=== PATIENT | female | born 1945 | race Caucasian/White ===

== ENCOUNTER 2023-03-01 13:17 | Outpatient (REF) | payer BC, SELFPAY ==
--- NOTE | ~2023-03-01 | XR_ITS ---
EXAMINATION: XR KNEE, RIGHT CLINICAL INFORMATION: Status post right total knee arthroplasty. COMPARISON: None available. TECHNIQUE: AP and lateral views of the right knee. FINDINGS: Patient status post right knee arthroplasty with femoral and tibial components in position and no evidence of acute fracture or dislocation. No loosening identified. No joint effusion is seen. XR/XR knee RT 2V IMPRESSION: No significant bony abnormality of the right knee identified.
== END 2023-03-01 13:18 | disposition home or self-care (01) ==
LOC: HO.HOSX 13:17
PROVIDERS: Visit Provider Orthopaedic Surgery
DX: Z96.651 Presence of right artificial knee joint (principal)
CPT/HCPCS: 73560

== ENCOUNTER 2023-03-14 13:52 | Outpatient (AMB) | payer BC, SELFPAY ==
--- NOTE | 2023-03-14 13:52 | MHC.OFFVIS ---
Intake Vital Signs 03/14/23 14:03 Height 4 ft 10 in Weight 209 lb 8 oz BMI 43.8 BP 144/66 H Blood Pressure Location Lt brachial Position Sitting Pulse 82 Pulse Source Pulse Oximeter Pulse Oximetry (%) 93 Oxygen Delivery Method Room Air Intake Visit Reasons: Knee pain Intake Note: S/P bilat TKR's, L more painful than R Allergies hydromorphone [From Dilaudid] Allergy (Verified 03/14/23 14:05) asthma levofloxacin [From Levaquin] Allergy (Verified 03/14/23 14:05) restless legs moxifloxacin [From Avelox] Allergy (Verified 03/14/23 14:05) Hives Penicillins Allergy (Verified 03/14/23 14:05) Rash Medication List - Last Reconciled 03/14/23 by Margot Villasenor RN alprazolam 1 mg PO DAILY amlodipine 10 mg PO DAILY budesonide 0.25 mg inhalation BID bupropion HCl 300 mg PO QAM dupilumab (Dupixent) 300 mg subcut Q2W famotidine 20 mg PO BEDTIME tdpbaldjwho-peykhsqbc-lgnymqjt 100-62.5-25 mcg (Trelegy Ellipta) 1 inh inhalation DAILY immun glob G(IgG)-pro-IgA 0-50 10 gram/50 mL (20 %) (Hizentra) 5,000 mg subcut QWEEK lansoprazole 30 mg PO DAILY linaclotide (Linzess) 72 mcg PO DAILY losartan 100 mg PO DAILY montelukast 10 mg PO DAILY omalizumab (Xolair) 300 mg subcut Q4W omalizumab (Xolair) 150 mg subcut Q4W ondansetron 4 mg PO Q8H paroxetine HCl 30 mg PO DAILY pravastatin 10 mg PO DAILY HPI HPI Comments History of Present Illness Details Patient is a pleasant 78 years old female with prior history of left ankle fracture with hardware intact since 1993, bilateral total knee replacements (left knee 2016, right knee 09/2022) and back surgery (2020 Dr. Dacosta), presents today with ongoing global anterior knee pain. She was seen by Orthopedic providers regularly. She is currently active with physical therapy, and has been active with home PT transitioned to outpatient PT since November. Reports she has not gained significant pain relief but some improvement in her functioning with PT. She also has lower back pain which is not bothering her as much. Bilateral knee pain is constant with severe pain up to 8-10/10 and describes it as aching, tiring, exhausting, squeezing, and heavy. She ambulates with slow antalgic gait with slight limping. Uses walker with ambulation. Oxycodone, lidocaine patches, diclofenac gel, ice/heat therapy has been only partially effective for her pain control. Pain affects her daily activities, functioning, mood, sleep, social interactions and quality of life. She is intersted to undergo bilateral genicular nerve blocks for potential genicular RFA procedure. Patient is not interested in peripheral nerve stimulation with Sprint trial. [facility] Surgical History (Updated 03/14/23 @ 14:24 by RIKA Kerns) History of total left knee replacement History of total right knee replacement Review of Systems Const All systems reviewed & are unremarkable except as noted in HPI and below Reports as per HPI, Denies body aches, Denies chills, Reports fatigue, Denies fever(s), Denies frequent falls, Denies night sweats, Denies weakness and Denies weight loss Card Denies chest pain, Denies pedal edema and Denies dyspnea Resp Denies dyspnea Musc Reports back pain, Denies myalgias, Reports arthralgias, Denies numbness, Denies radiating pain into limb, Reports stiffness and Denies tingling Neuro Denies frequent falls, Denies numbness, Denies tingling and Denies weakness Endo Reports fatigue Physical Exam Vital Signs: Last Vital Signs Pulse 82 03/14/23 14:03 BP 144/66 H 03/14/23 14:03 Pulse Ox 93 03/14/23 14:03 Oxygen Delivery Method Room Air 03/14/23 14:03 BMI result Body Mass Index 43.8 General: Appears afebrile. Alert and oriented. Mood and affect appropriate. Follows and participates in conversation appropriately. Respiratory effort is unlabored. No cough. Able to transition from sit to stand unassisted. Uses walker with assistance. Ambulates with bilaterally normal heel strike and toe off. Back/Spine/Pelvis Cervical Spine: cervical ROM normal and No Cervical spine tenderness Thoracic/Lumbar Spine: thoracic and lumbar spine normal to inspection, Thoracic/lumbar spine scar(s), pain with thoraco-lumbar ROM, thoraco-lumbar ROM limited, No thoracic spinal tenderness and No lumbar spinal tenderness Extrem General: Yes capillary refill normal, Yes no clubbing, cyanosis or edema and Yes no calf tenderness Right lower extremity: knee (Limited ROM, well healed scars. ) Details: normal to inspection and tenderness (global anterior knee pain); no swelling, no ecchymosis, no crepitus and no unusual warmth Left lower extremity: knee (Limited ROM, well healed scars. ) Details: normal to inspection and tenderness (Anterior aspect, global knee pain); no swelling, no ecchymosis, no crepitus and no unusual warmth Assessment & Plan Assessment & Plan (1) Bilateral knee pain: Code(s): M25.561 - Pain in right knee; M25.562 - Pain in left knee (2) History of total left knee replacement: Code(s): Z96.652 - Presence of left artificial knee joint (3) History of total right knee replacement: Comment: Dr. Sawyer Code(s): Z96.651 - Presence of right artificial knee joint (4) Lumbar post-laminectomy syndrome: Code(s): M96.1 - Postlaminectomy syndrome, not elsewhere classified (5) Chronic low back pain: Code(s): M54.50 - Low back pain, unspecified; G89.29 - Other chronic pain Plan Schedule Bilateral Diagnostic Genicular Nerve Blocks with local and fluoroscopy for potential genicular RFA procedure. We will start with left knee per patient's request. She is not interested in Sprint PNS trial given complexity of her medical issues, appointments and idea of peripheral lead placement with weekly dressing changes is not fitting into her current lifestyle. Informational pamphlets were provided. All questions and concerns have been answered and patient agreed with the plan. Follow up after injections and sooner if needed. Justification for interventional therapy: ? Patient with average pain > 6/10 ? Patient has exhausted conservative therapy . Patient is currently active with physical therapy The risks, consequences, alternatives, and benefits of various treatment options were discussed with the patient in great detail, including conservative management, injections and procedures. Coding Level of Care Code New Pt Level 4 (01033) Diagnoses Bilateral knee pain M25.561; M25.562 History of total left knee replacement Z96.652 History of total right knee replacement Z96.651 Lumbar post-laminectomy syndrome M96.1 Chronic low back pain M54.50; G89.29
[2023-03-14 14:03] VITALS: BP 144/66; PULSE 82; O2SAT 93; BMI 43.8
== END 2023-03-14 14:32 | disposition home or self-care (01) ==
PROVIDERS: PCP Internal Medicine; Visit Provider Nurse Practitioner Family
DX: M25.561 Pain in right knee (principal); M25.562 Pain in left knee; Z96.652 Presence of left artificial knee joint; Z96.651 Presence of right artificial knee joint; M96.1 Postlaminectomy syndrome, not elsewhere classified; M54.50 Low back pain, unspecified; G89.29 Other chronic pain
CPT/HCPCS: 99204

== ENCOUNTER → 2023-03-14 13:52 | Outpatient (BNVA) | payer BC, SELFPAY | PROVIDERS: PCP Internal Medicine; Visit Provider Nurse Practitioner Family ==

== ENCOUNTER 2023-04-20 06:01 | Outpatient (REF) | payer BC, SELFPAY ==
--- NOTE | ~2023-04-20 | FL_ITS ---
EXAMINATION: XR FLUOROSCOPY WITH IMAGES CLINICAL INFORMATION: Left knee pain COMPARISON: No comparison imaging exams of left knee TECHNIQUE: Fluoroscopy Supervised By: Dr. Llanos. Fluoroscopy Time: 0.2 minutes. Cumulative Dose: 2.17 mGy. DAP: 0.45 Gycm2. 3 fluoroscopy images of the knee are saved. The images are not labeled with regards to laterality. FL/FL guidance in treatment room FINDINGS AND IMPRESSION: The examined knee has intact-appearing arthroplasty components in normal alignment. Lagrange from an injection procedure are seen. The needle tips are projecting medial and lateral to the distal femoral metaphysis and overlying region of medial tibial metaphysis. Please refer to the procedure report.
== END 2023-04-20 06:02 | disposition home or self-care (01) ==
LOC: CF 06:01
PROVIDERS: Visit Provider Internal Medicine
DX: M25.561 Pain in right knee (principal); M25.562 Pain in left knee
CPT/HCPCS: 64454

== ENCOUNTER 2023-04-20 08:39 | Outpatient (AMB) | payer BC, MEDICAID, SELFPAY ==
[2023-04-20 08:47] VITALS: BP 120/62; PULSE 86; RESP 14; O2SAT 96
--- NOTE | 2023-04-20 08:47 | A.OFFVIS_ITS ---
Intake Vital Signs 04/20/23 08:47 BP 120/62 Blood Pressure Location Lt radial Position Sitting Respiration 14 Pulse 86 Pulse Source Pulse Oximeter Pulse Oximetry (%) 96 Oxygen Delivery Method Room Air Intake Visit Reasons: Left Dx GNB Allergies hydromorphone [From Dilaudid] Allergy (Verified 04/20/23 08:48) asthma levofloxacin [From Levaquin] Allergy (Verified 04/20/23 08:48) restless legs moxifloxacin [From Avelox] Allergy (Verified 04/20/23 08:48) Hives Penicillins Allergy (Verified 04/20/23 08:48) Rash HPI Left Dx GNB HPI Details Patient presents for scheduled procedure. Denies any recent cough, cold, infection, fever or other significant changes in medical history since last office visit. [facility] Surgical History (Updated 03/14/23 @ 14:24 by RIKA Kerns) History of total left knee replacement History of total right knee replacement Physical Exam Vital Signs: Last Vital Signs Pulse 86 04/20/23 08:47 Resp 14 04/20/23 08:47 BP 120/62 04/20/23 08:47 Pulse Ox 96 04/20/23 08:47 Oxygen Delivery Method Room Air 04/20/23 08:47 Office Procedures Nerve Block Details: Left Genicular Nerves, fluoroscopic guided - Superior medial, superior lateral, and inferior medial genicular nerve block After obtaining written consent, pre-procedure blood pressure and heart rate were stable and recorded in the nursing record. The patient was placed supine on the fluoroscopy table. The area overlying the peripheral nerves was widely prepped with chloraprep, allowed to dry and sterilely draped. Using fluoroscopy, the appropriate landmarks were identified. The skin overlying the target was anesthetized with 0.5% lidocaine. A 25 gauge 1.5 inch hypodermic needle was advanced under fluoroscopic guidance to the appropriate landmark of each peripheral nerve, except the superomedial nerve where a 3.5 inch spinal needle was used. Verification using lateral and AP views. Aspiration was negative for heme and synovial fluid. 1 cc of ropivacaine 0.5% was injected around each targeted nerve. The needles were removed, skin cleansed and a sterile bandage was applied. The patient tolerated the procedure well and no complications were encountered. Following the procedure the patient's vital signs were stable. The patient was discharged home in good condition with post- procedural instructions. Time Out: Immediately prior to the procedure, the following was verbally confirmed that there is a signed consent form and that the correct patient, planned procedure, site and side are consistent with documentation and that necessary equipment and/or blood products are available prior to the start of the case. Complications: none EBL: <5 cc 42683 - Geniculate (knee) Procedure code (CPT) selection complete Assessment & Plan Assessment & Plan (1) Bilateral knee pain: Code(s): M25.561 - Pain in right knee; M25.562 - Pain in left knee Plan Patient is status post left fluoro guided GNBs. Patient tolerated procedure well and was discharged home in stable condition with discharge instructions. All questions were answered. We will follow-up via telephone or in clinic to assess response to therapy. A follow-up appointment was made during today's visit. Orders: Orders 2 FL guidance in treatment room Today M25.561 - Pain in right knee, M25.562 - Pain in left knee Coding Level of Care Code Procedure Only Diagnoses Bilateral knee pain M25.561; M25.562 CPT Codes Nerve Block - Nerve Block 8: 26732 - Geniculate (knee) ([id number])
== END 2023-04-20 09:53 | disposition home or self-care (01) ==
PROVIDERS: PCP Internal Medicine; Visit Provider Internal Medicine
DX: M25.562 Pain in left knee (principal); M25.561 Pain in right knee
CPT/HCPCS: 64454

== ENCOUNTER 2023-04-27 06:00 | Outpatient (REF) | payer BC, SELFPAY ==
--- NOTE | ~2023-04-27 | FL_ITS ---
EXAMINATION: XR FLUOROSCOPY WITH IMAGES CLINICAL INFORMATION: Presence of left artificial knee joint. COMPARISON: None available. TECHNIQUE: Fluoroscopy Supervised By: Dr. Jose Llanos. Fluoroscopy Time: 0.1 minutes. Cumulative Dose: 1.29 mGy. DAP: 0.232 Gycm2. Images: 2. FINDINGS: Images demonstrate needle placement for geniculate nerve injection. There is a 3 component right knee replacement. FL/FL guidance in treatment room IMPRESSION: Fluoroscopy guidance for pain management procedure
== END 2023-04-27 06:01 | disposition home or self-care (01) ==
LOC: CF 06:00
PROVIDERS: Visit Provider Internal Medicine
DX: M25.561 Pain in right knee (principal); M25.562 Pain in left knee; Z96.652 Presence of left artificial knee joint
CPT/HCPCS: 64454

== ENCOUNTER 2023-04-27 09:32 | Outpatient (AMB) | payer BC, SELFPAY ==
[2023-04-27 09:43] VITALS: BP 106/62; PULSE 88; RESP 14; O2SAT 95
--- NOTE | 2023-04-27 09:43 | MHC.OFFVIS ---
Intake Vital Signs 04/27/23 09:43 BP 106/62 Blood Pressure Location Lt radial Position Sitting Respiration 14 Pulse 88 Pulse Source Pulse Oximeter Pulse Oximetry (%) 95 Oxygen Delivery Method Room Air Intake Visit Reasons: right Dx GNB Allergies hydromorphone [From Dilaudid] Allergy (Verified 04/27/23 09:44) asthma levofloxacin [From Levaquin] Allergy (Verified 04/27/23 09:44) restless legs moxifloxacin [From Avelox] Allergy (Verified 04/27/23 09:44) Hives Penicillins Allergy (Verified 04/27/23 09:44) Rash HPI right Dx GNB HPI Details Patient presents for scheduled procedure. Denies any recent cough, cold, infection, fever or other significant changes in medical history since last office visit. [facility] Surgical History (Updated 03/14/23 @ 14:24 by RIKA Kerns) History of total left knee replacement History of total right knee replacement Physical Exam Vital Signs: Last Vital Signs Pulse 88 04/27/23 09:43 Resp 14 04/27/23 09:43 BP 106/62 04/27/23 09:43 Pulse Ox 95 04/27/23 09:43 Oxygen Delivery Method Room Air 04/27/23 09:43 Office Procedures Nerve Block Details: Right Genicular Nerves, fluoroscopic guided - Superior medial, superior lateral, and inferior medial genicular nerve block After obtaining written consent, pre-procedure blood pressure and heart rate were stable and recorded in the nursing record. The patient was placed supine on the fluoroscopy table. The area overlying the peripheral nerves was widely prepped with chloraprep, allowed to dry and sterilely draped. Using fluoroscopy, the appropriate landmarks were identified. The skin overlying the target was anesthetized with 0.5% lidocaine. A 25 gauge 1.5 inch spinal needle was advanced under fluoroscopic guidance to the appropriate landmark of each peripheral nerve. Verification using lateral and AP views. Aspiration was negative for heme and synovial fluid. 1 cc of ropivacaine 0.5% was injected around each targeted nerve. The needles were removed, skin cleansed and a sterile bandage was applied. The patient tolerated the procedure well and no complications were encountered. Following the procedure the patient's vital signs were stable. The patient was discharged home in good condition with post-procedural instructions. Time Out: Immediately prior to the procedure, the following was verbally confirmed that there is a signed consent form and that the correct patient, planned procedure, site and side are consistent with documentation and that necessary equipment and/or blood products are available prior to the start of the case. Complications: none EBL: <5 cc 94553 - Geniculate (knee) Procedure code (CPT) selection complete Assessment & Plan Assessment & Plan (1) Bilateral knee pain: Code(s): M25.561 - Pain in right knee; M25.562 - Pain in left knee Plan Patient is status post right GNBs. Patient tolerated procedure well and was discharged home in stable condition with discharge instructions. All questions were answered. We will follow-up via telephone or in clinic to assess response to therapy. A follow-up appointment was made during today's visit. Orders: Orders FL guidance in treatment room Today M25.561 - Pain in right knee, M25.562 - Pain in left knee, Z96.652 - Presence of left artificial knee joint Coding Level of Care Code Procedure Only Diagnoses Bilateral knee pain M25.561; M25.562 CPT Codes Nerve Block - Nerve Block 8: 63506 - Geniculate (knee) ([id number])
== END 2023-04-27 10:24 | disposition home or self-care (01) ==
LOC: HO.PMCPRC 09:32
PROVIDERS: PCP Internal Medicine; Visit Provider Internal Medicine
DX: M25.561 Pain in right knee (principal)
CPT/HCPCS: 64454

== ENCOUNTER 2023-04-29 10:55 | Outpatient (AMB) | payer BC, SELFPAY ==
[2023-04-29 11:01] VITALS: BP 172/71; PULSE 97; O2SAT 98; BMI 41.8
--- NOTE | 2023-04-29 11:01 | A.OFFVIS_ITS ---
Intake Vital Signs 04/29/23 11:01 Height 4 ft 10 in Weight 200 lb BMI 41.8 BP 172/71 H Blood Pressure Location Lt brachial Position Sitting Pulse 97 Pulse Source Pulse Oximeter Pulse Oximetry (%) 98 Oxygen Delivery Method Room Air Intake Visit Reasons: s/p Perez Dx GNB Intake Note: Pain today 10/15 [employer] Project [employer] Required: No Accompanied by: Self / Same As Patient Allergies hydromorphone [From Dilaudid] Allergy (Verified 04/29/23 10:55) asthma levofloxacin [From Levaquin] Allergy (Verified 04/29/23 10:55) restless legs moxifloxacin [From Avelox] Allergy (Verified 04/29/23 10:55) Hives Penicillins Allergy (Verified 04/29/23 10:55) Rash HPI HPI Comments History of Present Illness Details Patient presents today for follow up to assess response for Left Diagnostic GNB on 04/20/23 and Right Diagnostic GNB on 04/27/[address] Llanos. Patient reports 90% pain relief for left knee for first 48 hours and ongoing 80% pain relief and 80% ongoing pain relief for right knee since procedure. Patient reports significant improvement in her mobility, functioning, sleep and tolerance with stair walking. She also reports left foot pain with h/o left ankle fracture with hardware and plans to follow up with Orthopedics. Patient is interested to proceed with bilateral genicular RFA procedure for a longer term pain relief for her chronic knee pain. Denies any recent cough, cold, infection, fever or other significant changes in medical history since last office visit. Past Procedures: 04/20/23: Diagnostic Left GNB-90% pain relief for >48% 04/27/23: Diagnostic Right GNB-80% pain relief for >48 hours PRIOR: Patient is a pleasant 78 years old female with prior history of left ankle fracture with hardware intact since 1993, bilateral total knee replacements (left knee 2016, right knee 09/2022) and back surgery (2020 Dr. Dacosta), presents today with ongoing global anterior knee pain. She was seen by Orthopedic providers regularly. She is currently active with physical therapy, and has been active with home PT transitioned to outpatient PT since November. Reports she has not gained significant pain relief but some improvement in her functioning with PT. She also has lower back pain which is not bothering her as much. Bilateral knee pain is constant with severe pain up to 8-10/10 and describes it as aching, tiring, exhausting, squeezing, and heavy. She ambulates with slow antalgic gait with slight limping. Uses walker with ambulation. Oxycodone, lidocaine patches, diclofenac gel, ice/heat therapy has been only partially effective for her pain control. Pain affects her daily activities, functioning, mood, sleep, social interactions and quality of life. She is interested to undergo bilateral genicular nerve blocks for potential genicular RFA procedure. Patient is not interested in peripheral nerve stimulation with Sprint trial. [facility] Surgical History History of total left knee replacement History of total right knee replacement Review of Systems Const All systems reviewed & are unremarkable except as noted in HPI and below Physical Exam Vital Signs: Last Vital Signs Pulse 97 04/29/23 11:01 BP 172/71 H 04/29/23 11:01 Pulse Ox 98 04/29/23 11:01 Oxygen Delivery Method Room Air 04/29/23 11:01 BMI result Body Mass Index 41.8 General: Appears afebrile. Alert and oriented. Mood and affect appropriate. Follows and participates in conversation appropriately. Respiratory effort is unlabored. No cough. Able to transition from sit to stand unassisted. Uses walker with assistance. Ambulates with bilaterally normal heel strike and toe off. Extrem General: Yes capillary refill normal, Yes no clubbing, cyanosis or edema and Yes no calf tenderness Right lower extremity: knee (Limited ROM, well healed scars. ) Details: normal to inspection and tenderness (global anterior knee pain); no swelling, no ecchymosis, no crepitus and no unusual warmth Left lower extremity: knee (Limited ROM, well healed scars. ) Details: normal to inspection and tenderness (Anterior aspect, global knee pain); no swelling, no ecchymosis, no crepitus and no unusual warmth and foot Details: normal to inspection, tenderness Location: of the lateral foot Location: in the mid- section, toes with normal ROM, no edema and vascular exam Details: dorsalis pedis pulse present, posterior tibial pulse present and normal capillary refill; no unusual warmth and no ecchymosis Results Reviewed Results Reviewed: XR KNEE, RIGHT 03/01/23 CLINICAL INFORMATION: Status post right total knee arthroplasty. FINDINGS: Patient status post right knee arthroplasty with femoral and tibial components in position and no evidence of acute fracture or dislocation. No loosening identified. No joint effusion is seen. IMPRESSION: No significant bony abnormality of the right knee identified. Assessment & Plan Assessment & Plan (1) Bilateral knee pain: Code(s): M25.561 - Pain in right knee; M25.562 - Pain in left knee (2) Left foot pain: Code(s): M79.672 - Pain in left foot (3) History of total right knee replacement: Comment: Dr. Sawyer Code(s): Z96.651 - Presence of right artificial knee joint (4) History of total left knee replacement: Code(s): Z96.652 - Presence of left artificial knee joint Plan Schedule Bilateral Genicular Nerve Cooled RFA with sedation and fluoroscopy for chronic knee pain. Patient is not interested in Sprint PNS trial given complexity of her medical issues, appointments and idea of peripheral lead placement with weekly dressing changes is not fitting into her current lifestyle. Limitations of repeated RFA were reviewed with patient. All questions and concerns have been answered and patient agreed with the plan. Patient will follow up with Orthopedics re: left foot pain with prior history of ankle surger y. Follow up after genicular RFA and sooner if needed. Justification for interventional therapy: ? Patient with average pain > 6/10 ? Patient has exhausted conservative therapy, physical therapy, NSAIDs, oxycodone ? Dianostic bilateral GNB provided 80-90% pain relief >48 hours The risks, consequences, alternatives, and benefits of various treatment options were discussed with the patient in great detail, including conservative management, injections and procedures. Medications: New diclofenac sodium 1% (Arthritis Pain (diclofenac)) apply to single knee, ankle, foot; for foot includes sole/toes/top of foot 4 grams topical QID 100 grams 1RF pain M25.561 - Pain in right knee, M25.562 - Pain in left knee, M79.672 - Pain in left foot Coding Level of Care Code Est Pt Level 4 (78709) Diagnoses Bilateral knee pain M25.561; M25.562 Left foot pain M79.672 History of total right knee replacement Z96.651 History of total left knee replacement Z96.652
== END 2023-04-29 11:14 | disposition home or self-care (01) ==
PROVIDERS: PCP Internal Medicine; Visit Provider Nurse Practitioner Family
DX: M25.561 Pain in right knee (principal); M25.562 Pain in left knee; M79.672 Pain in left foot; Z96.651 Presence of right artificial knee joint; Z96.652 Presence of left artificial knee joint
CPT/HCPCS: 99214

== ENCOUNTER → 2023-04-29 10:55 | Outpatient (BNVA) | payer BC, SELFPAY | PROVIDERS: PCP Internal Medicine; Visit Provider Nurse Practitioner Family ==

== ENCOUNTER 2023-05-31 13:33 | Outpatient (AMB) | payer BC, SELFPAY ==
--- NOTE | 2023-05-31 13:40 | MHC.OFFVIS ---
Intake Intake Visit Reasons: ov-RT TKA follow up Intake Note: Cristina is a 78 year old female who presents today for a follow up appointment of her right knee s/p Right TKA 09/10/2022 as well as left total knee replacement surgery performed approximately 6 years ago. Patient states that she has taken oxycodone for chronic pain for quite a while. She has been seen by pain management here at [facility]. She is due to undergo ?pain blocks? on both of her knees next month. She denies any fevers or chills. Allergies hydromorphone [From Dilaudid] Allergy (Verified 05/31/23 13:46) asthma levofloxacin [From Levaquin] Allergy (Verified 05/31/23 13:46) restless legs moxifloxacin [From Avelox] Allergy (Verified 05/31/23 13:46) Hives Penicillins Allergy (Verified 05/31/23 13:46) Rash Medication List - Last Reviewed 05/31/23 by Peyton Ennis, [facility] alprazolam 1 mg PO DAILY amlodipine 10 mg PO DAILY budesonide 0.25 mg inhalation BID bupropion HCl 300 mg PO QAM diclofenac sodium 1% (Arthritis Pain (diclofenac)) 4 grams topical QID dupilumab (Dupixent) 300 mg subcut Q2W famotidine 20 mg PO BEDTIME agpxtouvqup-uwxlzrmow-rlsnzecb 100-62.5-25 mcg (Trelegy Ellipta) 1 inh inhalation DAILY yatwdjxrcfk-gpzqrcdyd-rnfmgazw 200-62.5-25 mcg (Trelegy Ellipta) 1 ea inhalation DAILY hydroxyzine HCl 25 mg PO QID immun glob G(IgG)-pro-IgA 0-50 10 gram/50 mL (20 %) (Hizentra) 5,000 mg subcut QWEEK lansoprazole 30 mg PO DAILY linaclotide (Linzess) 145 mcg PO DAILY linaclotide (Linzess) 72 mcg PO DAILY losartan 100 mg PO DAILY montelukast 10 mg PO DAILY omalizumab (Xolair) 300 mg subcut Q4W omalizumab (Xolair) 150 mg subcut Q4W ondansetron 4 mg PO Q8H oxycodone 5 mg PO TID paroxetine HCl 30 mg PO DAILY pravastatin 10 mg PO DAILY [facility] Surgical History History of total left knee replacement History of total right knee replacement Physical Exam Const Other: Well-nourished well-developed very friendly female awake alert and oriented x3 in no acute distress Extrem Other: Bilateral lower extremity examination shows good capillary refill, no skin lesions noted, normal sensation light touch Right knee examination shows that the surgical incision is well healed, no erythema, full active extension and flexion to 125 degrees, her patella tracks well Left knee examination shows that the surgical incision is well healed, no erythema, range of motion from -3 degrees to 120 degrees, her patella tracks well Assessment & Plan Assessment & Plan (1) Right knee pain: Code(s): M25.561 - Pain in right knee Plan Ms. Lorenz continues to have chronic pain issues after undergoing bilateral total knee replacement surgeries. At this point she does not appear to have anything mechanically wrong with her knee replacements. She will follow up with pain management for her ?pain blocks? next month as scheduled. She will continue taking oxycodone as needed. She will contact me prior to her annual follow-up appointment should any questions or concerns arise. Feel free to call me at any time should questions regarding her orthopedic management arise. I spent 22 minutes in reviewing the patient's records and imaging studies, seeing the patient and documenting in the medical record. Coding Level of Care Code Est Pt Level 2 (78671) Diagnoses Right knee pain M25.561
== END 2023-05-31 14:00 | disposition home or self-care (01) ==
PROVIDERS: PCP Internal Medicine; Visit Provider Orthopaedic Surgery
DX: M25.561 Pain in right knee (principal)
CPT/HCPCS: 99212

== ENCOUNTER → 2023-05-31 13:33 | Outpatient (BNVA) | payer BC, SELFPAY | PROVIDERS: PCP Internal Medicine; Visit Provider Orthopaedic Surgery ==

== ENCOUNTER 2023-06-15 11:11 | Day surgery (SDC) | payer MEDICARE, SELFPAY ==
[2023-06-09 14:12] VITALS: BMI 41.8
--- NOTE | 2023-06-14 09:11 | HO.ANESPROP2 ---
Documented by User: Radha Shi NP 06/14/23 09:12 HPI - Anesthesia Eval Consult details Narrative: 78yo F for Bilateral Genicular Nerve Cool RFA PMFSH Active Problems Active Problems: All Active Problems (Updated 06/09/23 @ 13:56 by Yasmeen Valencia RN) Left foot pain (Acute) Chronic low back pain (Acute) Lumbar post-laminectomy syndrome (Acute) Bilateral knee pain (Acute) Right knee pain (Acute) History of total right knee replacement (Acute) History of total left knee replacement (Acute) Past Medical History Medical History Osteoporosis Arthritis Asthma GERD (gastroesophageal reflux disease) Elevated cholesterol HTN (hypertension) Chronic low back pain Surgical History Surgical History Hx of mastectomy Hx of hysterectomy History of total left knee replacement History of total right knee replacement Social History Patient Tobacco Use Status: Former Tobacco user Quit Date: 40 years Meds Allergies Allergy/AdvReac Type Severity Reaction Status Date / Time hydromorphone [From Dilaudid] Allergy Intermediate asthma Verified 07/18/23 13:05 exacerbation moxifloxacin [From Avelox] Allergy Intermediate Hives Verified 07/18/23 13:05 Penicillins Allergy Intermediate Rash Verified 07/18/23 13:05 levofloxacin [From Levaquin] AdvReac Intermediate restless Verified 07/18/23 13:05 legs Home Medications Medication Instructions Recorded Confirmed Last Taken Type alprazolam 1 mg tablet 1 mg PO DAILY 03/01/23 06/09/23 Unknown History amlodipine 10 mg tablet 10 mg PO DAILY 03/01/23 06/15/23 06/15/23 History budesonide 0.5 mg/2 mL suspension 0.25 mg inhalation BID 03/01/23 06/09/23 Unknown History for nebulization bupropion HCl 300 mg 24 hr tablet, 300 mg PO QAM 03/01/23 06/09/23 06/15/23 History extended release dupilumab 300 mg/2 mL subcutaneous 300 mg subcut Q2W 03/01/23 06/09/23 Unknown History pen injector (Dupixent) famotidine 20 mg tablet 20 mg PO BEDTIME 03/01/23 06/09/23 Unknown History fluticasone fur. 100 mcg-umeclid 1 inh inhalation DAILY 03/01/23 06/09/23 Unknown History 62.5 mcg-vilant 25 mcg inhalat.powder (Trelegy Ellipta) immun glob G 10 gram/50 mL(20 5,000 mg subcut QWEEK 03/01/23 06/09/23 Unknown History %)-pro-IgA 0-50 mcg/mL subcutaneous soln (Hizentra) lansoprazole 30 mg capsule,delayed 30 mg PO DAILY 03/01/23 06/15/23 06/15/23 History release linaclotide 72 mcg capsule 72 mcg PO DAILY 03/01/23 06/09/23 Unknown History (Linzess) losartan 100 mg tablet 100 mg PO DAILY 03/01/23 06/09/23 Unknown History montelukast 10 mg tablet 10 mg PO DAILY 03/01/23 06/09/23 Unknown History omalizumab 150 mg/mL subcutaneous 150 mg subcut Q4W 03/01/23 06/09/23 Unknown History syringe (Xolair) omalizumab 150 mg/mL subcutaneous 300 mg subcut 03/01/23 05/31/23 Unknown History syringe (Xolair) ondansetron 4 mg disintegrating 4 mg PO Q8H 03/01/23 06/09/23 Unknown History tablet paroxetine HCl 30 mg tablet 30 mg PO DAILY 03/01/23 06/15/23 06/15/23 History pravastatin 10 mg tablet 10 mg PO DAILY 03/01/23 06/09/23 Unknown History fluticasone fur. 200 mcg-umeclid 1 ea inhalation DAILY 04/29/23 06/15/23 Unknown History 62.5 mcg-vilant 25 mcg inhalat.powder (Trelegy Ellipta) hydroxyzine HCl 25 mg tablet 25 mg PO QID 04/29/23 06/09/23 Unknown History linaclotide 145 mcg capsule 145 mcg PO DAILY 04/29/23 06/15/23 Unknown History (Linzess) oxycodone 5 mg tablet 5 mg PO TID 04/29/23 06/15/23 06/15/23 History famotidine 40 mg tablet 40 mg PO BID 06/15/23 06/15/23 Unknown History Exam Exam Date and Time: June 14, 2023 0911 Height,Weight and Vital Signs: Height 4 ft 10 in Weight 90.718 kg Assessment and Plan Assessment Anesthesia Assessment: Chart Reviewed Documented by User: Scar Rico MD 07/28/23 18:51 HPI - Anesthesia Eval Consult details Narrative: 78yo F for Bilateral Genicular Nerve Cool RFA no chest pain or SOB Asthma PMFSH Past Medical History Medical History Osteoporosis Arthritis Asthma GERD (gastroesophageal reflux disease) Elevated cholesterol HTN (hypertension) Chronic low back pain Functional capacity: uses cane/walker Family History Family history of problems with anesthesia: No Surgical History Surgical History Hx of mastectomy Hx of hysterectomy History of total left knee replacement History of total right knee replacement History of Problems with Anesthesia: No Social History Patient Tobacco Use Status: Former Tobacco user Quit Date: 40 years Meds Allergies Allergy/AdvReac Type Severity Reaction Status Date / Time hydromorphone [From Dilaudid] Allergy Intermediate asthma Verified 07/18/23 13:05 exacerbation moxifloxacin [From Avelox] Allergy Intermediate Hives Verified 07/18/23 13:05 Penicillins Allergy Intermediate Rash Verified 07/18/23 13:05 levofloxacin [From Levaquin] AdvReac Intermediate restless Verified 07/18/23 13:05 legs Home Medications Medication Instructions Recorded Confirmed Last Taken Type alprazolam 1 mg tablet 1 mg PO DAILY 03/01/23 06/09/23 Unknown History amlodipine 10 mg tablet 10 mg PO DAILY 03/01/23 06/15/23 06/15/23 History budesonide 0.5 mg/2 mL suspension 0.25 mg inhalation BID 03/01/23 06/09/23 Unknown History for nebulization bupropion HCl 300 mg 24 hr tablet, 300 mg PO QAM 03/01/23 06/09/23 06/15/23 History extended release dupilumab 300 mg/2 mL subcutaneous 300 mg subcut Q2W 03/01/23 06/09/23 Unknown History pen injector (Dupixent) famotidine 20 mg tablet 20 mg PO BEDTIME 03/01/23 06/09/23 Unknown History fluticasone fur. 100 mcg-umeclid 1 inh inhalation DAILY 03/01/23 06/09/23 Unknown History 62.5 mcg-vilant 25 mcg inhalat.powder (Trelegy Ellipta) immun glob G 10 gram/50 mL(20 5,000 mg subcut QWEEK 03/01/23 06/09/23 Unknown History %)-pro-IgA 0-50 mcg/mL subcutaneous soln (Hizentra) lansoprazole 30 mg capsule,delayed 30 mg PO DAILY 03/01/23 06/15/23 06/15/23 History release linaclotide 72 mcg capsule 72 mcg PO DAILY 03/01/23 06/09/23 Unknown History (Linzess) losartan 100 mg tablet 100 mg PO DAILY 03/01/23 06/09/23 Unknown History montelukast 10 mg tablet 10 mg PO DAILY 03/01/23 06/09/23 Unknown History omalizumab 150 mg/mL subcutaneous 150 mg subcut Q4W 03/01/23 06/09/23 Unknown History syringe (Xolair) omalizumab 150 mg/mL subcutaneous 300 mg subcut 03/01/23 05/31/23 Unknown History syringe (Xolair) ondansetron 4 mg disintegrating 4 mg PO Q8H 03/01/23 06/09/23 Unknown History tablet paroxetine HCl 30 mg tablet 30 mg PO DAILY 03/01/23 06/15/23 06/15/23 History pravastatin 10 mg tablet 10 mg PO DAILY 03/01/23 06/09/23 Unknown History fluticasone fur. 200 mcg-umeclid 1 ea inhalation DAILY 04/29/23 06/15/23 Unknown History 62.5 mcg-vilant 25 mcg inhalat.powder (Trelegy Ellipta) hydroxyzine HCl 25 mg tablet 25 mg PO QID 04/29/23 06/09/23 Unknown History linaclotide 145 mcg capsule 145 mcg PO DAILY 04/29/23 06/15/23 Unknown History (Linzess) oxycodone 5 mg tablet 5 mg PO TID 04/29/23 06/15/23 06/15/23 History famotidine 40 mg tablet 40 mg PO BID 06/15/23 06/15/23 Unknown History Exam Airway Mallampati Class: III Loose/Missing/Broken Teeth: Yes Assessment and Plan Assessment Anesthesia Assessment: Anesthesia Plan Discussed Final Anesthetic Review Family History of Problems with Anesthesia: No History of Problems with Anesthesia: No NPO: Yes ASA Class: III Final Preanesthetic Review: Meds/Allgs Chart Reviewed, Consent Obtained/Reviewed and Anes Risks/Benef Reviewed Patient Risk: Intermediate Procedure Risk: Intermediate Anesthetic Plan Anesthetic Plan: MAC: and Agree w/ Assess. and Plan Disposition: Standard PACU
--- NOTE | ~2023-06-15 | FL_ITS ---
EXAMINATION: XR FLUOROSCOPY WITH IMAGES CLINICAL INFORMATION: Bilateral genicular nerve RFA. COMPARISON: Prior examinations, most recently 04/27/2023. TECHNIQUE: Fluoroscopy Supervised By: Dr. Jose Llanos. Fluoroscopy Time: 0.9 minutes. Cumulative Dose: 15.4 mGy. DAP: 2.90 Gycm2. Images: 4. FINDINGS: The submitted intraoperative images show bilateral needle placements nerve ablations. There are intact bilateral knee total arthroplasties. FL/FL guidance in OR IMPRESSION: Intraoperative fluoroscopic guidance is provided for bilateral genicular nerve RFA treatments. Please see the patient's Operative Report for full procedural details.
[2023-06-15 11:45] VITALS: BMI 44.4; BMI 46.0
[2023-06-15 11:47] VITALS: BP 137/62; PULSE 78; RESP 18; TEMP 36.2; O2SAT 96
[2023-06-15 13:52] VITALS: BP 116/93; PULSE 76; RESP 14; TEMP 36.6; O2SAT 96
--- NOTE | 2023-06-15 13:57 | MHC.SHP ---
Pre-Procedural Eval Section A Date of Service: 06/15/23 The patient is an INPATIENT: No Changes since office visit: Yes Patient answered all questions The History & Physical has been completed within 30 days and I have reviewed it.: No Section B Chief Complaint: Right and Left Knee pain,R and L artificial joint Relevant Family History (Specify if Yes): No Relevant Social History: None Present Medications: see Short Stay Collaborative assessment Medical History: No relevant PMH History of Previous Operations: Relevant previous surgery/procedure and date(s) ( bilateral TKA) Allergies: Allergies Allergy/AdvReac Type Severity Reaction Status Date / Time hydromorphone [From Dilaudid] Allergy Intermediate asthma Verified 06/09/23 13:57 exacerbation moxifloxacin [From Avelox] Allergy Intermediate Hives Verified 06/09/23 13:57 Penicillins Allergy Intermediate Rash Verified 06/09/23 13:57 levofloxacin [From Levaquin] AdvReac Intermediate restless Verified 06/09/23 13:57 legs Review of Systems Sugical H&P ROS: Negative: Constitution, Cardiovascular and Respiratory Exam Surgical H&P Exam: Normal: HEENT, Normal: Heart and Normal: Lungs Plan Diagnosis/Plan: Unchanged I have reviewed the history and physical and performed a pertinent physical examination on my patient. No changes have occurred unless specified. Time Spent With Patient Time: Total time managing care of this patient today ____ minutes.
--- NOTE | 2023-06-15 13:58 | PM.OP ---
Brief Operative Note Date of Service: 06/15/23 Pre-op diagnosis: Chronic knee pain after total knee arthroplasty of both knees Post-op diagnosis: same Procedure: Superior medial, superior lateral, and inferior medial genicular nerve radiofrequency lesioning Implants: None Surgeon: Jose Llanos MD Anesthesia: MAC and local Was an Human Service Specialist used for this Procedure?: No Estimated blood loss (mL): 4 Pathology: none sent Condition: stable Disposition: PACU
--- NOTE | 2023-06-15 13:59 | W.PM.OPN ---
Operative Note Operative Note Date of Service: 06/15/23 Narrative: Genicular Nerve RFL - fluoroscopic guided - Superior medial, superior lateral, and inferior medial genicular nerve radiofrequency lesioning, bilateral After obtaining written consent, pre-procedure blood pressure and heart rate were stable and recorded in the nursing record. Standard monitors were applied. The patient was placed supine on the fluoroscopy table and sedated by the room server. The area overlying the peripheral nerves was widely prepped with chloraprep, allowed to dry and sterilely draped. Using fluoroscopy, the appropriate landmarks were identified. The skin overlying the target was anesthetized with 0.5% lidocaine. A 18 gauge 50 mm needle was advanced under fluoroscopic guidance to the appropriate landmark of each peripheral nerve and verified using lateral and AP views. Aspiration was negative for heme and synovial fluid. Impedences were verified under 600 ohms. Each site was injected with 0.5 ml 2% preservative-free lidocaine. Radiofrequency lesioning was performed for 165 seconds at 80 deg Celcius tissue temperature. Each site was then injected with 1 ml 0.5% preservative-free bupivacaine. The needles were removed, skin cleansed and a sterile bandage was applied. The patient tolerated the procedure well and no complications were encountered. Following the procedure the patient's vital signs were stable. The patient was discharged home in good condition with post-procedural instructions. Time Out: Immediately prior to the procedure, the following was verbally confirmed that there is a signed consent form and that the correct patient, planned procedure, site and side are consistent with documentation and that necessary equipment and/or blood products are available prior to the start of the case. Complications: none EBL: <5 cc
[2023-06-15 14:06] VITALS: BP 121/61; PULSE 71; RESP 14; O2SAT 96
[2023-06-15 14:21] VITALS: BP 107/59; PULSE 71; RESP 14; O2SAT 93
[2023-06-15 14:36] VITALS: BP 127/75; PULSE 75; RESP 14; TEMP 36.4; O2SAT 94
== END 2023-06-15 15:34 | disposition home or self-care (01) ==
PROVIDERS: PCP Internal Medicine; Visit Provider Internal Medicine
PROC: (CPT 64624; principal; 2023-06-15 12:40)
DX: T84.84XA Pain due to internal orthopedic prosthetic devices, implants and grafts, initial encounter (principal); G89.28 Other chronic postprocedural pain; M25.561 Pain in right knee; M25.562 Pain in left knee; M79.672 Pain in left foot; Z96.653 Presence of artificial knee joint, bilateral; Y83.8 Other surgical procedures as the cause of abnormal reaction of the patient, or of later complication, without mention of misadventure at the time of the procedure; Y79.2 Prosthetic and other implants, materials and accessory orthopedic devices associated with adverse incidents; Y92.9 Unspecified place or not applicable; R26.89 Other abnormalities of gait and mobility; Z79.899 Other long term (current) drug therapy; Z99.89 Dependence on other enabling machines and devices; Z88.1 Allergy status to other antibiotic agents; Z88.0 Allergy status to penicillin; Z88.5 Allergy status to narcotic agent; Z98.890 Other specified postprocedural states
CPT/HCPCS: 64624; J0131; J0690; J2250

== ENCOUNTER → 2023-06-15 11:11 | Outpatient (BNV) | payer MEDICARE, SELFPAY | PROVIDERS: PCP Internal Medicine; Visit Provider Internal Medicine | DX: M47.812 Spondylosis without myelopathy or radiculopathy, cervical region (principal) | CPT/HCPCS: 64633; 64634 ==

== ENCOUNTER 2023-07-18 13:00 | Outpatient (AMB) | payer BC, SELFPAY ==
--- NOTE | 2023-07-18 13:03 | A.OFFVIS_ITS ---
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: No Accompanied by: Self / Same As Patient Allergies hydromorphone [From Dilaudid] Allergy (Intermediate, Verified 07/18/23 13:05) asthma exacerbation moxifloxacin [From Avelox] Allergy (Intermediate, Verified 07/18/23 13:05) Hives Penicillins Allergy (Intermediate, Verified 07/18/23 13:05) Rash levofloxacin [From Levaquin] Adverse Reaction (Intermediate, Verified 07/18/23 13:05) restless legs HPI HPI Comments History of Present Illness Details Patient presents today for follow up to assess response for Bilateral superior medial, superior lateral, and inferior medial genicular nerve radiofrequency lesioning on 06/15/[address] Llanos. Patient reports ongoing 80% pain relief for in both knees since procedure. She reports anterior knee residual numbness since genicular RFA. Patient reports significant improvement in her mobility, functioning, sleep and tolerance with stair walking. She continues to report left foot pain with h/o left ankle fracture with hardware and plans to follow up with Orthopedics or Harness Installer. Patient also states she recently joined gym for balance and gait strengthening and considers to join aqua therapy as well. Denies any recent cough, cold, infection, fever or other significant changes in medical history since last office visit. Past Procedures: 06/15/23: Bilateral genicular nerve cool ed RFA-80% pain relief, ongoing 04/20/23: Diagnostic Left GNB-90% pain r elief for >48% 04/27/23: Diagnostic Right GNB-80% pain relief for >48 hours PRIOR: Patient is a pleasant 78 years old female with prior history of left ankle fracture with hardware intact since 1993, bilateral total knee replacements (left knee 2016, right knee 09/2022) and back surgery (2020 Dr. Dacosta), presents today with ongoing global anterior knee pain. She was seen by Orthopedic providers regularly. She is currently active with physical therapy, and has been active with home PT transitioned to outpatient PT since November. Reports she has not gained significant pain relief but some improvement in her functioning with PT. She also has lower back pain which is not bothering her as much. Bilateral knee pain is constant with severe pain up to 8-10/10 and describes it as aching, tiring, exhausting, squeezing, and heavy. She ambulates with slow antalgic gait with slight limping. Uses walker with ambulation. Oxycodone, lidocaine patches, diclofenac gel, ice/heat therapy has been only partially effective for her pain control. Pain affects her daily activities, functioning, mood, sleep, social interactions and quality of life. She is interested to undergo bilateral genicular nerve blocks for potential genicular RFA procedure. Patient is not interested in peripheral nerve stimulation with Sprint trial. FOR[facility]LY [facility], [facility] Medical History Osteoporosis Arthritis Asthma GERD (gastroesophageal reflux disease) Elevated cholesterol HTN (hypertension) Chronic low back pain Surgical History Hx of mastectomy Hx of hysterectomy History of total left knee replacement History of total right knee replacement Social History Patient Tobacco Use Status: Former Tobacco user Quit Date: 40 years Review of Systems Const All systems reviewed & are unremarkable except as noted in HPI and below Physical Exam Vital Signs: BMI result Body Mass Index 41.8 General: Appears afebrile. Alert and oriented. Mood and affect appropriate. Follows and participates in conversation appropriately. Respiratory effort is unlabored. No cough. Able to transition from sit to stand unassisted. Uses cane with ambulation. Ambulates with bilaterally normal heel strike and toe off. Extrem General: Yes capillary refill normal, Yes no clubbing, cyanosis or edema and Yes no calf tenderness Assessment & Plan Assessment & Plan (1) Bilateral knee pain: Code(s): M25.561 - Pain in right knee; M25.562 - Pain in left knee (2) History of total left knee replacement: Code(s): Z96.652 - Presence of left artificial knee joint (3) History of total right knee replacement: Comment: Dr. Sawyer Code(s): Z96.651 - Presence of right artificial knee joint (4) Left foot pain: Code(s): M79.672 - Pain in left foot Plan Patient is status post B/L Genicular Nerve Cooled RFA 06/15/23 with ongoing 80% pain relief in both knees, right better than left. She is content with bilateral knee pain relief and will monitor for longevity of RFA and notify our office when her symptoms return. Reviewed effects and longevity of repeated RFA treatments. She continues to report left foot pain with h/o left ankle fracture with hardware and plans to follow up with Orthopedics or Harness Installer. All questions and concerns have been answered and patient agreed with the plan. Follow up as needed. Coding Level of Care Code Est Pt Level 3 (71143) Diagnoses Bilateral knee pain M25.561; M25.562 History of total left knee replacement Z96.652 History of total right knee replacement Z96.651 Left foot pain M79.672
[2023-07-18 13:06] VITALS: BMI 41.8
== END 2023-07-18 13:12 | disposition home or self-care (01) ==
PROVIDERS: PCP Internal Medicine; Visit Provider Nurse Practitioner Family
DX: M25.561 Pain in right knee (principal); M25.562 Pain in left knee; Z96.652 Presence of left artificial knee joint; Z96.651 Presence of right artificial knee joint; M79.672 Pain in left foot
CPT/HCPCS: 99213

== ENCOUNTER → 2023-07-18 13:00 | Outpatient (BNVA) | payer BC, SELFPAY | PROVIDERS: PCP Internal Medicine; Visit Provider Nurse Practitioner Family ==

== ENCOUNTER 2023-09-15 11:21 | Outpatient (REF) | payer MEDICARE, SELFPAY ==
--- NOTE | ~2023-09-15 | XR_ITS ---
EXAMINATION: XR KNEE, RIGHT CLINICAL INFORMATION: Presence of right artificial knee joint COMPARISON: Right knee 03/01/2023 TECHNIQUE: 3 views of the right knee. FINDINGS: The patient is status post right knee arthroplasty with patellar button with femoral and tibial components in position and no evidence of acute fracture or dislocation. No loosening identified. No joint effusion is seen. XR/XR knee RT 3V IMPRESSION: No significant abnormality of the right knee identified.
--- NOTE | ~2023-09-15 | XR_ITS ---
EXAMINATION: XR KNEE, LEFT CLINICAL INFORMATION: Presence of left artificial knee COMPARISON: None available. TECHNIQUE: 3 views of the left knee. FINDINGS: The patient is status post left knee arthroplasty with patellar button with femoral and tibial components in position and no evidence of acute fracture or dislocation. No loosening identified. Small joint effusion is seen. There is mild calcification of the distal quadriceps tendon. XR/XR knee LT 3V IMPRESSION: No significant abnormality of the left knee.
== END 2023-09-15 11:22 | disposition home or self-care (01) ==
LOC: HO.HOSX 11:21
PROVIDERS: Visit Provider Orthopaedic Surgery
DX: Z96.651 Presence of right artificial knee joint (principal); M25.562 Pain in left knee; Z96.652 Presence of left artificial knee joint
CPT/HCPCS: 73562

== ENCOUNTER 2023-09-15 13:33 | Outpatient (AMB) | payer BC, SELFPAY ==
[2023-09-15 13:37] VITALS: BMI 41.8
--- NOTE | 2023-09-15 13:37 | MHC.OFFVIS ---
Intake Vital Signs 09/15/23 13:37 Height 4 ft 10 in Weight 200 lb BMI 41.8 Intake Visit Reasons: ov-RT TKA follow up Intake Note: Cristina is a 78 female who presents with complaints of mild intermittent discomfort in both of her knees after undergoing bilateral total knee replacement surgeries. She denies any fevers or chills. She continues to take oxycodone for chronic low back pain. She recently joined [email or web address] and has been attending exercise classes 2 times per week. Allergies hydromorphone [From Dilaudid] Allergy (Intermediate, Verified 09/15/23 13:39) asthma exacerbation moxifloxacin [From Avelox] Allergy (Intermediate, Verified 09/15/23 13:39) Hives Penicillins Allergy (Intermediate, Verified 09/15/23 13:39) Rash levofloxacin [From Levaquin] Adverse Reaction (Intermediate, Verified 09/15/23 13:39) restless legs Medication List - Last Reconciled 09/16/23 by Liban Sawyer MD alprazolam 1 mg PO DAILY amlodipine 10 mg PO DAILY budesonide 0.25 mg inhalation BID bupropion HCl 300 mg PO QAM diclofenac sodium 1% (Arthritis Pain (diclofenac)) 4 grams topical QID dupilumab (Dupixent) 300 mg subcut Q2W famotidine 40 mg PO BID famotidine 20 mg PO BEDTIME aklcifygvth-auiviwfbw-agfsukgx 100-62.5-25 mcg (Trelegy Ellipta) 1 inh inhalation DAILY oiljdkwgsfh-tlxwlnysm-sfoxmaop 200-62.5-25 mcg (Trelegy Ellipta) 1 ea inhalation DAILY hydroxyzine HCl 25 mg PO QID immun glob G(IgG)-pro-IgA 0-50 10 gram/50 mL (20 %) (Hizentra) 5,000 mg subcut QWEEK lansoprazole 30 mg PO DAILY linaclotide (Linzess) 145 mcg PO DAILY linaclotide (Linzess) 72 mcg PO DAILY losartan 100 mg PO DAILY montelukast 10 mg PO DAILY omalizumab (Xolair) 300 mg subcut omalizumab (Xolair) 150 mg subcut Q4W ondansetron 4 mg PO Q8H oxycodone 5 mg PO TID paroxetine HCl 30 mg PO DAILY pravastatin 10 mg PO DAILY [facility] Medical History Osteoporosis Arthritis Asthma GERD (gastroesophageal reflux disease) Elevated cholesterol HTN (hypertension) Chronic low back pain Surgical History Hx of mastectomy Hx of hysterectomy History of total left knee replacement History of total right knee replacement Social History Patient Tobacco Use Status: Former Tobacco user Quit Date: 40 years Physical Exam Vital Signs: BMI result Body Mass Index 41.8 Const Other: Well-nourished well-developed very friendly female awake alert and oriented x3 in no acute distress Extrem Other: Bilateral lower extremity examination shows good capillary refill, no skin lesions noted, normal sensation light touch Bilateral knee examination shows that the surgical incisions are well healed, no erythema, full active extension and flexion to 120 degrees, her patellae track well Results Reviewed Results Reviewed: X-rays of the patient's bilateral knee show total knee arthroplasties in good position with no signs of loosening, no acute bony abnormalities Assessment & Plan Assessment & Plan (1) Bilateral knee pain: Code(s): M25.561 - Pain in right knee; M25.562 - Pain in left knee Plan Ms. Lorenz continues to do well after undergoing bilateral total knee replacement surgeries. She will continue with her exercise program. She does know to take antibiotics before any dental work. She will contact me prior to her annual follow-up appointment should any questions or concerns arise. Feel free to call me at any time should questions regarding her orthopedic management arise. I spent 22 minutes in reviewing the patient's records and imaging studies, seeing the patient and documenting in the medical record. Orders: Orders XR knee RT 3V 09/15/23 Z96.651 - Presence of right artificial knee joint XR knee LT 3V 09/15/23 Z96.652 - Presence of left artificial knee joint Coding Level of Care Code Est Pt Level 2 (70207) Diagnoses Bilateral knee pain M25.561; M25.562
== END 2023-09-15 14:15 | disposition home or self-care (01) ==
PROVIDERS: PCP Internal Medicine; Visit Provider Orthopaedic Surgery
DX: M25.561 Pain in right knee (principal); M25.562 Pain in left knee; Z96.653 Presence of artificial knee joint, bilateral
CPT/HCPCS: 99213

== ENCOUNTER 2024-03-15 13:03 | Outpatient (AMB) | payer BC, SELFPAY ==
--- NOTE | 2024-03-15 13:07 | MHC.OFFVIS ---
Intake Visit Reasons: ov-RT TKA follow up Intake Note: Cristina is a 79 year old female who presents with complaints of mild intermittent discomfort in both of her knees after undergoing bilateral total knee replacement surgeries. She continues to go to the gym to exercise 2-3 times per week. She denies any locking or giving way. Allergies hydromorphone [From Dilaudid] Allergy (Intermediate, Verified 03/15/24 13:08) asthma exacerbation moxifloxacin [From Avelox] Allergy (Intermediate, Verified 03/15/24 13:08) Hives Penicillins Allergy (Intermediate, Verified 03/15/24 13:08) Rash levofloxacin [From Levaquin] Adverse Reaction (Intermediate, Verified 03/15/24 13:08) restless legs Medication List - Last Reconciled 03/15/24 by Liban Sawyer MD alprazolam 1 mg PO DAILY amlodipine 10 mg PO DAILY budesonide 0.25 mg inhalation BID bupropion HCl XL 300 mg PO QAM diclofenac sodium 1% (Arthritis Pain (diclofenac)) 4 grams topical QID dupilumab (Dupixent) 300 mg subcut Q2W famotidine 40 mg PO BID famotidine 20 mg PO BEDTIME kerjcsxbyfa-znzwwqych-xnodxmed 100-62.5-25 mcg (Trelegy Ellipta) 1 inh inhalation DAILY zmkaphzibnu-bpfuaazpm-ukddcaxo 200-62.5-25 mcg (Trelegy Ellipta) 1 ea inhalation DAILY hydroxyzine HCl 25 mg PO QID immun glob G(IgG)-pro-IgA 0-50 10 gram/50 mL (20 %) (Hizentra) 5,000 mg subcut QWEEK lansoprazole 30 mg PO DAILY linaclotide (Linzess) 145 mcg PO DAILY linaclotide (Linzess) 72 mcg PO DAILY losartan 100 mg PO DAILY montelukast 10 mg PO DAILY omalizumab (Xolair) 300 mg subcut omalizumab (Xolair) 150 mg subcut Q4W ondansetron 4 mg PO Q8H oxycodone 5 mg PO TID paroxetine HCl 30 mg PO DAILY pravastatin 10 mg PO DAILY [facility] Medical History Osteoporosis Arthritis Asthma GERD (gastroesophageal reflux disease) Elevated cholesterol HTN (hypertension) Chronic low back pain Surgical History Hx of mastectomy Hx of hysterectomy History of total left knee replacement History of total right knee replacement Social History Patient Tobacco Use Status: Former Tobacco user Physical Exam Const Other: Well-nourished well-developed very friendly female awake alert and oriented x3 in no acute distress Extrem Other: Bilateral lower extremity examination shows good capillary refill, no skin lesions noted, normal sensation light touch Bilateral knee examination shows that the surgical incisions are well healed, no erythema, full active extension and flexion to 120 degrees, her patellae track well Assessment & Plan Assessment & Plan (1) Bilateral knee pain: Code(s): M25.561 - Pain in right knee; M25.562 - Pain in left knee Category: Medical Plan Ms. Lorenz continues to do fairly well after undergoing bilateral total knee replacement surgeries. She will continue going to the gym for exercise. She does know to take antibiotics before any dental work. She will contact me prior to her annual follow-up appointment should any questions or concerns arise. Feel free to call me at any time should questions regarding her orthopedic management arise. I spent 22 minutes in reviewing the patient's records and imaging studies, seeing the patient and documenting in the medical record. Coding Level of Care Code Est Pt Level 3 (37375) Diagnoses Bilateral knee pain M25.561; M25.562
== END 2024-03-15 13:30 | disposition home or self-care (01) ==
PROVIDERS: PCP Internal Medicine; Visit Provider Orthopaedic Surgery
DX: M25.561 Pain in right knee (principal); M25.562 Pain in left knee; Z96.653 Presence of artificial knee joint, bilateral
CPT/HCPCS: 99213

== ENCOUNTER → 2024-03-15 13:03 | Outpatient (BNVA) | payer BC, SELFPAY | PROVIDERS: PCP Internal Medicine; Visit Provider Orthopaedic Surgery ==

== ENCOUNTER 2024-05-31 15:13 | Outpatient (AMB) | payer BC, SELFPAY ==
--- NOTE | 2024-05-31 15:16 | MHC.OFFVIS ---
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 Denies any recent injury, falls, or trauma. Reports constant, moderate pain, severe at times pain in both of her knees after undergoing bilateral total knee replacement surgeries in the past. She reports therapeutic effects of genicular RFA since June 2023 have been wearing off since last month. She continues to stay active and goes to the gym to exercise 3-4 times per week at [employer]. Patient uses heating pad and diclofenac gel with minimal pain relief. She is also takes oxycodone for chronic pain related to arthritis and chronic back pain. Patient requests to repeat bilateral genicular RFA with sedation. Reports occasional grinding, more on the right side, when first getting up in the morning. Denies any fever, chills, dizziness, shortness of breaths, weakness, instability, locking or giving way, bladder or bowel dysfunction or saddle anesthesia. Past Procedures: 06/15/23: Bilateral genicular nerve cooled RFA-80% pain relief, fading effects since April 2024 04/20/23: Diagnostic Left GNB-90% pain relief for >48% 04/27/23: Diagnostic Right GNB-80% pain relief for >48 hours PRIOR: Patient is a pleasant 78 years old female with prior history of left ankle fracture with hardware intact since 1993, bilateral total knee replacements (left knee 2016, right knee 09/2022) and back surgery (2020 Dr. Dacosta), presents today with ongoing global anterior knee pain. She was seen by Orthopedic providers regularly. She is currently active with physical therapy, and has been active with home PT transitioned to outpatient PT since November. Reports she has not gained significant pain relief but some improvement in her functioning with PT. She also has lower back pain which is not bothering her as much. Bilateral knee pain is constant with severe pain up to 8-10/10 and describes it as aching, tiring, exhausting, squeezing, and heavy. She ambulates with slow antalgic gait with slight limping. Uses walker with ambulation. Oxycodone, lidocaine patches, diclofenac gel, ice/heat therapy has been only partially effective for her pain control. Pain affects her daily activities, functioning, mood, sleep, social interactions and quality of life. She is interested to undergo bilateral genicular nerve blocks for potential genicular RFA procedure. Patient is not interested in peripheral nerve stimulation with Sprint trial. [facility] Medical History Osteoporosis Arthritis Asthma GERD (gastroesophageal reflux disease) Elevated cholesterol HTN (hypertension) Chronic low back pain Surgical History Hx of mastectomy Hx of hysterectomy History of total left knee replacement History of total right knee replacement Social History Patient Tobacco Use Status: Former Tobacco user Review of Systems Const All systems reviewed & are unremarkable except as noted in HPI and below Physical Exam Vital Signs: Last Vital Signs Pulse 83 05/31/24 15:21 BP 150/67 H 05/31/24 15:21 Pulse Ox 98 05/31/24 15:21 Oxygen Delivery Method Room Air 05/31/24 15:21 General: Appears afebrile. Alert and oriented. Mood and affect appropriate. Follows and participates in conversation appropriately. Respiratory effort is unlabored. No cough. Able to transition from sit to stand unassisted. Uses cane with ambulation. Extrem General: Yes capillary refill normal, Yes no clubbing, cyanosis or edema and Yes no calf tenderness Right lower extremity: knee (Limited ROM, well healed scars. ) Details: normal to inspection, tenderness (global anterior knee pain) Location: of the medial joint line and of the lateral joint line and crepitus; no swelling, no ecchymosis and no unusual warmth Left lower extremity: knee (Limited ROM, well healed scars. ) Details: normal to inspection, tenderness (Anterior aspect, global knee pain) Location: of the medial joint line and of the lateral joint line and crepitus; no swelling, no ecchymosis and no unusual warmth Results Reviewed Results Reviewed: XR KNEE, LEFT 09/15/23 CLINICAL INFORMATION: Presence of left artificial knee FINDINGS: The patient is status post left knee arthroplasty with patellar button with femoral and tibial components in position and no evidence of acute fracture or dislocation. No loosening identified. Small joint effusion is seen. There is mild calcification of the distal quadriceps tendon. IMPRESSION: No significant abnormality of the left knee. XR KNEE, RIGHT 09/15/23 CLINICAL INFORMATION: Presence of right artificial knee joint COMPARISON: Right knee 03/01/2023 FINDINGS: The patient is status post right knee arthroplasty with patellar button with femoral and tibial components in position and no evidence of acute fracture or dislocation. No loosening identified. No joint effusion is seen. IMPRESSION: No significant abnormality of the right knee identified. Assessment & Plan Assessment & Plan (1) Bilateral knee pain: Code(s): M25.561 - Pain in right knee; M25.562 - Pain in left knee Category: Medical (2) History of total right knee replacement: Comment: Dr. Sawyer Code(s): Z96.651 - Presence of right artificial knee joint Category: Surgical (3) History of total left knee replacement: Code(s): Z96.652 - Presence of left artificial knee joint Category: Surgical Plan Schedule repeat Bilateral Genicular Nerve Cooled RFA with sedation and fluoroscopy for bilateral chronic knee pain with prior history of bilateral TKA. Patient is not interested in Sprint PNS trial given complexity of her medical issues and peripheral lead placement with weekly dressing changes is not fitting into her current lifestyle. All questions and concerns have been answered and patient agreed with the plan. Follow up after genicular RFA and sooner if needed. Justification for interventional therapy: ? Patient with average pain > 6/10 ? Patient has exhausted conservative therapy, physical therapy, NSAIDs, oxycodone ? Diagnostic bilateral GNB provided 80-90% pain relief >48 hours ? Bilateral genicular RFA 06/15/23 provided 80% pain relief till April 2024 The risks, consequences, alternatives, and benefits of various treatment options were discussed with the patient in great detail, including conservative management, injections and procedures. Coding Level of Care Code Est Pt Level 4 (95010) Complex EM visit Add On G2211 Diagnoses Bilateral knee pain M25.561; M25.562 History of total right knee replacement Z96.651 History of total left knee replacement Z96.652
[2024-05-31 15:21] VITALS: BP 150/67; PULSE 83; O2SAT 98
== END 2024-05-31 15:33 | disposition home or self-care (01) ==
PROVIDERS: PCP Internal Medicine; Visit Provider Nurse Practitioner Family
DX: M25.561 Pain in right knee (principal); M25.562 Pain in left knee; Z96.651 Presence of right artificial knee joint; Z96.652 Presence of left artificial knee joint
CPT/HCPCS: 99214

== ENCOUNTER → 2024-05-31 15:13 | Outpatient (BNVA) | payer BC, SELFPAY | PROVIDERS: PCP Internal Medicine; Visit Provider Nurse Practitioner Family ==

== ENCOUNTER → 2024-08-01 13:00 | Outpatient (BNV) | payer MEDICARE, SELFPAY | PROVIDERS: PCP Internal Medicine; Visit Provider Internal Medicine | DX: M25.561 Pain in right knee (principal); M25.562 Pain in left knee | CPT/HCPCS: 64454 ==

== ENCOUNTER → 2024-08-01 13:00 | Day surgery (SDC) | payer MEDICARE, SELFPAY ==
--- NOTE | 2024-07-31 09:24 | HO.ANESPROP2 ---
Documented by User: Radha Shi NP 07/31/24 09:27 HPI - Anesthesia Eval Consult details Narrative: 79yo F for Bilateral Genicular Nerve Cool RFA PMFSH Active Problems Active Problems: All Active Problems Left foot pain (Acute) Chronic low back pain (Acute) Lumbar post-laminectomy syndrome (Acute) Bilateral knee pain (Acute) Right knee pain (Acute) History of total right knee replacement (Acute) History of total left knee replacement (Acute) Past Medical History Medical History Osteoporosis Arthritis Asthma GERD (gastroesophageal reflux disease) Elevated cholesterol HTN (hypertension) Chronic low back pain Family History Family history of problems with anesthesia: No Surgical History Surgical History History of back surgery History of open reduction and internal fixation (ORIF) procedure History of radiofrequency ablation (RFA) of genicular nerve Hx of mastectomy Hx of hysterectomy History of total left knee replacement History of total right knee replacement History of Problems with Anesthesia: No Social History Social History Patient Tobacco Use Status: Former Tobacco user Have you been hit, kicked, punched, or otherwise hurt by someone within the past year? If so, by whom?: No Are you DNR?: No Advance Directives: No Advance Directives Information Provided: Yes Meds Allergies Allergy/AdvReac Type Severity Reaction Status Date / Time hydromorphone [From Dilaudid] Allergy Intermediate asthma Verified 05/31/24 15:22 exacerbation moxifloxacin [From Avelox] Allergy Intermediate Hives Verified 05/31/24 15:22 Penicillins Allergy Intermediate Rash Verified 05/31/24 15:22 levofloxacin [From Levaquin] AdvReac Intermediate restless Verified 05/31/24 15:22 legs Home Medications ?Medication ?Instructions ?Recorded ?Confirmed ?Last Taken ?Type alprazolam 1 mg tablet 1 mg PO DAILY 03/01/23 07/30/24 Unknown History amlodipine 10 mg tablet 10 mg PO DAILY 03/01/23 07/30/24 08/01/24 History budesonide 0.5 mg/2 mL suspension 0.25 mg inhalation BID 03/01/23 07/30/24 Unknown History for nebulization bupropion HCl 300 mg 24 hr tablet, 300 mg PO QAM 03/01/23 07/30/24 06/15/23 History extended release dupilumab 300 mg/2 mL subcutaneous 300 mg subcut Q2W 03/01/23 03/15/24 Unknown History pen injector (Dupixent) famotidine 20 mg tablet 20 mg PO BEDTIME 03/01/23 07/30/24 Unknown History immun glob G 10 gram/50 mL(20 5,000 mg subcut QWEEK 03/01/23 03/15/24 Unknown History %)-pro-IgA 0-50 mcg/mL subcutaneous soln (Hizentra) lansoprazole 30 mg capsule,delayed 30 mg PO DAILY 03/01/23 07/30/24 08/01/24 History release losartan 100 mg tablet 100 mg PO DAILY 03/01/23 07/30/24 Unknown History montelukast 10 mg tablet 10 mg PO DAILY 03/01/23 07/30/24 Unknown History omalizumab 150 mg/mL subcutaneous 150 mg subcut Q4W 03/01/23 07/30/24 Unknown History syringe (Xolair) ondansetron 4 mg disintegrating 4 mg PO Q8H 03/01/23 07/30/24 Unknown History tablet paroxetine HCl 30 mg tablet 30 mg PO DAILY 03/01/23 07/30/24 06/15/23 History pravastatin 10 mg tablet 10 mg PO DAILY 03/01/23 07/30/24 Unknown History fluticasone fur. 200 mcg-umeclid 1 ea inhalation DAILY 04/29/23 07/30/24 Unknown History 62.5 mcg-vilant 25 mcg inhalat.powder (Trelegy Ellipta) hydroxyzine HCl 25 mg tablet 25 mg PO QID 04/29/23 07/30/24 Unknown History linaclotide 145 mcg capsule 145 mcg PO DAILY 04/29/23 07/30/24 Unknown History (Linzess) oxycodone 5 mg tablet 5 mg PO TID 04/29/23 07/30/24 06/15/23 History famotidine 40 mg tablet 40 mg PO BID 06/15/23 07/30/24 Unknown History Exam Height,Weight and Vital Signs: Height 4 ft 10 in Assessment and Plan Assessment Anesthesia Assessment: Chart Reviewed Final Anesthetic Review Family History of Problems with Anesthesia: No History of Problems with Anesthesia: No Documented by User: Gricelda St MD 08/01/24 14:01 PENDING SALE TO [facility] Past Medical History Medical History Osteoporosis Arthritis Asthma GERD (gastroesophageal reflux disease) Elevated cholesterol HTN (hypertension) Chronic low back pain Surgical History Surgical History History of back surgery History of open reduction and internal fixation (ORIF) procedure History of radiofrequency ablation (RFA) of genicular nerve Hx of mastectomy Hx of hysterectomy History of total left knee replacement History of total right knee replacement Social History Social History Patient Tobacco Use Status: Former Tobacco user Have you been hit, kicked, punched, or otherwise hurt by someone within the past year? If so, by whom?: No Are you DNR?: No Advance Directives: No Advance Directives Information Provided: Yes Meds Allergies Allergy/AdvReac Type Severity Reaction Status Date / Time hydromorphone [From Dilaudid] Allergy Intermediate asthma Verified 05/31/24 15:22 exacerbation moxifloxacin [From Avelox] Allergy Intermediate Hives Verified 05/31/24 15:22 Penicillins Allergy Intermediate Rash Verified 05/31/24 15:22 levofloxacin [From Levaquin] AdvReac Intermediate restless Verified 05/31/24 15:22 legs Home Medications ?Medication ?Instructions ?Recorded ?Confirmed ?Last Taken ?Type alprazolam 1 mg tablet 1 mg PO DAILY 03/01/23 07/30/24 Unknown History amlodipine 10 mg tablet 10 mg PO DAILY 03/01/23 07/30/24 08/01/24 History budesonide 0.5 mg/2 mL suspension 0.25 mg inhalation BID 03/01/23 07/30/24 Unknown History for nebulization bupropion HCl 300 mg 24 hr tablet, 300 mg PO QAM 03/01/23 07/30/24 06/15/23 History extended release dupilumab 300 mg/2 mL subcutaneous 300 mg subcut Q2W 03/01/23 03/15/24 Unknown History pen injector (Dupixent) famotidine 20 mg tablet 20 mg PO BEDTIME 03/01/23 07/30/24 Unknown History immun glob G 10 gram/50 mL(20 5,000 mg subcut QWEEK 03/01/23 03/15/24 Unknown History %)-pro-IgA 0-50 mcg/mL subcutaneous soln (Hizentra) lansoprazole 30 mg capsule,delayed 30 mg PO DAILY 03/01/23 07/30/24 08/01/24 History release losartan 100 mg tablet 100 mg PO DAILY 03/01/23 07/30/24 Unknown History montelukast 10 mg tablet 10 mg PO DAILY 03/01/23 07/30/24 Unknown History omalizumab 150 mg/mL subcutaneous 150 mg subcut Q4W 03/01/23 07/30/24 Unknown History syringe (Xolair) ondansetron 4 mg disintegrating 4 mg PO Q8H 03/01/23 07/30/24 Unknown History tablet paroxetine HCl 30 mg tablet 30 mg PO DAILY 03/01/23 07/30/24 06/15/23 History pravastatin 10 mg tablet 10 mg PO DAILY 03/01/23 07/30/24 Unknown History fluticasone fur. 200 mcg-umeclid 1 ea inhalation DAILY 04/29/23 07/30/24 Unknown History 62.5 mcg-vilant 25 mcg inhalat.powder (Trelegy Ellipta) hydroxyzine HCl 25 mg tablet 25 mg PO QID 04/29/23 07/30/24 Unknown History linaclotide 145 mcg capsule 145 mcg PO DAILY 04/29/23 07/30/24 Unknown History (Linzess) oxycodone 5 mg tablet 5 mg PO TID 04/29/23 07/30/24 06/15/23 History famotidine 40 mg tablet 40 mg PO BID 06/15/23 07/30/24 Unknown History Exam Airway Mallampati Class: II TM Dist: >3cm Neck ROM: Full Heart: rrr Lungs: cta Assessment and Plan Assessment Anesthesia Assessment: Anesthesia Plan Discussed Final Anesthetic Review NPO: Yes ASA Class: III Final Preanesthetic Review: No Changes in Pt Med Stat, Meds/Allgs Chart Reviewed, Consent Obtained/Reviewed and Anes Risks/Benef Reviewed Patient Risk: Intermediate Procedure Risk: Low Anesthetic Plan Anesthetic Plan: MAC: Disposition: Standard PACU
[2024-07-31 14:40] VITALS: BMI 42.8
[2024-08-01 13:02] VITALS: BP 121/80; PULSE 78; RESP 18; TEMP 36.4; O2SAT 96; BMI 44.4
[2024-08-01] MEDS: Lactated Ringers 1,000 ML 100 ML IVCONT (13:33)
--- NOTE | 2024-08-01 14:05 | MHC.SHP ---
Pre-Procedural Eval Section A - 24 Hr Update-Section A only Date of Service: 08/01/24 The patient is an INPATIENT: No Changes since office visit: Yes Patient answered all questions The patient has been examined within 24 hours of the surgical procedure. The History & Physical has been completed within 30 days and I have reviewed it.: No Section B - Complete if H&P > 30 days Chief Complaint: Chronic knee pain after TKR Relevant Family History (Specify if Yes): No Relevant Social History: None Present Medications: see Short Stay Collaborative assessment Medical History: No relevant PMH History of Previous Operations: Relevant previous surgery/procedure and date(s) (TKR) Allergies: Allergies Allergy/AdvReac Type Severity Reaction Status Date / Time hydromorphone [From Dilaudid] Allergy Intermediate asthma Verified 05/31/24 15:22 exacerbation moxifloxacin [From Avelox] Allergy Intermediate Hives Verified 05/31/24 15:22 Penicillins Allergy Intermediate Rash Verified 05/31/24 15:22 levofloxacin [From Levaquin] AdvReac Intermediate restless Verified 05/31/24 15:22 legs Review of Systems Sugical H&P ROS: Negative: Constitution, Cardiovascular and Respiratory Exam Surgical H&P Exam: Normal: HEENT, Normal: Heart and Normal: Lungs Plan Diagnosis/Plan: Unchanged I have reviewed the history and physical and performed a pertinent physical examination on my patient. No changes have occurred unless specified. Time Spent With Patient Time: Total time managing care of this patient today ____ minutes.
[2024-08-01 15:40] VITALS: BP 124/40; PULSE 73; RESP 18; TEMP 36.2; O2SAT 95
[2024-08-01] MEDS: oxyCODONE HCl Immed Release 5 MG TABLET PO (15:51)
[2024-08-01 15:55] VITALS: BP 138/68; PULSE 73; RESP 18; TEMP 36.1; O2SAT 97
--- NOTE | 2024-08-01 15:59 | PM.OP ---
Brief Operative Note Date of Service: 08/01/24 Pre-op diagnosis: Chronic knee pain, bilateral, status post total knee replacement Procedure: Genicular Nerve cooled RFL - fluoroscopic guided - Superior medial, superior lateral, and inferior medial genicular nerve cooled radiofrequency lesioning Implants: None Surgeon: Jose Llanos MD Anesthesia: MAC Was an Local Company Flatbed Truck Driver used for this Procedure?: No Estimated blood loss (mL): 1 Pathology: none sent Condition: stable Disposition: PACU
--- NOTE | 2024-08-01 16:01 | W.PM.OPN ---
Operative Note Operative Note Date of Service: 08/01/24 Narrative: Genicular Nerve RFL - fluoroscopic guided - Superior medial, superior lateral, and inferior medial genicular nerve radiofrequency lesioning, bilateral After obtaining written consent, pre-procedure blood pressure and heart rate were stable and recorded in the nursing record. Standard monitors were applied. The patient was placed supine on the fluoroscopy table and sedated by the maintenance data analyst. The area overlying the peripheral nerves was widely prepped with chloraprep, allowed to dry and sterilely draped. Using fluoroscopy, the appropriate landmarks were identified. The skin overlying the target was anesthetized with 0.5% lidocaine. A 18 gauge 50 mm needle was advanced under fluoroscopic guidance to the appropriate landmark of each peripheral nerve and verified using lateral and AP views. Aspiration was negative for heme and synovial fluid. Impedences were verified under 600 ohms and motor testing was used to confirm adequate needle placement. Each site was injected with 1 ml 2% preservative-free lidocaine. Radiofrequency lesioning was performed for 165 seconds at 80 deg Celcius tissue temperature. The needles were removed, skin cleansed and a sterile bandage was applied. The patient tolerated the procedure well and no complications were encountered. Following the procedure the patient's vital signs were stable. The patient was discharged home in good condition with post-procedural instructions. Time Out: Immediately prior to the procedure, the following was verbally confirmed that there is a signed consent form and that the correct patient, planned procedure, site and side are consistent with documentation and that necessary equipment and/or blood products are available prior to the start of the case. Complications: none EBL: <5 cc
== END | disposition home or self-care (01) ==
PROVIDERS: PCP Internal Medicine; Visit Provider Internal Medicine
PROC: (CPT 64624; principal; 2024-08-01 14:30)
DX: M25.561 Pain in right knee (principal); M25.562 Pain in left knee; G89.29 Other chronic pain; Z96.653 Presence of artificial knee joint, bilateral; M54.50 Low back pain, unspecified; M81.0 Age-related osteoporosis without current pathological fracture; I10 Essential (primary) hypertension; E78.00 Pure hypercholesterolemia, unspecified; J45.909 Unspecified asthma, uncomplicated; Z88.0 Allergy status to penicillin; Z88.1 Allergy status to other antibiotic agents; Z88.8 Allergy status to other drugs, medicaments and biological substances; Z98.890 Other specified postprocedural states; Z87.891 Personal history of nicotine dependence
CPT/HCPCS: 64624; J0690; J2003; J2405; J2704; J3010

== ENCOUNTER 2024-09-07 10:56 | Outpatient (AMB) | payer MEDICARE, SELFPAY ==
--- NOTE | 2024-09-07 11:03 | A.OFFVIS_ITS ---
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 Llanos. Patient reports ongoing 50% pain relief since procedure with partial improvement with daily functioning, sleep, and mobility. She continues to participate in gym at least 3 times per week. She reports increased swelling in her feet and lower extremities which has been causing pressure like pain in both knees, left worse than right. Patient reports taking furosemide for swelling episodes. She also applies heat and diclofenac topical gel with minimal relief. She requests lidocaine patches script. Reports occasional grinding, more on the right side, when first getting up in the morning. Denies any fever, chills, dizziness, shortness of breaths, weakness, instability, locking or giving way, bladder or bowel dysfunction or saddle anesthesia. Past Procedures: 06/15/23: Bilateral genicular nerve cooled RFA-80% pain relief, fading effects since April 2024 04/20/23: Diagnostic Left GNB-90% pain relief for >48% 04/27/23: Diagnostic Right GNB-80% pain relief for >48 hours PRIOR: Patient is a pleasant 78 years old female with prior history of left ankle fracture with hardware intact since 1993, bilateral total knee replacements (l eft knee 2016, right knee 09/2022) and back surgery (2020 Dr. Dacosta), presents today with ongoing global anterior knee pain. She was seen by Orthopedic providers regularly. She is currently active with physical therapy, and has been active with home PT transitioned to outpatient PT since November. Reports she has not gained significant pain relief but some improvement in her functioning with PT. She also has lower back pain which is not bothering her as much. Bilateral knee pain is constant with severe pain up to 8-10/10 and describes it as aching, tiring, exhausting, squeezing, and heavy. She ambulates with slow antalgic gait with slight limping. Uses walker with ambulation. Oxycodone, lidocaine patches, diclofenac gel, ice/heat therapy has been only partially effective for her pain control. Pain affects her daily activities, functioning, mood, sleep, social interactions and quality of life. She is interested to undergo bilateral genicular nerve blocks for potential genicular RFA procedure. Patient is not interested in peripheral nerve stimulation with Sprint trial. [facility] Medical History Osteoporosis Arthritis Asthma GERD (gastroesophageal reflux disease) Elevated cholesterol HTN (hypertension) Chronic low back pain Surgical History History of back surgery History of open reduction and internal fixation (ORIF) procedure History of radiofrequency ablation (RFA) of genicular nerve Hx of mastectomy Hx of hysterectomy History of total left knee replacement History of total right knee replacement Social History Patient Tobacco Use Status: Former Tobacco user Review of Systems Const All systems reviewed & are unremarkable except as noted in HPI and below Physical Exam Vital Signs: Last Vital Signs Pulse 91 09/07/24 11:06 BP 138/63 09/07/24 11:06 Pulse Ox 97 09/07/24 11:06 Oxygen Delivery Method Room Air 09/07/24 11:06 BMI result Body Mass Index 42.8 General: Appears afebrile. Alert and oriented. Mood and affect appropriate. Follows and participates in conversation appropriately. Respiratory effort is unlabored. No cough. Able to transition from sit to stand unassisted. Uses cane with ambulation. Extrem General: Yes capillary refill normal, Yes no calf tenderness, No cyanosis and Yes edema (BLE non-pitting) Right lower extremity: knee (Limited ROM, well healed scars. ) Details: normal to inspection, tenderness (global anterior knee pain) Location: of the medial joint line and of the lateral joint line and crepitus; no swelling, no ecchymosis and no unusual warmth Left lower extremity: knee (Limited ROM, well healed scars. ) Details: normal to inspection, tenderness (Anterior aspect, global knee pain) Location: of the medial joint line and of the lateral joint line and crepitus; no swelling, no ecchymosis and no unusual warmth Results Reviewed Results Reviewed: XR KNEE, LEFT 09/15/23 CLINICAL INFORMATION: Presence of left artificial knee FINDINGS: The patient is status post left knee arthroplasty with patellar button with femoral and tibial components in position and no evidence of acute fracture or dislocation. No loosening identified. Small joint effusion is seen. There is mild calcification of the distal quadriceps tendon. IMPRESSION: No significant abnormality of the left knee. XR KNEE, RIGHT 09/15/23 CLINICAL INFORMATION: Presence of right artificial knee joint COMPARISON: Right knee 03/01/2023 FINDINGS: The patient is status post right knee arthroplasty with patellar button with femoral and tibial components in position and no evidence of acute fracture or dislocation. No loosening identified. No joint effusion is seen. IMPRESSION: No significant abnormality of the right knee identified. Assessment & Plan Assessment & Plan (1) Bilateral knee pain: Code(s): M25.561 - Pain in right knee; M25.562 - Pain in left knee Category: Medical (2) History of total right knee replacement: Comment: Dr. Sawyer Code(s): Z96.651 - Presence of right artificial knee joint Category: Surgical (3) History of total left knee replacement: Code(s): Z96.652 - Presence of left artificial knee joint Category: Surgical Plan Patient is status post repeat bilateral genicular RFA with 50% pain relief which patient reports it allows her to be more functional and less symptomatic. She is interested to undergo bilateral knee Synvisc One injections with local and fluoroscopy for continued knee pain. She attends gym 3x/week and is trying to loose weight. Expectations, risks and benefits were reviewed. Patient is aware she will be contacted to schedule this procedure. All questions were answered and the patient is in agreement of plan. Follow-up after injections and sooner as needed. Justification for interventional therapy: ? Patient with average pain > 6/10 ? Patient has exhausted conservative therapy, physical therapy, NSAIDs, oxycodone, topicals, heat/ice therapy ? Diagnostic bilateral GNB provided 80-90% pain relief >48 hours ? Bilateral genicular RFA 06/15/23 provided 80% relief for 10 months, 08/01/24- 50% ongoing pain relief The risks, consequences, alternatives, and benefits of various treatment options were discussed with the patient in great detail, including conservative management, injections and procedures. Medications: New lidocaine 5% 2 patches topical DAILY 30 days 30 ea 0RF pain M25.561 - Pain in right knee, M25.562 - Pain in left knee Coding Level of Care Code Est Pt Level 4 (09873) Complex EM visit Add On G2211 Diagnoses Bilateral knee pain M25.561; M25.562 History of total right knee replacement Z96.651 History of total left knee replacement Z96.652
[2024-09-07 11:06] VITALS: BP 138/63; PULSE 91; O2SAT 97; BMI 42.8
== END 2024-09-07 11:17 | disposition home or self-care (01) ==
PROVIDERS: PCP Internal Medicine; Visit Provider Nurse Practitioner Family
DX: M25.561 Pain in right knee (principal); M25.562 Pain in left knee; Z96.651 Presence of right artificial knee joint; Z96.652 Presence of left artificial knee joint
CPT/HCPCS: 99214; G2211

== ENCOUNTER → 2024-09-07 10:56 | Outpatient (BNVA) | payer MEDICARE, SELFPAY | PROVIDERS: PCP Internal Medicine; Visit Provider Nurse Practitioner Family | DX: M25.561 Pain in right knee (principal); M25.562 Pain in left knee; Z96.651 Presence of right artificial knee joint; Z96.652 Presence of left artificial knee joint | CPT/HCPCS: 99212 ==

== ENCOUNTER 2024-10-04 06:35 | Outpatient (REF) | payer MEDICARE, SELFPAY ==
--- OUTSIDE RECORDS SUMMARY | 2024-10-04 10:21 | XMS_ITS | Clinical Summary ---
Author Organization [facility] Address [address] [place] [address] Care Team Providers Care Engineer Byproduct Name Role Phone Mannie Khan MD Primary Care Provider [phone] Surgical History Surgery Date Site/Laterality Comments MASTECTOMY 2002 PROCEDURE: HISTORICAL MASTECTOMY; COMMENT: right breast with subsequent reconstruction TONSILLECTOMY PROCEDURE: HISTORICAL TONSILLECTOMY OTHER SURGICAL HISTORY 1977 PROCEDURE: OR TOTAL ABDOMINAL HYSTERECT W/WO RMVL TUBE OVARY; COMMENT: TAHBSO for endometriosis, took ERT for 2 years only after surgery BREAST REDUCTION 2002 PROCEDURE: OR BREAST REDUCTION; COMMENT: left breast Medical History Medical History Date Comments Endometriosis of uterus DX:Endom etriosis of uterus Heartburn DX:Heartburn Unspecified asthma(493.90) DX:Un specified asthma(493.90) Anxiety state, unspecified DX:An xiety state, unspecified Carcinoma in situ of breast 2002 DX:C arcinoma in situ of breast; COMMENT: right breast DCIS Essential hypertension, benign D X:Essential hypertension, benign Family History Medical History Relation Name Comments Breast cancer Aunt 1 Paternal Heart attack Father Heart failure Mother Other: Ovarian CA Other 1 Maternal N iece Relation Name Status Comments Aunt 1 Aunt 2 Father Mother Other 1 Other 2 Social History Tobacco Use Types Packs/Day Years Used Date Smoking Tobacco: Former Smokeless Tobacco: Never Alcohol Use Standard Drinks/Week Comments Yes 0 (1 standard drink = 0.6 oz pur e alcohol) Sex and Gender Information Value Date Recorded Sex Assigned at Not on file Gender Identity Not on file Sexual Orientation Not on file Obstetrics History Last Filed Vital Signs Vital Sign Reading Time Taken Comments Blood Pressure - - Pulse - - Temperature - - Respiratory Rate - - Oxygen Saturation - - Inhaled Oxygen Concentration - - Weight 86.2 kg (190 lb) 08/17/2022 2:53 PM EST Height 147.3 cm (4' 10 ) 08/17/2022 2:53 PM EST Body Mass Index 39.71 08/17/2022 2:53 PM EST Plan of Treatment Health Maintenance Due Date Last Done Comments Pneumococcal Vaccine: 65+ Ye ars (1 of 2 - PCV) 1951 DTaP,Tdap,and Td Vaccines (1 - Tdap) 02/02/1964 Zoster Vaccines (1 of 2) 1995 RSV Immunization Patients 60 + Years Old (1 - 1-dose 75+ series) 02/02/2020 Colorectal Cancer Screening: Stool Based Tests (FOBT/FIT) 08/15/2022 Depression Screening 08/15/2022 Falls Risk Assessment 08/15/2022 Hepatitis C Screening 08/15/2022 Social Influencers of Health Screening 08/15/2022 COVID-19 Vaccine (2023-2 5 season) 2024 Influenza Vaccine (#1) 2024 Osteoporosis Screening (Bone Density Screening) 05/12/2031 05/12/2021 HIB Vaccines Aged Out No longer eligi ble based on patient's age to complete this topic HPV Vaccines Aged Out No longer eligi ble based on patient's age to complete this topic Hepatitis A Vaccines Aged Out No long er eligible based on patient's age to complete this topic Hepatitis B Vaccines Aged Out No long er eligible based on patient's age to complete this topic IPV Vaccines Aged Out No longer eligi ble based on patient's age to complete this topic MMR Vaccines Aged Out No longer eligi ble based on patient's age to complete this topic Meningococcal ACWY Vaccine Aged Out N o longer eligible based on patient's age to complete this topic RSV Immunization Patients Un rosalind 20 months Aged Out No longer eligible b ased on patient's age to complete this topic Varicella Vaccines Aged Out No longer eligible based on patient's age to complete this topic Procedures Procedure Name Priority Date/Time Associated Diagnosis Comments [facility] DEXA AXIAL SKELETON Routine 05/12/2021 4:45 PM EDT Other specified disorders of bone density and structure, multiple sites from Last 3 Months or Most Recently Relevant to Health Maintenance Results * [facility] DEXA AXIAL SKELETON (05/12/2021 4:45 PM EDT) Anatomical Region Laterality Modality Mammography 05/12/2021 1:59 PM EDT Narrative 05/12/2021 4:45 PM EDT [facility] Diagnostic Imaging Department [address] [place] [id number] Patient: ??CRISTINA LEIJA ?/Age/Sex: 1945 Unit#: ??[id number] ? Location/Status: ??SPDIMAM/REG CLI ? Mnemonic/Ordering Site: ??MAMDEXAAX/SPMAM Ordering Physician: ??BILLY LOTT MD, PHD [facility] Dexa Axial Skeleton - 05/12/211421 HISTORY: ??The patient is a 76-year-old postmenopausal female with clinical concern for metabolic bone disease. FINDINGS: ??Dual energy x-ray absorptiometry of the lumbar spine and femurs is performed. The mean bone mineral density at L1-L4 (Excluding L3) is 1.2-3 gm/cm2. This yields a T-score of 0.4 and a Z-score of 1.3 which is diagnostic of normal bone mineral density. The mean bone mineral density of the femurs bilaterally is 0.713 gm/cm2. ??This yields a T-score of -2.3 and a Z-score of -1.0 which is diagnostic of osteopenia. IMPRESSION: 1. Osteopenia. 2. FRAX analysis yields a 10-year probability of major osteoporotic fracture of 29% and a 10-year probability of hip fracture of 8.7%. Code 87758 Dictating Physician: ??GONSALO JOHNSON MD Electronically Signed by: ??GONSALO JOHNSON MD Dic Date/Time: ??05/12/211641 Sign date/Time: ??05/12/21 164 Procedure Note Dali Johnson MD - 09/01/2022 [facility] Diagnostic Imaging Department [address] [place] [address] Patient: CRISTINA LEIJA Suzanne /Age/Sex: 1945 76 - F Unit#: [id number] Location/Status: [facility] Mnemonic[facility]ing [facility] Ordering Physician: BILLY LOTT MD, PHD [facility] Dexa Axial Skeleton - 05/12/212 HISTORY: The patient is a 76-year-old postmenopausal female withclinical concern for metabolic bone disease. FINDINGS: Dual energy x-ray absorptiometry of the lumbar spine and femursis performed. The mean bone mineral density at L1-L4 (Excluding L3) is1.2-3 gm/cm2. This yields a T-score of 0.4 and a Z-score of 1.3 which isdiagnostic of normal bone mineral density. The mean bone mineral density of the femurs bilaterally is 0.713 gm/cm2.This yields a T-score of -2.3 and a Z-score of -1.0 which is diagnostic of osteopenia. IMPRESSION: 1. Osteopenia. 2. FRAX analysis yields a 10-year probability of major osteoporoticfracture of 29% and a 10-year probability of hip fracture of 8.7%. Code 60498 Dictating Physician: GONSALO JOHNSON MD Electronically Signed by: GONSALO JOHNSON MD Dic Date/Time: 05/12/21 164 Sign date/Time: 05/12/21 164 Billy Lott MD IMG BI PROCEDURES from Last 3 Months or Most Recently Relevant to Health Maintenance Care Teams Engineer Byproduct Relationship Specialty Start Date End Date Mannie Khan MD [address] [place] [address] [address] [place], [place] PCP - General Internal Medicine 08/18/21
--- OUTSIDE RECORDS SUMMARY | 2024-10-04 10:21 | XMS_ITS | Data Portability ---
Author Organization [place] - [facility],, LIZETH HERMAN MD Address [address] [address] Care Team Providers Care Level Vial Grinder Name Role Phone GURVINDER BOLANOS Primary Care Provider Assessment No assessment recorded. Plan of Treatment Reminders Order Date Submit Date Provider Last Modified By Organization Details Last Modified Time Details Appointments None recorded. Lab pap, LB, vaginal 2019 020 [email or web address] [facility], Cytopathology Service, [address] [place] [address], [address], 0 07:40:41 pap test, thinprep, cervical 2020 021 [email or web address] [facility], Cytopathology Service, [address] [place] [address], [address], 1 07:20:46 fecal occult blood, stool 2020 021 [email or web address] 1 In-Office Order, Internal Use Only DO Not Attach Compendium DO Not Attach Compendium, Do Not Delete/merge, [id number] 1 14:03:16 pap test, thinprep, cervical 2021 022 [email or web address] [facility], Cytopathology Service, [address] [place] [address], [address], 2 07:38:27 pap test, thinprep, cervical 2022 023 [email or web address] [facility], [facility] [place], [address], 3 07:27:16 cytology report, thin prep, smear or scraping, cervical or vaginal 2024 025 [place] [facility], [address], [place], [address], 5 18:16:26 Referral None recorded. Procedures None recorded. Surgeries None recorded. Imaging MAMMO, screening , digital, bilateral 2019 020 [facility] ([facility]), [address], [place], [address], 0 16:31:27 bone density [address]), [address], [place], [address], 1 07:23:18 MAMMO, screening , digital, bilateral 2020 021 [facility]), [address], [place], [address], 3 07:38:19 MAMMO, screening , digital, bilateral - patient aware needs to go 2021 022 [facility]), [address], [place], [address], 2 15:31:33 bone density 2021 022 [facility]), [address], [place], [address], 4 07:36:31 MAMMO, screening , digital, bilateral - Breast Aspiratio n and/or Biopsy if needed 2022 023 [facility] ([facility]), [address], [place], [address], 3 17:41:43 bone density 2022 023 manolo [facility] ([facility]), [address] [facility], [place], [address], 4 07:27:36 MAMMO, screening , digital, bilateral - Breast Aspiratio n and/or Biopsy if needed 2024 025 [facility], [address], [address], [place], [address], 5 15:53:04 bone density 2024 025 [facility] Orders, [address], [address], [place], [address], 5 15:53:04 Medication Orders None recorded. Patient TargetsNo targets recorded. Patient Instructions Encounter Date Encounter Id Patient Instructions Last Modified By Organization Details Last Modified Time 04/14/2020 [id number] She is here for annual exam, is doing well. ___ Note from 2019: She is here for annual exam, is doing well but still using a cane due to her knee replacement. She has a past history of right breast cancer, and also of FRANCISCO II. Her sister had an MD and her brother in law had 2 strokes in the past year, so she is doing most of the running with her. Her partner Rik is her health care proxy. She appears to be doing well. She is still usign a cane, The knee operation was botched, it's not getting any better. She is going to go to [place] to have it redone once covid is resolved., She is advised to get 1500 mg of calcium daily into her diet and supplements combined. We discussed the benefits of adequate vitamin D supplementation to at least 400 units daily, daily aerobic exercise of 30 minutes, and stress reduction. Monthly self breast exam was taught, and stressed, and is advised to call if she discovers any new mass in the breast. Seat belt use for herself and passengers advised. The significant health benefits of becoming and remainig fit, with an optimal BMI, were also discussed. We discussed the potential reduction in chronic discomfort, the diminished risks of hypertension, diabetes, and heart disease with the proper weight management, and improved mobility as she ages. Strategies to reach and maintain her target weight wer discussed in detail, all questions answered. Not available 04/14/2020 13:35:48 04/21/2021 [id number] learning about healthy weight Not available 04/21/2021 14:03:16 Stress Incontinence: Care Instructions Not available 04/21/2021 14:05:39 She is here for annual exam, is doing well. Both of her knees are bothering her, she is in work up for this and for her back pain, recently got an injection into my back that helped a bit. 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 She is BRCA negative. She has noted worsening urinary stress incontinence in the past year or so. She has past histroy of FRANCISCO II. s/p TAHBSO age 30 for endometriosis. We discussed that we could try E2 cream for her urinary incontinence but with her history of breast cancer she just needs to know that giving estrogen could possible activate resting metastatic cells from prior breast cancer. The risk is very low as her nodes were negative, but it is a theoretical concern. She does not want to do this. She is encouraged to see a urologist for testing to see if oral medication might help, she will do this. Not available 04/21/2021 14:05:17 04/26/2022 [id number] advance benefici elijah notice information Not available 04/26/2022 14:19:34 advance care planning for heart failure: care instructions Not available 04/26/2022 14:19:34 Stress Incontinence: Care Instructions Not available 04/26/2022 14:20:51 atrophic vaginit is: care instructions Not available 04/26/2022 14:19:34 learning about healthy weight Not available 04/26/2022 14:19:34 She is here for annual exam, is doing well. Walking wiht walker, neds knee surgery, It's bone on bone. Past history of FRANCISCO II, no vulvar pruritus noted. She is seeing urologist for incontinence issues. ___ note from 2020: She is here for annual exam, is doing well. Both of her knees are bothering her, she is in work up for this and for her back pain, recently got an injection into my back that helped a bit. 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 She is BRCA negative. She has noted worsening urinary stress incontinence in the past year or so. She has past histroy of FRANCISCO II. s/p TAHBSO age 30 for endometriosis. ___ On exam: skin around introitus and around rectum has chronic wetness issues, bilaterally equal. She is advised ot use Desitin on the skin after her bath or shower every day until skin is healed, it has the appearance of diaper rash in a baby. She appears to be doing well. She is advised to get 1500 mg of calcium daily into her diet and supplements combined. There is a health benefit with adequate vitamin D supplementation to at least 400 units daily, daily aerobic exercise of 30 minutes, and stress reduction. Monthly self breast exam was taught, and stressed, and is advised to call if she discovers any new mass in the breast. Not available 04/26/2022 14:20:32 06/28/2023 [id number] advance benefici elijah notice information Not available 06/28/2023 14:57:25 advance care planning for heart failure: care instructions Not available 06/28/2023 14:57:25 atrophic vaginit is: care instructions Not available 06/28/2023 14:57:25 learning about healthy weight Not available 06/28/2023 14:57:25 She is here for annual, doing well, has a past history of FRANCISCO II. 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 She is BRCA negative. Note from 2021: She is here for annual exam, is doing well. Walking wiht walker, neds knee surgery, It's bone on bone. Past history of FRANCISCO II, no vulvar pruritus noted. She is seeing urologist for incontinence issues. The chronic vulvar wetness issue is much improved, the skin appears healthy,. she has been using a topical cream, it is a good result. She is seeing Dr. Pate for her overactive bladder. She appears to be doing well. Monthly self breast exam was taught, and stressed, and is advised to call if she discovers any new mass in the breast. Not available 06/28/2023 14:57:22 09/17/2024 [id number] advance benefici elijah notice information Not available 09/17/2024 14:41:28 advance care planning for heart failure: care instructions Not available 09/17/2024 14:41:28 atrophic vaginit is: care instructions Not available 09/17/2024 14:41:28 learning about healthy weight Not available 09/17/2024 14:41:28 She is here for annual, doing well, has a past history of FRANCISCO II. She had DCIS in 2002 and had mastectomy with reconstruction and also has had left breast reduction. She is BRCA negative. She appears to be doing well. Monthly self breast exam was taught, and stressed, and is advised to call if she discovers any new mass in the breast. Not available 09/17/2024 14:41:38 Reason for Referral None Reported. Results Created Date Observation Date Name Description Value Unit Range Abnormal Flag Note LastModifiedBy Organization Detail LastModifiedTime 04/21/20 21 04/21/2021 fecal occul t blood , stool Occult Blood negati ve Not Available In-Office Order Internal Use Only DO Not Attach Compendium DO Not Attach Compendium, Do Not Delete/merge, [id number] 04/21/2021 13:17:31 04/14/20 20 04/14/2020 pap, LB, vagin al [id number] ThinP rep Pap, Image d: NEGAT MALENA FOR SQUAM OUS INTRA EPITH ELIAL LESIO N AND MALIG NATASHA . Catalino Silva a , [place]( CP) (Case elect maria teresa fay caitlyn d 04 16 2020) ADEQU ACY: Satis facto ry Endoc ervic al/tr ansfo rmati on zone compo nent absen t. SOURC E: ThinP rep Pap HPV IF ASCUS , Vagin al, Image d [facility]: HPV If Diagn osis of ASCUS . LPS 9 neg, z12.4 , z91.8 9 Not Available [facility], Cytopathology Service [address] [place], [address], 04/16/2020 12:20:49 04/21/20 21 04/21/2021 PAP1C ASE [id number] ThinP rep Pap, Image d: NEGAT MALENA FOR SQUAM OUS INTRA EPITH ELIAL LESIO N AND MALIG NATASHA . Atrop hy. Catalino Silva a , CT( CP) (Case elect maria teresa fay caitlyn d 04 24 2021) ADEQU ACY: Satis facto ry . SOURC E: ThinP rep Pap HPV IF Ascus : Refle x 16 and 18, Cervi louis, Image d [facility] N: HPV If Diagn osis of ASCUS . lps neg, Z12.4 Not Available [facility], Cytopathology Service [address] [place], [address], 04/24/2021 12:11:30 04/26/20 22 04/26/2022 PAP1C ASE [id number] ThinP rep Pap, Image d: NEGAT MALENA FOR SQUAM OUS INTRA EPITH ELIAL LESIO N AND MALIG NATASHA . Atrop hy. Mikel shukla , CT( CP) (Case elect maria teresa fay caitlyn d 04 28 2022) ADEQU ACY: Satis facto ry . SOURC E: ThinP rep Pap HPV IF Ascus : Refle x 16 and 18, Cervi louis, Image d [facility]: HPV If Diagn osis of ASCUS . Menop ause, lps neg, [Z01. 419] Not Available [facility], Cytopathology Service [address] [facility], [place], [address], 04/28/2022 16:06:04 06/28/20 23 06/28/2023 [facility] CYTOL OGY results Magalis sidhu Name: BERNARD RAMOS nt : 1944 (Age: 78) Lab Acces fabiola #: [id number] Colle ction Date: 06/28 Acces fabiola Date: 06/28 Sign Out Date: 07/04 Tissu e Sourc e: 1: THINP REP CATERING ASSOCIATE PAP TEST, VAGIN AL: Final Diagn osis: NEGAT MALENA FOR INTRA EPITH ELIAL LESIO N OR MALIG NATASHA . Funga l organ isms morph ologi chapincito consi stent with Tamara da spp. Satis facto ry for evalu ation . [facility]ini [facility] Histo ry: Date of Last Menst rual Perio d: not avail able Menst rual Histo ry: Post- menop ausal Contr acept malena Histo ry: not avail able Ancil haleigh Testi ng: HPV (ASCU S) Case image d by the ThinP rep Imagi ng Syste m with david brewer rescr chan g or gurmeet w. Perfo rmed at [facility] ate Refer ence Labor atory depar tment of Cytol ogy, [address] [place] Clini [facility] Histo ry (othe r): Z91.8 9, routi ne scree n, Medic are scree aamir pap smear -high risk, LPS neg Phone #: [phone], On-Ca ll Patho logis t: [id number] Not Available [facility] [address], [place], [address], 07/04/2023 13:49:42 09/17/19 25 09/19/2024 IGP, RFX APTIM A HPV ASCU diagnosis: Commen t NEGAT MALENA FOR INTRA EPITH ELIAL LESIO N OR MALIG NATASHA . Not Available [facility] ([facility]) [address] [place], [address], 09/19/2024 18:16:26 09/17/19 25 09/19/2024 IGP, RFX APTIM A HPV ASCU specimen adequacy: Abril galvan Satis facto ry for evalu ation . Not Available [facility] ([facility]) [address] [place], [address], 09/19/2024 18:16:26 09/17/19 25 09/19/2024 IGP, RFX APTIM A HPV ASCU clinician provided ICD10: Abril galvan Z91.8 9 Not Available [facility] ([facility]) [address] [place], [address], 09/19/2024 18:16:26 09/17/19 25 09/19/2024 IGP, RFX APTIM A HPV ASCU performed by: Marty Escobar (ASCP ) Not Available [facility] ([facility]) [address] [place], [address], 09/19/2024 18:16:26 09/17/19 25 09/19/2024 IGP, RFX APTIM A HPV ASCU . . Not Available [facility] ([facility]) [address] [place], [address], 09/19/2024 18:16:26 09/17/19 25 09/19/2024 IGP, RFX APTIM A HPV ASCU note: Abril galvan The Pap smear is a scree aamir test desig mart to aid in the detec tion of tony ligna nt and malig nant condi tions of the uteri ne cervi x. It is not a diagn ostic proce dure and shoul d not be used as the sole means of detec ting cervi louis cance r. Both false -posi tive and false -nega tive repor ts do occur . Not Available [facility] ([facility]) [address], [place], [address], 09/19/2024 18:16:26 09/17/19 25 09/19/2024 IGP, RFX APTIM A HPV ASCU test methodology: Commen t This liqui d based ThinP rep(R ) pap test was tasneem cevallos with the use of an image guide karlene morris. Not Available [facility] ([facility]) [address], [place], [address], 09/19/2024 18:16:26 09/17/19 25 09/19/2024 IGP, RFX APTIM A HPV ASCU . Commen t The HPV DNA refle x crite kimberly were not met with this speci men resul t there fore, no HPV testi ng was perfo rmed. Not Available [facility] ([facility]) [address], [place], [address], 09/19/2024 18:16:26 06/26/20 20 06/26/2020 MAMMO tasneem, digit al, bilat eral No observ ation record ed. [facility] [address] [place], [address], 06/27/2020 08:43:42 05/27/20 22 05/27/2022 MAMMtasneem Leroy, digit al, bilat eral No observ [place], [address], 05/27/2022 15:32:50 07/26/20 23 07/26/2023 MAMMO tasneem digit al, bilat eral No observ ation record ed. Not Available 07/07 07:52:48 Result Notes None recorded. 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 Lizeth Herman MD [address], [place], [address], [place] [facility], 6 10:54:46 Gastroduo denitis 091640345 Active Lizeth Herman MD [address], [place], [address], [place] [facility], 6 10:54:46 Atypical squamous cells of undetermi mart significa nce on cervical Papanicol aou smear 202970556 Active Lizeth Herman MD [address], [place], [address], [place] [facility], 6 10:54:46 Gastritis 2616338 Active Lizeth Herman MD [address], [place], [address], [place] [facility], 6 10:54:46 Family history of malignant neoplasm of ovary [id number] Mark Herman MD [address], [place], [address], [place] [facility], 6 10:54:46 Primary malignant neoplasm of female breast 22086327 Active Lizeth Herman MD [address], [place], [address], [place] [facility], 6 10:54:46 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, 6 10:54:46 Mammograp hy abnormal 905167979 Active Lizeth Herman MD [address], [place], [address], [place] [facility], 6 10:54:46 Personal history of primary malignant neoplasm of breast 616406474 Active 2016 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 Lizeth Herman MD [address], [place], [address], [place] [facility], 1 14:00:48 Osteoporo sis 16391546 Active 2016 Lizeth Herman MD [address], [place], [address], [place] [facility], 7 15:00:50 Asthma 222429296 Active 2016 Lizeth Herman MD [address], [place], [address], [place] [facility], 7 15:02:03 History of dysplasia of vulva 163983721404 105 Active 2018 Lizeth Herman MD [address], [place], [address], [place] [facility], 9 15:18:36 Urinary incontine nce 928278084 Active 2020 Lizeth Herman MD [address], [place], [address], [place] [facility], 14:03:30 Problem Notes None recorded. Procedures Surgical History Date Name Laterality Status Provider Name and Address Organization Details Recorded Time 07/06/20 23 Most Recent Mammogram completed Irma Reyes [place] - [facility], 09/17/2024 14:33:36 07/22/20 21 procedure on back completed Irma Mecbrittneyor [place] - [facility], 04/26/2022 13:18:20 12/03/19 17 Most Recent Bone Density completed Irma Mecbrittneyor [place] [facility], 12/14/2016 14:45:19 09/05/19 14 Other completed Irma Mecbebetoywor [place] - [facility], 12/10/2015 10:18:06 12/13/19 13 Colposcopy completed Lizeth Herman MD [address], [place], [address], [place] [facility], 12/12/2012 13:07:56 09/05/19 12 Other completed Irma Mecgreerwor [place] [facility], 08/08/2012 13:59:44 09/05/19 09 Other completed Irma Mecbrittneyor [place] [facility], 12/14/2016 14:44:01 09/05/19 03 Breast Biopsy completed Lizeth Herman MD [address], [place], [address], [place] [facility], 04/21/2021 14:00:34 09/05/18 94 Other completed Irma Mecgreerwor [place] [facility], 08/08/2012 13:59:44 09/05/18 77 Appendectomy completed Irma Reyes [place] - [facility], 08/08/2012 13:59:44 09/05/18 77 Total Abdominal Hysterectomy completed Lizeth Herman MD [address], [place], [address], [place] [facility], 08/08/2012 14:09:00 Imaging Results Imaging Date Name Status LastModified by Organiz ation Details LastModified Time 06/26/2020 MAMMO, screening, digital, bilateral completed [facility] [address] [place], [address], 06/27/2020 08:43:42 05/27/2022 MAMMO, screening, digital, [place], [address], 05/27/2022 15:32:50 07/26/2023 MAMMO, screening, digital, bilateral completed Information not available 07/27/2023 07:52:48 Procedure Notes None recorded. Medical Equipment None Reported. Allergies Allergen ID Allergen Name Allergen Category Reaction Reaction Severity Criticality Documentation Date Start Date Code Code System Note Provider Name and Address Organization Details Recorded Time 97125 egg extract food,medi cation rash Not available Not available 09/11/2013 51438 15 RxNorm [place] Berg in [facility], 4 13:40:00 5521 Avelox medicatio n other mild Not available 08/08/2012 14448 6 RxNorm welts JO[place]PHINE Berg in [facility], 2 13:59:45 5522 Product containin g penicilli n and antibioti c (product) medicatio n rash Not available Not available 08/08/2012 17219 05 SNOMED [place] Berg in [facility], 2 13:59:45 5523 Levaquin medicatio n other mild Not available 08/08/2012 10836 2 RxNorm [place] Berg in [facility], 2 13:59:45 Medications Name Sig Start Date Stop Date Status Note LastModified by Organization Details LastModified Time losartan 50 mg tablet TAKE ONE TABLET BY MOUTH EVERY DAY active Not Available Not Available No t Available quetiapine 25 mg tablet TAKE ONE TABLET BY MOUTH DAILY AT BEDTIME NEEDED 09/17 completed Not Available Not Available Not Available celecoxib 200 mg capsule 04/14 completed Not Available Not Available Not Available fluconazole 100 mg tablet TAKE ONE AND ONE-HALF TABLETS BY MOUTH EVERY DAY 04/21 completed Not Available Not Available Not Available clotrimazol e 10 mg netta DISSOLVE ONE NETTA IN MOUTH FIVE TIMES A DAY FOR 14 DAYS 09/17 completed Not Available Not Available Not Available buspirone 5 mg tablet TAKE ONE TABLET BY MOUTH TWICE A DAY NEEDED FOR ANXIETY 04/14 completed Not Available Not Available Not Available nystatin 100,000 unit/mL oral suspension TAKE 5 ML BY MOUTH BEFORE MEALS AND AT BEDTIME 06/28 completed Not Available Not Available Not Available clonidine HCl 0.1 mg tablet 04/12 completed Not Available Not Available Not Available prednisone 10 mg tablet TAKE 4 TABLETS BY MOUTH DAILY FOR 3 DAYS, THEN TAKE 3 TABLETS DAILY FOR 2 DAYS, THEN TAKE 2 TABLETS DAILY FOR 2 DAYS, THEN TAKE 1 TABLET HENRY 09/17 completed Not Available Not Available Not Available doxycycline hyclate 100 mg capsule TAKE ONE CAPSULE BY MOUTH TWICE A DAY FOR 14 DAYS 09/17 completed Not Available Not Available Not Available Evista 60 mg tablet active Not Available Not Available No t Available nabumetone 750 mg tablet active Not Available Not Available Not Available clindamycin HCl 300 mg capsule TAKE TWO TABLETS ONE HOUR BEFORE DENTAL VISIT 09/17 completed Not Available Not Available Not Available albuterol sulfate 2.5 mg/3 mL (0.083 %) solution for nebulizatio n INHALE THE CONTENTS OF 1 VIAL VIA NEBULIZER EVERY 2-4 HOURS NEEDED active Not Available Not Available No t Available citalopram 40 mg tablet Take 1 tablet every day by oral route. active Not Available Not Available No t Available azithromyci n 250 mg tablet TAKE ONE TABLET BY MOUTH EVERY DAY 09/17 completed Not Available Not Available Not Available alprazolam 1 mg tablet TAKE ONE-HALF TO ONE TABLET BY MOUTH DAILY active Not Available Not Available No t Available ofloxacin 0.3 % eye drops 04/12 completed Not Available Not Available Not Available tizanidine 4 mg tablet TAKE ONE TABLET BY MOUTH EVERY 8 HOURS NEEDED FOR SPASM 04/26 completed Not Available Not Available Not Available fluconazole 150 mg tablet TAKE ONE TABLET BY MOUTH EVERY DAY FOR ONE DAY 09/17 completed Not Available Not Available Not Available sulfamethox azole 400 mg-trimetho prim 80 mg tablet 04/12 completed Not Available Not Available Not Available clarithromy sven 500 mg tablet TAKE ONE TABLET BY MOUTH TWICE A DAY 03/16 completed Not Available Not Available Not Available hydrocodone 5 mg-acetamin ophen 325 mg tablet active Not Available Not Available No t Available meloxicam 15 mg tablet 04/12 completed Not Available Not Available Not Available ondansetron HCl 4 mg tablet TAKE ONE TABLET BY MOUTH EVERY 8 HOURS NEEDED FOR NAUSEA 09/17 completed Not Available Not Available Not Available famotidine 40 mg tablet TAKE ONE TABLET BY MOUTH TWICE A DAY active Not Available Not Available No t Available prednisone 20 mg tablet TAKE ONE TABLET BY MOUTH TWICE A DAY FOR 5 DAYS 04/21 completed Not Available Not Available Not Available alendronate 70 mg tablet active Not Available Not Available Not Available prednisone 5 mg tablet TAKE 4TABS TWICE A DAY FOR 2 DAYS, 3TABS TWICE A DAY FOR 2 DAYS, 2TABS TWICE A DAY FOR 2 DAYS, THEN 4TABS BETWEEN 4-5PM FOR 2 DAYS, 3TABS BE 06/28 completed Not Available Not Available Not Available pimecrolimu s 1 % topical cream APPLY TO ECZEMA TWO TIMES A DAY NEEDED active Not Available Not Available No t Available clindamycin HCl 150 mg capsule 03/16 completed Not Available Not Available Not Available meclizine 12.5 mg tablet TAKE ONE TO TWO TABLETS BY MOUTH EVERY 8 HOURS NEEDED FOR DIZZINESS /VERTIGO active Not Available Not Available No t Available amlodipine 5 mg tablet TAKE ONE TABLET BY MOUTH DAILY active Not Available Not Available No t Available sulfamethox azole 800 mg-trimetho prim 160 mg tablet TAKE ONE TABLET BY MOUTH TWICE A DAY 09/17 completed Not Available Not Available Not Available hydrocodone 10 mg-acetamin ophen 325 mg tablet 12/14 completed Not Available Not Available Not Available doxycycline monohydrate 100 mg tablet 12/14 completed Not Available Not Available Not Available tramadol 50 mg tablet TAKE ONE TABLET BY MOUTH EVERY 6 HOURS NEEDED FOR PAIN 09/17 completed Not Available Not Available Not Available acetaminoph en 500 mg tablet TAKE 2 TABLETS BY MOUTH EVERY 8 HOURS NEEDED DONT TAKE WITH OTHER MEDS THAT CONTAIN ACETAMINO PHEN active Not Available Not Available No t Available triamcinolo ne acetonide 0.1 % topical cream APPLY TOPICALLY TWO TIMES A DAY NEEDED active Not Available Not Available No t Available ketorolac 0.5 % eye drops 04/12 completed Not Available Not Available Not Available cyproheptad ine 4 mg tablet active Not Available Not Available Not Available meloxicam 7.5 mg tablet TAKE ONE TABLET BY MOUTH EVERY DAY NEEDED 09/17 completed Not Available Not Available Not Available oxycodone-a cetaminophe n 5 mg-325 mg tablet 03/16 completed Not Available Not Available Not Available alprazolam 0.5 mg tablet active Not Available Not Available Not Available hydromorpho ne 2 mg tablet TAKE ONE TO TWO TABLETS BY MOUTH EVERY 8 TO 12 HOURS NEEDED FOR PAIN 04/26 completed Not Available Not Available Not Available alprazolam 0.25 mg tablet active Not Available Not Available Not Available famotidine 20 mg tablet TAKE ONE TABLET BY MOUTH TWICE A DAY active Not Available Not Available No t Available prednisolon e acetate 1 % eye drops,suspe nsion 03/16 completed Not Available Not Available Not Available pravastatin 10 mg tablet TAKE ONE TABLET BY MOUTH DAILY AT BEDTIME active Not Available Not Available No t Available oxycodone-a cetaminophe n 10 mg-325 mg tablet TAKE ONE TABLET BY MOUTH EVERY 4 HOURS NEEDED FOR PAIN 06/28 completed Not Available Not Available Not Available amlodipine 5 mg-benazepr il 10 mg capsule active Not Available Not Available Not Available meclizine 25 mg tablet TAKE ONE TABLET BY MOUTH EVERY 6 HOURS NEEDED 04/14 completed Not Available Not Available Not Available amlodipine 5 mg-benazepr il 20 mg capsule TAKE ONE CAPSULE BY MOUTH ONCE A DAY 04/14 completed Not Available Not Available Not Available amlodipine 10 mg tablet TAKE ONE TABLET BY MOUTH EVERY DAY active Not Available Not Available No t Available benzonatate 100 mg capsule TAKE 1 TO 2 CAPSULES THREE TIMES A DAY NEEDED FOR COUGH 09/17 completed Not Available Not Available Not Available hyoscyamine 0.125 mg disintegrat ing tablet active Not Available Not Available N ot Available flunisolide 25 mcg (0.025 %) nasal spray active Not Available Not Available Not Available hydrocodone 7.5 mg-acetamin ophen 325 mg tablet 03/16 completed Not Available Not Available Not Available paroxetine 30 mg tablet TAKE ONE TABLET BY MOUTH EVERY DAY active Not Available Not Available No t Available paroxetine 20 mg tablet TAKE ONE TABLET BY MOUTH EVERY DAY 09/17 completed Not Available Not Available Not Available erythromyci n 5 mg/gram (0.5 %) eye ointment 04/12 completed Not Available Not Available Not Available hyoscyamine sulfate 0.125 mg tablet TAKE ONE TABLET BY MOUTH EVERY 4 HOURS NEEDED 04/12 completed Not Available Not Available Not Available tacrolimus 0.1 % topical ointment 04/12 completed Not Available Not Available Not Available nystatin 100,000 unit/gram topical cream APPLY TO AFFECTED AREA S) TOPICALLY TWO TIMES A DAY active Not Available Not Available No t Available buspirone 10 mg tablet TAKE ONE TABLET BY MOUTH TWICE A DAY NEEDED FOR ANXIETY active Not Available Not Available No t Available lansoprazol e 30 mg capsule,del ayed release TAKE ONE CAPSULE BY MOUTH TWICE A DAY 1 HOUR PRIOR TO BREAKFAST AND DINNER active Not Available Not Available No t Available lidocaine 5 % topical patch APPLY UP TO 3 PATCHES TO AFFECTED AREA DAILY FOR 12 HOURS ON, 12 HOURS OFF 09/17 completed Not Available Not Available Not Available Advair Diskus 250 mcg-50 mcg/dose powder for inhalation active Not Available Not Available N ot Available Combivent 18 mcg-103 mcg/actuati on aerosol inhaler active Not Available Not Available Not Available Advair Diskus 500 mcg-50 mcg/dose powder for inhalation active Not Available Not Available N ot Available hydrocodone -homatropin e 5 mg-1.5 mg/5 mL oral syrup active Not Available Not Available N ot Available oxybutynin chloride ER 5 mg tablet,exte nded release 24 hr START AT ONE TABLET BY MOUTH EVERY OTHER DAY INSTRUCTE D THEN TAKE ONE TABLET BY MOUTH EVERY DAY 04/26 completed Not Available Not Available Not Available gabapentin 300 mg capsule TAKE ONE CAPSULE BY MOUTH THREE TIMES A DAY 04/26 completed Not Available Not Available Not Available budesonide 0.5 mg/2 mL suspension for nebulizatio n INHALE THE CONTENTS OF 1 AMPULE VIA NEBULIZER TWO TIMES A DAY active Not Available Not Available No t Available montelukast 10 mg tablet TAKE ONE TABLET BY MOUTH DAILY AT BEDTIME active Not Available Not Available No t Available hydroxyzine HCl 25 mg tablet TAKE ONE TO TWO TABLETS BY MOUTH AT BEDTIME active Not Available Not Available No t Available morphine ER 15 mg tablet,exte nded release active Not Available Not Available Not Available hydrocodone 5 mg-acetamin ophen 500 mg tablet active Not Available Not Available No t Available codeine 10 mg-guaifene sin 100 mg/5 mL oral liquid 04/12 completed Not Available Not Available Not Available hydrochloro thiazide 25 mg tablet TAKE ONE TABLET BY MOUTH EVERY DAY 04/14 completed Not Available Not Available Not Available mometasone 0.1 % topical ointment APPLY TO AFFECTED AREA(S) TWO TIMES A DAY FOR 30 DAYS 04/12 completed Not Available Not Available Not Available triamterene 75 mg-hydrochl orothiazide 50 mg tablet active Not Available Not Available Not Available lorazepam 1 mg tablet 04/14 completed Not Available Not Available Not Available azelastine 137 mcg (0.1 %) nasal spray SPRAY TWO PUFFS IN EACH NOSTRIL TWICE A DAY active Not Available Not Available No t Available epinephrine 0.3 mg/0.3 mL injection, auto-inject or USE DIRECTED FOR ANAPHYLAX IS. THEN CALL 911 active Not Available Not Available No t Available polyethylen e glycol 3350 17 gram/dose oral powder TAKE ONE CAPFUL BY MOUTH DISSOLVED IN 4 TO 8 OZ OF LIQUID AND DRINK EVERY DAY NEEDED active Not Available Not Available No t Available levofloxaci n 500 mg tablet active Not Available Not Available Not Available oxycodone-a cetaminophe n 7.5 mg-325 mg tablet TAKE ONE TABLET BY MOUTH FOUR TIMES A DAY NEEDED 06/28 completed Not Available Not Available Not Available estradiol 0.01% (0.1 mg/gram) vaginal cream APPLY A HALF GRAM VAGINALLY ONCE A DAY 04/26 completed Not Available Not Available Not Available methylpredn isolone 4 mg tablets in a dose pack TAKE SIX TABLETS FOR 1 DAY, THEN FIVE TABLETS FOR 1 DAY, THEN FOUR TABLETS FOR 1 DAY,THEN THREE TABLETS FOR 1 DAY, THEN TWO TABLETS FOR 1 DA 09/17 completed Not Available Not Available Not Available hydrocodone 10 mg-chlorphe niramine 8 mg/5 mL oral susp extend.rel 12hr TAKE 5ML AT BEDTIME NEEDED FOR COUGH 06/28 completed Not Available Not Available Not Available albuterol sulfate HFA 90 mcg/actuati on aerosol inhaler INAHLE 2 PUFFS BY MOUTH EVERY 4-6 HOURS active Not Available Not Available No t Available ipratropium bromide 42 mcg (0.06 %) nasal spray active Not Available Not Available Not Available celecoxib 100 mg capsule TAKE ONE CAPSULE BY MOUTH EVERY DAY 09/17 completed Not Available Not Available Not Available oxybutynin chloride 5 mg tablet TAKE ONE TABLET BY MOUTH EVERY DAY 04/26 completed Not Available Not Available Not Available indomethaci n ER 75 mg capsule,ext ended release active Not Available Not Available Not Available cefdinir 300 mg capsule TAKE ONE CAPSULE BY MOUTH TWICE A DAY FOR 14 DAYS 06/28 completed Not Available Not Available Not Available losartan 100 mg tablet Take by oral route for 90 days. active Not Available Not Available No t Available fluticasone propionate 50 mcg/actuati on nasal spray,suspe nsion active Not Available Not Available Not Available doxycycline hyclate 100 mg tablet TAKE ONE TABLET BY MOUTH TWICE A DAY FOR 14 DAYS 04/26 completed Not Available Not Available Not Available ipratropium bromide 21 mcg (0.03 %) nasal spray active Not Available Not Available Not Available mometasone 0.1 % topical cream APPLY TOPICALLY TO AFFECTED AREA S) TWO TIMES A DAY NEEDED active Not Available Not Available No t Available oxycodone 5 mg tablet TAKE 1 TO 2 TABLETS BY MOUTH EVERY 6 HOURS active Not Available Not Available No t Available enoxaparin 30 mg/0.3 mL subcutaneou s syringe INJECT 30MG 1 SYRINGEFU L) SUBCUTANE OUSLY DAILY 09/17 completed Not Available Not Available Not Available azithromyci n 500 mg tablet 09/17 completed Not Available Not Available Not Available Xolair 150 mg subcutaneou s solution active Not Available Not Available N ot Available bupropion HCl XL 300 mg 24 hr tablet, extended release TAKE ONE TABLET BY MOUTH EVERY DAY active Not Available Not Available No t Available bupropion HCl XL 150 mg 24 hr tablet, extended release TAKE ONE TABLET BY MOUTH EVERY MORNING 04/14 completed Not Available Not Available Not Available Jantoven 1 mg tablet TAKE 6 TABLETS BY MOUTH DAILY OR INSTRUCTE D BY PROVIDER 06/28 completed Not Available Not Available Not Available Jantoven 5 mg tablet TAKE ONE TABLET BY MOUTH EVERY DAY 06/28 completed Not Available Not Available Not Available levalbutero l HFA 45 mcg/actuati on aerosol inhaler INHALE 2 PUFFS EVERY 2-4 HOURS NEEDED active Not Available Not Available No t Available Nyamyc 100,000 unit/gram topical powder APPLY ON THE SKIN THREE TIMES A DAY 04/21 completed Not Available Not Available Not Available pregabalin 25 mg capsule TAKE ONE CAPSULE BY MOUTH TWICE A DAY 09/17 completed Not Available Not Available Not Available calcium 09/17 completed Not Available Not Available Not Available Fish Oil active Not Available Not Avai lable Not Available Vitamin D3 active Not Available Not Av ailable Not Available Prevacid active Not Available Not Avai lable Not Available Daily Multi-Vitam in active Not Available Not Available Not Available amlodipine 5 mg-benazepr il 40 mg capsule TAKE ONE CAPSULE BY MOUTH EVERY DAY active Not Available Not Available No t Available MoviPrep 100 gram-7.5 gram-2.691 gram oral powder packet 04/14 completed Not Available Not Available Not Available hydrochloro thiazide 12.5 mg tablet TAKE ONE TABLET BY MOUTH EVERY DAY active Not Available Not Available No t Available Fish Oil 1,000 mg capsule active Not Available Not Available Not Available oxycodone 10 mg tablet TAKE ONE TO TWO TABLETS BY MOUTH EVERY 4 HOURS NEEDED FOR MODERATE PAIN SCALE 4-6 09/17 completed Not Available Not Available Not Available Prevnar 13 (PF) 0.5 mL intramuscul ar syringe VACCINATI ON ADMINISTE RED BY PHARMACIS T active Not Available Not Available No t Available Hizentra 03/16 completed Not Available Not Available Not Available QNASL 80 mcg/actuati on nasal aerosol spray INHALE 2 SRAYS IN EACH NOSTRIL ONCE A DAY 03/16 completed Not Available Not Available Not Available Myrbetriq 25 mg tablet,exte nded release TAKE ONE TABLET BY MOUTH AT BEDTIME 04/26 completed Not Available Not Available Not Available Tudorza Pressair 400 mcg/actuati on breath activated 03/16 completed Not Available Not Available Not Available Linzess 145 mcg capsule TAKE ONE CAPSULE BY MOUTH EVERY DAY active Not Available Not Available No t Available Linzess 290 mcg capsule TAKE ONE CAPSULE BY MOUTH ONCE DAILY active Not Available Not Available No t Available Hizentra 10 gram/50 mL (20 %) subcutaneou s solution Inject by subcutane ous route. active Not Available Not Available No t Available Incruse Ellipta 62.5 mcg/actuati on powder for inhalation INHALE ONE PUFF BY MOUTH EVERY DAY active Not Available Not Available No t Available OxyContin 15 mg tablet,neomi h resistant,e xtended release 04/12 completed Not Available Not Available Not Available OxyContin 20 mg tablet,noemi h resistant,e xtended release TAKE ONE TABLET BY MOUTH EVERY 12 HOURS 04/12 completed Not Available Not Available Not Available OxyContin 10 mg tablet,noemi h resistant,e xtended release TAKE ONE TABLET BY MOUTH EVERY DAY 04/26 completed Not Available Not Available Not Available Movantik 25 mg tablet TAKE ONE TABLET BY MOUTH EVERY DAY NEEDED FOR CONSTIPAT ION 04/14 completed Not Available Not Available Not Available Breo Ellipta 200 mcg-25 mcg/dose powder for inhalation INHALE ONE PUFF BY MOUTH AT BEDTIME 04/12 completed Not Available Not Available Not Available naloxone 4 mg/actuatio n nasal spray SPRAY 4MG INSIDE NOSTRIL FOR ONE DOSE- MAY REPEAT DOSE EVERY 2-3 MINUTES IN ALTERNATI NG NOSTRILS UNTIL PATIENT RESPONDS OR HELP ARRIVES active Not Available Not Available No t Available Eucrisa 2 % topical ointment APPLY ONE APPLICATI ON TOPICALLY TO AFFECTED AREA(S) TWO TIMES A DAY active Not Available Not Available No t Available Linzess 72 mcg capsule TAKE ONE CAPSULE BY MOUTH EVERY DAY 09/17 completed Not Available Not Available Not Available Dupixent 300 mg/2 mL subcutaneou s syringe active Not Available Not Available No t Available Trelegy Ellipta 100 mcg-62.5 mcg-25 mcg powder for inhalation INHALE ONE PUFF BY MOUTH ONCE A DAY active Not Available Not Available No t Available Xolair 150 mg/mL subcutaneou s syringe active Not Available Not Available No t Available Nucala 100 mg/mL subcutaneou s syringe active Not Available Not Available No t Available Dayvigo 5 mg tablet TAKE ONE TABLET BY MOUTH DAILY AT BEDTIME 09/17 completed Not Available Not Available Not Available Dupixent 300 mg/2 mL subcutaneou s pen injector active Not Available Not Available Not Available Adan Ellipta 200 mcg-62.5 mcg-25 mcg powder for inhalation INHALE ONE PUFF BY MOUTH DAILY active Not Available Not Available No t Available Arthritis Pain (diclofenac ) 1 % topical gel APPLY 4 GRAMS TOPICALLY TO SINGLE KNEE, ANKLE, FOOT SOLE/TOES /TOP OF FOOT) FOUR TIMES A DAY FOR PAIN active Not Available Not Available No t Available Vitals Date Recorded Body height Body mass index (BMI) Body weight Body temperature Heart rate Systolic blood pressure Diastolic blood pressure Provider Name and Address Organization Details Last Updated DateTime 0 147.32 cm 40.1 kg/m2 37867.0 2 g 97.4 [degF] 88 /min 133 mm[Hg] 49 mm[Hg] Gena Potter in [facility], 0 13:08:32 Date Recorded Body weight Body mass index (BMI) Body height Body temperature Heart rate Systolic blood pressure Diastolic blood pressure Provider Name and Address Organization Details Last Updated DateTime 1 99922.7 5 g 43.1 kg/m2 147.32 cm 97.4 [degF] 81 /min 148 mm[Hg] 60 mm[Hg] Irma Potter in [facility], 1 13:26:01 Date Recorded Body height Body mass index (BMI) Body weight Heart rate Body temperature Systolic blood pressure Diastolic blood pressure Provider Name and Address Organization Details Last Updated DateTime 2 146.05 cm 46.4 kg/m2 73522.8 6 g 81 /min 97.5 [degF] 124 mm[Hg] 57 mm[Hg] Irma Potter in [facility], 2 13:11:32 Date Recorded Body temperature Body weight Body mass index (BMI) Body height Heart rate Systolic blood pressure Diastolic blood pressure Provider Name and Address Organization Details Last Updated DateTime 3 97.9 [degF] 29602.1 2 g 43.9 kg/m2 147.32 cm 83 /min 152 mm[Hg] 57 mm[Hg] Irma Potter in [facility], 3 13:33:28 Date Recorded Body weight Body mass index (BMI) Body height Body temperature Heart rate Systolic blood pressure Diastolic blood pressure Provider Name and Address Organization Details Last Updated DateTime 5 91917.5 2 g 30.9 kg/m2 175.26 cm 97.4 [degF] 84 /min 146 mm[Hg] 75 mm[Hg] Irma [facility] in [facility], 5 14:27:15 Social History Question Answer Notes LastModified by Organizat ion Details LastModified Time Tobacco Smoking Status Former Smoker quit 40 yrs ago Not Available [employer] 07/08/2020 03:19:37 What Is Your Level Of Alcohol Consumption? Occasional [id number] Information not available 07/08/2020 How Many Years Have You Consumed Alcohol? 50 Information not available 04/21/2021 What Is Your Level Of Caffeine Consumption? Occasional [id number] Information not available 07/08/2020 In The 14 Days Before Symptom Onset, Have You Had Close Contact With A Laboratory-confir med COVID-19 While That Case Was Ill? No Information not available 04/21/2021 In The 14 Days Before Symptom Onset, Have You Had Close Contact With A Person Who Is Under Investigation For COVID-19 While That Person Was Ill? No Information not available 04/21/2021 Have You Been To An Area Known To Be High Risk For COVID-19? No Information not available 04/21/2021 Are You Currently Employed? No Information not available 04/21/2021 What Type Of Diet Are You Following? REGULAR [id number] Information not available 07/08/2020 Which Illicit Or Recreational Drugs Have You Used? No [id number] Information not available 07/08/2020 Do You Reside In Or Have You Traveled To An Area Where Ebola Virus Transmission Is Active? No [id number] Information not available 07/08/2020 Do You Or Have You Ever Used E-cigarettes Or Vape? Never Used Electronic Cigarettes [id number] Information not available 07/08/2020 Education 2 Year College Informatio n not available 08/08/2012 What Is The Highest Grade Or Level Of School You Have Completed Or The Highest Degree You Have Received? [id number] Information not available 04/21/2021 What Is Your Occupation? Retired [id number] Information not available 07/08/2020 How Many Days In The Past Year Have You Had A Heavy Drinking Consumption (4+ Female, 5+ Male)? 0 Information no t available 12/14/2016 Are There Any Guns Present In Your Home? No Information not available 04/21/2021 High Number Of Sexual Partners No Information not available 12/14/2016 To Which Gender Do You Self-identify? Female Information not available 12/14/2016 Marital Status Informatio n not available 08/08/2012 What Was The Date Of Your Most Recent Tobacco Screening? 06/28/2023 Information not available 06/28/2023 What Is Your Relationship Status? Information not available 04/21/2021 Are You Sexually Active? Yes [id number] Information not available 07/08/2020 At What Age Did You Start Smoking Tobacco? 16 Information not available 04/21/2021 Do You Or Have You Ever Used Smokeless Tobacco? Never Used Smokeless Tobacco [id number] Information not available 07/08/2020 How Much Tobacco Do You Smoke? No [id number] Information not available 07/08/2020 General Stress Level Medium Information not available 09/17/2024 Do You Feel Stressed (tense, Restless, Nervous, Or Anxious, Or Unable To Sleep At Night)? [id number] Information not available 09/17/2024 Do You Use Any Illicit Or Recreational Drugs? No Information not available 04/21/2021 How Many Years Have You Smoked Tobacco? 10 [id number] Information not available 07/08/2020 Have You Recently (within The Last 12 Weeks, Or During A Current ) Traveled To Or Lived In A Zika-affected Area? No Information not available 12/14/2016 Do You Or Have You Ever Used Any Other Forms Of Tobacco Or Nicotine? No Information not available 04/21/2021 How Many Days In The Past Year Have You Consumed 4 Or More Drinks? 0 Information no t available 04/21/2021 Sex: Female Functional Status Question Answer Note LastModified by Organization D etails LastModified Time What is your exercise level? None Information not available 04/21/2021 Mental Status None recorded. Family History Relationship Description Onset Age of this Age Resolved Age Notes LastModified by Organization Details LastModified Time Mother Asthma Not availabl e 12/10/2015 10:28:04 Mother Heart disease previo usly record ed as Heart Proble m Not available 12/10/2015 10:28:04 Paternal Aunt Malignant tumor of breast 30 60 bilate ral (previ ously record ed as Breast Cancer ) Not available 11/14/2014 13:28:39 Unspecified Relation Malignant tumor of ovary 35 35 matern al niece (previ ously record ed as Ovaria n Cancer ) Not available 11/14/2014 13:28:39 Sister Diabetes mellitus previo usly record ed as Diabet es Not available 12/10/2015 10:28:04 Sister Heart disease [email or web address] Not available 2018 14:49:37 Sister Chronic kidney disease stage 4 [email or web address] Not available 2019 13:19:28 Father Heart disease previo usly record ed as Heart Proble m Not available 12/10/2015 10:28:04 Medical History Condition Response Anesthesia complications N High Blood Pressure Y Candidate for MyRisk panel Y Autoimmune Condition Y Lung Disease Y Depression Y Defects or Inherited Disease N History of Ovarian Cancer N BRCA testing in past Y Anxiety Disorder Y Arthritis Y Infertility N History of Cancer N Endometriosis Y Thyroid Problems N Kidney or Bladder Problems N GI Problems Y Anemia N History of Breast Cancer Y OLLIE exposure N Osteopenia Y Psychiatric Illness N Diabetes N Headaches or Migraines Y Asthma Y Hepatitis N Heart Disease N Hypertension Y Osteoporosis Y Gynecological History Statement/Question Response If Post Menopausal, Age at Menopause 30 Age at Menarche 12 Most Recent Mammogram 07/06/2023 Most Recent Bone Density 12/02/2016 Hormone Replacement Therapy N Obstetrics History GPAL:G 0 P 0 0 0 0 Type Value Living 0 Total 0 Immunizations Vaccine Type Date Status Note Provider Nam e and Address Organization Details Recorded Time Influenza, split virus, quadrivalent, preservative 1 completed Irma Meczywor null, [place] [facility], 06/28/2023 13:24:44 Influenza, adjuvanted, quadrivalent, PF 0 completed Irma Meczywor null, [place] - [facility], 06/28/2023 13:24:44 COVID-19, mRNA, LNP-S, PF, 100 mcg/0.5mL dose or 50 mcg/0.25mL dose 1 completed Irma Meczywor null, [place] - [facility], 06/28/2023 13:24:44 COVID-19, mRNA, LNP-S, PF, 100 mcg/0.5mL dose or 50 mcg/0.25mL dose 1 completed Irma Meczywor null, [place] - [facility], 06/28/2023 13:24:44 COVID-19, mRNA, LNP-S, PF, 30 mcg/0.3 mL dose 2 completed Irma Meczywor null, [place] - [facility], 06/28/2023 13:24:44 COVID-19, mRNA, LNP-S, PF, 30 mcg/0.3 mL dose, fabricio-sucrose 2 completed Irma Meczywor null, [place] - [facility], 06/28/2023 13:24:44 Pneumococcal conjugate PCV 13 6 completed Irma Meczywor null, [place] - [facility], 06/28/2023 13:24:44 zoster recombinant 3 completed Irma Meczywor null, [place] - [facility], 09/17/2024 14:25:43 Influenza, adjuvanted, quadrivalent, PF 2 completed Irma Meczywor null, [place] - [facility], 09/17/2024 14:25:43 COVID-19, mRNA, LNP-S, PF, 100 mcg/0.5mL dose or 50 mcg/0.25mL dose 1 completed JOSEPHINE Berg in [facility], 09/17/2024 14:25:43 COVID-19, mRNA, LNP-S, bivalent, PF, 30 mcg/0.3 mL dose 2 completed JOSEPHINE Berg in [facility], 09/17/2024 14:25:43 Past Encounters Encounter ID Performer Location Encounter Start Date Encounter Closed Date Diagnosis/Indication Diagnosis SNOMED-CT Code Diagnosis ICD10 Code Diagnosis Note [id number] MD LIZETH Covington MD [address] [facility] [address] 08/08/2012 13:22:43 08/10/2012 09:52:22 [id number] Irma HERMAN MD [address] [facility] [address] 09/11/2013 13:26:47 09/12/2013 08:53:20 Screening for malignant neoplasm of cervix 712331584 Screening mammography [id number] Irma HERMAN MD [address] [facility] [address] 11/16/2012 14:26:27 11/16/2012 16:27:58 [id number] MD LIZETH Covington MD [address] [facility] [place] [address] 12/12/2012 08:04:19 12/13/2012 12:10:32 [id number] Irma HERMAN MD [address] [facility] [place] [address] 03/13/2013 13:21:29 03/15/2013 08:40:53 [id number] Irma HERMAN MD [address] [facility] [place] [address] 03/26/2013 13:16:42 03/26/2013 16:27:27 [id number] LIZETH HERMAN MD [address] [facility] [address] 11/14/2014 13:00:38 11/14/2014 14:31:18 Specialized medical examination [id number] Screening for malignant neoplasm of rectum 239952887 Screening mammography [id number] MD LIZETH Covington MD [address] [place] [address],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 [place] [address] 03/16/2018 13:02:34 03/16/2018 14:59:41 Specialized medical examination 12356709 Z01.419 Screening for malignant neoplasm of rectum 904770112 Z12.12 Screening mammography 24 951251 Z12.31 [id number] MD LIZETH Covington MD [address] [place] [address] [place] [address] 04/12/2019 14:34:34 04/12/2019 15:48:24 Screening for malignant neoplasm of cervix 255401414 Z12.4 Screening mammography 24 200914 Z12.31 Screening for osteoporosis 540855302 Z13.820 Personal h istory of primary malignant neoplasm of breast 401729405 Z85.3 History of gynecological disorder 794910068 Z87.412 [id number] MD LIZETH Covington MD [address] [place] [address] 04/14/2020 13:06:18 04/14/2020 14:32:12 Sampling of vagina for Papanicolaou smear 057399037 Z91.89 Screening mammography 24 087773 Z12.31 Screening for osteoporosis 435077269 Z13.820 [id number] MD LIZETH Covington MD [address] [place] [address] 04/21/2021 13:15:34 04/21/2021 14:24:06 Specialized medical examination 99320959 Z01.419 Screening for malignant neoplasm of rectum 807778737 Z12.12 Screening mammography 24 120859 Z12.31 Urinary incontinence 165 769987 R32 [id number] MD LIZETH Covington MD [address] [place] [address] 04/26/2022 13:03:14 04/26/2022 14:49:27 History of clinical finding in subject 687129589 Z91.89 Screening mammography 24 301271 Z12.31 Advance care planning 71 2145498 Z71.89 Screening for osteoporosis 374112118 N95.8 History of dysplasia of vulva 0889212583 21321 Z87.412 Personal h istory of primary malignant neoplasm of breast 397863685 Z85.3 Urinary incontinence 165 340932 R32 [id number] MD LIZETH Covington MD [address] [place] [address] 06/28/2023 13:18:49 06/29/2023 08:06:11 History of clinical finding in subject 709251026 Z91.89 Screening mammography 24 836949 Z12.31 Advance care planning 71 3991777 Z71.89 Screening for osteoporosis 435062847 N95.8 [id number] MD LIZETH Covington MD [address] [facility] [address] [place] [address] 09/17/2024 14:21:13 09/17/2024 15:53:03 History of clinical finding in subject 875231458 Z91.89 Screening mammography 24 663958 Z12.31 Advance care planning 71 7368342 Z71.89 Screening for osteoporosis 075257986 N95.8 Health Concerns Section Related Observation LastModified by Organization Detai ls LastModified Time None Recorded Concern Status LastModified by Organization Details LastModified Time None Recorded Advance Directives Directive None Recorded Payers Encounter Date Sequence Insurance Name Policy Number Policy Kelly Covered Member ID Kelly Member ID Guarantor Name 04/14/2020 1 [facility] PREFERR[place] - DEDUCTIBLE (PPO) [id number] Neo Liptak [id number] Bernard Liptak 04/21/2021 1 [facility]REF[place] - DEDUCTIBLE (PPO) [id number] Neo Liptak [id number] Bernard Liptak 04/26/2022 1 [facility] (MEDICARE REPLACEMENT PPO) [id number] Bernard Liptak [id number] Bernard Liptak 06/28/2023 1 [facility] (MEDICARE REPLACEMENT PPO) [id number] Bernard Liptak [id number] Bernard Liptak 09/17/2024 1 [facility] (MEDICARE REPLACEMENT PPO) [id number] Bernard Liptak [id number] Bernard Liptak Notes Date Note Type Note Provider Name and Address Organization Details Recorded Time 04/14/2020 text/html She is here for annual exam, is doing well. Note from 2019: She is here for annual exam, is doing well but still using a cane due to her knee replacement. She has a past history of right breast cancer, and also of FRANCISCO II. Her sister had an MD and her brother in law had 2 strokes in the past year, so she is doing most of the running with her. Her partner Rik is her health care proxy. Lizeth Herman MD [address] [facility], [place], [address], [employer] [facility], 04/14/2020 13:36:19 04/21/2021 text/html She is here for annual exam, is doing well. Both of her knees are bothering her, she is in work up for this and for her back pain, recently got an injection into my back that helped a bit. 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 She is BRCA negative. She has noted worsening urinary stress incontinence in the past year or so. She has past histroy of FRANCISCO II. s/p TAHBSO age 30 for endometriosis. Lizeth Herman MD [address], [place], [address], [place] - [facility], 04/21/2021 14:05:44 04/26/2022 text/html She is here for annual exam, is doing well. Walking wiht matthew wallace knee surgery, It's bone on bone. Past history of FRANCISCO II, no vulvar pruritus noted. She is seeing urologist for incontinence issues. __ note from 2020: She is here for annual exam, is doing well. Both of her knees are bothering her, she is in work up for this and for her back pain, recently got an injection into my back that helped a bit. 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 She is BRCA negative.She has noted worsening urinary stress incontinence in the past year or so.She has past histroy of FRANCISCO II.s/p TAHBSO age 30 for endometriosis. 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 She is BRCA negative. Note from 2021: She is here for annual exam, is doing well. Walking wiht walker, neds knee surgery, It's bone on bone. Past history of FRANCISCO II, no vulvar pruritus noted.She is seeing urologist for incontinence issues. Lizeth Herman MD [address], [place], [address], [place] - [facility], 06/28/2023 14:57:44 09/17/2024 text/html She is here for annual, doing well, has a past history of FRANCISCO II.She had DCIS in 2002 and had mastectomy with reconstruction and also has had left breast reduction. She is BRCA negative. Lizeth Herman MD [address], [place], [address], [place] - [facility], 09/17/2024 14:49:47 OBGyn Episode No OBEpisode recorded.
--- OUTSIDE RECORDS SUMMARY | 2024-10-04 10:21 | XMS_ITS | Clinical Summary ---
Author Organization [facility] Address [address] [place] [address] Care Team Providers Care Heater Operator Helper Name Role Phone Mannie Khan MD Primary Care Provider + [phone] Allergies Active Allergy Reactions Criticality Noted Date Comments Egg Rash Low 12/01/2021 Levofloxacin Other (See Comments) 09/18/2018 Leg sweling Moxifloxacin Hives 09/18/2018 Penicillins Rash Low 09/18/2018 Medications Medication Sig Dispensed Refills Start Date End Date Status ALPRAZolam (XANAX) 1 MG tablet Take 1 mg by mouth. 0 Active amLODIPine-benazepri l (LOTREL) 5-40 MG per capsule Take 1 capsule by mouth daily. 0 12/23/2020 Active budesonide (PULMICORT) 0.5 MG/2ML nebulizer solution USE ONE AMPULE VIA NEBULIZER TWO TIMES A DAY 0 10/29/2020 Active buPROPion (WELLBUTRIN XL) 300 MG 24 hr tablet TAKE ONE TABLET BY MOUTH EVERY DAY 0 12/23/2020 Active busPIRone (BUSPAR) 10 MG tablet TAKE ONE TABLET BY MOUTH TWICE A DAY NEEDED FOR ANXIETY 0 12/09/2020 Active Dupixent 300 MG/2ML SOPN 0 11/25/2020 Active famotidine (PEPCID) 20 MG tablet Take 20 mg by mouth 2 (two) times a day. 0 12/09/2020 Active Trelegy Ellipta 100-62.5-25 MCG/INH AEPB INHALE ONE PUFF BY MOUTH ONCE A DAY 0 09/23/2020 Active hydrOXYzine (ATARAX) 25 MG tablet TAKE ONE TABLET BY MOUTH UP TO FOUR TIMES A DAY NEEDED 0 12/09/2020 Active lansoprazole (PREVACID) 30 MG capsule Take 30 mg by mouth 2 (two) times a day. 0 12/23/2020 Active lansoprazole (PREVACID SOLUTAHB) 30 MG TBDD disintegrating tablet Take 30 mg by mouth. 0 Active lidocaine (LIDODERM) 5 % APPLY UP TO 3 PATCHES TO AFFECTED AREA DAILY FOR 12 HOURS ON, 12 HOURS OFF 0 11/12/2020 Active meloxicam (MOBIC) 15 MG tablet Take 15 mg by mouth. 0 Active montelukast (SINGULAIR) 10 MG tablet Take 10 mg by mouth every night at bedtime. 0 12/23/2020 Active pravastatin (PRAVACHOL) tablet 10 mg Take 10 mg by mouth every night at bedtime. 0 10/28/2020 Active albuterol (PROVENTIL) (2.5 MG/3ML) 0.083% nebulizer solution albuterol sulfate 2.5 mg/3 mL (0.083 %) solution for nebulization INHALE ONE VIAL VIA NEBULIZER EVERY 2-4 HOURS NEEDED 0 02/20/2019 Active citalopram (CeleXA) 40 MG tablet citalopram 40 mg tablet 0 Active fluticasone-salmeter ol (Advair Diskus) 250-50 MCG/DOSE DISKUS Advair Diskus 250 mcg-50 mcg/dose powder for inhalation 0 Active Xolair 150 MG/ML SOSY injection 0 11/16/2021 Active PARoxetine (PAXIL) 20 MG tablet TAKE ONE TABLET BY MOUTH EVERY DAY 0 11/18/2021 Active Myrbetriq 25 MG TB24 24 hr tablet Take 25 mg by mouth every night at bedtime. 0 12/09/2021 Active losartan (COZAAR) tablet 50 mg TAKE ONE TABLET BY MOUTH EVERY DAY 0 08/05/2022 Active clindamycin (CLEOCIN) 300 MG capsule Take 2 capsules 1 hour prior to dental appointment 10 capsule 1 09/24/2022 Active sulfamethoxazole-tri methoprim (Bactrim DS) 800-160 MG per tablet Take 1 tablet (160 mg of trimethoprim total) by mouth 2 (two) times a day. 20 tablet 0 09/24/2022 Active acetaminophen (TYLENOL) 500 MG tablet Take 2 tabs every 8 hours as needed for pain. Do not take any other medications that contain acetaminophen (Tylenol) 60 tablet 1 09/24/2022 Active oxyCODONE (ROXICODONE) 5 MG immediate release tablet Take 1-2 tabs every 6-8 hours as needed for pain. May fill for lesser quantity. 30 tablet 0 10/26/2022 Active traMADol (ULTRAM) 50 MG tablet Take 1 tab every 6 hours as needed for pain 90 tablet 0 10/29/2022 Active celecoxib (CeleBREX) 100 MG capsule Take 1 capsule (100 mg total) by mouth daily. 30 capsule 1 11/05/2022 Active oxyCODONE (ROXICODONE) 5 MG immediate release tablet Take 1-2 tabs every 8 hours as needed for pain 40 tablet 0 11/09/2022 Active Active Problems Problem Noted Date Diagnosed Date Postoperative cellulitis of surgical wound 09/24 Family History Medical History Relation Name Comments Diabetes Mother Diabetes Sister Relation Name Status Comments Mother Sister Social History Tobacco Use Types Packs/Day Years Used Date Smoking Tobacco: Former Smokeless Tobacco: Never Alcohol Use Standard Drinks/Week Comments Yes 0 (1 standard drink = 0.6 oz pur e alcohol) social Sex and Gender Information Value Date Recorded Sex Assigned at Not on file Gender Identity Not on file Sexual Orientation Not on file Job Start Date Occupation Industry Not on file Not on file Not on file Last Filed Vital Signs Vital Sign Reading Time Taken Comments Blood Pressure 138/72 03/27/2021 8:23 AM EDT Pulse 72 03/27/2021 8:23 AM EDT Temperature 36.3 ??C (97.4 ??F) 03/27/2021 8:23 AM ED T Respiratory Rate 16 03/27/2021 8:23 AM EDT Oxygen Saturation 94% 03/27/2021 8:23 AM EDT Inhaled Oxygen Concentration - - Weight 86.2 kg (190 lb) 08/17/2022 2:53 PM EST Height 147.3 cm (4' 10 ) 08/17/2022 2:53 PM EST Body Mass Index 39.71 08/17/2022 2:53 PM EST Plan of Treatment Health Maintenance Due Date Last Done Comments Hepatitis C Screening 1945 Depression Screening 1957 BMI Counseling 1963 Preventative Health Evaluation 1963 DTap / Tdap / Td (1 - Tdap) 02/02/1964 Shingrix-Zoster Vaccine (1 of 2) 1995 Fall Risk Assessment 2010 Osteoporosis Screening (DEXA Scan) 2010 Pneumococcal Vaccine (2 of 2 - PPSV23 or PCV20) 06/30/2017 06/30/2016 RSV Adult > 60+ Yrs or Pregn ant (1 - 1-dose 75+ series) 02/02/2020 COVID-19 Vaccine (2 - 2023-2 5 season) 2024 11/11/2020 Influenza Vaccine (#1) 2024 06/09/2021 Hepatitis B Vaccines Aged Out No long er eligible based on patient's age to complete this topic RSV Ped < 20 months Aged Out No longe r eligible based on patient's age to complete this topic Care Teams Heater Operator Helper Relationship Specialty Start Date End Date Mannie Khan MD [address] [facility] [address] [place] [address] PCP - General Geriatric Medicine 11/26/20
--- OUTSIDE RECORDS SUMMARY | 2024-10-04 10:21 | XMS_ITS ---
Patient TargetsNo targets recorded. Patient Instructions Encounter Date Encounter Id Patient Instructions Last Modified By Organization Details Last Modified Time 09/17/2024 [id number] advance beneficiary notice information Not available 09/17/2024 14:41:28 advance care planning for heart failure: care instructions Not available 09/17/2024 14:41:28 atrophic vaginitis: care instructions Not available 09/17/2024 14:41:28 learning [...] 09/17/2024 14:41:38 Reason for Referral None Reported. 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 Lizeth Herman MD [address], [place], [place], [place] - [facility], 6 10:54:46 Gastroduo denitis 179343797 Active Lizeth Herman MD [address], [place], [place], [place] - [facility] in [facility], 6 10:54:46 Atypical squamous cells of undetermi mart significa nce on cervical Papanicol aou smear 651524486 Active Lizeth Herman MD [address], [place], [place], [place] - [facility], 6 10:54:46 Gastritis 2128539 Active Lizeth Herman MD [address], [place], [address], [place] - [facility] in [facility], 6 10:54:46 Family history of malignant neoplasm of ovary 520890095 Active Lizeth Herman MD [address], [place], [address], [place] - [facility] in [facility], 6 10:54:46 Primary malignant neoplasm of female breast 33813543 Active Lizeth Herman MD [address], [place], [address], [place] - [facility] in [facility], 6 10:54:46 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 Lizeth Herman MD [address], [place], [address], [place] - [facility] in [facility], 6 10:54:46 Vulval intraepit helial neoplasia grade 1 935332745 Active Lizeth Herman MD [address], [place], [address], [place] [facility], 6 10:54:46 Vitamin D deficienc y 16644342 Active Lizeth Herman MD [address], [place], [address], [place] [facility] in [facility], 6 10:54:46 Mammograp hy abnormal 179568205 Active Lizeth Herman MD [address], [place], [address], [place] [facility], 6 10:54:46 Personal history of primary malignant neoplasm of breast 439395163 Active 2016 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 Lizeth Herman MD [address], [place], [address], [place] - [facility] in [facility], 1 14:00:48 Osteoporo sis 40646113 Active 2016 Lizeth Herman MD [address], [place], [address], [place] - [facility], 7 15:00:50 Asthma 114625792 Active 2016 Lizeth Herman MD [address], [place], [address], [place] [facility], 7 15:02:03 History of dysplasia of vulva 407903360064 105 Active 2018 Lizeth Herman MD [address], [place], [address], [place] - [facility] in [facility], 9 15:18:36 Urinary incontine nce 962986664 Active 2020 Lizeth Herman MD [address], [place], [address], [place] - [facility], 1 14:03:30 Problem Notes None recorded. Procedures Surgical History Date Name Laterality Status Provider Name and Address Organization Details Recorded Time 07/06/20 23 Most Recent Mammogram completed Irma Reyes [place] - [facility], 09/17/2024 14:33:36 07/22/20 21 procedure on back completed Irma Acostawpallavi [place] - [facility], 04/26/2022 13:18:20 12/03/19 17 Most Recent Bone Density completed Irma Mecsharath [place] - [facility], 12/14/2016 14:45:19 09/05/19 14 Other completed Irma Mecgreerwor [place] - [facility], 12/10/2015 10:18:06 12/13/19 13 Colposcopy completed Lizeth Herman MD [address], [place], [address], [place] - [facility], 12/12/2012 13:07:56 09/05/19 12 Other completed Irma Meczywor [place] - [facility], 08/08/2012 13:59:44 09/05/19 09 Other completed Irma Meczywor [place] - [facility], 12/14/2016 14:44:01 09/05/19 03 Breast Biopsy completed Lizeth Herman MD [address], [place], [address], [place] - [facility], 04/21/2021 14:00:34 09/05/18 94 Other completed Irma Meczywor [place] - [facility], 08/08/2012 13:59:44 09/05/18 77 Appendectomy completed Irma Mecbebetoywor [place] - [facility], 08/08/2012 13:59:44 09/05/18 77 Total Abdominal Hysterectomy completed Lizeth Herman MD [address], [place], [address], [place] [facility], 08/08/2012 14:09:00 Imaging Results None recorded. Procedure Notes None recorded. Medical Equipment None Reported. Allergies Allergen ID Allergen Name Allergen Category Reaction Reaction Severity Criticality Documentation Date Start Date Code Code System Note Provider Name and Address Organization Details Recorded Time 60562 egg extract food,medi cation rash Not available Not available 09/11/2013 81335 15 RxNorm Irma Meczywor null, [place] - [facility], 4 13:40:00 5521 Avelox medicatio n other mild Not available 08/08/2012 67719 6 RxNorm welts Irma Meczywor null, [place] - [facility], 2 13:59:45 5522 Product containin g penicilli n and antibioti c (product) medicatio n rash Not available Not available 08/08/2012 26101 05 SNOMED Irma Meczywor null, [place] - [facility], 2 13:59:45 5523 Levaquin medicatio n other mild Not available 08/08/2012 62735 2 RxNorm Irma Eric piña [place] - [facility], 2 13:59:45 Medications Name Sig Start Date [...] Available No t Available OxyContin 15 mg tablet,noemi h resistant,e xtended release 04/12 completed Not [...] active Not Available Not Available Not Available Trelegy Ellipta 200 mcg-62.5 mcg-25 mcg powder for inhalation INHALE ONE PUFF BY MOUTH DAILY active Not Available Not Available No t Available Arthritis Pain (diclofenac ) 1 % topical gel APPLY 4 GRAMS TOPICALLY TO SINGLE KNEE, ANKLE, FOOT SOLE/TOES /TOP OF FOOT) FOUR TIMES A DAY FOR PAIN active Not Available Not Available No t Available Vitals Date Recorded Body weight Body mass index (BMI) Body height Body temperature Heart rate Systolic blood pressure Diastolic blood pressure Provider Name and Address Organization Details Last Updated DateTime 5 18764.5 2 g 30.9 kg/m2 175.26 cm 97.4 [degF] 84 /min 146 mm[Hg] 75 mm[Hg] Irma Reyes [place] - [facility], 5 14:27:15 Social History Question Answer Notes LastModified by Organizat ion Details LastModified Time Tobacco Smoking Status Former Smoker quit 40 yrs ago Not Available [facility] 07/08/2020 03:19:37 What Is Your Level Of Alcohol Consumption? Occasional [id number] Information not available 07/08/2020 How Many Years Have You Consumed Alcohol? 50 Information not available 04/21/2021 What Is Your Level Of Caffeine Consumption? Occasional [id number] Information not available 07/08/2020 In The 14 [...] Type Of Diet Are You Following? REGULAR [id number] Information not available 07/08/2020 Which Illicit Or Recreational Drugs Have You Used? No [id number] Information not available 07/08/2020 Do You Reside In Or Have You Traveled To An Area Where Ebola Virus Transmission Is Active? No [id number] Information not available 07/08/2020 Do You Or Have You Ever Used E-cigarettes Or Vape? Never Used Electronic Cigarettes [id number] Information not available 07/08/2020 Education 2 Year College Informatio n not available 08/08/2012 What Is The Highest Grade Or Level Of School You Have Completed Or The Highest Degree You Have Received? [id number] Information not available 04/21/2021 What Is Your Occupation? Retired [id number] Information not available 07/08/2020 How Many Days [...] available 04/21/2021 Are You Sexually Active? Yes [id number] Information not available 07/08/2020 At What Age Did You Start Smoking Tobacco? 16 Information not available 04/21/2021 Do You Or Have You Ever Used Smokeless Tobacco? Never Used Smokeless Tobacco [id number] Information not available 07/08/2020 How Much Tobacco Do You Smoke? No [id number] Information not available 07/08/2020 General Stress Level Medium Information not available 09/17/2024 Do You Feel Stressed (tense, Restless, Nervous, Or Anxious, Or Unable To Sleep At Night)? [id number] Information not available 09/17/2024 Do You Use Any Illicit Or Recreational Drugs? No Information not available 04/21/2021 How Many Years Have You Smoked Tobacco? 10 [id number] Information not available 07/08/2020 Have You Recently [...] for MyRisk panel Y Autoimmune Condition Y Thyroid Problems N Kidney or Bladder Problems N GI Problems Y Lung Disease Y Depression Y Defects or Inherited Disease N History of Ovarian Cancer N Anemia N History of Breast Cancer Y OLLIE exposure N BRCA testing in past Y Osteopenia Y Psychiatric Illness N Anxiety Disorder Y Diabetes N Arthritis Y Headaches or Migraines Y Infertility N Asthma Y History of Cancer N Endometriosis Y Hepatitis N Heart Disease N Hypertension [...] Irma Meczywor null, [place] - [facility], 06/28/2023 13:24:44 Influenza, adjuvanted, quadrivalent, PF 0 completed Irma Meczywor null, [place] - [facility], 06/28/2023 13:24:44 COVID-19, mRNA, LNP-S, PF, 100 mcg/0.5mL dose or 50 mcg/0.25mL dose 1 completed Irma Meczywor null, [place] - [facility], 06/28/2023 13:24:44 COVID-19, mRNA, LNP-S, PF, 100 mcg/0.5mL dose or 50 mcg/0.25mL dose 1 completed Irma Meczywor null, [place] - [facility], 06/28/2023 13:24:44 COVID-19, mRNA, LNP-S, PF, 30 mcg/0.3 mL dose 2 completed Irma Meczywor null, [place] - [facility], 06/28/2023 13:24:44 COVID-19, mRNA, LNP-S, PF, 30 mcg/0.3 mL dose, fabricio-sucrose 2 completed Irma Meczywor null, [place] - [facility], 06/28/2023 13:24:44 Pneumococcal conjugate PCV 13 6 completed Irma Meczywor null, [place] - [facility], 06/28/2023 13:24:44 zoster recombinant 3 completed Irma Meczywor [place] [facility], 09/17/2024 14:25:43 Influenza, adjuvanted, quadrivalent, PF 2 completed Irma Meczywor [place] [facility], 09/17/2024 14:25:43 COVID-19, mRNA, LNP-S, PF, 100 mcg/0.5mL dose or 50 mcg/0.25mL dose 1 completed Irma Meczywor null[place] - [facility], 09/17/2024 14:25:43 COVID-19, mRNA, LNP-S, bivalent, PF, 30 mcg/0.3 mL dose 2 completed Irma Meczywor null, [place] - [facility], 09/17/2024 14:25:43 Past Encounters Encounter ID Performer Location Encounter Start Date Encounter Closed Date Diagnosis/Indication Diagnosis SNOMED-CT Code Diagnosis ICD10 Code Diagnosis Note [id number] MD LIZETH Covington MD [address] [facility] [place] [address] 09/17/2024 14:21:13 09/17/2024 15:53:03 History of clinical finding in subject 689755345 Z91.89 Screening mammography 24 326029 Z12.31 Advance care planning 71 8691581 Z71.89 Screening for osteoporosis 760659251 N95.8 Health Concerns Section Related Observation LastModified by Organization Detai ls LastModified Time None Recorded Concern Status LastModified by Organization Details LastModified Time None Recorded Payers Encounter Date Sequence Insurance Name Policy Number Policy Kelly Covered Member ID Kelly Member ID Guarantor Name 09/17/2024 1 [place] (MEDICARE REPLACEMENT PPO) [id number] Cristina Lorenz [id number] Cristina Lorenz Notes Date Note Type Note Provider Name and Address Organization Details Recorded Time 09/17/2024 text/html She is here for annual, doing well, has a past history of FRANCISCO II.She had DCIS in 2002 and had mastectomy with reconstruction and also has had left breast reduction. She is BRCA negative. Lizeth Herman MD [address] [facility],[address], [place], [address], [place] [facility], 09/17/2024 14:49:47 OBGyn Episode No OBEpisode recorded.
== END 2024-10-04 06:36 | disposition home or self-care (01) ==
LOC: CF 06:35
PROVIDERS: Visit Provider Internal Medicine
DX: M25.561 Pain in right knee (principal); M25.562 Pain in left knee
CPT/HCPCS: 99212; J2003; Q9967

== ENCOUNTER 2024-10-04 12:27 | Outpatient (AMB) | payer MEDICARE, SELFPAY ==
[2024-10-04 12:39] VITALS: BP 133/72; PULSE 89; O2SAT 99; BMI 42.8
--- NOTE | 2024-10-04 12:39 | MHC.OFFVIS ---
Vital Signs 10/04/24 12:39 Height 4 ft 10 in Weight 205 lb BMI 42.8 BP 133/72 Blood Pressure Location Lt brachial Position Sitting Pulse 89 Pulse Source Pulse Oximeter Pulse Oximetry (%) 99 Oxygen Delivery Method Room Air Intake Visit Reasons: Left knee Synvisc one w/ fluoro Marble Supervisor Required: No Allergies hydromorphone [From Dilaudid] Allergy (Intermediate, Verified 10/04/24 12:40) asthma exacerbation moxifloxacin [From Avelox] Allergy (Intermediate, Verified 10/04/24 12:40) Hives Penicillins Allergy (Intermediate, Verified 10/04/24 12:40) Rash levofloxacin [From Levaquin] Adverse Reaction (Intermediate, Verified 10/04/24 12:40) restless legs Medication List - Last Reconciled 10/04/24 by Tessa Robertson, INDUSTRIAL NURSE alprazolam 1 mg PO DAILY amlodipine 10 mg PO DAILY budesonide 0.25 mg inhalation BID bupropion HCl XL 300 mg PO QAM diclofenac sodium 1% (Arthritis Pain (diclofenac)) 4 grams topical QID dupilumab (Dupixent) 300 mg subcut Q2W famotidine 40 mg PO BID famotidine 20 mg PO BEDTIME uhynnkzuqvm-rzyguzdan-znvchaik 200-62.5-25 mcg (Trelegy Ellipta) 1 ea inhalation DAILY hydroxyzine HCl 25 mg PO QID immun glob G(IgG)-pro-IgA 0-50 10 gram/50 mL (20 %) (Hizentra) 5,000 mg subcut QWEEK lansoprazole 30 mg PO DAILY lidocaine 5% 2 patches topical DAILY 30 days linaclotide (Linzess) 145 mcg PO DAILY losartan 100 mg PO DAILY montelukast 10 mg PO DAILY omalizumab (Xolair) 150 mg subcut Q4W ondansetron 4 mg PO Q8H oxycodone 5 mg PO TID paroxetine HCl 30 mg PO DAILY pravastatin 10 mg PO DAILY HPI HPI Left knee Synvisc one w/ fluoro: Details: Patient had been erroneously scheduled for a Synvisc injection in setting of prior bilateral TKR. She is not a candidate for any joint injections. [facility] Medical History Osteoporosis Arthritis Asthma GERD (gastroesophageal reflux disease) Elevated cholesterol HTN (hypertension) Chronic low back pain Surgical History History of back surgery History of open reduction and internal fixation (ORIF) procedure History of radiofrequency ablation (RFA) of genicular nerve Hx of mastectomy Hx of hysterectomy History of total left knee replacement History of total right knee replacement Social History Patient Tobacco Use Status: Former Tobacco user Physical Exam Vital Signs: Last Vital Signs Pulse 89 10/04/24 12:39 BP 133/72 10/04/24 12:39 Pulse Ox 99 10/04/24 12:39 Oxygen Delivery Method Room Air 10/04/24 12:39 BMI result Body Mass Index 42.8 Assessment & Plan Assessment & Plan (1) Bilateral knee pain: Code(s): M25.561 - Pain in right knee; M25.562 - Pain in left knee Category: Medical Plan Injection was canceled. We will request prior authorization for left temporary saphenous nerve stimulator placement. She has previously exhausted conservative measures including oral medications, physical therapy, total knee replacement and topical analgesics. Continues to have significant pain more than 6/10 in intensity and would like to try neuromodulation options for chronic, intractable bilateral knee pain following bilateral knee arthroplasty. Orders: Orders [place] guidance in treatment room Today M25.561 - Pain in right knee, M25.562 - Pain in left knee Coding Level of Care Code Est Pt Level 2 (90079) Diagnoses Bilateral knee pain M25.561; M25.562
--- OUTSIDE RECORDS SUMMARY | 2024-10-04 16:13 | XMS_ITS | Clinical Summary ---
Author Organization [facility] Address [address] [place] [address] Care Team Providers Care Panman Name Role Phone Mannie Khan MD Primary Care Provider [phone] Allergies Active Allergy Reactions Criticality Noted Date [...] age to complete this topic Care Teams Panman Relationship Specialty Start Date End Date Mannie Khan MD [address] [facility] [address] [place] [address] PCP - General Geriatric Medicine 11/26/20
--- OUTSIDE RECORDS SUMMARY | 2024-10-04 16:13 | XMS_ITS ---
Author Organization [facility] Address Unknown Allergies, Adverse Reactions, Alerts Substance Reaction Status Noted Date Resolved Date Penicillins active 09/12/2022 Moxifloxacin active 09/12/2022 levoFLOXacin active 09/12/2022 Problems Problem Status Start Date End Date AFTERCARE FOLLOWING JOINT RE PLACEMENT SURGERY (Primary) (Z47.1 - ICD-10-CM) ACTIVE 09/12/2022 PRESENCE OF RIGHT ARTIFICIAL KNEE JOINT (Z96.651 - ICD-10-CM) ACTIVE 09/12/2022 UNILATERAL PRIMARY OSTEOARTH RITIS, RIGHT KNEE (M17.11 - ICD-10-CM) ACTIVE 09/12/2022 ESSENTIAL (PRIMARY) HYPERTENSION (I10 - ICD-10-CM) ACT MALENA 09/12/2022 HYPERLIPIDEMIA, UNSPECIFIED (E78.5 - ICD-10-CM) ACTIVE 09/12/2022 DEPRESSION, UNSPECIFIED (F32.A - ICD-10-CM) ACTIVE 09/12/2022 ANXIETY DISORDER, UNSPECIFIED (F41.9 - ICD-10-CM) ACTI VE 09/12/2022 OTHER ASTHMA (J45.998 - ICD-10-CM) ACTIVE 2022 GASTRO-ESOPHAGEAL REFLUX DIS EASE WITHOUT ESOPHAGITIS (K21.9 - ICD-10-CM) ACTIVE 09/12/2022 UNSPECIFIED ASTHMA, UNCOMPLICATED (J45.909 - ICD-10-CM ) ACTIVE 09/12/2022 PAIN IN RIGHT KNEE (M25.561 - ICD-10-CM) ACTIVE 09/12/2022 DIFFICULTY IN WALKING, NOT E LSEWHERE CLASSIFIED (R26.2 - ICD-10-CM) ACTIVE 09/12/2022 MUSCLE WEAKNESS (GENERALIZED) (M62.81 - ICD-10-CM) ACT MALENA 09/12/2022 UNSTEADINESS ON FEET (R26.81 - ICD-10-CM) ACTIVE 09/12/2022 Encounters Encounter Performer Performer Role Encounter Diagnoses Location Date Discharge - Discharged to home or self care - Home (Agency Unknown) - Private home/apt. with home health services [facility] 09/12/2022 06:28 pm EST - 09/13/2022 12:14 pm EST Social History
--- OUTSIDE RECORDS SUMMARY | 2024-10-04 16:13 | XMS_ITS | Clinical Summary ---
Author Organization [facility] Address [address] [place] [address] Care Team Providers Care Electric Motor Winder Name Role Phone Mannie Khan MD Primary Care Provider [phone] Surgical History Surgery Date Site/Laterality Comments MASTECTOMY 2002 PROCEDURE: HISTORICAL MASTECTOMY; COMMENT: right breast with subsequent reconstruction TONSILLECTOMY PROCEDURE: HISTORICAL TONSILLECTOMY OTHER SURGICAL HISTORY 1977 PROCEDURE: MO TOTAL ABDOMINAL HYSTERECT W/WO RMVL TUBE OVARY; COMMENT: TAHBSO for endometriosis, took ERT for 2 years only after surgery BREAST REDUCTION 2002 PROCEDURE: MO BREAST REDUCTION; COMMENT: left breast Medical History [...] Procedure Name Priority Date/Time Associated Diagnosis Comments [facility] DEXA AXIAL SKELETON Routine 05/12/2021 4:45 PM EDT Other specified disorders of bone density and structure, multiple sites from Last 3 Months or Most Recently Relevant to Health Maintenance Results * [facility] DEXA AXIAL SKELETON (05/12/2021 4:45 PM EDT) Anatomical Region Laterality Modality Mammography 05/12/2021 1:59 PM EDT Narrative 05/12/2021 4:45 PM EDT [facility] Diagnostic Imaging Department [address] [place] [address] Patient: ??CRISTINA LEIJA ?/Age/Sex: 1945 Unit#: ??[id number] ? Location/Status: ??SPDIMAM/REG CLI ? Mnemonic/Ordering Site: [...] probability of hip fracture of 8.7%. Code 83624 Dictating Physician: ??GONSALO JOHNSON MD Electronically Signed by: ??GONSALO JOHNSON MD Dic Date/Time: ??05/12/211641 Sign date/Time: ??05/12/21 164 Procedure Note Dali Johnson MD - 09/01/2022 [facility] Diagnostic Imaging Department [address] [place] [address] Patient: CRISTINA LEIJA Suzanne /Age/Sex: 1945 76 - F Unit#: [id number] Location/Status: [facility] Mnemonic[facility] Ordering Physician: BILLY LOTT MD, PHD [facility] Dexa Axial Skeleton - 05/12/212 HISTORY: The [...] probability of hip fracture of 8.7%. Code 30783 Dictating Physician: GONSALO JOHNSON MD Electronically Signed by: GONSALO JOHNSON MD Dic Date/Time: 05/12/21 164 Sign date/Time: 05/12/21 164 Billy Lott MD IMG BI PROCEDURES from Last 3 Months or Most Recently Relevant to Health Maintenance Care Teams Electric [employer] Winder Relationship Specialty Start Date End Date Mannie Khan MD [address] [place] [address] [address] [place], [place] PCP - General Internal Medicine 08/18/21
== END 2024-10-04 12:52 | disposition home or self-care (01) ==
LOC: HO.PMCPRC 12:27
PROVIDERS: PCP Internal Medicine; Visit Provider Internal Medicine
DX: M25.561 Pain in right knee (principal); M25.562 Pain in left knee
CPT/HCPCS: 99212

== ENCOUNTER 2024-10-09 11:29 | Emergency (ER) | payer MEDICARE, SELFPAY ==
--- NOTE | ~2024-10-09 | CT_ITS ---
EXAMINATION: CT LUMBAR SPINE WITHOUT CONTRAST CLINICAL INFORMATION: Low back pain, history of spinal surgery. COMPARISON: None available. TECHNIQUE: Spiral CT imaging of the lumbar spine was performed in axial plane without IV contrast. Sagittal, coronal, and thin section axial reformatted imaging was constructed from the axial data set. This CT examination was performed using dose optimization techniques as appropriate, variously including the following: *Automated exposure control *Adjustment of mA and/or kV according to patient size (this includes techniques or standardized protocols for targeted exams where dose is matched to indication/reason for exam; i.e. extremities or head) *Use of iterative reconstruction technique FINDINGS: Study is mildly limited by habitus and streak artifact from metallic hardware spanning L3-L5. There is normal lordosis. There is no significant scoliosis. There has been posterior instrumented fusion of L3-L5 with bilateral transpedicular screws, posterior connecting rods, and intervening disc cages. The hardware is intact, well seated, without evidence of loosening on CT. No acute fractures, compression deformities, or suspicious focal bony lesions are present. There is an old healed fracture of S3. The 4 mm anterolisthesis of L4 on L5. Sagittal alignment is otherwise anatomic. Severe disc degeneration noted at the nonoperative levels with disc vacuum phenomenon. Sclerotic type endplate changes present at T9-10, T10-T11, and L5-S1. Facets are normally aligned. There are mild to moderate hypertrophic degenerative facet changes most notable spanning L3-S1. There are dorsal disc osteophytic ridge complexes present at L1-2, and L5-S1, resulting in at mild central canal narrowing at L1-2, and moderate central canal stenosis at L5-S1. Moderate neural foraminal narrowing is present on the right at L2-3, and bilaterally at L5-S1. There are advanced degenerative changes of the SI joints, with periarticular sclerosis and possible erosions. Lung bases demonstrate no effusions. There are linear atelectatic changes. There is a moderate-sized type I hiatus hernia. The aorta is normal in contour and caliber with mild atheromatous calcification. Mild atrophy of the paraspinous musculature is present spanning L4 through the sacral region. There has been a hysterectomy. No adnexal masses or fluid collections. Imaged bowel structures appear normal. CT/CT lumbar spine wo IV con IMPRESSION: 1. No acute findings identified the lumbar spine. 2. Fusion of L3-L5 as discussed without evidence of hardware failure or loosening. 3. Advanced disc degeneration at the nonoperative levels. This is most significant at L5-S1 where there are sclerotic endplate changes present. 4. Mild to moderate facet degeneration spanning L3-S1. 5. Probable moderate central canal stenosis L5-S1 due to a dorsal disc osteophytic ridge complex. Mild central canal stenosis suspected at L1-2. 6. 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 7. See the body the report for additional ancillary findings. Electronically signed by: Khris Cohn MD 10/09/2024 03:49 PM EST
[2024-10-09 14:12] VITALS: BP 154/62; PULSE 74; RESP 16; TEMP 37; O2SAT 97; BMI 42.2
--- NOTE | 2024-10-09 14:15 | ED.BACK ---
HPI - Back Pain/Injury General Chief Complaint: Back Pain/Injury Stated Complaint: Back pain L side Time Seen by Provider: 10/09/24 20:14 Source: patient Mode of arrival: ambulatory Limitations: no limitations History of Present Illness ED Provider: HPI Narrative: Patient's history of chronic back pain been having increasing pain for last few weeks no recent fall patient does have bilateral bad knees left more than the right and since then been started in the knees lower back pain got worse no radiation of the pain to the lower extremities no bladder or bowel involvement patient has had a CT scan prior to my evaluation which showed chronic changes no acute findings patient does take oxycodone on daily basis and does follow with pain clinic Related Data Home Medications ?Medication ?Instructions ?Recorded ?Confirmed alprazolam 1 mg tablet 1 mg PO DAILY 03/01/23 10/04/24 amlodipine 10 mg tablet 10 mg PO DAILY 03/01/23 10/04/24 budesonide 0.5 mg/2 mL suspension 0.25 mg inhalation BID 03/01/23 10/04/24 for nebulization bupropion HCl 300 mg 24 hr tablet, 300 mg PO QAM 03/01/23 10/04/24 extended release dupilumab 300 mg/2 mL subcutaneous 300 mg subcut Q2W 03/01/23 10/04/24 pen injector (Dupixent) famotidine 20 mg tablet 20 mg PO BEDTIME 03/01/23 10/04/24 immun glob G 10 gram/50 mL(20 5,000 mg subcut QWEEK 03/01/23 10/04/24 %)-pro-IgA 0-50 mcg/mL subcutaneous soln (Hizentra) lansoprazole 30 mg capsule,delayed 30 mg PO DAILY 03/01/23 10/04/24 release losartan 100 mg tablet 100 mg PO DAILY 03/01/23 10/04/24 montelukast 10 mg tablet 10 mg PO DAILY 03/01/23 10/04/24 omalizumab 150 mg/mL subcutaneous 150 mg subcut Q4W 03/01/23 10/04/24 syringe (Xolair) ondansetron 4 mg disintegrating 4 mg PO Q8H 03/01/23 10/04/24 tablet paroxetine HCl 30 mg tablet 30 mg PO DAILY 03/01/23 10/04/24 pravastatin 10 mg tablet 10 mg PO DAILY 03/01/23 10/04/24 fluticasone fur. 200 mcg-umeclid 1 ea inhalation DAILY 04/29/23 10/04/24 62.5 mcg-vilant 25 mcg inhalat.powder (Trelegy Ellipta) hydroxyzine HCl 25 mg tablet 25 mg PO QID 04/29/23 10/04/24 linaclotide 145 mcg capsule 145 mcg PO DAILY 04/29/23 10/04/24 (Linzess) oxycodone 5 mg tablet 5 mg PO TID 04/29/23 10/04/24 famotidine 40 mg tablet 40 mg PO BID 06/15/23 10/04/24 Previous Rx's ?Medication ?Instructions ?Recorded diclofenac sodium 1 % topical gel 4 g topical QID pain #100 grams 06/08/23 (Arthritis Pain (diclofenac)) lidocaine 5 % topical patch 2 patch topical DAILY pain 30 days 09/07/24 #30 ea lidocaine 4 % topical patch 1 patch topical DAILY PRN pain #30 10/09/24 ea Allergies Allergy/AdvReac Type Severity Reaction Status Date / Time hydromorphone [From Dilaudid] Allergy Intermediate asthma Verified 10/09/24 14:16 exacerbation moxifloxacin [From Avelox] Allergy Intermediate Hives Verified 10/09/24 14:16 Penicillins Allergy Intermediate Rash Verified 10/09/24 14:16 levofloxacin [From Levaquin] AdvReac Intermediate restless Verified 10/09/24 14:16 legs Review of Systems Review of Systems: Yes all other systems are reviewed and are negative PMFSH Past Medical History Medical History Osteoporosis Arthritis Asthma GERD (gastroesophageal reflux disease) Elevated cholesterol HTN (hypertension) Chronic low back pain Surgical History History of back surgery History of open reduction and internal fixation (ORIF) procedure History of radiofrequency ablation (RFA) of genicular nerve Hx of mastectomy Hx of hysterectomy History of total left knee replacement History of total right knee replacement Social History Social History Patient Tobacco Use Status: Former Tobacco user Smoked in Last 30 Days: No Use of substances other than those prescribed or required for medical reasons: No Advance Directives: No Advance Directives Information Provided: No Physical Exam Vital Signs: Vital Signs: Last Vital Signs Temp 98.0 F 10/09/24 20:49 Pulse 78 10/09/24 20:49 Resp 16 10/09/24 20:49 BP 161/76 H 10/09/24 20:49 Pulse Ox 95 10/09/24 20:49 O2 Del Method Room Air 10/09/24 20:49 BMI result Body Mass Index 42.2 Appearance: Alert. Oriented X3. No acute distress. Eyes: PERRLA, No Nystagmus ENT: Pharynx normal. Oral Mucosa moist Neck: Normal inspection. Neck supple. CVS: Normal heart rate and rhythm. Pulses normal. Respiratory: No respiratory distress. Equal air entry bilateral, no wheezing/rales/rhonchi Abdomen: Soft and nontender. Bowel sounds are present, no mass palpable, no CVA tenderness Back: Diffuse tenderness lumbar spinal area no focal tenderness SLR negative bilateral Skin: Skin warm and dry. Normal skin color. Normal skin turgor. Extremities: No lower extremity edema. No calf tenderness Neuro: Oriented X 3. No motor deficit. No sensory deficit.No cerebellar signs , cranial nerves II-XII intact Course Course Course Narrative: This is a Rapid Medical Examination (RME) performed by Felix Broussard PA-C in triage. Full HPI, ROS, assessment and treatment plan per primary provider in the Main ED. 70 yo feamle hx of chronic LBP, 4 yrs s/p laminectomy w/ Dr. Dacosta here for eval of acute on chronic LBP. no injury/trauma/falls. states she may have strained it during her exercise class. Denies bowel or bladder incontinence or retention, saddle anesthesia. denies urinary sx. Endorses chronic tingling down both extremities s/p lumbar surgery and knee replacements. Plan: CT Medications Administered Discontinued Medications Generic Name Dose Route Start Last Admin Trade Name Freq PRN Reason Stop Dose Admin Lidocaine 1 patch 10/09/24 20:41 10/09/24 20:47 Lidocaine 4 % Patch Adh..Patch TRANSDERMA 10/09/24 20:42 1 patch ONCE ONE Administration Protocol Medical Decision Making Medical Decision Making MDM Narrative: Patient with chronic low back pain CT scan negative for acute already on pain management and follow with the pain clinic will prescribe Lidoderm patch advised to follow with pain clinic/PCP Differential Diagnosis Differential Diagnoses: The differential diagnosis associated with the presentation includes Compression fracture/chronic changes/spinal stenosis Independent Interpretation I performed an independent interpretation of an: CT Scan Interpretation: [address] [address] [address] Scan Report Signed Patient: Cristina Lorenz MR#: [id number] : 1945 Acct:[id number] Age/Sex: 79 / F ADM Date: 10/09/24 Loc: HO.ED Attending Dr: Ordering Physician: Jovita Broussard Date of Service: 10/09/24 Procedure(s): CT lumbar spine wo IV con Accession Number(s): [id number] cc: Physician,Unknown ; Jovita Broussard~ Report Number: [id number]: Total DLP = 915.00 mGy-cm EXAMINATION: CT LUMBAR SPINE WITHOUT CONTRAST CLINICAL INFORMATION: Low back pain, history of spinal surgery. COMPARISON: None available. TECHNIQUE: Spiral CT imaging of the lumbar spine was performed in axial plane without IV contrast. Sagittal, coronal, and thin section axial reformatted imaging was constructed from the axial data set. This CT examination was performed using dose optimization techniques as appropriate, variously including the following: *Automated exposure control *Adjustment of mA and/or kV according to patient size (this includes techniques or standardized protocols for targeted exams where dose is matched to indication/reason for exam; i.e. extremities or head) *Use of iterative reconstruction technique FINDINGS: Study is mildly limited by habitus and streak artifact from metallic hardware spanning L3-L5. There is normal lordosis. There is no significant scoliosis. There has been posterior instrumented fusion of L3-L5 with bilateral transpedicular screws, posterior connecting rods, and intervening disc cages. The hardware is intact, well seated, without evidence of loosening on CT. No acute fractures, compression deformities, or suspicious focal bony lesions are present. There is an old healed fracture of S3. The 4 mm anterolisthesis of L4 on L5. Sagittal alignment is otherwise anatomic. Severe disc degeneration noted at the nonoperative levels with disc vacuum phenomenon. Sclerotic type endplate changes present at T9-10, T10-T11, and L5-S1. Facets are normally aligned. There are mild to moderate hypertrophic degenerative facet changes most notable spanning L3-S1. There are dorsal disc osteophytic ridge complexes present at L1-2, and L5-S1, resulting in at mild central canal narrowing at L1-2, and moderate central canal stenosis at L5-S1. Moderate neural foraminal narrowing is present on the right at L2-3, and bilaterally at L5-S1. There are advanced degenerative changes of the SI joints, with periarticular sclerosis and possible erosions. Lung bases demonstrate no effusions. There are linear atelectatic changes. There is a moderate-sized type I hiatus hernia. The aorta is normal in contour and caliber with mild atheromatous calcification. Mild atrophy of the paraspinous musculature is present spanning L4 through the sacral region. There has been a hysterectomy. No adnexal masses or fluid collections. Imaged bowel structures appear normal. CT/CT lumbar spine wo IV con IMPRESSION: 1. No acute findings identified the lumbar spine. 2. Fusion of L3-L5 as discussed without evidence of hardware failure or loosening. 3. Advanced disc degeneration at the nonoperative levels. This is most significant at L5-S1 where there are sclerotic endplate changes present. 4. Mild to moderate facet degeneration spanning L3-S1. 5. Probable moderate central canal stenosis L5-S1 due to a dorsal disc osteophytic ridge complex. Mild central canal stenosis suspected at L1-2. 6. 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 7. See the body the report for additional ancillary findings. Electronically signed by: Khris Cohn MD 10/09/2024 03:49 PM [facility] Discharge Plan Discharge Clinical Impression: Chronic low back pain Patient Disposition: Home, Self-Care Instructions: Chronic Back Pain (DC) Additional Instructions: Continue pain medication Apply Lidoderm patch once a day Follow up with the pain clinic Your CT scan is negative for acute Prescriptions: New lidocaine 4 % adhesive patch,medicated 1 patch topical DAILY PRN (Reason: pain) Qty: 30 0RF No Action diclofenac sodium [Arthritis Pain (diclofenac)] 1 % gel 4 g topical QID Qty: 100 1RF Rx Instructions: apply to single knee, ankle, foot; for foot includes sole/toes/top of foot famotidine 40 mg tablet 40 mg PO BID Dupixent Pen 300 mg/2 mL pen injector 300 mg subcut Q2W Hizentra 10 gram/50 mL (20 %) solution 5,000 mg subcut QWEEK paroxetine HCl 30 mg tablet 30 mg PO DAILY alprazolam 1 mg tablet 1 mg PO DAILY pravastatin 10 mg tablet 10 mg PO DAILY bupropion HCl 300 mg tablet extended release 24 hr 300 mg PO QAM amlodipine 10 mg tablet 10 mg PO DAILY losartan 100 mg tablet 100 mg PO DAILY lansoprazole 30 mg capsule,delayed release(DR/EC) 30 mg PO DAILY ondansetron 4 mg tablet,disintegrating 4 mg PO Q8H famotidine 20 mg tablet 20 mg PO BEDTIME Xolair 150 mg/mL syringe 150 mg subcut Q4W montelukast 10 mg tablet 10 mg PO DAILY budesonide 0.5 mg/2 mL suspension for nebulization 0.25 mg inhalation BID Trelegy Ellipta 200-62.5-25 mcg blister with device 1 ea inhalation DAILY Linzess 145 mcg capsule 145 mcg PO DAILY oxycodone 5 mg tablet 5 mg PO TID hydroxyzine HCl 25 mg tablet 25 mg PO QID lidocaine 5 % adhesive patch,medicated 2 patch topical DAILY 30 Days Qty: 30 0RF Interventions: ED Discharge Assessment Last Done: 10/09/24 20:49 Discharge Date/Time: 10/09/24 20:50 Print Language: Czech
[2024-10-09 19:40] VITALS: BP 161/76; PULSE 78; RESP 16; O2SAT 95
--- OUTSIDE RECORDS SUMMARY | 2024-10-09 19:48 | XMS_ITS | Clinical Summary ---
Author Organization [facility] Address [address] [place] [address] Care Team Providers Care Volumetric Weigher Name Role Phone Mannie Khan MD Primary Care Provider [phone] Surgical History Surgery Date Site/Laterality Comments MASTECTOMY 2002 PROCEDURE: HISTORICAL MASTECTOMY; COMMENT: right breast with subsequent reconstruction TONSILLECTOMY PROCEDURE: HISTORICAL TONSILLECTOMY OTHER SURGICAL HISTORY 1977 PROCEDURE: [place] TOTAL ABDOMINAL HYSTERECT W/WO RMVL TUBE OVARY; COMMENT: TAHBSO for endometriosis, took ERT for 2 years only after surgery BREAST REDUCTION 2002 PROCEDURE: [place] BREAST REDUCTION; COMMENT: left breast Medical History [...] Procedure Name Priority Date/Time Associated Diagnosis Comments [facility] DEXA AXIAL SKELETON Routine 05/12/2021 4:45 PM EDT Other specified disorders of bone density and structure, multiple sites from Last 3 Months or Most Recently Relevant to Health Maintenance Results * [facility] DEXA AXIAL SKELETON (05/12/2021 4:45 PM EDT) Anatomical Region Laterality Modality Mammography 05/12/2021 1:59 PM EDT Narrative 05/12/2021 4:45 PM EDT [facility] Diagnostic Imaging Department [address] [place] [id number] Patient: ??CRISTINA LORENZ ?/Age/Sex: 1945 Unit#: ??[id number] ? Location/Status: ??SPDIMAM/REG CLI ? Mnemonic/Ordering Site: [...] probability of hip fracture of 8.7%. Code 89285 Dictating Physician: ??GONSALO JOHNSON MD Electronically Signed by: ??GONSALO JOHNSON MD Dic Date/Time: ??05/12/211641 Sign date/Time: ??05/12/21 164 Procedure Note Dali Johnson MD - 09/01/2022 [facility] Diagnostic Imaging Department [address] [place] [address] Patient: CRISTINA LORENZ Suzanne /Age/Sex: 1945 76 - F Unit#: [id number] Location/Status: [facility] Mnemonic[facility]ing [facility] Ordering Physician: BILLY LOTT MD, PHD [facility] Dexa Axial Skeleton - 05/12/212 HISTORY: [...] probability of hip fracture of 8.7%. Code 96916 Dictating Physician: GONSALO JOHNSON MD Electronically Signed by: GONSALO JOHNSON MD Dic Date/Time: 05/12/21 164 Sign date/Time: 05/12/21 164 Billy Lott MD IMG BI PROCEDURES from Last 3 Months or Most Recently Relevant to Health Maintenance Care Teams Volumetric Weigher Relationship Specialty Start Date End Date Mannie Khan MD [address] [place] [address] [address] [place], [place] PCP - General Internal Medicine 08/18/21
--- OUTSIDE RECORDS SUMMARY | 2024-10-09 19:49 | XMS_ITS | Continuity of Care Document ---
Author Organization [place] [facility],, LIZETH CANTRELL MD Address [address] [address] Care Team Providers Care Channel Cementer Name Role Phone GURVINDER BOLANOS Primary Care Provider Assessment No assessment recorded. Plan of Treatment Reminders Order Date Submit Date Provider Last Modified By Organization Details Last Modified Time Details Appointments None recorded. Lab cytology report, thin prep, smear or scraping, cervical or vaginal 2024 025 [facility], [address], [place], [address], 18:16:26 Referral None recorded. Procedures None recorded. Surgeries None recorded. Imaging MAMMO, screening, digital, bilateral - Breast Aspiration and/or Biopsy if needed 2024 025 [facility], [address], [address], [place], [address], 15:53:04 bone density 2024 025 [facility], [address], [address], [place], [address], 15:53:04 Medication Orders None recorded. Patient TargetsNo targets recorded. Patient Instructions Encounter Date Encounter Id Patient Instructions Last Modified By Organization Details Last Modified Time 09/17/2024 [id number] advance beneficiary notice information Not available 09/17/2024 [...] Organization Details Recorded Time Candidal vulvovagi nitis 50503447 Active Lizeth Cantrell MD [address], [place], [address], [place] 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, 6 10:54:46 Gastroduo denitis [id number] Mark Cantrell MD [address], [place], [address], [place] [facility], 6 10:54:46 Atypical squamous cells of undetermi mart significa nce on cervical Papanicol aou smear [id number] Mark Cantrell MD [address], [place], [address], [place] [facility], 6 10:54:46 Gastritis [id number] Mark Cantrell MD [address], [place], [address], [place] [facility], 6 10:54:46 Family history of malignant neoplasm of ovary [id number] Mark Cantrell MD [address], [place], [address], [place] [facility], 6 10:54:46 Primary malignant neoplasm of female breast 34891545 Active Lizeth Cantrell MD [address], [place], [address], [place] [facility], 6 10:54:46 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 Lizeth Cantrell MD [address], [place], [address], [place] [facility], 6 10:54:46 Vulval intraepit helial neoplasia grade 1 295536721 Active Lizeth Cantrell MD [address], [place], [address], [place] [facility], 6 10:54:46 Vitamin D deficienc y 37324287 Active Lizeth Cantrell MD [address], [place], [address], [place] [facility], 6 10:54:46 Mammograp hy abnormal 495266155 Active Lizeth Cantrell MD [address], [place], [address], [place] [facility], 6 10:54:46 Personal history of primary malignant neoplasm of breast 785269359 Active 2016 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 Lizeth Cantrell MD [address], [place], [address], [place] [facility], 1 14:00:48 Osteoporo sis 89451216 Active 2016 Lizeth Cantrell MD [address], [place], [address], [place] [facility], 7 15:00:50 Asthma 083003502 Active 2016 Lizeth Cantrell MD [address], [place], [address], [place] [facility], 7 15:02:03 History of dysplasia of vulva 125693568570 105 Active 2018 Lizeth Cantrell MD [address], [place], [address], [place] [facility], 9 15:18:36 Urinary incontine nce 097350581 Active 2020 Lizeth Cantrell MD [address], [place], [address], [place] [facility], 1 14:03:30 Problem Notes None recorded. Procedures Surgical History Date Name Laterality Status Provider Name and Address Organization Details Recorded Time 07/06/20 23 Most Recent Mammogram completed Irma Meczywor [place] - [facility], 09/17/2024 14:33:36 07/22/20 21 procedure on back completed Irma Meczywor [place] [facility], 04/26/2022 13:18:20 12/03/19 17 Most Recent Bone Density completed Irma Meczywor [place] - [facility], 12/14/2016 14:45:19 09/05/19 14 Other completed Irma Meczywor [place] [facility], 12/10/2015 10:18:06 12/13/19 13 Colposcopy completed Lizeth Cantrell MD [address], [place], [address], [place] - [facility], 12/12/2012 13:07:56 09/05/19 12 Other completed Irma Meczywor [place] [facility], 08/08/2012 13:59:44 09/05/19 09 Other completed Irma Meczywor [place] [facility], 12/14/2016 14:44:01 09/05/19 03 Breast Biopsy completed Lizeth Cantrell MD [address], [place], [address], [place] - [facility], 04/21/2021 14:00:34 09/05/18 94 Other completed Irma Acostawpallavi [place] - [facility], 08/08/2012 13:59:44 09/05/18 77 Appendectomy completed Irma Potter in [facility], 08/08/2012 13:59:44 09/05/18 77 Total Abdominal Hysterectomy completed Lizeth Cantrell MD [address], [place], [address], [place] - [facility], 08/08/2012 14:09:00 Imaging Results None recorded. Procedure Notes None recorded. Medical Equipment None Reported. Allergies Allergen ID Allergen Name Allergen Category Reaction Reaction Severity Criticality Documentation Date Start Date Code Code System Note Provider Name and Address Organization Details Recorded Time 01661 egg extract food,medi cation rash Not available Not available 09/11/2013 05573 15 RxNorm Irma Meczywor null [place] [facility], 4 13:40:00 5521 Avelox medicatio n other mild Not available 08/08/2012 30776 6 RxNorm welts Irma Meczywor ayana [place] - [facility], 2 13:59:45 5522 Product containin g penicilli n and antibioti c (product) medicatio n rash Not available Not available 08/08/2012 21779 05 SNOMED Irma Meczywor null, [place] - [facility], 2 13:59:45 5523 Levaquin medicatio n other mild Not available 08/08/2012 95218 2 RxNorm Irma Meczywor null, [place] - [facility], 2 13:59:45 Medications Name Sig Start Date [...] Address Organization Details Last Updated DateTime 5 37929.5 2 g 30.9 kg/m2 175.26 cm 97.4 [degF] 84 /min 146 mm[Hg] 75 mm[Hg] Irma Reyes [place] - [facility], 5 14:27:15 Social History Question Answer Notes LastModified by Organizat ion Details LastModified Time Tobacco Smoking Status Former Smoker quit 40 yrs ago Not Available [facility] 07/08/2020 03:19:37 What Is Your Level Of Alcohol Consumption? Occasional [id number] Information not available 07/08/2020 How Many Years Have You Consumed Alcohol? 50 Information not available 04/21/2021 What Is Your Level Of Caffeine Consumption? Occasional [id number] Information not available 07/08/2020 In The 14 [...] Type Of Diet Are You Following? REGULAR [id number] Information not available 07/08/2020 Which Illicit Or Recreational Drugs Have You Used? No [id number] Information not available 07/08/2020 Do You Reside In Or Have You Traveled To An Area Where Ebola Virus Transmission Is Active? No [id number] Information not available 07/08/2020 Do You Or Have You Ever Used E-cigarettes Or Vape? Never Used Electronic Cigarettes [id number] Information not available 07/08/2020 Education 2 Year College Informatio n not available 08/08/2012 What Is The Highest Grade Or Level Of School You Have Completed Or The Highest Degree You Have Received? [id number] Information not available 04/21/2021 What Is Your Occupation? Retired [id number] Information not available 07/08/2020 How Many Days [...] available 04/21/2021 Are You Sexually Active? Yes [id number] Information not available 07/08/2020 At What Age Did You Start Smoking Tobacco? 16 Information not available 04/21/2021 Do You Or Have You Ever Used Smokeless Tobacco? Never Used Smokeless Tobacco [id number] Information not available 07/08/2020 How Much Tobacco Do You Smoke? No [id number] Information not available 07/08/2020 General Stress Level Medium Information not available 09/17/2024 Do You Feel Stressed (tense, Restless, Nervous, Or Anxious, Or Unable To Sleep At Night)? [id number] Information not available 09/17/2024 Do You Use Any Illicit Or Recreational Drugs? No Information not available 04/21/2021 How Many Years Have You Smoked Tobacco? 10 [id number] Information not available 07/08/2020 Have You Recently [...] Irma Meczywor null, [place] [facility], 06/28/2023 13:24:44 Influenza, adjuvanted, quadrivalent, PF 0 completed Irma Meczywor null, [place] - [facility], 06/28/2023 13:24:44 COVID-19, mRNA, LNP-S, PF, 100 mcg/0.5mL dose or 50 mcg/0.25mL dose 1 completed Irma Meczywor null, [place] - [facility], 06/28/2023 13:24:44 COVID-19, mRNA, LNP-S, PF, 100 mcg/0.5mL dose or 50 mcg/0.25mL dose 1 completed Irma Meczywor null, [place] [facility], 06/28/2023 13:24:44 COVID-19, mRNA, LNP-S, PF, 30 mcg/0.3 mL dose 2 completed Irma Meczywor null, [place] - [facility], 06/28/2023 13:24:44 COVID-19, mRNA, LNP-S, PF, 30 mcg/0.3 mL dose, fabricio-sucrose 2 completed Irma Meczywor null, [place] [facility], 06/28/2023 13:24:44 Pneumococcal conjugate PCV 13 6 completed Irma Meczywor null, [place] [facility], 06/28/2023 13:24:44 zoster recombinant 3 completed Irma Meczywor [place] [facility], 09/17/2024 14:25:43 Influenza, adjuvanted, quadrivalent, PF 2 completed Irma Meczywor null[place] [facility], 09/17/2024 14:25:43 COVID-19, mRNA, LNP-S, PF, 100 mcg/0.5mL dose or 50 mcg/0.25mL dose 1 completed Irma Meczywor null[place] [facility], 09/17/2024 14:25:43 COVID-19, mRNA, LNP-S, bivalent, PF, 30 mcg/0.3 mL dose 2 completed Irma Meczywor null, [place] [facility], 09/17/2024 14:25:43 Past Encounters Encounter ID Performer Location Encounter Start Date Encounter Closed Date Diagnosis/Indication Diagnosis SNOMED-CT Code Diagnosis ICD10 Code Diagnosis Note [id number] MD LIZETH Covington MD [address] [facility] [place] [address] 09/17/2024 14:21:13 09/17/2024 15:53:03 History of clinical finding in subject 025686528 Z91.89 Screening mammography 24 865692 Z12.31 Advance care planning 71 2501717 Z71.89 Screening for osteoporosis 160869323 N95.8 Health Concerns Section Related Observation LastModified by Organization Detai ls LastModified Time None Recorded Concern Status LastModified by Organization Details LastModified Time None Recorded Payers Encounter Date Sequence Insurance Name Policy Number Policy Kelly Covered Member ID Kelly Member ID Guarantor Name 09/17/2024 1 [place] (MEDICARE REPLACEMENT PPO) [id number] Cristina Lorenz [id number] Cristina Lorenz Notes Date Note Type Note Provider Name and Address Organization Details Recorded Time 09/17/2024 text/html She is here for annual, doing well, has a past history of FRANCISCO II.She had DCIS in 2002 and had mastectomy with reconstruction and also has had left breast reduction. She is BRCA negative. Lizeth Cantrell MD [address] [facility],[address], [place], [address], [place] [facility], 09/17/2024 14:49:47 OBGyn Episode No OBEpisode recorded.
--- OUTSIDE RECORDS SUMMARY | 2024-10-09 19:49 | XMS_ITS | Data Portability ---
Author Organization [place] - [facility],, LIZETH HERMAN MD Address [address] [address] Care Team Providers Care Advertising Account Representative Name Role Phone GURVINDER BOLANOS Primary Care Provider Assessment No assessment recorded. Plan of Treatment Reminders Order Date Submit Date Provider Last Modified By Organization Details Last Modified Time Details Appointments None recorded. Lab pap, LB, vaginal 2019 020 [email or web address] [facility], Cytopathology Service, [address] [place] [address], [address], 0 07:40:41 pap test, thinprep, cervical 2020 021 [email or web address] [facility], Cytopathology Service, [address] [place] [address], [address], 1 07:20:46 fecal occult blood, stool 2020 021 [email or web address] 1 In-Office Order, Internal Use Only DO Not Attach Compendium DO Not Attach Compendium, Do Not Delete/merge, [id number] 1 14:03:16 pap test, thinprep, cervical 2021 022 [email or web address] [facility], Cytopathology Service, [address] [place] [address], [address], 2 07:38:27 pap test, thinprep, cervical 2022 023 [email or web address] [facility], [facility] [place], [address], 3 07:27:16 cytology report, thin prep, smear or scraping, cervical or vaginal 2024 025 WOLF [facility], [address], [place], [address], 5 18:16:26 Referral None recorded. Procedures None recorded. Surgeries None recorded. Imaging MAMMO, screening , digital, bilateral 2019 020 [facility] ([facility]), [address], [place], [address], 0 16:31:27 bone density [address]), [address], [place], [address], 1 07:23:18 MAMMO, screening , digital, bilateral 2020 021 [facility]), [address], [place], [address], 3 07:38:19 MAMMO, screening , digital, bilateral - patient aware needs to go 2021 022 [facility]), [address], [place], [address], 2 15:31:33 bone density 2021 022 [facility]), [address], [place], [address], 4 07:36:31 MAMMO, screening , digital, bilateral - Breast Aspiratio n and/or Biopsy if needed 2022 023 [facility] ([facility]), [address], [place], [address], 3 17:41:43 bone density 2022 023 manolo [facility] ([facility]), [address] [facility], [place], [address], 4 07:27:36 MAMMO, screening , digital, bilateral - Breast Aspiratio n and/or Biopsy if needed 2024 025 [facility], [address], [address], [place], [address], 5 15:53:04 bone density 2024 025 [facility] Orders, [address], [address], [place], [address], 5 15:53:04 Medication Orders None recorded. Patient TargetsNo targets recorded. Patient Instructions Encounter Date Encounter Id Patient Instructions Last Modified By Organization Details Last Modified Time 04/14/2020 [id number] She is here for annual exam, is doing well. ___ Note from 2019: She is here for annual exam, is doing well but still using a cane due to her knee replacement. She has a past history of right breast cancer, and also of FRANCISCO II. Her sister had an [place] and her brother in law had 2 strokes in the past year, so she is doing most of the running with her. Her partner Rik is her health care proxy. She appears to be doing well. She is still usign a cane, The knee operation was botched, it's not getting any better. She is going to go to [facility] to have it redone once covid is [...] questions answered. Not available 04/14/2020 13:35:48 04/21/2021 [id number] learning about healthy weight Not available 04/21/2021 [...] do this. Not available 04/21/2021 14:05:17 04/26/2022 [id number] advance benefici elijah notice information Not available [...] the breast. Not available 04/26/2022 14:20:32 06/28/2023 [id number] advance benefici elijah notice information Not available [...] the breast. Not available 06/28/2023 14:57:22 09/17/2024 [id number] advance benefici elijah notice information Not available [...] DO Not Attach Compendium, Do Not Delete/merge, [id number] 04/21/2021 13:17:31 04/14/20 20 04/14/2020 pap, LB, vagin al [id number] ThinP rep Pap, Image d: NEGAT MALENA [...] neg, z12.4 , z91.8 9 Not Available [facility], Cytopathology Service [address] [place], [address], 04/16/2020 12:20:49 04/21/20 21 04/21/2021 PAP1C ASE [id number] ThinP rep Pap, Image d: NEGAT MALENA [...] ASCUS . lps neg, Z12.4 Not Available [facility], Cytopathology Service [address] [place], [address], 04/24/2021 12:11:30 04/26/20 22 04/26/2022 PAP1C ASE [id number] ThinP rep Pap, Image d: NEGAT MALENA [...] ause, lps neg, [Z01. 419] Not Available [facility], Cytopathology Service [address] [facility], [place], [address], 04/28/2022 16:06:04 06/28/20 23 06/28/2023 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 Perfo rmed at [facility] ate Refer ence Labor atory depar tment of Cytol ogy, [address] [place] [facility]ini [facility] Histo ry (othe r): Z91.8 9, routi ne scree n, Medic are scree aamir pap smear -high risk, LPS neg Phone #: [phone], On-Ca ll Patho logis t: [id number] Not Available [facility] [address], [place], [address], 07/04/2023 13:49:42 09/17/19 25 09/19/2024 IGP, RFX APTIM A HPV ASCU diagnosis: Commen t NEGAT MALENA FOR INTRA EPITH ELIAL LESIO N OR MALIG NATASHA . Not Available [facility] ([facility]) [address] [place], [address], 09/19/2024 18:16:26 09/17/19 25 09/19/2024 IGP, RFX APTIM A HPV ASCU specimen adequacy: Abril galvan Satis facto ry for evalu ation . Not Available [facility] ([facility]) [address] [place], [address], 09/19/2024 18:16:26 09/17/19 25 09/19/2024 IGP, RFX APTIM A HPV ASCU clinician provided ICD10: Abril galvan Z91.8 9 Not Available [facility] ([facility]) [address] [place], [address], 09/19/2024 18:16:26 09/17/19 25 09/19/2024 IGP, RFX APTIM A HPV ASCU performed by: Marty Escobar (ASCP ) Not Available [facility] ([facility]) [address] [place], [address], 09/19/2024 18:16:26 09/17/19 25 09/19/2024 IGP, RFX APTIM A HPV ASCU . . Not Available [facility] ([facility]) [address] [place], [address], 09/19/2024 18:16:26 09/17/19 25 09/19/2024 IGP, RFX [...] . Not Available [facility] ([facility]) [address] [facility], [place], [address], 09/19/2024 18:16:26 09/17/19 25 09/19/2024 IGP, RFX APTIM A HPV ASCU test methodology: Commen t This liqui d based ThinP rep(R ) pap test was tasneem cevallos with the use of an image guide karlene morris. Not Available [facility] ([facility]) [address] [facility], [place], [address], 09/19/2024 18:16:26 09/17/19 25 09/19/2024 IGP, RFX APTIM A HPV ASCU . Commen t The HPV DNA refle x crite kimberly were not met with this speci men resul t there fore, no HPV testi ng was perfo rmed. Not Available [facility] ([facility]) [address] [facility], [place], [address], 09/19/2024 18:16:26 06/26/20 20 06/26/2020 MAMMO tasneem, digit al, bilat eral No observ ation record ed. [facility] [address] [place], [address], 06/27/2020 08:43:42 05/27/20 22 05/27/2022 MAMMtasneem Leroy, digit al, bilat eral No observ [place], [address], 05/27/2022 15:32:50 07/26/20 23 07/26/2023 MAMMO tasneem digit al, bilat eral No observ ation record ed. Not Available 07/07 07:52:48 Result Notes None recorded. 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 Lizeth Herman MD [address], [place], [address], [place] [facility], 6 10:54:46 Gastroduo denitis 580404693 Active Lizeth Herman MD [address], [place], [address], [place] [facility], 6 10:54:46 Atypical squamous cells of undetermi mart significa nce on cervical Papanicol aou smear 089713504 Active Lizeth Herman MD [address], [place], [address], [place] [facility], 6 10:54:46 Gastritis 3204957 Active Lizeth Herman MD [address], [place], [address], [place] [facility], 6 10:54:46 Family history of malignant neoplasm of ovary 879252025 Mark Herman MD [address], [place], [address], [place] [facility], 6 10:54:46 Primary malignant neoplasm of female breast 06433817 Active Lizeth Herman MD [address], [place], [address], [place] [facility], 6 10:54:46 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 Mark Herman MD [address], [place], [address], [place] [facility], 6 10:54:46 Vulval intraepit helial neoplasia grade 1 695519962 Active Lizeth Herman MD [address], [place], [address], [place] [facility], 6 10:54:46 Vitamin D deficienc y 74772456 Active Lizeth Herman MD [address], [place], [address], [place] [facility], 6 10:54:46 Mammograp hy abnormal 598191916 Active Lizeth Herman MD [address], [place], [address], [place] [facility], 6 10:54:46 Personal history of primary malignant neoplasm of breast 299923963 Active 2016 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 Lizeth Herman MD [address], [place], [address], [place] [facility], 1 14:00:48 Osteoporo sis 05412205 Active 2016 Lizeth Herman MD [address], [place], [address], [place] [facility], 7 15:00:50 Asthma 476970214 Active 2016 Lizeth Herman MD [address], [place], [address], [place] [facility], 7 15:02:03 History of dysplasia of vulva 512124636819 105 Active 2018 Lizeth Herman MD [address], [place], [address], [place] [facility], 9 15:18:36 Urinary incontine nce 537670559 Active 2020 Lizeth Herman MD [address], [place], [address], [place] [facility], 14:03:30 Problem Notes None recorded. Procedures Surgical History Date Name Laterality Status Provider Name and Address Organization Details Recorded Time 07/06/20 23 Most Recent Mammogram completed Irma Reyes [place] - [facility], 09/17/2024 14:33:36 07/22/20 21 procedure on back completed Irma Mecbrittneyor [place] - [facility], 04/26/2022 13:18:20 12/03/19 17 Most Recent Bone Density completed Imra Mecbrittneyor [place] - [facility], 12/14/2016 14:45:19 09/05/19 14 Other completed Irma Mecbebetoywor [place] - [facility], 12/10/2015 10:18:06 12/13/19 13 Colposcopy completed Lizeth Herman MD [address], [place], [address], [place] [facility], 12/12/2012 13:07:56 09/05/19 12 Other completed Irma Mecgreerwor [place] - [facility], 08/08/2012 13:59:44 09/05/19 09 Other completed Irma Mecbrittneyor [place] [facility], 12/14/2016 14:44:01 09/05/19 03 Breast Biopsy completed Lizeth Herman MD [address], [place], [address], [place] [facility], 04/21/2021 14:00:34 09/05/18 94 Other completed Irma Mecgreerwor [place] [facility], 08/08/2012 13:59:44 09/05/18 77 Appendectomy completed Irma Reyes [place] - [facility], 08/08/2012 13:59:44 09/05/18 77 Total Abdominal Hysterectomy completed Lizeht Herman MD [address], [place], [address], [place] - [facility], 08/08/2012 14:09:00 Imaging Results Imaging Date Name Status LastModified by Organiz ation Details LastModified Time 06/26/2020 MAMMO, screening, digital, bilateral completed [facility] [address] [place], [address], 06/27/2020 08:43:42 05/27/2022 MAMMO, screening, digital, [place], [address], 05/27/2022 15:32:50 07/26/2023 MAMMO, screening, digital, bilateral completed Information not available 07/27/2023 07:52:48 Procedure Notes None recorded. Medical Equipment None Reported. Allergies Allergen ID Allergen Name Allergen Category Reaction Reaction Severity Criticality Documentation Date Start Date Code Code System Note Provider Name and Address Organization Details Recorded Time 58399 egg extract food,medi cation rash Not available Not available 09/11/2013 09568 15 RxNorm JOSEPHINE Berg in [facility], 4 13:40:00 5521 Avelox medicatio n other mild Not available 08/08/2012 49247 6 RxNorm welts JOSEPHINE Berg in [facility], 2 13:59:45 5522 Product containin g penicilli n and antibioti c (product) medicatio n rash Not available Not available 08/08/2012 22707 05 SNOMED JOSEPHINE Berg in [facility], 2 13:59:45 5523 Levaquin medicatio n other mild Not available 08/08/2012 27717 2 RxNorm [place]PH[place] Berg in [facility], 2 13:59:45 Medications Name Sig Start Date [...] Updated DateTime 0 147.32 cm 40.1 kg/m2 37466.0 2 g 97.4 [degF] 88 /min 133 mm[Hg] 49 mm[Hg] Gena Potter in [facility], 0 13:08:32 Date Recorded Body weight Body mass index (BMI) Body height Body temperature Heart rate Systolic blood pressure Diastolic blood pressure Provider Name and Address Organization Details Last Updated DateTime 1 08812.7 5 g 43.1 kg/m2 147.32 cm 97.4 [degF] 81 /min 148 mm[Hg] 60 mm[Hg] Irma Potter in [facility], 1 13:26:01 Date Recorded Body height Body mass index (BMI) Body weight Heart rate Body temperature Systolic blood pressure Diastolic blood pressure Provider Name and Address Organization Details Last Updated DateTime 2 146.05 cm 46.4 kg/m2 17969.8 6 g 81 /min 97.5 [degF] 124 mm[Hg] 57 mm[Hg] Irma Potter in [facility], 2 13:11:32 Date Recorded Body temperature Body weight Body mass index (BMI) Body height Heart rate Systolic blood pressure Diastolic blood pressure Provider Name and Address Organization Details Last Updated DateTime 3 97.9 [degF] 03881.1 2 g 43.9 kg/m2 147.32 cm 83 /min 152 mm[Hg] 57 mm[Hg] Irma Potter in [facility], 3 13:33:28 Date Recorded Body weight Body mass index (BMI) Body height Body temperature Heart rate Systolic blood pressure Diastolic blood pressure Provider Name and Address Organization Details Last Updated DateTime 5 41843.5 2 g 30.9 kg/m2 175.26 cm 97.4 [degF] 84 /min 146 mm[Hg] 75 mm[Hg] Irma Eric [facility] - [facility], 5 14:27:15 Social History Question Answer Notes LastModified by Organizat ion Details LastModified Time Tobacco Smoking Status Former Smoker quit 40 yrs ago Not Available [employer] 07/08/2020 03:19:37 What Is Your Level Of Alcohol Consumption? Occasional [id number] Information not available 07/08/2020 How Many Years Have You Consumed Alcohol? 50 Information not available 04/21/2021 What Is Your Level Of Caffeine Consumption? Occasional [id number] Information not available 07/08/2020 In The 14 [...] Type Of Diet Are You Following? REGULAR [id number] Information not available 07/08/2020 Which Illicit Or Recreational Drugs Have You Used? No [id number] Information not available 07/08/2020 Do You Reside In Or Have You Traveled To An Area Where Ebola Virus Transmission Is Active? No [id number] Information not available 07/08/2020 Do You Or Have You Ever Used E-cigarettes Or Vape? Never Used Electronic Cigarettes [id number] Information not available 07/08/2020 Education 2 Year College Informatio n not available 08/08/2012 What Is The Highest Grade Or Level Of School You Have Completed Or The Highest Degree You Have Received? [id number] Information not available 04/21/2021 What Is Your Occupation? Retired [id number] Information not available 07/08/2020 How Many Days [...] available 04/21/2021 Are You Sexually Active? Yes [id number] Information not available 07/08/2020 At What Age Did You Start Smoking Tobacco? 16 Information not available 04/21/2021 Do You Or Have You Ever Used Smokeless Tobacco? Never Used Smokeless Tobacco [id number] Information not available 07/08/2020 How Much Tobacco Do You Smoke? No [id number] Information not available 07/08/2020 General Stress Level Medium Information not available 09/17/2024 Do You Feel Stressed (tense, Restless, Nervous, Or Anxious, Or Unable To Sleep At Night)? [id number] Information not available 09/17/2024 Do You Use Any Illicit Or Recreational Drugs? No Information not available 04/21/2021 How Many Years Have You Smoked Tobacco? 10 [id number] Information not available 07/08/2020 Have You Recently [...] available 12/10/2015 10:28:04 Medical History Condition Response High Blood Pressure Y Autoimmune Condition Y Depression Y History of Ovarian Cancer N Anxiety Disorder Y Arthritis Y Infertility N Kidney or Bladder Problems N Osteopenia Y Asthma Y Hepatitis N Anesthesia complications N Candidate for MyRisk panel Y Lung Disease Y Defects or Inherited Disease N BRCA testing in past Y History of Cancer N Endometriosis Y Thyroid Problems N GI Problems Y Anemia N History of Breast Cancer Y OLLIE exposure N Psychiatric Illness N Diabetes N Headaches or Migraines Y Heart Disease N Hypertension Y Osteoporosis Y [...] mcg/0.25mL dose 1 completed [place] Berg in [facility], 09/17/2024 14:25:43 COVID-19, mRNA, LNP-S, bivalent, PF, 30 mcg/0.3 mL dose 2 completed [place] Berg in [facility], 09/17/2024 14:25:43 Past Encounters Encounter ID Performer Location Encounter Start Date Encounter Closed Date Diagnosis/Indication Diagnosis SNOMED-CT Code Diagnosis ICD10 Code Diagnosis Note [id number] MD LIZETH Covington MD [address] [facility] [address] 08/08/2012 13:22:43 08/10/2012 09:52:22 [id number] Irma HERMAN MD [address] [facility] [address] 09/11/2013 13:26:47 09/12/2013 08:53:20 Screening for malignant neoplasm of cervix 429035447 Screening mammography 45026594 [id number] Irma HERMAN MD [address] [facility] [address] 11/16/2012 14:26:27 11/16/2012 16:27:58 [id number] MD LIZETH Covington MD [address] [facility] [place] [address] 12/12/2012 08:04:19 12/13/2012 12:10:32 [id number] Irma HERMAN MD [address] [facility] [place] [address] 03/13/2013 13:21:29 03/15/2013 08:40:53 [id number] Irma HERMAN MD [address] [facility] [place] [address] 03/26/2013 13:16:42 03/26/2013 16:27:27 [id number] LIZETH HERMAN MD [address] [facility] [address] 11/14/2014 13:00:38 11/14/2014 14:31:18 Specialized medical examination 87061969 Screening for malignant neoplasm of rectum 296718496 Screening mammography 82596813 [id number] MD LIZETH Covington MD [address] [place] [address],[facility] [place] [address] 12/10/2015 10:02:13 12/10/2015 11:53:16 Sampling of vagina for Papanicolaou smear 774113932 Z91.89 Screening mammography 24 524675 Z12.31 Mammography abnormal 168 414877 R92.8 [id number] MD LIZETH Covington MD [address] [place] [address],[facility] [place] [address] 12/14/2016 14:30:00 12/14/2016 16:07:42 Specialized medical examination 62071346 Z01.419 Screening for malignant neoplasm of rectum 511245126 Z12.12 Screening mammography 24 071980 Z12.31 Personal h istory of primary malignant neoplasm of breast 534223069 Z85.3 Osteoporosis 70129608 M8 1.0 Asthma 093915415 J45.90 9 Cares for self 141761523 Z76.89 [id number] MD LIZETH Covington MD [address] [place] [address],[facility] [place] [address] 12/28/2016 13:00:53 12/28/2016 15:20:31 Breast lump 36691154 N63 Personal h istory of primary malignant neoplasm of breast 284440740 Z85.3 [id number] MD LIZETH Covington MD [address] [place] [address],[facility] [place] [address] 03/16/2018 13:02:34 03/16/2018 14:59:41 Specialized medical examination 36900458 Z01.419 Screening for malignant neoplasm of rectum 116432174 Z12.12 Screening mammography 24 139285 Z12.31 [id number] MD LIZETH Covington MD [address] [place] [address] [place] [address] 04/12/2019 14:34:34 04/12/2019 15:48:24 Screening for malignant neoplasm of cervix 943105989 Z12.4 Screening mammography 24 504795 Z12.31 Screening for osteoporosis 745422112 Z13.820 Personal h istory of primary malignant neoplasm of breast 544595614 Z85.3 History of gynecological disorder 116803835 Z87.412 [id number] MD LIZETH Covington MD [address] [place] [address] 04/14/2020 13:06:18 04/14/2020 14:32:12 Sampling of vagina for Papanicolaou smear 872630206 Z91.89 Screening mammography 24 823348 Z12.31 Screening for osteoporosis 909151511 Z13.820 [id number] MD LIZETH Covington MD [address] [place] [address] 04/21/2021 13:15:34 04/21/2021 14:24:06 Specialized medical examination 17012898 Z01.419 Screening for malignant neoplasm of rectum 713506378 Z12.12 Screening mammography 24 367639 Z12.31 Urinary incontinence 165 039964 R32 [id number] MD LIZETH Covington MD [address] [place] [address] 04/26/2022 13:03:14 04/26/2022 14:49:27 History of clinical finding in subject 183083832 Z91.89 Screening mammography 24 236588 Z12.31 Advance care planning 71 9070230 Z71.89 Screening for osteoporosis 048975176 N95.8 History of dysplasia of vulva 8084182971 66371 Z87.412 Personal h istory of primary malignant neoplasm of breast 377440708 Z85.3 Urinary incontinence 165 689923 R32 [id number] MD LIZETH Covington MD [address] [place] [address] 06/28/2023 13:18:49 06/29/2023 08:06:11 History of clinical finding in subject 117213105 Z91.89 Screening mammography 24 294097 Z12.31 Advance care planning 71 6404908 Z71.89 Screening for osteoporosis 216999666 N95.8 [id number] MD LIZETH Covington MD [address] [facility] [address] [place] [address] 09/17/2024 14:21:13 09/17/2024 15:53:03 History of clinical finding in subject 762800712 Z91.89 Screening mammography 24 582353 Z12.31 Advance care planning 71 5087225 Z71.89 Screening for osteoporosis 016387979 N95.8 Health Concerns Section Related Observation LastModified by Organization Detai ls LastModified Time None Recorded Concern Status LastModified by Organization Details LastModified Time None Recorded Advance Directives Directive None Recorded Payers Encounter Date Sequence Insurance Name Policy Number Policy Kelly Covered Member ID Kelly Member ID Guarantor Name 04/14/2020 1 [facility] PREFERRED [place]UE - DEDUCTIBLE (PPO) [id number] Neo Liptak [id number] Bernard Liptak 04/21/2021 1 [place] [facility] P[facility]ERRED BLUE - DEDUCTIBLE (PPO) [id number] Neo Liptak [id number] Bernard Liptak 04/26/2022 1 [facility]: MEDICARE PPO BLUE (MEDICARE REPLACEMENT PPO) [id number] Bernard Liptak [id number] Bernard Liptak 06/28/2023 1 [facility]: [facility]IC[facility] PPO BLUE (MEDICARE REPLACEMENT PPO) [id number] Bernard Liptak [id number] 87 Bernard Liptak 09/17/2024 1 [facility]: [facility]IC[facility] PPO BLUE (MEDICARE REPLACEMENT PPO) [id number] Bernard Liptak [id number] Bernard Liptak Notes Date Note Type [...] of FRANCISCO II. Her sister had an [place] and her brother in law had 2 strokes in the past year, so she is doing most of the running with her. Her partner Rik is her health care proxy. Lizeth Herman MD [address], [place], [id number], [place] [facility], 04/14/2020 13:36:19 04/21/2021 text/html She is here [...] 30 for endometriosis. Lizeth Herman MD [address], [place], [phone], [place] [facility], 04/21/2021 14:05:44 04/26/2022 text/html She is here [...] MD [address], [place], [id number], [place] [facility], 04/26/2022 14:21:13 06/28/2023 text/html She is here [...] for incontinence issues. Lizeth Herman MD [address], [place], [address], [place] [facility], 06/28/2023 14:57:44 09/17/2024 text/html She is here for annual, doing well, has a past history of FRANCISCO II.She had DCIS in 2002 and had mastectomy with reconstruction and also has had left breast reduction. She is BRCA negative. Lizeth Herman MD [address], [place], [address], [place] [facility], 09/17/2024 14:49:47 OBGyn Episode No OBEpisode recorded.
[2024-10-09] MEDS: Lidocaine 4 % Patch ADH..PATCH 1 PATCH TRANSDERMA (20:47)
[2024-10-09 20:49] VITALS: BP 161/76; PULSE 78; RESP 16; TEMP 36.7; O2SAT 95
== END 2024-10-09 20:50 | disposition home or self-care (01) ==
PROVIDERS: Emergency Provider Internal Medicine
DX: M54.50 Low back pain, unspecified (principal); Z79.899 Other long term (current) drug therapy; Z87.891 Personal history of nicotine dependence
CPT/HCPCS: 72131; 99284

== ENCOUNTER → 2024-10-09 14:15 | Outpatient (BNV) | payer MEDICARE, SELFPAY | PROVIDERS: Visit Provider Radiology Diagnostic Radiology | DX: M51.86 Other intervertebral disc disorders, lumbar region (principal); Z98.1 Arthrodesis status | CPT/HCPCS: 72131 ==

== ENCOUNTER 2024-10-11 06:50 | Outpatient (REF) | payer MEDICARE, SELFPAY ==
--- OUTSIDE RECORDS SUMMARY | 2024-10-11 06:52 | XMS_ITS | Data Portability ---
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 Plan of Treatment Reminders Order Date Submit Date Provider Last Modified By Organization Details Last Modified Time Details Appointments None recorded. Lab pap, LB, vaginal 2019 020 [email or web address] [facility], Cytopathology Service, [address] [place] [address], [address], 0 07:40:41 pap test, thinprep, cervical 2020 021 [email or web address] [facility], Cytopathology Service, [address] [place] [address], [address], 1 07:20:46 fecal occult blood, stool 2020 021 [email or web address] 1 In-Office Order, Internal Use Only DO Not Attach Compendium DO Not Attach Compendium, Do Not Delete/merge, [id number] 1 14:03:16 pap test, thinprep, cervical 2021 022 [email or web address] [facility], Cytopathology Service, [address] [place] [address], [address], 2 07:38:27 pap test, thinprep, cervical 2022 023 [email or web address] [facility], [facility] [place], [address], 3 07:27:16 cytology report, thin prep, smear or scraping, cervical or vaginal 2024 025 [place] [facility], [address], [place], [address], 5 18:16:26 Referral None recorded. Procedures None recorded. Surgeries None recorded. Imaging MAMMO, screening , digital, bilateral 2019 020 [facility] ([facility]), [address], [place], [address], 0 16:31:27 bone density [address]), [address], [place], [address], 1 07:23:18 MAMMO, screening , digital, bilateral 2020 021 [facility]), [address], [place], [address], 3 07:38:19 MAMMO, screening , digital, bilateral - patient aware needs to go 2021 022 [facility]), [address], [place], [address], 2 15:31:33 bone density 2021 022 [facility]), [address], [place], [address], 4 07:36:31 MAMMO, screening , digital, bilateral - Breast Aspiratio n and/or Biopsy if needed 2022 023 [facility] ([facility]), [address], [place], [address], 3 17:41:43 bone density 2022 023 manolo [facility] ([facility]), [address] [facility], [place], [address], 4 07:27:36 MAMMO, screening , digital, bilateral - Breast Aspiratio n and/or Biopsy if needed 2024 025 [facility], [address], [address], [place], [address], 5 15:53:04 bone density 2024 025 [facility] Orders, [address], [address], [place], [address], 5 15:53:04 Medication Orders None recorded. Patient TargetsNo targets recorded. Patient Instructions Encounter Date Encounter Id Patient Instructions Last Modified By Organization Details Last Modified Time 04/14/2020 [id number] She is here for annual exam, is doing well. ___ Note from 2019: She is here for annual exam, is doing well but still using a cane due to her knee replacement. She has a past history of right breast cancer, and also of FRANCISCO II. Her sister had an CA and her brother in law had 2 strokes in the past year, so she is doing most of the running with her. Her partner Rik is her health care proxy. She appears to be doing well. She is still usign a cane, The knee operation was botched, it's not getting any better. She is going to go to [place] to have it redone once covid is [...] questions answered. Not available 04/14/2020 13:35:48 04/21/2021 [id number] learning about healthy weight Not available 04/21/2021 [...] do this. Not available 04/21/2021 14:05:17 04/26/2022 [id number] advance benefici elijah notice information Not available [...] It's bone on bone. Past history of FARNCISCO II, no vulvar pruritus noted. She is [...] the breast. Not available 04/26/2022 14:20:32 06/28/2023 [id number] advance benefici elijah notice information Not available [...] the breast. Not available 06/28/2023 14:57:22 09/17/2024 [id number] advance benefici elijah notice information Not available [...] DO Not Attach Compendium, Do Not Delete/merge, [id number] 04/21/2021 13:17:31 04/14/20 20 04/14/2020 pap, LB, vagin al [email or web address] ThinP rep Pap, Image d: NEGAT MALENA [...] neg, z12.4 , z91.8 9 Not Available [facility], Cytopathology Service [address] [place], [address], 04/16/2020 12:20:49 04/21/20 21 04/21/2021 PAP1C ASE [email or web address] ThinP rep Pap, Image d: NEGAT MALENA [...] ASCUS . lps neg, Z12.4 Not Available [facility], Cytopathology Service [address] [place], [address], 04/24/2021 12:11:30 04/26/20 22 04/26/2022 PAP1C ASE [email or web address] ThinP rep Pap, Image d: NEGAT MALENA [...] ause, lps neg, [Z01. 419] Not Available [facility], Cytopathology Service [address] [facility], [place], [address], 04/28/2022 16:06:04 06/28/20 23 06/28/2023 [facility] CYTOL OGY results Magalis sidhu Name: BERNARD RAMOS nt : 1944 (Age: 78) Lab Acces fabiola #: [id number] Colle ction Date: 06/28 Acces fabiola Date: 06/28 Sign Out Date: 07/04 Tissu e Sourc e: 1: THINP REP NEEDLEMAKER PAP TEST, VAGIN AL: Final Diagn osis: [...] g or gurmeet w. Perfo rmed at [facility] ate Refer ence Labor atory [facility]par tment of Cytol ogy, [address] [place] Clini louis Histo ry (othe r): Z91.8 9, routi ne scree n, Medic are scree aamir pap smear -high risk, LPS neg Phone #: [phone], On-Ca ll Patho logis t: [id number] Not Available [facility] [address], [place], [address], 07/04/2023 13:49:42 09/17/19 25 09/19/2024 IGP, RFX APTIM A HPV ASCU diagnosis: Commen t NEGAT MALENA FOR INTRA EPITH ELIAL LESIO N OR MALIG NATASHA . Not Available [facility] ([facility]) [address] [place], [address], 09/19/2024 18:16:26 09/17/19 25 09/19/2024 IGP, RFX APTIM A HPV ASCU specimen adequacy: Abril galvan Satis facto ry for evalu ation . Not Available [facility] ([facility]) [address] [place], [address], 09/19/2024 18:16:26 09/17/19 25 09/19/2024 IGP, RFX APTIM A HPV ASCU clinician provided ICD10: Abril galvan Z91.8 9 Not Available [facility] ([facility]) [address] [place], [address], 09/19/2024 18:16:26 09/17/19 25 09/19/2024 IGP, RFX APTIM A HPV ASCU performed by: Marty Escobar (ASCP ) Not Available [facility] ([facility]) [address] [place], [address], 09/19/2024 18:16:26 09/17/19 25 09/19/2024 IGP, RFX APTIM A HPV ASCU . . Not Available [facility] ([facility]) [address] [place], [address], 09/19/2024 18:16:26 09/17/19 25 09/19/2024 IGP, RFX [...] ts do occur . Not Available [facility] ([facility]) [address] [facility], [place], [address], 09/19/2024 18:16:26 09/17/19 25 09/19/2024 IGP, RFX APTIM A HPV ASCU test methodology: Commen t This liqui d based ThinP rep(R ) pap test was tasneem cevallos with the use of an image guide karlene morris. Not Available [facility] ([facility]) [address] [facility], [place], [address], 09/19/2024 18:16:26 09/17/19 25 09/19/2024 IGP, RFX APTIM A HPV ASCU . Commen t The HPV DNA refle x crite kimberly were not met with this speci men resul t there fore, no HPV testi ng was perfo rmed. Not Available [facility] ([facility]) [address] [facility], [place], [address], 09/19/2024 18:16:26 06/26/20 20 06/26/2020 MAMMO tasneem, digit al, bilat eral No observ ation record ed. [facility] [address] [place], [address], 06/27/2020 08:43:42 05/27/20 22 05/27/2022 MAMMtasneem Leroy, digit al, bilat eral [place], [address], 05/27/2022 15:32:50 07/26/20 23 07/26/2023 MAMMO tasneem digit al, bilat eral No observ ation record ed. Not Available 07/07 07:52:48 Result Notes None recorded. 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 Lizeth Herman MD [address], [place], [address], [place] [facility], 6 10:54:46 Gastroduo denitis 834646190 Active Lizeth Herman MD [address], [place], [address], [place] [facility], 6 10:54:46 Atypical squamous cells of undetermi mart significa nce on cervical Papanicol aou smear 085258672 Active Lizeth Herman MD [address], [place], [address], [place] [facility], 6 10:54:46 Gastritis 6241262 Active Lizeth Herman MD [address], [place], [address], [place] [facility], 6 10:54:46 Family history of malignant neoplasm of ovary 995520459 Mark Herman MD [address], [place], [address], [place] [facility], 6 10:54:46 Primary malignant neoplasm of female breast 48298565 Active Lizeth Herman MD [address], [place], [address], [place] [facility], 6 10:54:46 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 Mark Herman MD [address], [place], [address], [place] [facility], 6 10:54:46 Vulval intraepit helial neoplasia grade 1 410465904 Active Lizeth Herman MD [address], [place], [address], [place] [facility], 6 10:54:46 Vitamin D deficienc y 94633650 Active Lizeth Herman MD [address], [place], [address], [place] [facility], 6 10:54:46 Mammograp hy abnormal 686152174 Active Lizeth Herman MD [address], [place], [address], [place] [facility], 6 10:54:46 Personal history of primary malignant neoplasm of breast 036211444 Active 2016 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 Lizeth Herman MD [address], [place], [address], [place] [facility], 1 14:00:48 Osteoporo sis 89293696 Active 2016 Lizeth Herman MD [address], [place], [address], [place] [facility], 7 15:00:50 Asthma 021590383 Active 2016 Lizeth Herman MD [address], [place], [address], [place] [facility], 7 15:02:03 History of dysplasia of vulva 878795132318 105 Active 2018 Lizeth Herman MD [address], [place], [address], [place] [facility], 9 15:18:36 Urinary incontine nce 734178026 Active 2020 Lizeth Herman MD [address], [place], [address], [place] [facility], 14:03:30 Problem Notes None recorded. Procedures Surgical History Date Name Laterality Status Provider Name and Address Organization Details Recorded Time 07/06/20 23 Most Recent Mammogram completed Irma Reyes [place] - [facility], 09/17/2024 14:33:36 07/22/20 21 procedure on back completed Irma Mecbrittneyor [place] - [facility], 04/26/2022 13:18:20 12/03/19 17 Most Recent Bone Density completed Irma Mecbrittneyor [place] - [facility], 12/14/2016 14:45:19 09/05/19 14 Other completed Irma Mecbebetoywor [place] - [facility], 12/10/2015 10:18:06 12/13/19 13 Colposcopy completed Lizeth Herman MD [address] [employer],[address], [place], [address], [place] [facility], 12/12/2012 13:07:56 09/05/19 12 Other completed Irma Mecgreerwor [place] - [facility], 08/08/2012 13:59:44 09/05/19 09 Other completed Irma Mecbrittneyor [place] [facility], 12/14/2016 14:44:01 09/05/19 03 Breast Biopsy completed Lizeth Herman MD [address] [employer],[address], [place], [address], [place] [facility], 04/21/2021 14:00:34 09/05/18 94 Other completed Irma Mecgreerwor [place] - [facility], 08/08/2012 13:59:44 09/05/18 77 Appendectomy completed Irma Reyes [place] - [facility], 08/08/2012 13:59:44 09/05/18 77 Total Abdominal Hysterectomy completed Lizeth Herman MD [address] [employer],[address], [place], [address], [place] [facility], 08/08/2012 14:09:00 Imaging Results Imaging Date Name Status LastModified by Organiz ation Details LastModified Time 06/26/2020 MAMMO, screening, digital, bilateral completed [facility] [address] [place], [address], 06/27/2020 08:43:42 05/27/2022 MAMMO, screening, digital, [place], [address], 05/27/2022 15:32:50 07/26/2023 MAMMO, screening, digital, bilateral completed Information not available 07/27/2023 07:52:48 Procedure Notes None recorded. Medical Equipment None Reported. Allergies Allergen ID Allergen Name Allergen Category Reaction Reaction Severity Criticality Documentation Date Start Date Code Code System Note Provider Name and Address Organization Details Recorded Time 97168 egg extract food,medi cation rash Not available Not available 09/11/2013 71519 15 RxNorm JOSEPHINE Berg in [facility], 4 13:40:00 5521 Avelox medicatio n other mild Not available 08/08/2012 38444 6 RxNorm welts JOSEPHINE Berg in [facility], 2 13:59:45 5522 Product containin g penicilli n and antibioti c (product) medicatio n rash Not available Not available 08/08/2012 58707 05 SNOMED JOSEPHINE Berg in [facility], 2 13:59:45 5523 Levaquin medicatio n other mild Not available 08/08/2012 04836 2 RxNorm JOSEPHINE Berg in [facility], 2 13:59:45 Medications Name Sig Start [...] Updated DateTime 0 147.32 cm 40.1 kg/m2 99232.0 2 g 97.4 [degF] 88 /min 133 mm[Hg] 49 mm[Hg] Gena Potter in [facility], 0 13:08:32 Date Recorded Body weight Body mass index (BMI) Body height Body temperature Heart rate Systolic blood pressure Diastolic blood pressure Provider Name and Address Organization Details Last Updated DateTime 1 80971.7 5 g 43.1 kg/m2 147.32 cm 97.4 [degF] 81 /min 148 mm[Hg] 60 mm[Hg] Irma Potter in [facility], 1 13:26:01 Date Recorded Body height Body mass index (BMI) Body weight Heart rate Body temperature Systolic blood pressure Diastolic blood pressure Provider Name and Address Organization Details Last Updated DateTime 2 146.05 cm 46.4 kg/m2 01866.8 6 g 81 /min 97.5 [degF] 124 mm[Hg] 57 mm[Hg] Irma Potter in [facility], 2 13:11:32 Date Recorded Body temperature Body weight Body mass index (BMI) Body height Heart rate Systolic blood pressure Diastolic blood pressure Provider Name and Address Organization Details Last Updated DateTime 3 97.9 [degF] 36515.1 2 g 43.9 kg/m2 147.32 cm 83 /min 152 mm[Hg] 57 mm[Hg] Irma Potter in [facility], 3 13:33:28 Date Recorded Body weight Body mass index (BMI) Body height Body temperature Heart rate Systolic blood pressure Diastolic blood pressure Provider Name and Address Organization Details Last Updated DateTime 5 32016.5 2 g 30.9 kg/m2 175.26 cm 97.4 [degF] 84 /min 146 mm[Hg] 75 mm[Hg] Irma Eric BUR[facility] - [facility], 5 14:27:15 Social History Question Answer Notes LastModified by Organizat ion Details LastModified Time Tobacco Smoking Status Former Smoker quit 40 yrs ago Not Available [employer] 07/08/2020 03:19:37 What Is Your Level Of Alcohol Consumption? Occasional [id number] Information not available 07/08/2020 How Many Years Have You Consumed Alcohol? 50 Information not available 04/21/2021 What Is Your Level Of Caffeine Consumption? Occasional [id number] Information not available 07/08/2020 In The 14 [...] Type Of Diet Are You Following? REGULAR [id number] Information not available 07/08/2020 Which Illicit Or Recreational Drugs Have You Used? No [id number] Information not available 07/08/2020 Do You Reside In Or Have You Traveled To An Area Where Ebola Virus Transmission Is Active? No [id number] Information not available 07/08/2020 Do You Or Have You Ever Used E-cigarettes Or Vape? Never Used Electronic Cigarettes [id number] Information not available 07/08/2020 Education 2 Year College Informatio n not available 08/08/2012 What Is The Highest Grade Or Level Of School You Have Completed Or The Highest Degree You Have Received? [id number] Information not available 04/21/2021 What Is Your Occupation? Retired [id number] Information not available 07/08/2020 How Many Days [...] available 04/21/2021 Are You Sexually Active? Yes [id number] Information not available 07/08/2020 At What Age Did You Start Smoking Tobacco? 16 Information not available 04/21/2021 Do You Or Have You Ever Used Smokeless Tobacco? Never Used Smokeless Tobacco [id number] Information not available 07/08/2020 How Much Tobacco Do You Smoke? No [id number] Information not available 07/08/2020 General Stress Level Medium Information not available 09/17/2024 Do You Feel Stressed (tense, Restless, Nervous, Or Anxious, Or Unable To Sleep At Night)? [id number] Information not available 09/17/2024 Do You Use Any Illicit Or Recreational Drugs? No Information not available 04/21/2021 How Many Years Have You Smoked Tobacco? 10 [id number] Information not available 07/08/2020 Have You Recently [...] dose 1 completed JOSEPHINE Berg in [facility], 09/17/2024 14:25:43 COVID-19, mRNA, LNP-S, bivalent, PF, 30 mcg/0.3 mL dose 2 completed [place]PH[place] Berg in [facility], 09/17/2024 14:25:43 Past Encounters Encounter ID Performer Location Encounter Start Date Encounter Closed Date Diagnosis/Indication Diagnosis SNOMED-CT Code Diagnosis ICD10 Code Diagnosis Note [id number] MD LIZETH Covington MD [address] [facility],[place] [address] 08/08/2012 13:22:43 08/10/2012 09:52:22 [id number] Irma HERMAN MD [address] [facility] [address] 09/11/2013 13:26:47 09/12/2013 08:53:20 Screening for malignant neoplasm of cervix 055930306 Screening mammography 54844917 [id number] Irma HERMAN MD [address] [facility] [address] 11/16/2012 14:26:27 11/16/2012 16:27:58 [id number] MD LIZETH Covington MD [address] [facility] [place] [address] 12/12/2012 08:04:19 12/13/2012 12:10:32 [id number] Irma HERMAN MD [address] [facility] [place] [address] 03/13/2013 13:21:29 03/15/2013 08:40:53 [id number] Irma HERMAN MD [address] [facility] [place] [address] 03/26/2013 13:16:42 03/26/2013 16:27:27 [id number] LIZETH HERMAN MD [address] [facility] [address] 11/14/2014 13:00:38 11/14/2014 14:31:18 Specialized medical examination 60775585 Screening for malignant neoplasm of rectum 799744162 Screening mammography [id number] MD LIZETH Covington MD [address] [place] [address],[facility] [place] [id number] 12/10/2015 10:02:13 12/10/2015 11:53:16 Sampling of vagina for Papanicolaou smear 227816083 Z91.89 Screening mammography 24 923462 Z12.31 Mammography abnormal 168 317214 R92.8 [id number] MD LIZETH Covington MD [address] [place] [address],[facility] [place] [id number] 12/14/2016 14:30:00 12/14/2016 16:07:42 Specialized medical examination 58876061 Z01.419 Screening for malignant neoplasm of rectum 695336705 Z12.12 Screening mammography 24 322781 Z12.31 Personal h istory of primary malignant neoplasm of breast 881293421 Z85.3 Osteoporosis 97857272 M8 1.0 Asthma 570888783 J45.90 9 Cares for self 957258460 Z76.89 [id number] MD LIZETH Covington MD [address] [place] [address],[facility] [place] [facility] [id number] 12/28/2016 13:00:53 12/28/2016 15:20:31 Breast lump 94811398 N63 Personal h istory of primary malignant neoplasm of breast 081289145 Z85.3 [id number] MD LIZETH Covington MD [address] [place] [address],[facility] [place] [id number] 03/16/2018 13:02:34 03/16/2018 14:59:41 Specialized medical examination 02863583 Z01.419 Screening for malignant neoplasm of rectum 801475771 Z12.12 Screening mammography 24 614364 Z12.31 [id number] MD LIZETH Covington MD [address] [place] [address] [place] [facility] [address] 04/12/2019 14:34:34 04/12/2019 15:48:24 Screening for malignant neoplasm of cervix 517486729 Z12.4 Screening mammography 24 155061 Z12.31 Screening for osteoporosis 760833419 Z13.820 Personal h istory of primary malignant neoplasm of breast 971053586 Z85.3 History of gynecological disorder 283516356 Z87.412 [id number] MD LIZETH Covington MD [address] [place] [id number] 04/14/2020 13:06:18 04/14/2020 14:32:12 Sampling of vagina for Papanicolaou smear 081161731 Z91.89 Screening mammography 24 127415 Z12.31 Screening for osteoporosis 836263756 Z13.820 [id number] MD LIZETH Covington MD [address] [place] [id number] 04/21/2021 13:15:34 04/21/2021 14:24:06 Specialized medical examination 97340378 Z01.419 Screening for malignant neoplasm of rectum 666953751 Z12.12 Screening mammography 24 068963 Z12.31 Urinary incontinence 165 438356 R32 [id number] MD LIZETH Covington MD [address] [place] [id number] 04/26/2022 13:03:14 04/26/2022 14:49:27 History of clinical finding in subject 716531723 Z91.89 Screening mammography 24 375839 Z12.31 Advance care planning 71 7760765 Z71.89 Screening for osteoporosis 170870339 N95.8 History of dysplasia of vulva 0396735798 47136 Z87.412 Personal h istory of primary malignant neoplasm of breast 416950780 Z85.3 Urinary incontinence 165 130143 R32 [id number] MD LIZETH Covington MD [address] [place] [id number] 06/28/2023 13:18:49 06/29/2023 08:06:11 History of clinical finding in subject 163289790 Z91.89 Screening mammography 24 151289 Z12.31 Advance care planning 71 9396244 Z71.89 Screening for osteoporosis 991750892 N95.8 [id number] MD LIZETH Covington MD [address] [facility] [address] [place] [address] 09/17/2024 14:21:13 09/17/2024 15:53:03 History of clinical finding in subject 851312379 Z91.89 Screening mammography 24 947957 Z12.31 Advance care planning 71 8674322 Z71.89 Screening for osteoporosis 948793087 N95.8 Health Concerns Section Related Observation LastModified by Organization Detai ls LastModified Time None Recorded Concern Status LastModified by Organization Details LastModified Time None Recorded Advance Directives Directive None Recorded Payers Encounter Date Sequence Insurance Name Policy Number Policy Kelly Covered Member ID Kelly Member ID Guarantor Name 04/14/2020 1 [facility]REF[place] - [place]EDUCTIBLE (PPO) [id number] Neo Liptak [id number] Bernard Liptak 04/21/2021 1 [facility] - [place]EDUCTIBLE (PPO) [id number] Neo Liptak [id number] Bernard Liptak 04/26/2022 1 [facility] (MEDICARE REPLACEMENT PPO) [id number] Bernard Liptak [id number] Bernard Liptak 06/28/2023 1 [facility] (MEDICARE REPLACEMENT PPO) [id number] Bernard Liptak [id number] Bernard Liptak 09/17/2024 1 [facility] [facility]IC[place] P[place] BLUE (MEDICARE REPLACEMENT PPO) [id number] Bernard Liptak [id number] 87 Bernard Liptak Notes Date Note Type [...] of FRANCISCO II. Her sister had an CA and her brother in law had 2 strokes in the past year, so she is doing most of the running with her. Her partner Rik is her health care proxy. Lizeth Herman MD [address] [facility],[address], [place], [address], [place] [facility], 04/14/2020 13:36:19 04/21/2021 text/html She is [...] 30 for endometriosis. Lizeth Herman MD [address], [place], [address], [place] - [facility], 04/21/2021 14:05:44 04/26/2022 text/html She is [...] MD [address], [place], [address], [place] [facility], 04/26/2022 14:21:13 06/28/2023 text/html She is [...] for incontinence issues. Lizeth Herman MD [address], [place], [address], [place] - [facility], 06/28/2023 14:57:44 09/17/2024 text/html She is here for annual, doing well, has a past history of FRANCISCO II.She had DCIS in 2002 and had mastectomy with reconstruction and also has had left breast reduction. She is BRCA negative. Lizeth Herman MD [address], [place], [address], [place] [facility], 09/17/2024 14:49:47 OBGyn Episode No OBEpisode recorded.
--- OUTSIDE RECORDS SUMMARY | 2024-10-11 06:52 | XMS_ITS | Continuity of Care Document ---
Author Organization [place] - [facility],, LIZETH CANTRELL MD Address [address] [address] Care Team Providers Care Microsoft Exchange Administrator Name Role Phone GURVINDER BOLANOS Primary Care Provider Assessment No assessment recorded. Plan of Treatment Reminders Order Date Submit Date Provider Last Modified By Organization Details Last Modified Time Details Appointments None recorded. Lab cytology report, thin prep, smear or scraping, cervical or vaginal 2024 025 [place] [facility], [address], [place], [address], 18:16:26 Referral None recorded. Procedures None recorded. Surgeries None recorded. Imaging MAMMO, screening, digital, bilateral - Breast Aspiration and/or Biopsy if needed 2024 025 [facility], [address], [address], [place], [address], 15:53:04 bone density 2024 025 [facility], [address], [address], [place], [address], 15:53:04 Medication Orders None recorded. Patient TargetsNo targets recorded. 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 Mark Cantrell MD [address], [place], [address], [place] [facility], 6 10:54:46 Gastroduo denitis [id number] Mark Cantrell MD [address], [place], [address], [place] - [facility], 6 10:54:46 Atypical squamous cells of undetermi mart significa nce on cervical Papanicol aou smear [id number] Mark Cantrell MD [address], [place], [address], [place] [facility], 6 10:54:46 Gastritis [id number] Mark Cantrell MD [address], [place], [address], [place] - [facility] in [facility], 6 10:54:46 Family history of malignant neoplasm of ovary [id number] Mark Cantrell MD [address], [place], [address], [place] - [facility], 6 10:54:46 Primary malignant neoplasm of female breast 33900587 Active Lizeth Cantrell MD [address], [place], [address], [place] - [facility] in [facility], 6 10:54:46 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 Lizeth Cantrell MD [address], [place], [address], [place] [facility], 6 10:54:46 Vulval intraepit helial neoplasia grade 1 810228609 Active Lizeth Cantrell MD [address], [place], [address], [place] [facility], 6 10:54:46 Vitamin D deficienc y 18361228 Active Lizeth Cantrell MD [address], [place], [address], [place] [facility], 6 10:54:46 Mammograp hy abnormal 934006274 Active Lizeth Cantrell MD [address], [place], [address], [place] [facility], 6 10:54:46 Personal history of primary malignant neoplasm of breast 739820358 Active 2016 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 Lizeth Cantrell MD [address], [place], [address], [place] [facility], 1 14:00:48 Osteoporo sis 10759710 Active 2016 Lizeth Cantrell MD [address], [place], [address], [place] [facility], 7 15:00:50 Asthma 926728082 Active 2016 Lizeth Cantrell MD [address], [place], [address], [place] [facility], 7 15:02:03 History of dysplasia of vulva 962067159632 105 Active 2018 Lizeth Cantrell MD [address], [place], [address], [place] [facility], 9 15:18:36 Urinary incontine nce 613293103 Active 2020 Lizeth Cantrell MD [address], [place], [address], [place] [facility], 1 14:03:30 Problem Notes None recorded. Procedures Surgical History Date Name Laterality Status Provider Name and Address Organization Details Recorded Time 07/06/20 23 Most Recent Mammogram completed Irma Meczywor [place] - [facility], 09/17/2024 14:33:36 07/22/20 21 procedure on back completed Irma Meczywor [place] - [facility], 04/26/2022 13:18:20 12/03/19 17 Most Recent Bone Density completed Irma Meczywor [place] - [facility], 12/14/2016 14:45:19 09/05/19 14 Other completed Irma Meczywor [place] - [facility], 12/10/2015 10:18:06 12/13/19 13 Colposcopy completed Lizeth Cantrell MD [address], [place], [address], [place] [facility], 12/12/2012 13:07:56 09/05/19 12 Other completed Irma Meczywor [place] - [facility], 08/08/2012 13:59:44 09/05/19 09 Other completed Irma Meczywor [place] - [facility], 12/14/2016 14:44:01 09/05/19 03 Breast Biopsy completed Lizeth Cantrell MD [address], [place], [address], [place] - [facility] in [facility], 04/21/2021 14:00:34 09/05/18 94 Other completed Irma Acostawpallavi [place] - [facility] in [facility], 08/08/2012 13:59:44 09/05/18 77 Appendectomy completed Irma Potter in [facility], 08/08/2012 13:59:44 09/05/18 77 Total Abdominal Hysterectomy completed Lizeth Cantrell MD [address], [place], [address], [place] - [facility], 08/08/2012 14:09:00 Imaging Results None recorded. Procedure Notes None recorded. Medical Equipment None Reported. Allergies Allergen ID Allergen Name Allergen Category Reaction Reaction Severity Criticality Documentation Date Start Date Code Code System Note Provider Name and Address Organization Details Recorded Time 01678 egg extract food,medi cation rash Not available Not available 09/11/2013 59949 15 RxNorm Irma Meczywor null [place] [facility], 4 13:40:00 5521 Avelox medicatio n other mild Not available 08/08/2012 55768 6 RxNorm welts Irma Meczywor ayana [place] - [facility], 2 13:59:45 5522 Product containin g penicilli n and antibioti c (product) medicatio n rash Not available Not available 08/08/2012 63539 05 SNOMED Irma Meczywor null, [place] - [facility], 2 13:59:45 5523 Levaquin medicatio n other mild Not available 08/08/2012 47014 2 RxNorm Irma Meczywor null, [place] - [facility], 2 13:59:45 [...] Address Organization Details Last Updated DateTime 5 49303.5 2 g 30.9 kg/m2 175.26 cm 97.4 [degF] 84 /min 146 mm[Hg] 75 mm[Hg] Irma Reyes [place] - [facility], 5 14:27:15 Social History Question Answer Notes LastModified by Organizat ion Details LastModified Time Tobacco Smoking Status Former Smoker quit 40 yrs ago Not Available [employer] 07/08/2020 03:19:37 What Is Your Level Of Alcohol Consumption? Occasional [id number] Information not available 07/08/2020 How Many Years Have You Consumed Alcohol? 50 Information not available 04/21/2021 What Is Your Level Of Caffeine Consumption? Occasional [id number] Information not available 07/08/2020 In The 14 [...] Type Of Diet Are You Following? REGULAR [id number] Information not available 07/08/2020 Which Illicit Or Recreational Drugs Have You Used? No [id number] Information not available 07/08/2020 Do You Reside In Or Have You Traveled To An Area Where Ebola Virus Transmission Is Active? No [id number] Information not available 07/08/2020 Do You Or Have You Ever Used E-cigarettes Or Vape? Never Used Electronic Cigarettes [id number] Information not available 07/08/2020 Education 2 Year College Informatio n not available 08/08/2012 What Is The Highest Grade Or Level Of School You Have Completed Or The Highest Degree You Have Received? [id number] Information not available 04/21/2021 What Is Your Occupation? Retired [id number] Information not available 07/08/2020 How Many Days [...] available 04/21/2021 Are You Sexually Active? Yes [id number] Information not available 07/08/2020 At What Age Did You Start Smoking Tobacco? 16 Information not available 04/21/2021 Do You Or Have You Ever Used Smokeless Tobacco? Never Used Smokeless Tobacco [id number] Information not available 07/08/2020 How Much Tobacco Do You Smoke? No [id number] Information not available 07/08/2020 General Stress Level Medium Information not available 09/17/2024 Do You Feel Stressed (tense, Restless, Nervous, Or Anxious, Or Unable To Sleep At Night)? [id number] Information not available 09/17/2024 Do You Use Any Illicit Or Recreational Drugs? No Information not available 04/21/2021 How Many Years Have You Smoked Tobacco? 10 [id number] Information not available 07/08/2020 Have You Recently [...] Irma Meczywor null, [place] - [facility], 06/28/2023 13:24:44 Influenza, adjuvanted, quadrivalent, PF 0 completed Irma Meczywor null, [place] [facility], 06/28/2023 13:24:44 COVID-19, mRNA, LNP-S, PF, 100 mcg/0.5mL dose or 50 mcg/0.25mL dose 1 completed Irma Meczywor null, [place] [facility], 06/28/2023 13:24:44 COVID-19, mRNA, LNP-S, PF, 100 mcg/0.5mL dose or 50 mcg/0.25mL dose 1 completed Irma Meczywor null, [place] [facility], 06/28/2023 13:24:44 COVID-19, mRNA, LNP-S, PF, 30 mcg/0.3 mL dose 2 completed Irma Meczywor null, [place] [facility], 06/28/2023 13:24:44 COVID-19, mRNA, LNP-S, PF, 30 mcg/0.3 mL dose, fabricio-sucrose 2 completed Irma Meczywor null, [place] [facility], 06/28/2023 13:24:44 Pneumococcal conjugate PCV 13 6 completed Irma Meczywor null, [place] - [facility], 06/28/2023 13:24:44 zoster recombinant 3 completed Irma Meczywor null, [place] [facility], 09/17/2024 14:25:43 Influenza, adjuvanted, quadrivalent, PF 2 completed Irma Meczywor null, [place] [facility], 09/17/2024 14:25:43 COVID-19, mRNA, LNP-S, PF, 100 mcg/0.5mL dose or 50 mcg/0.25mL dose 1 completed Irma Meczywor null, [place] [facility], 09/17/2024 14:25:43 COVID-19, mRNA, LNP-S, bivalent, PF, 30 mcg/0.3 mL dose 2 completed Irma Meczywor null, [place] [facility], 09/17/2024 14:25:43 Past Encounters Encounter ID Performer Location Encounter Start Date Encounter Closed Date Diagnosis/Indication Diagnosis SNOMED-CT Code Diagnosis ICD10 Code Diagnosis Note [id number] MD LIZETH Covington MD [address] [facility] [place] [address] 09/17/2024 14:21:13 09/17/2024 15:53:03 History of clinical finding in subject 417092846 Z91.89 Screening mammography 24 219615 Z12.31 Advance care planning 71 3368394 Z71.89 Screening for osteoporosis 141337201 N95.8 Health Concerns Section Related Observation LastModified by Organization Detai ls LastModified Time None Recorded Concern Status LastModified by Organization Details LastModified Time None Recorded Payers Encounter Date Sequence Insurance Name Policy Number Policy Kelly Covered Member ID Kelly Member ID Guarantor Name 09/17/2024 1 [place] (MEDICARE REPLACEMENT PPO) [id number] Cristina Lorenz [id number] Cristina Lorenz Notes Date Note Type Note Provider Name and Address Organization Details Recorded Time 09/17/2024 text/html She is here for annual, doing well, has a past history of FRANCISCO II.She had DCIS in 2002 and had mastectomy with reconstruction and also has had left breast reduction. She is BRCA negative. Lizeth Cantrell MD [address] [facility],[address], [place], [address], [place] [facility], 09/17/2024 14:49:47 OBGyn Episode No OBEpisode recorded.
--- OUTSIDE RECORDS SUMMARY | 2024-10-11 06:52 | XMS_ITS | Clinical Summary ---
Author Organization [facility] Address [address] [place] [address] Care Team Providers Care Electrical Manager Name Role Phone Mannie Khan MD Primary Care Provider [phone] Allergies Active Allergy Reactions Criticality Noted Date [...] age to complete this topic Care Teams Electrical Manager Relationship Specialty Start Date End Date Mannie Khan MD [address] [facility] [address] [place] [address] PCP - General Geriatric Medicine 11/26/20
--- OUTSIDE RECORDS SUMMARY | 2024-10-11 06:52 | XMS_ITS | Clinical Summary ---
Author Organization [facility] Address [address] [place] [address] Care Team Providers Care Senior Technical Trainer Name Role Phone Mannie Khan MD Primary Care Provider [phone] Surgical History Surgery Date Site/Laterality Comments MASTECTOMY 2002 PROCEDURE: HISTORICAL MASTECTOMY; COMMENT: right breast with subsequent reconstruction TONSILLECTOMY PROCEDURE: HISTORICAL TONSILLECTOMY OTHER SURGICAL HISTORY 1977 PROCEDURE: [place] TOTAL ABDOMINAL HYSTERECT W/WO RMVL TUBE OVARY; COMMENT: TAHBSO for endometriosis, took ERT for 2 years only after surgery BREAST REDUCTION 2002 PROCEDURE: [place] BREAST REDUCTION; COMMENT: left breast Medical History [...] Procedure Name Priority Date/Time Associated Diagnosis Comments [facility] DEXA AXIAL SKELETON Routine 05/12/2021 4:45 PM EDT Other specified disorders of bone density and structure, multiple sites from Last 3 Months or Most Recently Relevant to Health Maintenance Results * [facility] DEXA AXIAL SKELETON (05/12/2021 4:45 PM EDT) Anatomical Region Laterality Modality Mammography 05/12/2021 1:59 PM EDT Narrative 05/12/2021 4:45 PM EDT [facility] Diagnostic Imaging Department [address] [place] [address] Patient: ??CRISTINA LORENZ ?/Age/Sex: 1945 Unit#: ??[id number] ? Location/Status: ??SPDIMAM/REG CLI ? Mnemonic/Ordering Site: [...] probability of hip fracture of 8.7%. Code 67077 Dictating Physician: ??GONSALO JOHNSON MD Electronically Signed by: ??GONSALO JOHNSON MD Dic Date/Time: ??05/12/211641 Sign date/Time: ??05/12/21 164 Procedure Note Dali Johnson MD - 09/01/2022 [facility] Diagnostic Imaging Department [address] [place] [address] Patient: CRISTINA LORENZ Suzanne /Age/Sex: 1945 76 - F Unit#: [id number] Location/Status: [facility]emonic[facility] Ordering Physician: BILLY LOTT MD, PHD [facility] Dexa Axial Skeleton - 05/12/212 [...] probability of hip fracture of 8.7%. Code 46480 Dictating Physician: GONSALO JOHNSON MD Electronically Signed by: GONSALO JOHNSON MD Dic Date/Time: 05/12/21 164 Sign date/Time: 05/12/21 164 Billy Lott MD IMG BI PROCEDURES from Last 3 Months or Most Recently Relevant to Health Maintenance Care Teams Senior Technical Trainer Relationship Specialty Start Date End Date Mannie Khan MD [address] [place] [address] [address] [place], [place] PCP - General Internal Medicine 08/18/21
== END 2024-10-11 06:51 | disposition home or self-care (01) ==
LOC: CF 06:50
PROVIDERS: Visit Provider Internal Medicine
DX: M25.562 Pain in left knee (principal); G89.29 Other chronic pain; Z96.652 Presence of left artificial knee joint
CPT/HCPCS: 64555; C1778; J2003

== ENCOUNTER → 2024-10-11 12:55 | Outpatient (AMB) | payer MEDICARE, SELFPAY ==
--- OUTSIDE RECORDS SUMMARY | 2024-10-11 12:57 | XMS_ITS | Clinical Summary ---
Author Organization [facility] Address [address] [place] [address] Care Team Providers Care Director Athletic Name Role Phone Mannie Khan MD Primary Care Provider [phone] Surgical History Surgery Date Site/Laterality Comments MASTECTOMY 2002 PROCEDURE: HISTORICAL MASTECTOMY; COMMENT: right breast with subsequent reconstruction TONSILLECTOMY PROCEDURE: HISTORICAL TONSILLECTOMY OTHER SURGICAL HISTORY 1977 PROCEDURE: [place] TOTAL ABDOMINAL HYSTERECT W/WO RMVL TUBE OVARY; COMMENT: TAHBSO for endometriosis, took ERT for 2 years only after surgery BREAST REDUCTION 2002 PROCEDURE: [place] BREAST REDUCTION; COMMENT: left breast Medical History [...] Procedure Name Priority Date/Time Associated Diagnosis Comments [facility] DEXA AXIAL SKELETON Routine 05/12/2021 4:45 PM EDT Other specified disorders of bone density and structure, multiple sites from Last 3 Months or Most Recently Relevant to Health Maintenance Results * [facility] DEXA AXIAL SKELETON (05/12/2021 4:45 PM EDT) Anatomical Region Laterality Modality Mammography 05/12/2021 1:59 PM EDT Narrative 05/12/2021 4:[address] [facility] Diagnostic Imaging Department [address] [place] [address] Patient: ??CRISTINA LORENZ ?/Age/Sex: 1945 Unit#: ??[id number] ? Location/Status: ??SPDIMAM/REG CLI ? Mnemonic/Ordering Site: [...] probability of hip fracture of 8.7%. Code 24547 Dictating Physician: ??GONSALO JOHNSON MD Electronically Signed by: ??GONSALO JOHNSON MD Dic Date/Time: ??05/12/211641 Sign date/Time: ??05/12/21 164 Procedure Note Dali Johnson MD - 09/01/2022 [facility] Diagnostic Imaging Department [address] [place] [address] Patient: CRISTINA LORENZ Suzanne /Age/Sex: 1945 76 - F Unit#: [id number] Location/Status: [facility] Ordering Physician: BILLY LOTT MD, PHD [facility] Dexa Axial Skeleton - 05/12/212 [...] probability of hip fracture of 8.7%. Code 01715 Dictating Physician: GONSALO JOHNSON MD Electronically Signed by: GONSALO JOHNSON MD Dic Date/Time: 05/12/21 164 Sign date/Time: 05/12/21 164 Billy Lott MD IMG BI PROCEDURES from Last 3 Months or Most Recently Relevant to Health Maintenance Care Teams Director Athletic Relationship Specialty Start Date End Date Mannie Khan MD [address] [place] [address] [address] [place], [place] PCP - General Internal Medicine 08/18/21
--- OUTSIDE RECORDS SUMMARY | 2024-10-11 12:58 | XMS_ITS | Clinical Summary ---
Author Organization [facility] Address [address] [place] [address] Care Team Providers Care Preventative Maintenance Technician Name Role Phone Mannie Khan MD Primary Care Provider + [phone] Allergies Active Allergy Reactions Criticality Noted Date [...] age to complete this topic Care Teams Preventative Maintenance Technician Relationship Specialty Start Date End Date Mannie Khan MD [address] [facility] [address] [place] [address] PCP - General Geriatric Medicine 11/26/20
--- NOTE | 2024-10-11 13:22 | A.OFFVIS_ITS ---
Vital Signs 10/11/24 13:23 Height 4 ft 10 in Weight 210 lb BMI 43.9 BP 134/77 Blood Pressure Location Lt brachial Position Sitting Pulse 86 Pulse Source Pulse Oximeter Pulse Oximetry (%) 95 Oxygen Delivery Method Room Air Intake Visit Reasons: Left knee [employer] Required: No Allergies hydromorphone [From Dilaudid] Allergy (Intermediate, Verified 10/09/24 14:16) asthma exacerbation moxifloxacin [From Avelox] Allergy (Intermediate, Verified 10/09/24 14:16) Hives Penicillins Allergy (Intermediate, Verified 10/09/24 14:16) Rash levofloxacin [From Levaquin] Adverse Reaction (Intermediate, Verified 10/09/24 14:16) restless legs PFSH Medical History Osteoporosis Arthritis Asthma GERD (gastroesophageal reflux disease) Elevated cholesterol HTN (hypertension) Chronic low back pain Surgical History History of back surgery History of open reduction and internal fixation (ORIF) procedure History of radiofrequency ablation (RFA) of genicular nerve Hx of mastectomy Hx of hysterectomy History of total left knee replacement History of total right knee replacement Social History Patient Tobacco Use Status: Former Tobacco user Office Procedures Sprint PNS Device: Sprint PNS Device 88503 Percutaneous Peripheral Neuroelectrode Procedure: 94438 - Percutaneous Peripheral Neuroelectrode Procedure code (CPT) selection complete Assessment & Plan Assessment & Plan Orders: Orders [place] guidance in treatment room Today M25.561 - Pain in right knee, M25.562 - Pain in left knee Coding CPT Codes Sprint PNS - Sprint PNS Device: Sprint PNS Device ([id number]) Sprint PNS - SPRINT: 03737 - Percutaneous Peripheral Neuroelectrode ([id number])
--- NOTE | 2024-10-11 13:23 | A.OFFVIS_ITS ---
Vital Signs 10/11/24 13:23 Height 4 ft 10 in Weight 210 lb BMI 43.9 BP 134/77 Blood Pressure Location Lt brachial Position Sitting Pulse 86 Pulse Source Pulse Oximeter Pulse Oximetry (%) 95 Oxygen Delivery Method Room Air Intake Visit Reasons: Left knee Sprint Allergies hydromorphone [From Dilaudid] Allergy (Intermediate, Verified 10/09/24 14:16) asthma exacerbation moxifloxacin [From Avelox] Allergy (Intermediate, Verified 10/09/24 14:16) Hives Penicillins Allergy (Intermediate, Verified 10/09/24 14:16) Rash levofloxacin [From Levaquin] Adverse Reaction (Intermediate, Verified 10/09/24 14:16) restless legs HPI HPI Left knee Sprint: Details: Patient presents for scheduled procedure. Denies any recent cough, cold, infection, fever or other significant changes in medical history since last office visit. [facility] Medical History Osteoporosis Arthritis Asthma GERD (gastroesophageal reflux disease) Elevated cholesterol HTN (hypertension) Chronic low back pain Surgical History History of back surgery History of open reduction and internal fixation (ORIF) procedure History of radiofrequency ablation (RFA) of genicular nerve Hx of mastectomy Hx of hysterectomy History of total left knee replacement History of total right knee replacement Social History Patient Tobacco Use Status: Former Tobacco user Physical Exam Vital Signs: Last Vital Signs Pulse 86 10/11/24 13:23 BP 134/77 10/11/24 13:23 Pulse Ox 95 10/11/24 13:23 Oxygen Delivery Method Room Air 10/11/24 13:23 BMI result Body Mass Index 43.9 Office Procedures Details: Peripheral Nerve Stimulation Temporary Lead Placement, Ultrasound-Guided, Saphenous Nerve, Left ? After the risks, benefits and alternatives were discussed with the patient and informed consentwas obtained, patient was placed in the supine position and padded to foster comfort. Appropriate skin and bony landmarks were identified, and pertinent vascular structures were located. The skin overlying the needle entry site was prepped and draped in sterile fashion. Ultrasound was used to i dentify the femoral artery, the femoral vein and the saphenous nerve. After identifying and marking the intended target along the course of the saphenous nerve, the skin around the planned entry point and the subcutaneous tissues were injected with local anesthetic. An introducer needle and stimulating probe were assembled, inserted and advanced along the intended course of the saphenous nerve, taking care to maintain the proper depth of insertion as the introducer was advanced under ultrasound guidance. The introducer needle was delivered to a location in proximity to the nerve taking care not to puncture the femoral artery or the vein. Multiple stimulation parameters were used to deliver stimulation to the saphenous nerve in concert with stimulating at multiple positions around the nerve. Nerve target acquisition was confirmed noting generation of sensory and mild motor effects (paresthesia, muscle tension, etc) in the medial knee, leg and ankle; corresponding to the distribution of the saphenous nerve. Various electrical parameter combinations were tested, and the lead location was adjusted (physically relocated under ultrasound guidance) until the patient indicated medial knee paresthesia and tension overlapping the distribution of the patient?s typical region of pain. The stimulating probe was removed from the introducer and a percutaneous lead was guided through the needle and delivered to a location in similar proximity to the nerve. Final location was verified with electrical stimulation and documented. The introducer needle was removed, and the exposed end of the percutaneous lead was attached to an external stimulator unit. Various electrical parameter combinations were again tested until the patient indicated paresthesia and muscle tension overlapping the distribution of the patient?s typical region of pain. After confirming that lead impedance was in the normal range, the external unit was detached, the needle was removed, and the lead was anchored at the skin. The lead was threaded into the connector block and electrical continuity and desired patient response was confirmed. The connector block was attached to the external stimulator unit. The site was covered with a sterile occlusive dressing. A final ultrasound image was taken to document final placement. The patient was observed for stability of vital signs and comfort. Sprint PNS Device: Sprint PNS Device [id number] Percutaneous Peripheral Neuroelectrode Procedure: 91992 - Percutaneous Peripheral Neuroelectrode Procedure code (CPT) selection complete Office Meds lidocaine HCl 10 mg/mL (1 %) injection solution Performing Provider: Rhea Pitts APRN, JONN Performing Location: [facility] Administered by: Melissa Flynn LPN on 10/11/24 13:23 Dose Route Admin Location Dispensed Lot Number Expiration Date [employer] 50 mg subcut 5 mL Assessment & Plan Assessment & Plan (1) Chronic knee pain after total replacement of left knee joint: Code(s): M25.562 - Pain in left knee; G89.29 - Other chronic pain; Z96.652 - Presence of left artificial knee joint Category: Medical Plan Patient is status post temporary left saphenous nerve stimulator placement. Patient tolerated procedure well and was discharged home in stable condition with discharge instructions. All questions were answered. We will follow-up via telephone or in clinic to assess response to therapy. A follow-up appointment was made during today's visit. Orders: Orders FL guidance in treatment room Today M25.561 - Pain in right knee, M25.562 - Pain in left knee AMB Sprint PNS Today M25.561 - Pain in right knee, M25.562 - Pain in left knee Coding Level of Care Code Procedure Only Diagnoses Chronic knee pain after total replacement of left knee joint M25.562; G89.29; Z96.652 CPT Codes Sprint PNS - Sprint PNS Device: Sprint PNS Device ([id number]) Sprint PNS - SPRINT: 77339 - Percutaneous Peripheral Neuroelectrode ([id number]) Implantable Device Implantable Device Implantable Devices [employer] Implant Date Expiration Date Analgesic PENS system 1 SPR [employer] 10/11/24 05/21/26
== END | disposition home or self-care (01) ==
PROVIDERS: PCP Internal Medicine; Visit Provider Internal Medicine
DX: M25.562 Pain in left knee (principal); G89.29 Other chronic pain; Z96.652 Presence of left artificial knee joint; M25.561 Pain in right knee
CPT/HCPCS: 64555

== ENCOUNTER 2024-10-18 12:57 | Outpatient (AMB) | payer MEDICARE, SELFPAY ==
--- NOTE | 2024-10-18 13:01 | MHC.OFFVIS ---
Vital Signs 10/18/24 13:05 Height 4 ft 10 in Weight 210 lb BMI 43.9 BP 158/73 H Blood Pressure Location Lt brachial Position Sitting Pulse 86 Pulse Source Pulse Oximeter Pulse Oximetry (%) 97 Oxygen Delivery Method Room Air Intake Visit Reasons: s/p left knee Sprint Intake Note: Pain today 01/12 Senior Care Specialist Required: No Accompanied by: Self / Same As Patient Allergies hydromorphone [From Dilaudid] Allergy (Intermediate, Verified 10/18/24 13:06) asthma exacerbation moxifloxacin [From Avelox] Allergy (Intermediate, Verified 10/18/24 13:06) Hives Penicillins Allergy (Intermediate, Verified 10/18/24 13:06) Rash levofloxacin [From Levaquin] Adverse Reaction (Intermediate, Verified 10/18/24 13:06) restless legs HPI Comments Details: Patient presents today 1 week status post left saphenous nerve Sprint PNS placement on 10/11/[address] Llanos. Patient reports ongoing 50-60% pain relief since procedure at 53 stimulation with partial improvement with daily functioning, sleep, and mobility. She is scheduled to undergo right knee Sprint placement next week. Patient reports she has switched gym sessions to slow walking on treadmill. The dressing was removed today. Lead insertion site look clean, dry, intact, no redness or swelling, no pathological discharge. Area was cleansed with Chloraprep. The lead area was cleansed with Chloraprep, applied Bacitracin and covered it with gauze and Tegaderm film dressing.? Denies any fever, chills, dizziness, shortness of breaths, weakness, instability, locking or giving way, bladder or bowel dysfunction or saddle anesthesia. Denies any recent cough, cold, infection, fever or any significant changes in medical history since last office visit. Past Procedures: 10/11/24: Left Saphenous nerve Sprint PNS trial-50-60% pain relief 06/15/23: Bilateral genicular nerve cooled RFA-80% pain relief, fading effects since April 2024 04/20/23: Diagnostic Left GNB-90% pain relief for >48% 04/27/23: Diagnostic Right GNB-80% pain relief for >48 hours PRIOR: Patient is a pleasant 78 years old female with prior history of left ankle fracture with hardware intact since 1993, bilateral total knee replacements (left knee 2016, right knee 09/2022) and back surgery (2020 Dr. Dacosta), presents today with ongoing global anterior knee pain. She was seen by Orthopedic providers regularly. She is currently active with physical therapy, and has been active with home PT transitioned to outpatient PT since November. Reports she has not gained significant pain relief but some improvement in her functioning with PT. She also has lower back pain which is not bothering her as much. Bilateral knee pain is constant with severe pain up to 8-10/10 and describes it as aching, tiring, exhausting, squeezing, and heavy. She ambulates with slow antalgic gait with slight limping. Uses walker with ambulation. Oxycodone, lidocaine patches, diclofenac gel, ice/heat therapy has been only partially effective for her pain control. Pain affects her daily activities, functioning, mood, sleep, social interactions and quality of life. She is interested to undergo bilateral genicular nerve blocks for potential genicular RFA procedure. Patient is not interested in peripheral nerve stimulation with Sprint trial. [facility] Medical History Osteoporosis Arthritis Asthma GERD (gastroesophageal reflux disease) Elevated cholesterol HTN (hypertension) Chronic low back pain Surgical History History of back surgery History of open reduction and internal fixation (ORIF) procedure History of radiofrequency ablation (RFA) of genicular nerve Hx of mastectomy Hx of hysterectomy History of total left knee replacement History of total right knee replacement Social History Patient Tobacco Use Status: Former Tobacco user Review of Systems Const All systems reviewed & are unremarkable except as noted in HPI and below Physical Exam General: Appears afebrile. Alert and oriented. Mood and affect appropriate. Follows and participates in conversation appropriately. Respiratory effort is unlabored. No cough. Able to transition from sit to stand unassisted. Uses cane with ambulation. Lead Insertion Site: Lead insertion site looks clean, dry, intact.? No pathological discharge, no swelling and no erythema.? Lead site dressing was changed today in the clinic. Positive paresthesia at 53 on the left Extrem General: Yes capillary refill normal, Yes no calf tenderness, No cyanosis and Yes edema (BLE non-pitting) Right lower extremity: knee (Limited ROM, well healed scars. ) Details: normal to inspection, tenderness (global anterior knee pain) Location: of the medial joint line and of the lateral joint line and crepitus; no swelling, no ecchymosis and no unusual warmth Left lower extremity: knee (Limited ROM, well healed scars. ) Details: normal to inspection, tenderness (Anterior aspect, global knee pain) Location: of the medial joint line and of the lateral joint line and crepitus; no swelling, no ecchymosis and no unusual warmth Results Reviewed Results Reviewed: XR KNEE, LEFT 09/15/23 CLINICAL INFORMATION: Presence of left artificial knee FINDINGS: The patient is status post left knee arthroplasty with patellar button with femoral and tibial components in position and no evidence of acute fracture or dislocation. No loosening identified. Small joint effusion is seen. There is mild calcification of the distal quadriceps tendon. IMPRESSION: No significant abnormality of the left knee. XR KNEE, RIGHT 09/15/23 CLINICAL INFORMATION: Presence of right artificial knee joint COMPARISON: Right knee 03/01/2023 FINDINGS: The patient is status post right knee arthroplasty with patellar button with femoral and tibial components in position and no evidence of acute fracture or dislocation. No loosening identified. No joint effusion is seen. IMPRESSION: No significant abnormality of the right knee identified. Assessment & Plan Assessment & Plan (1) Chronic knee pain after total replacement of left knee joint: Code(s): M25.562 - Pain in left knee; G89.29 - Other chronic pain; Z96.652 - Presence of left artificial knee joint Category: Medical Plan Patient is one week status post temporary left saphenous nerve stimulator placement. Patient reports improvement in her daily activities, mobility, ocial interactions and sleep. Dressing site was without any signs of infection or pathological discharge and dressing change was done today in the clinic. Patient will continue to adjust stimulation settings as needed. Patient is scheduled to undergo right knee Sprint placement next week. All questions were answered and the patient agreed with the plan. Follow up in 1 week for Sprint dressing change and sooner if needed. Coding Level of Care Code Est Pt Level 3 (01291) Complex EM visit Add On G2211 Diagnoses Chronic knee pain after total replacement of left knee joint M25.562; G89.29; Z96.652
[2024-10-18 13:05] VITALS: BP 158/73; PULSE 86; O2SAT 97; BMI 43.9
--- OUTSIDE RECORDS SUMMARY | 2024-10-18 13:06 | XMS_ITS | Clinical Summary ---
Author Organization [facility] Address [address] [place] [address] Care Team Providers Care Pattern Scratcher Name Role Phone Mannie Khan MD Primary Care Provider + [phone] Allergies Active Allergy Reactions Criticality Noted Date [...] age to complete this topic Care Teams Pattern Scratcher Relationship Specialty Start Date End Date Mannie Khan MD [address] [facility] [address] [place] [id number] PCP - General Geriatric Medicine 11/26/20
--- OUTSIDE RECORDS SUMMARY | 2024-10-18 13:06 | XMS_ITS | Data Portability ---
Author Organization [place] - [facility],, LIZETH HERMAN MD Address [address] [address] Care Team Providers Care Property Master Name Role Phone GURVINDER BOLANOS Primary Care Provider Assessment No assessment recorded. Plan of Treatment Reminders Order Date Submit Date Provider Last Modified By Organization Details Last Modified Time Details Appointments None recorded. Lab cytology report, thin prep, smear or scraping, cervical or vaginal 2024 025 PHIL [facility], [address] [place], [address], 5 18:16:26 pap test, thinprep, cervical 2022 023 [email or web address] [facility], [address] [place], [address], 3 07:27:16 pap test, thinprep, cervical 2021 022 [email or web address] [facility], Cytopathology Service, [address] [place] [address], [address], 2 07:38:27 pap test, thinprep, cervical 2020 021 [email or web address] [facility], [address] [place] [address], [address], 07:20:46 fecal occult blood, stool 2020 021 [email or web address] 1 In-Office Order, Internal Use Only DO Not Attach Compendium DO Not Attach Compendium, Do Not Delete/merge, [id number] 1 14:03:16 pap, LB, vaginal 2019 020 [facility] Cyt[facility], [address] [place], [address], 0 07:40:41 Referral None recorded. Procedures None recorded. Surgeries None recorded. Imaging MAMMO, screening , digital, bilateral - Breast Aspiratio n and/or Biopsy if needed 2024 025 [facility], [address], [address], [place], [address], 5 15:53:04 bone density 2024 025 [facility], [address], [address], [place], [address], 5 15:53:04 MAMMO, screening , digital, bilateral - Breast Aspiratio n and/or Biopsy if needed 2022 023 [facility]), [address] [place], [address], 3 17:41:43 bone density 2022 023 [facility]), [address] [place], [address], 4 07:27:36 MAMMO, screening , digital, bilateral - patient aware needs to go 2021 022 [facility] ([facility]), [address] [place], [address], 2 15:31:33 bone density 2021 022 [facility] ([facility]), [address] [place], [address], 4 07:36:31 MAMMO, screening , digital, bilateral 2020 021 [facility]), [place], [address], 3 07:38:19 MAMMO, screening , digital, bilateral 2019 020 PHIL [facility]), [address] [place] [address], [address], 0 16:31:27 bone density 2019 020 [email or web address] [facility]), [address] [place] [address], [address], 1 07:23:18 Medication Orders None recorded. Patient TargetsNo targets recorded. Patient Instructions Encounter Date Encounter Id Patient Instructions Last Modified By Organization Details Last Modified Time 04/14/2020 [id number] She is here for annual exam, is doing well. ___ Note from 2019: She is here for annual exam, is doing well but still using a cane due to her knee replacement. She has a past history of right breast cancer, and also of FRANCISCO II. Her sister had an [place] and her brother in law had 2 strokes in the past year, so she is doing most of the running with her. Her partner Rik is her health care proxy. She appears to be doing well. She is still usign a cane, The knee operation was botched, it's not getting any better. She is going to go to [facility] to have it redone once covid is [...] questions answered. Not available 04/14/2020 13:35:48 04/21/2021 [id number] learning about healthy weight Not available 04/21/2021 [...] do this. Not available 04/21/2021 14:05:17 04/26/2022 [id number] advance benefici elijah notice information Not available [...] the breast. Not available 04/26/2022 14:20:32 06/28/2023 [id number] advance benefici elijah notice information Not available [...] the breast. Not available 06/28/2023 14:57:22 09/17/2024 [id number] advance benefici elijah notice information Not available [...] DO Not Attach Compendium, Do Not Delete/merge, [id number] 04/21/2021 13:17:31 04/14/20 20 04/14/2020 pap, LB, vagin al [id number] ThinP rep Pap, Image d: NEGAT MALENA [...] neg, z12.4 , z91.8 9 Not Available [facility], Cytopathology Service [address] [place], [address], 04/16/2020 12:20:49 04/21/20 21 04/21/2021 PAP1C ASE [id number] ThinP rep Pap, Image d: NEGAT MALENA [...] ASCUS . lps neg, Z12.4 Not Available [facility], Cytopathology Service [address] [place], [address], 04/24/2021 12:11:30 04/26/20 22 04/26/2022 PAP1C ASE [email or web address] ThinP rep Pap, Image d: NEGAT MALENA [...] ause, lps neg, [Z01. 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 Perfo rmed at [facility] ate Refer ence Labor at[facility] Cytol ogy, [address] [place] Clini louis Histo ry (othe r): Z91.8 9, routi ne scree n, Medic are scree aamir pap smear -high risk, LPS neg Phone #: [phone], On-Ca ll Patho logis t: [id number] Not Available [facility] [address], [place], [address], 07/04/2023 13:49:42 09/17/19 25 09/19/2024 IGP, RFX APTIM A HPV ASCU diagnosis: Commen t NEGAT MALENA FOR INTRA EPITH ELIAL LESIO N OR MALIG NATASHA . Not Available [facility] ([facility]) [address] [place], [address], 09/19/2024 18:16:26 09/17/19 25 09/19/2024 IGP, RFX APTIM A HPV ASCU specimen adequacy: Abril galvan Satis facto ry for evalu ation . Not Available [facility] ([facility]) [address] [place], [address], 09/19/2024 18:16:26 09/17/19 25 09/19/2024 IGP, RFX APTIM A HPV ASCU clinician provided ICD10: Abril galvan Z91.8 9 Not Available [facility] ([facility]) [address] [place], [address], 09/19/2024 18:16:26 09/17/19 25 09/19/2024 IGP, RFX APTIM A HPV ASCU performed by: Marty Escobar (ASCP ) Not Available [facility] ([facility]) [address] [place], [address], 09/19/2024 18:16:26 09/17/19 25 09/19/2024 IGP, RFX APTIM A HPV ASCU . . Not Available [facility] ([facility]) [address] [place], [address], 09/19/2024 18:16:26 09/17/19 25 09/19/2024 IGP, RFX [...] ts do occur . Not Available [facility] ([facility]) [address] [facility], [place], [address], 09/19/2024 18:16:26 09/17/19 25 09/19/2024 IGP, RFX APTIM A HPV ASCU test methodology: Commen t This liqui d based ThinP rep(R ) pap test was tasneem cevallos with the use of an image guide karlene morris. Not Available [facility] ([facility]) [address] [facility], [place], [address], 09/19/2024 18:16:26 09/17/19 25 09/19/2024 IGP, RFX APTIM A HPV ASCU . Commen t The HPV DNA refle x crite kimberly were not met with this speci men resul t there fore, no HPV testi ng was perfo rmed. Not Available [facility] ([facility]) [address] [facility], [place], [address], 09/19/2024 18:16:26 06/26/20 20 06/26/2020 MAMMO tasneem, digit al, bilat eral No observ ation record ed. [facility] [address] [place], [address], 06/27/2020 08:43:42 05/27/20 22 05/27/2022 MAMMtasneem Leroy, digit al, bilat eral [place], [address], 05/27/2022 15:32:50 07/26/20 23 07/26/2023 MAMMO tasneem digit al, bilat eral No observ ation record ed. Not Available 07/07 07:52:48 Result Notes None recorded. 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 Lizeth Herman MD [address], [place], [address], [place] [facility], 6 10:54:46 Gastroduo denitis 870497599 Active Lizeth Herman MD [address], [place], [address], [place] [facility], 6 10:54:46 Atypical squamous cells of undetermi mart significa nce on cervical Papanicol aou smear 323333125 Active Lizeth Herman MD [address], [place], [address], [place] [facility], 6 10:54:46 Gastritis 9541113 Active Lizeth Herman MD [address], [place], [address], [place] [facility], 6 10:54:46 Family history of malignant neoplasm of ovary 875896470 Mark Herman MD [address], [place], [address], [place] [facility], 6 10:54:46 Primary malignant neoplasm of female breast 95425301 Active Lizeth Herman MD [address], [place], [address], [place] [facility], 6 10:54:46 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 Mark Herman MD [address], [place], [address], [place] [facility], 6 10:54:46 Vulval intraepit helial neoplasia grade 1 065713183 Active Lizeth Herman MD [address], [place], [address], [place] [facility], 6 10:54:46 Vitamin D deficienc y 33263645 Active Lizeth Herman MD [address], [place], [address], [place] [facility], 6 10:54:46 Mammograp hy abnormal 635087803 Active Lizeth Herman MD [address], [place], [address], [place] [facility], 6 10:54:46 Personal history of primary malignant neoplasm of breast 727720885 Active 2016 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 Lizeth Herman MD [address], [place], [address], [place] [facility], 1 14:00:48 Osteoporo sis 74003022 Active 2016 Lizeth Herman MD [address], [place], [address], [place] [facility], 7 15:00:50 Asthma 796738552 Active 2016 Lizeth Herman MD [address], [place], [address], [place] [facility], 7 15:02:03 History of dysplasia of vulva 430463993560 105 Active 2018 Lizeth Herman MD [address], [place], [address], [place] [facility], 9 15:18:36 Urinary incontine nce 435820811 Active 2020 Lizeth Herman MD [address], [place], [address], [place] [facility], 14:03:30 Problem Notes None recorded. Procedures Surgical History Date Name Laterality Status Provider Name and Address Organization Details Recorded Time 07/06/20 23 Most Recent Mammogram completed Irma Reyes [place] - [facility], 09/17/2024 14:33:36 07/22/20 21 procedure on back completed Irma Mecbrittneyor [place] - [facility], 04/26/2022 13:18:20 12/03/19 17 Most Recent Bone Density completed Irma Mecbrittneyor [place] - [facility], 12/14/2016 14:45:19 09/05/19 14 Other completed Irma Mecbebetoywor [place] - [facility], 12/10/2015 10:18:06 12/13/19 13 Colposcopy completed Lizeth Herman MD [address], [place], [address], [place] [facility], 12/12/2012 13:07:56 09/05/19 12 Other completed Irma Mecgreerwor [place] [facility], 08/08/2012 13:59:44 09/05/19 09 Other completed Irma Mecbrittneyor [place] - [facility], 12/14/2016 14:44:01 09/05/19 03 Breast Biopsy completed Lizeth Herman MD [address], [place], [address], [place] [facility], 04/21/2021 14:00:34 09/05/18 94 Other completed Irma Mecgreerwor [place] [facility], 08/08/2012 13:59:44 09/05/18 77 Appendectomy completed Irma Reyes [place] - [facility], 08/08/2012 13:59:44 09/05/18 77 Total Abdominal Hysterectomy completed Lizeth Herman MD [address], [place], [address], [place] [facility], 08/08/2012 14:09:00 Imaging Results Imaging Date Name Status LastModified by Organiz ation Details LastModified Time 06/26/2020 MAMMO, screening, digital, bilateral completed [facility] [address] [place], [address], 06/27/2020 08:43:42 05/27/2022 MAMMO, screening, digital, [place], [address], 05/27/2022 15:32:50 07/26/2023 MAMMO, screening, digital, bilateral completed Information not available 07/27/2023 07:52:48 Procedure Notes None recorded. Medical Equipment None Reported. Allergies Allergen ID Allergen Name Allergen Category Reaction Reaction Severity Criticality Documentation Date Start Date Code Code System Note Provider Name and Address Organization Details Recorded Time 09611 egg extract food,medi cation rash Not available Not available 09/11/2013 41391 15 RxNorm JO[place]PHINE Berg in [facility], 4 13:40:00 5521 Avelox medicatio n other mild Not available 08/08/2012 45840 6 RxNorm welts JOSEPHINE Berg in [facility], 2 13:59:45 5522 Product containin g penicilli n and antibioti c (product) medicatio n rash Not available Not available 08/08/2012 03389 05 SNOMED [place] Berg in [facility], 2 13:59:45 5523 Levaquin medicatio n other mild Not available 08/08/2012 71217 2 RxNorm [place] Berg in [facility], 2 13:59:45 Medications Name Sig Start Date [...] Updated DateTime 0 147.32 cm 40.1 kg/m2 68267.0 2 g 97.4 [degF] 88 /min 133 mm[Hg] 49 mm[Hg] Gena [place] in [facility], 0 13:08:32 Date Recorded Body weight Body mass index (BMI) Body height Body temperature Heart rate Systolic blood pressure Diastolic blood pressure Provider Name and Address Organization Details Last Updated DateTime 1 73901.7 5 g 43.1 kg/m2 147.32 cm 97.4 [degF] 81 /min 148 mm[Hg] 60 mm[Hg] Irma [place] in [facility], 1 13:26:01 Date Recorded Body height Body mass index (BMI) Body weight Heart rate Body temperature Systolic blood pressure Diastolic blood pressure Provider Name and Address Organization Details Last Updated DateTime 2 146.05 cm 46.4 kg/m2 33260.8 6 g 81 /min 97.5 [degF] 124 mm[Hg] 57 mm[Hg] Irma Potter in [facility], 2 13:11:32 Date Recorded Body temperature Body weight Body mass index (BMI) Body height Heart rate Systolic blood pressure Diastolic blood pressure Provider Name and Address Organization Details Last Updated DateTime 3 97.9 [degF] 84285.1 2 g 43.9 kg/m2 147.32 cm 83 /min 152 mm[Hg] 57 mm[Hg] Irma [place] in [facility], 3 13:33:28 Date Recorded Body weight Body mass index (BMI) Body height Body temperature Heart rate Systolic blood pressure Diastolic blood pressure Provider Name and Address Organization Details Last Updated DateTime 5 38345.5 2 g 30.9 kg/m2 175.26 cm 97.4 [degF] 84 /min 146 mm[Hg] 75 mm[Hg] Irma Eric [facility] - [facility], 5 14:27:15 Social History Question Answer Notes LastModified by Organizat ion Details LastModified Time Tobacco Smoking Status Former Smoker quit 40 yrs ago Not Available [facility] 07/08/2020 03:19:37 What Is Your Level Of Alcohol Consumption? Occasional [id number] Information not available 07/08/2020 How Many Years Have You Consumed Alcohol? 50 Information not available 04/21/2021 What Is Your Level Of Caffeine Consumption? Occasional [id number] Information not available 07/08/2020 In The 14 [...] Type Of Diet Are You Following? REGULAR [id number] Information not available 07/08/2020 Which Illicit Or Recreational Drugs Have You Used? No [id number] Information not available 07/08/2020 Do You Reside In Or Have You Traveled To An Area Where Ebola Virus Transmission Is Active? No [id number] Information not available 07/08/2020 Do You Or Have You Ever Used E-cigarettes Or Vape? Never Used Electronic Cigarettes [id number] Information not available 07/08/2020 Education 2 Year College Informatio n not available 08/08/2012 What Is The Highest Grade Or Level Of School You Have Completed Or The Highest Degree You Have Received? [id number] Information not available 04/21/2021 What Is Your Occupation? Retired [id number] Information not available 07/08/2020 How Many Days [...] available 04/21/2021 Are You Sexually Active? Yes [id number] Information not available 07/08/2020 At What Age Did You Start Smoking Tobacco? 16 Information not available 04/21/2021 Do You Or Have You Ever Used Smokeless Tobacco? Never Used Smokeless Tobacco [id number] Information not available 07/08/2020 How Much Tobacco Do You Smoke? No [id number] Information not available 07/08/2020 General Stress Level Medium Information not available 09/17/2024 Do You Feel Stressed (tense, Restless, Nervous, Or Anxious, Or Unable To Sleep At Night)? [id number] Information not available 09/17/2024 Do You Use Any Illicit Or Recreational Drugs? No Information not available 04/21/2021 How Many Years Have You Smoked Tobacco? 10 [id number] Information not available 07/08/2020 Have You Recently [...] Problems N Kidney or Bladder Problems N Depression Y GI Problems Y Lung Disease Y Defects or Inherited Disease N Anemia N History of Ovarian Cancer N History of Breast Cancer Y OLLIE exposure N BRCA testing in past Y Osteopenia Y Psychiatric Illness N Diabetes N Anxiety Disorder Y Arthritis Y Headaches or Migraines Y Infertility [...] mcg/0.25mL dose 1 completed JO[place]PHINE Berg in [facility], 09/17/2024 14:25:43 COVID-19, mRNA, LNP-S, bivalent, PF, 30 mcg/0.3 mL dose 2 completed [place] Berg in [facility], 09/17/2024 14:25:43 Past Encounters Encounter ID Performer Location Encounter Start Date Encounter Closed Date Diagnosis/Indication Diagnosis SNOMED-CT Code Diagnosis ICD10 Code Diagnosis Note [id number] MD LIZETH Covington MD [address] [facility] [address] 08/08/2012 13:22:43 08/10/2012 09:52:22 [id number] Irma HERMAN MD [address] [facility] [id number] 09/11/2013 13:26:47 09/12/2013 08:53:20 Screening for malignant neoplasm of cervix 305829260 Screening mammography 69565037 [id number] Irma HERMAN MD [address] [facility] [address] 11/16/2012 14:26:27 11/16/2012 16:27:58 [id number] MD LIZETH Covington MD [address] [facility] [place] [address] 12/12/2012 08:04:19 12/13/2012 12:10:32 [id number] Irma HERMAN MD [address] [facility] [place] [address] 03/13/2013 13:21:29 03/15/2013 08:40:53 [id number] Irma HERMAN MD [address] [facility] [place] [address] 03/26/2013 13:16:42 03/26/2013 16:27:27 [id number] LIZETH HERMAN MD [address] [facility] [address] 11/14/2014 13:00:38 11/14/2014 14:31:18 Specialized medical examination 12357256 Screening for malignant neoplasm of rectum 506487646 Screening mammography 83632446 [id number] MD LIZETH Covington MD [address] [place] [address] [place] [id number] 12/10/2015 10:02:13 12/10/2015 11:53:16 Sampling of vagina for Papanicolaou smear 896248663 Z91.89 Screening mammography 24 067863 Z12.31 Mammography abnormal 168 136337 R92.8 [id number] MD LIZETH Covington MD [address] [place] [address],[facility] [place] [id number] 12/14/2016 14:30:00 12/14/2016 16:07:42 Specialized medical examination 87649531 Z01.419 Screening for malignant neoplasm of rectum 303170751 Z12.12 Screening mammography 24 907607 Z12.31 Personal h istory of primary malignant neoplasm of breast 394500072 Z85.3 Osteoporosis 53200401 M8 1.0 Asthma 350026956 J45.90 9 Cares for self 500098852 Z76.89 [id number] MD LIZETH Covington MD [address] [place] [address],[facility] [address] [facility] [place] [id number] 12/28/2016 13:00:53 12/28/2016 15:20:31 Breast lump 19097673 N63 Personal h istory of primary malignant neoplasm of breast 846935715 Z85.3 [id number] MD LIZETH Covington MD [address] [place] [address],[facility] [place] [id number] 03/16/2018 13:02:34 03/16/2018 14:59:41 Specialized medical examination 44113398 Z01.419 Screening for malignant neoplasm of rectum 740211797 Z12.12 Screening mammography 24 137994 Z12.31 [id number] MD LIZETH Covington MD [address] [place] [address] [address] [facility] [id number] 04/12/2019 14:34:34 04/12/2019 15:48:24 Screening for malignant neoplasm of cervix 309947300 Z12.4 Screening mammography 24 843766 Z12.31 Screening for osteoporosis 107893955 Z13.820 Personal h istory of primary malignant neoplasm of breast 883287182 Z85.3 History of gynecological disorder 470743647 Z87.412 [id number] MD LIZETH Covington MD [address] [place] [id number] 04/14/2020 13:06:18 04/14/2020 14:32:12 Sampling of vagina for Papanicolaou smear 844502049 Z91.89 Screening mammography 24 073382 Z12.31 Screening for osteoporosis 924817649 Z13.820 [id number] MD LIZETH Covington MD [address] [place] [id number] 04/21/2021 13:15:34 04/21/2021 14:24:06 Specialized medical examination 84086276 Z01.419 Screening for malignant neoplasm of rectum 856465589 Z12.12 Screening mammography 24 666404 Z12.31 Urinary incontinence 165 150226 R32 [id number] MD LIZETH Covington MD [address] [place] [id number] 04/26/2022 13:03:14 04/26/2022 14:49:27 History of clinical finding in subject 990789892 Z91.89 Screening mammography 24 988230 Z12.31 Advance care planning 71 1186481 Z71.89 Screening for osteoporosis 611108399 N95.8 History of dysplasia of vulva 2253075011 52016 Z87.412 Personal h istory of primary malignant neoplasm of breast 411954926 Z85.3 Urinary incontinence 165 003535 R32 [id number] MD LIZETH Covington MD [address] [place] [id number] 06/28/2023 13:18:49 06/29/2023 08:06:11 History of clinical finding in subject 857994727 Z91.89 Screening mammography 24 764373 Z12.31 Advance care planning 71 2458254 Z71.89 Screening for osteoporosis 469228593 N95.8 [id number] MD LIZETH Covington MD [address] [facility] [address] [place] [id number] 09/17/2024 14:21:13 09/17/2024 15:53:03 History of clinical finding in subject 666948956 Z91.89 Screening mammography 24 089853 Z12.31 Advance care planning 71 7803199 Z71.89 Screening for osteoporosis 793429924 N95.8 Health Concerns Section Related Observation LastModified by Organization Detai ls LastModified Time None Recorded Concern Status LastModified by Organization Details LastModified Time None Recorded Advance Directives Directive None Recorded Payers Encounter Date Sequence Insurance Name Policy Number Policy Kelly Covered Member ID Kelly Member ID Guarantor Name 04/14/[address] [facility]REF[place] - DEDUCTIBLE (PPO) [id number] Neo Liptak [id number] Bernard Liptak 04/21/[address] [place] PREFERRED BLUE - DEDUCTIBLE (PPO) [id number] [employer] [id number] Bernard Liptak 04/26/[address] [place] (MEDICARE REPLACEMENT PPO) [id number] Bernard Liptak [id number] Bernard Liptak 06/28/[address] [place] (MEDICARE REPLACEMENT PPO) [id number] Bernard Liptak [id number] Bernard Liptak 09/17/[address] [place] (MEDICARE REPLACEMENT PPO) [id number] Bernard Liptak [id number] Bernard Liptak Notes Date Note Type [...] of FRANCISCO II. Her sister had an [place] and her brother in law had 2 strokes in the past year, so she is doing most of the running with her. Her partner Rik is her health care proxy. Lizeth Herman MD [address] [facility],[address], [place], [address], [email or web address] - [facility], 04/14/2020 13:36:19 04/21/2021 text/html She is here [...] 30 for endometriosis. Lizeth Herman MD [address], [place], [address], [place] - [facility], 04/21/2021 14:05:44 04/26/2022 text/html She is here [...] MD [address], [place], [phone], [place] - [facility], 04/26/2022 14:21:13 06/28/2023 text/html She is here [...] for incontinence issues. Lizeth Herman MD [address], [place], [address], [place] - [facility], 06/28/2023 14:57:44 09/17/2024 text/html She is here for annual, doing well, has a past history of FRANCISCO II.She had DCIS in 2002 and had mastectomy with reconstruction and also has had left breast reduction. She is BRCA negative. Lizeth Herman MD [address], [place], [address], [place] - [facility], 09/17/2024 14:49:47 OBGyn Episode No OBEpisode recorded.
--- OUTSIDE RECORDS SUMMARY | 2024-10-18 13:06 | XMS_ITS | Clinical Summary ---
Author Organization [facility] Address [address] [place] [address] Care Team Providers Care Associate Scientist Name Role Phone Mannie Khan MD Primary Care Provider [phone] Surgical History Surgery Date Site/Laterality Comments MASTECTOMY 2002 PROCEDURE: HISTORICAL MASTECTOMY; COMMENT: right breast with subsequent reconstruction TONSILLECTOMY PROCEDURE: HISTORICAL TONSILLECTOMY OTHER SURGICAL HISTORY 1977 PROCEDURE: CT TOTAL ABDOMINAL HYSTERECT W/WO RMVL TUBE OVARY; COMMENT: TAHBSO for endometriosis, took ERT for 2 years only after surgery BREAST REDUCTION 2002 PROCEDURE: CT BREAST REDUCTION; COMMENT: left breast Medical History [...] drink = 0.6 oz pur e alcohol) Comments Unknown Sex and Gender Information Value Date Recorded Sex Assigned at Not on file Legal Sex Female 10:36 PM EST Gender Identity Not on file Sexual Orientation [...] Health Maintenance Due Date Last Done Comments DTaP,Tdap,and Td Vaccines (1 - Tdap) 02/02/1964 Pneumococcal Vaccine: 50+ Ye ars (1 of 2 - PCV) 02/02/1964 Zoster Vaccines (1 of 2) 1995 RSV Immunization Patients 60 + Years Old (1 - 1-dose 75+ series) 02/02/2020 Colorectal Cancer Screening: Stool Based Tests (FOBT/FIT) 08/15/2022 Depression Screening 08/15/2022 Falls Risk Assessment 08/15/2022 Hepatitis C Screening 08/15/2022 Social Influencers of Health Screening 08/15/2022 COVID-19 Vaccine ( - 2023-2 5 season) 2024 Influenza Vaccine (#1) 2024 [...] patient's age to complete this topic Meningococcal B Vacine Aged Out No lo nger eligible based on patient's age to complete this topic RSV Immunization Patients Un rosalind 20 months Aged Out No longer eligible b ased on patient's age to complete this topic Varicella Vaccines Aged Out No longer eligible based on patient's age to complete this topic Procedures Procedure Name Priority Date/Time Associated Diagnosis Comments VIJAY DEXA AXIAL SKELETON Routine 05/12/2021 4:45 PM EDT Other specified disorders of bone density and structure, multiple sites from Last 3 Months or Most Recently Relevant to Health Maintenance Results * [facility] DEXA AXIAL SKELETON (05/12/2021 4:45 PM EDT) Anatomical Region Laterality Modality Mammography 05/12/2021 1:59 PM EDT Narrative 05/12/2021 4:45 PM EDT [facility] Diagnostic Imaging Department [address] [place] [address] Patient: ??CRISTINA LEIJA ?/Age/Sex: 1945 - 76 - F Unit#: ??[id number] ? Location/Status: ??SPDIMAM/REG CLI ? Mnemonic/Ordering Site: ??MAMDEXAAX/SPMAM Ordering Physician: ??BILLY LOTT MD, PHD [facility] Dexa Axial Skeleton - 05/12/211421 HISTORY: ??The [...] probability of hip fracture of 8.7%. Code 92418 Dictating Physician: ??GONSALO JOHNSON MD Electronically Signed by: ??GONSALO JOHNSON MD Dic Date/Time: ??05/12/211641 Sign date/Time: ??05/12/211644 Procedure Note Dali Johnson MD - 09/01/2022 [facility] Diagnostic Imaging Department [address] [place] [address] Patient: CRISTINA LEIJA Suzanne /Age/Sex: 1945 - 76 - F Unit#: [id number] Location/Status: [facility] Mnemonic/Ordering Site: [facility] Ordering Physician: BILLY LOTT MD, PHD [facility] Dexa Axial Skeleton - 05/12/211421 HISTORY: The patient is a 76-year-old postmenopausal [...] probability of hip fracture of 8.7%. Code 08379 Dictating Physician: GONSALO JOHNSON MD Electronically Signed by: GONSALO JOHNSON MD Dic Date/Time: 05/12/21 1642 Sign date/Time: 05/12/21 1645 Billy Lott MD IMG BI PROCEDURES Final R esult from Last 3 Months or Most Recently Relevant to Health Maintenance Care Teams Associate Scientist Relationship Specialty Start Date End Date Mannie Khan MD [address] [facility] [address] [place], [place] PCP - General Internal Medicine 08/18/21
== END 2024-10-18 13:22 | disposition home or self-care (01) ==
PROVIDERS: PCP Internal Medicine; Visit Provider Nurse Practitioner Family
DX: M25.562 Pain in left knee (principal); G89.29 Other chronic pain; Z96.652 Presence of left artificial knee joint
CPT/HCPCS: 99024

== ENCOUNTER → 2024-10-18 12:57 | Outpatient (BNVA) | payer MEDICARE, SELFPAY | PROVIDERS: PCP Internal Medicine; Visit Provider Nurse Practitioner Family | DX: M25.562 Pain in left knee (principal); G89.29 Other chronic pain; Z96.652 Presence of left artificial knee joint | CPT/HCPCS: 99212 ==

== ENCOUNTER 2024-10-25 06:16 | Outpatient (REF) | payer MEDICARE, SELFPAY ==
--- OUTSIDE RECORDS SUMMARY | 2024-10-25 06:19 | XMS_ITS | Data Portability ---
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 Plan of Treatment Reminders Order Date Submit Date Provider Last Modified By Organization Details Last Modified Time Details Appointments None recorded. Lab cytology report, thin prep, smear or scraping, cervical or vaginal 2024 025 PHIL [facility], [address] [place], [address], 5 18:16:26 pap test, thinprep, cervical 2022 023 [email or web address] [facility], [address] [place], [address], 3 07:27:16 pap test, thinprep, cervical 2021 022 [email or web address] [facility], Cytopathology Service, [address] [place] [address], [address], 2 07:38:27 pap test, thinprep, cervical 2020 021 [email or web address] [facility], Cytopathology Service, [address] [place] [address], [address], 07:20:46 fecal occult blood, stool 2020 021 [email or web address] 1 In-Office Order, Internal Use Only DO Not Attach Compendium DO Not Attach Compendium, Do Not Delete/merge, [id number] 1 14:03:16 pap, LB, vaginal 2019 020 [facility], [address] [place], [address], 0 07:40:41 Referral None recorded. Procedures None recorded. Surgeries None recorded. Imaging MAMMO, screening , digital, bilateral - Breast Aspiratio n and/or Biopsy if needed 2024 025 [facility], [address], [address], [place], [address], 5 13:58:55 bone density 2024 025 [email or web address] Orders, [address], [address], [place], [address], 5 15:53:04 MAMMO, screening , digital, bilateral - Breast Aspiratio n and/or Biopsy if needed 2022 023 [facility]), [address] [place], [address], 3 17:41:43 bone density 2022 023 [facility] ([facility]), [address] [place], [address], 4 07:27:36 MAMMO, screening , digital, bilateral - patient aware needs to go 2021 022 [facility] ([facility]), [address] [place], [address], 2 15:31:33 bone density 2021 022 [facility] ([facility]), [address] [place], [address], 4 07:36:31 MAMMO, screening , digital, bilateral 2020 021 manolo [facility]), [facility] [place], [address], 3 07:38:19 MAMMO, screening , digital, bilateral 2019 020 PHIL [facility]), [facility] [place], [address], 0 16:31:27 bone density 2019 020 [email or web address] [facility]), [address] [place] [address], [address], 1 07:23:18 Medication Orders None recorded. Patient TargetsNo targets recorded. Patient Instructions Encounter Date Encounter Id Patient Instructions Last Modified By Organization Details Last Modified Time 04/14/2020 [id number] She is here for annual exam, is doing well. ___ Note from 2019: She is here for annual exam, is doing well but still using a cane due to her knee replacement. She has a past history of right breast cancer, and also of FRANCISCO II. Her sister had an SD and her brother in law had 2 strokes in the past year, so she is doing most of the running with her. Her partner Rik is her health care proxy. She appears to be doing well. She is still usign a cane, The knee operation was botched, it's not getting any better. She is going to go to [place] to have it redone once covid is [...] questions answered. Not available 04/14/2020 13:35:48 04/21/2021 [id number] learning about healthy weight Not available 04/21/2021 [...] do this. Not available 04/21/2021 14:05:17 04/26/2022 [id number] advance benefici elijah notice information Not available [...] the breast. Not available 04/26/2022 14:20:32 06/28/2023 [id number] advance benefici elijah notice information Not available [...] the breast. Not available 06/28/2023 14:57:22 09/17/2024 [id number] advance benefici elijah notice information Not available [...] DO Not Attach Compendium, Do Not Delete/merge, [id number] 04/21/2021 13:17:31 04/14/20 20 04/14/2020 pap, LB, vagin al [id number] ThinP rep Pap, Image d: NEGAT MALENA [...] neg, z12.4 , z91.8 9 Not Available [facility], Cytopathology Service [address] [place], [address], 04/16/2020 12:20:49 04/21/20 21 04/21/2021 PAP1C ASE [email or web address] ThinP rep Pap, Image d: NEGAT MALENA [...] ASCUS . lps neg, Z12.4 Not Available [facility], Cytopathology Service [address] [place], [address], 04/24/2021 12:11:30 04/26/20 22 04/26/2022 PAP1C ASE [id number] ThinP rep Pap, Image d: NEGAT MALENA [...] ause, lps neg, [Z01. 419] Not Available [facility], Cytopathology Service [address] [facility], [place], [address], 04/28/2022 16:06:04 06/28/20 23 06/28/2023 [facility] CYTOL OGY results Magalis sidhu Name: BERNARD RAMOS nt : 1944 (Age: 78) Lab Acces fabiola #: [id number] Colle ction Date: 06/28 Acces fabiola Date: 06/28 Sign Out Date: 07/04 Tissu e Sourc e: 1: THINP REP COMMUNITY OUTREACH SPECIALIST PAP TEST, VAGIN AL: Final Diagn osis: [...] rep Imagi ng Syste m with david marinar chan g or gurmeet w. Perfo rmed at [facility] ate Refer ence Labor atory depar tment of Cytol ogy, [address] [place] [facility] Histo ry (othe r): Z91.8 9, routi ne scree n, Medic are scree aamir pap smear -high risk, LPS neg Phone #: [phone], On-Ca ll Patho logis t: [id number] Not Available [facility] [address], [place], [address], 07/04/2023 13:49:42 09/17/19 25 09/19/2024 IGP, RFX APTIM A HPV ASCU diagnosis: Commen t NEGAT MALENA FOR INTRA EPITH ELIAL LESIO N OR MALIG NATASHA . Not Available [facility]) [address] [place], [address], 09/19/2024 18:16:26 09/17/19 25 09/19/2024 IGP, RFX APTIM A HPV ASCU specimen adequacy: Abril galvan Satis facto ry for evalu ation . Not Available [facility] ([facility]) [address] [place], [address], 09/19/2024 18:16:26 09/17/19 25 09/19/2024 IGP, RFX APTIM A HPV ASCU clinician provided ICD10: Abril galvan Z91.8 9 Not Available [facility] ([facility]) [address] [place], [address], 09/19/2024 18:16:26 09/17/19 25 09/19/2024 IGP, RFX APTIM A HPV ASCU performed by: Marty Escobar (ASCP ) Not Available [facility] ([facility]) [address] [place], [address], 09/19/2024 18:16:26 09/17/19 25 09/19/2024 IGP, RFX APTIM A HPV ASCU . . Not Available [facility] ([facility]) [address] [place], [address], 09/19/2024 18:16:26 09/17/19 25 09/19/2024 IGP, RFX [...] do occur . Not Available [facility] ([facility]) [address] [facility], [place], [address], 09/19/2024 18:16:26 09/17/19 25 09/19/2024 IGP, RFX APTIM A HPV ASCU test methodology: Commen t This liqui d based ThinP rep(R ) pap test was tasneem cevallos with the use of an image guide karlene morris. Not Available [facility] ([facility]) [address] [facility], [place], [address], 09/19/2024 18:16:26 09/17/19 25 09/19/2024 IGP, RFX APTIM A HPV ASCU . Commen t The HPV DNA refle x crite kimberly were not met with this speci men resul t there fore, no HPV testi ng was perfo rmed. Not Available [facility] ([facility]) [address] [facility], [place], [address], 09/19/2024 18:16:26 06/26/20 20 06/26/2020 MAMMO , nadeeme aamir, digit al, bilat eral No observ ation record ed. [email or web address] [address] [place] [address], [address], 06/27/2020 08:43:42 05/27/20 22 05/27/2022 MAMMO , tasneem hdezg, digit al, bilat eral [place], [address], 05/27/2022 15:32:50 07/26/20 23 07/26/2023 MAMMO , nadeeme aamir, digit al, bilat eral No observ ation record ed. Not Available 07/07 07:52:48 10/19/19 25 10/19/2024 MAMMO , nadeeme aamir, digit al, bilat eral No observ ation record ed. [address] [place], [address], 10/22/2024 07:10:58 Result Notes None recorded. 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 Lizeth Herman MD [address], [place], [address], [place] [facility], 6 10:54:46 Gastroduo denitis 804053771 Active Lizeth Herman MD [address], [place], [address], [place] [facility], 6 10:54:46 Atypical squamous cells of undetermi mart significa nce on cervical Papanicol aou smear 127960004 Active Lizeth Herman MD [address], [place], [address], [place] [facility], 6 10:54:46 Gastritis 0752478 Active Lizeth Herman MD [address], [place], [address], [place] [facility], 6 10:54:46 Family history of malignant neoplasm of ovary 404193713 Active Lizeth Herman MD [address], [place], [address], [place] [facility], 6 10:54:46 Primary malignant neoplasm of female breast 83756685 Active Lizeth Herman MD [address], [place], [address], [place] [facility], 6 10:54:46 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 Lizeth Herman MD [address], [place], [address], [place] [facility], 6 10:54:46 Vulval intraepit helial neoplasia grade 1 977619264 Active Lizeth Herman MD [address], [place], [address], [place] [facility], 6 10:54:46 Vitamin D deficienc y 77103105 Active Lizeth Herman MD [address], [place], [address], [place] [facility], 6 10:54:46 Mammograp hy abnormal 786628009 Active Lizeth Herman MD [address], [place], [address], [place] [facility], 6 10:54:46 Personal history of primary malignant neoplasm of breast 646502728 Active 2016 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 Lizeth Herman MD [address], [place], [address], [place] [facility], 1 14:00:48 Osteoporo sis 06585219 Active 2016 Lizeth Herman MD [address], [place], [address], [place] [facility], 7 15:00:50 Asthma 871461598 Active 2016 Lizeth Herman MD [address], [place], [address], [place] [facility], 7 15:02:03 History of dysplasia of vulva 918659493144 105 Active 2018 Lizeth Herman MD [address], [place], [address], [place] [facility], 15:18:36 Urinary incontine hie 462544262 Active 2020 Lizeth Herman MD [address], [place], [address], [place] [facility], 14:03:30 Problem Notes None recorded. Procedures Surgical History Date Name Laterality Status Provider Name and Address Organization Details Recorded Time 07/06/20 23 Most Recent Mammogram completed Irma Meczywor [place] - [facility], 09/17/2024 14:33:36 07/22/20 21 procedure on back completed Irma Meczywor [place] - [facility], 04/26/2022 13:18:20 12/03/19 17 Most Recent Bone Density completed Irma Meczywor [place] - [facility], 12/14/2016 14:45:19 09/05/19 14 Other completed Irma Meczywor [place] [facility], 12/10/2015 10:18:06 12/13/19 13 Colposcopy completed Lizeth Herman MD [address], [place], [address], [place] [facility], 12/12/2012 13:07:56 09/05/19 12 Other completed Irma Meczywor [place] [facility], 08/08/2012 13:59:44 09/05/19 09 Other completed Irma Meczywor [place] [facility], 12/14/2016 14:44:01 09/05/19 03 Breast Biopsy completed Lizeth Herman MD [address], [place], [address], [place] [facility], 04/21/2021 14:00:34 09/05/18 94 Other completed Irma Meczywor [place] [facility], 08/08/2012 13:59:44 09/05/18 77 Appendectomy completed Irma Meczywor [place] [facility], 08/08/2012 13:59:44 09/05/18 77 Total Abdominal Hysterectomy completed Lizeth Herman MD [address] [place] [address],[address], [place], [address], [place] Castillo [facility], 08/08/2012 14:09:00 Imaging Results Imaging Date Name Status LastModified by Organiz ation Details LastModified Time 06/26/2020 MAMMO, screening, digital, bilateral completed [facility] [address] [place], [address], 06/27/2020 08:43:42 05/27/2022 MAMMO, screening, digital, [place], [address], 05/27/2022 15:32:50 07/26/2023 MAMMO, screening, digital, bilateral completed Information not available 07/27/2023 07:52:48 10/19/2024 MAMMO, screening, digital, bilateral completed [facility] [address] [facility], [place], [address], 10/22/2024 07:10:58 Procedure Notes None recorded. Medical Equipment None Reported. Allergies Allergen ID Allergen Name Allergen Category Reaction Reaction Severity Criticality Documentation Date Start Date Code Code System Note Provider Name and Address Organization Details Recorded Time 55683 egg extract food,medi cation rash Not available Not available 09/11/2013 53715 15 RxNorm JOSEPHINE Berg in [facility], 4 13:40:00 5521 Avelox medicatio n other mild Not available 08/08/2012 60189 6 RxNorm welts JOSEPHINE Berg in [facility], 2 13:59:45 5522 Product containin g penicilli n (product) medicatio n rash Not available Not available 08/08/2012 53558 8001 SNOMED [place]INE Berg in [facility], 2 13:59:45 5523 Levaquin medicatio n other mild Not available 08/08/2012 50574 2 RxNorm Irma Eric piña [place] [facility], 2 13:59:45 Medications Name Sig Start [...] Updated DateTime 0 147.32 cm 40.1 kg/m2 97934.0 2 g 97.4 [degF] 88 /min 133 mm[Hg] 49 mm[Hg] Gena Potter in [facility], 0 13:08:32 Date Recorded Body weight Body mass index (BMI) Body height Body temperature Heart rate Systolic blood pressure Diastolic blood pressure Provider Name and Address Organization Details Last Updated DateTime 1 24295.7 5 g 43.1 kg/m2 147.32 cm 97.4 [degF] 81 /min 148 mm[Hg] 60 mm[Hg] Irma Potter in [facility], 1 13:26:01 Date Recorded Body height Body mass index (BMI) Body weight Heart rate Body temperature Systolic blood pressure Diastolic blood pressure Provider Name and Address Organization Details Last Updated DateTime 2 146.05 cm 46.4 kg/m2 56609.8 6 g 81 /min 97.5 [degF] 124 mm[Hg] 57 mm[Hg] Irma Potter in [facility], 2 13:11:32 Date Recorded Body temperature Body weight Body mass index (BMI) Body height Heart rate Systolic blood pressure Diastolic blood pressure Provider Name and Address Organization Details Last Updated DateTime 3 97.9 [degF] 64407.1 2 g 43.9 kg/m2 147.32 cm 83 /min 152 mm[Hg] 57 mm[Hg] Irma Potter in [facility], 3 13:33:28 Date Recorded Body weight Body mass index (BMI) Body height Body temperature Heart rate Systolic blood pressure Diastolic blood pressure Provider Name and Address Organization Details Last Updated DateTime 5 91878.5 2 g 30.9 kg/m2 175.26 cm 97.4 [degF] 84 /min 146 mm[Hg] 75 mm[Hg] Irma Potter in [facility], 5 14:27:15 Social History Question Answer Notes LastModified by Organizat ion Details LastModified Time Tobacco Smoking Status Former Smoker quit 40 yrs ago Not Available [facility] 07/08/2020 03:19:37 What Is Your Level Of Alcohol Consumption? Occasional [id number] Information not available 07/08/2020 How Many Years Have You Consumed Alcohol? 50 Information not available 04/21/2021 What Is Your Level Of Caffeine Consumption? Occasional [id number] Information not available 07/08/2020 In The 14 [...] Type Of Diet Are You Following? REGULAR [id number] Information not available 07/08/2020 Which Illicit Or Recreational Drugs Have You Used? No [id number] Information not available 07/08/2020 Do You Reside In Or Have You Traveled To An Area Where Ebola Virus Transmission Is Active? No [id number] Information not available 07/08/2020 Do You Or Have You Ever Used E-cigarettes Or Vape? Never Used Electronic Cigarettes [id number] Information not available 07/08/2020 Education 2 Year College Informatio n not available 08/08/2012 What Is The Highest Grade Or Level Of School You Have Completed Or The Highest Degree You Have Received? [id number] Information not available 04/21/2021 What Is Your Occupation? Retired [id number] Information not available 07/08/2020 How Many Days [...] available 04/21/2021 Are You Sexually Active? Yes [id number] Information not available 07/08/2020 At What Age Did You Start Smoking Tobacco? 16 Information not available 04/21/2021 Do You Or Have You Ever Used Smokeless Tobacco? Never Used Smokeless Tobacco [id number] Information not available 07/08/2020 How Much Tobacco Do You Smoke? No [id number] Information not available 07/08/2020 General Stress Level Medium Information not available 09/17/2024 Do You Feel Stressed (tense, Restless, Nervous, Or Anxious, Or Unable To Sleep At Night)? [id number] Information not available 09/17/2024 Do You Use Any Illicit Or Recreational Drugs? No Information not available 04/21/2021 How Many Years Have You Smoked Tobacco? 10 [id number] Information not available 07/08/2020 Have You Recently [...] Irma Meczywor null, [place] - [facility], 06/28/2023 13:24:44 Influenza, adjuvanted, quadrivalent, PF 0 completed Irma Meczywor null, [place] - [facility], 06/28/2023 13:24:44 COVID-19, mRNA, LNP-S, PF, 100 mcg/0.5mL dose or 50 mcg/0.25mL dose 1 completed Irma Meczywor null, [place] - [facility], 06/28/2023 13:24:44 COVID-19, mRNA, LNP-S, PF, 100 mcg/0.5mL dose or 50 mcg/0.25mL dose 1 completed Irma Meczywor null, [place] - [facility], 06/28/2023 13:24:44 COVID-19, mRNA, LNP-S, PF, 30 mcg/0.3 mL dose 2 completed Irma Meczywor null, [place] [facility], 06/28/2023 13:24:44 COVID-19, mRNA, LNP-S, PF, 30 mcg/0.3 mL dose, fabricio-sucrose 2 completed Irma Meczywor null, [place] [facility], 06/28/2023 13:24:44 Pneumococcal conjugate PCV 13 6 completed Irma Meczywor null, [place] [facility], 06/28/2023 13:24:44 zoster recombinant 3 completed Irma Meczywor null, [place] [facility], 09/17/2024 14:25:43 Influenza, adjuvanted, quadrivalent, PF 2 completed Iram Meczywor null, [place] [facility], 09/17/2024 14:25:43 COVID-19, mRNA, LNP-S, PF, 100 mcg/0.5mL dose or 50 mcg/0.25mL dose 1 completed Irma Meczywor null, [place] [facility], 09/17/2024 14:25:43 COVID-19, mRNA, LNP-S, bivalent, PF, 30 mcg/0.3 mL dose 2 completed Irma Meczywor null, [place] [facility], 09/17/2024 14:25:43 Past Encounters Encounter ID Performer Location Encounter Start Date Encounter Closed Date Diagnosis/Indication Diagnosis SNOMED-CT Code Diagnosis ICD10 Code Diagnosis Note [id number] MD LIZETH Covington MD [address] [facility] [place] [address] 08/08/2012 13:22:43 08/10/2012 09:52:22 [id number] Irma HERMAN MD [address] [facility] [place] [address] 09/11/2013 13:26:47 09/12/2013 08:53:20 Screening for malignant neoplasm of cervix 924644121 Screening mammography 50058271 [id number] Irma HERMAN MD [address] [facility] [place] [address] 11/16/2012 14:26:27 11/16/2012 16:27:58 [id number] MD LIZETH Covington MD [address] [facility] [place] [address] 12/12/2012 08:04:19 12/13/2012 12:10:32 [id number] [facility] HERMAN MD [address] [facility] [place] [place] [address] 03/13/2013 13:21:29 03/15/2013 08:40:53 [id number] Irma HERMAN MD [address] [place], [place] [address] [place] [address] 03/26/2013 13:16:42 03/26/2013 16:27:27 [id number] LIZETH HERMAN MD [address] [place], [place] [address] [place] [place] [address] 11/14/2014 13:00:38 11/14/2014 14:31:18 Specialized medical examination 44311813 Screening for malignant neoplasm of rectum 274643749 Screening mammography 07236661 [id number] MD LIZETH Covington MD [address] [place] [address] [place] [address] 12/10/2015 10:02:13 12/10/2015 11:53:16 Sampling of vagina for Papanicolaou smear 863597781 Z91.89 Screening mammography 24 424726 Z12.31 Mammography abnormal 168 052384 R92.8 [id number] MD LIZETH Covington MD [address] [place], [place] [address] [place] [address] 12/14/2016 14:30:00 12/14/2016 16:07:42 Specialized medical examination 26451432 Z01.419 Screening for malignant neoplasm of rectum 559305771 Z12.12 Screening mammography 24 703614 Z12.31 Personal h istory of primary malignant neoplasm of breast 836330648 Z85.3 Osteoporosis 21206774 M8 1.0 Asthma 500704040 J45.90 9 Cares for self 003806946 Z76.89 [id number] MD LIZETH Covington MD [address] [place], [place] [address] [place] [place] [address] 12/28/2016 13:00:53 12/28/2016 15:20:31 Breast lump 24800477 N63 Personal h istory of primary malignant neoplasm of breast 570096283 Z85.3 [id number] MD LIZETH Covington MD [address] [place], [place] [address] [place] [address] 03/16/2018 13:02:34 03/16/2018 14:59:41 Specialized medical examination 32689713 Z01.419 Screening for malignant neoplasm of rectum 806148408 Z12.12 Screening mammography 24 316792 Z12.31 [id number] MD LIZETH Covington MD [address] [place] [address] [place] [address] 04/12/2019 14:34:34 04/12/2019 15:48:24 Screening for malignant neoplasm of cervix 652370835 Z12.4 Screening mammography 24 904434 Z12.31 Screening for osteoporosis 690077956 Z13.820 Personal h istory of primary malignant neoplasm of breast 188818673 Z85.3 History of gynecological disorder 607754559 Z87.412 [id number] MD LIZETH Covington MD [address] [place] [address] [place] [address] 04/14/2020 13:06:18 04/14/2020 14:32:12 Sampling of vagina for Papanicolaou smear 946635777 Z91.89 Screening mammography 24 795102 Z12.31 Screening for osteoporosis 562376083 Z13.820 [id number] MD LIZETH Covington MD [address] [place] [address] [place] [address] 04/21/2021 13:15:34 04/21/2021 14:24:06 Specialized medical examination 15663190 Z01.419 Screening for malignant neoplasm of rectum 801208934 Z12.12 Screening mammography 24 956759 Z12.31 Urinary incontinence 165 834329 R32 [id number] MD LIZETH Covington MD [address] [place] [address] [place] [address] 04/26/2022 13:03:14 04/26/2022 14:49:27 History of clinical finding in subject [id number] Z91.89 Screening mammography 24 234519 Z12.31 Advance care planning 71 6009363 Z71.89 Screening for osteoporosis 496279335 N95.8 History of dysplasia of vulva [id number] 18886 Z87.412 Personal h istory of primary malignant neoplasm of breast 245350374 Z85.3 Urinary incontinence 165 852052 R32 [id number] MD LIZETH Covington MD [address] [facility] [address] [place] [address] 06/28/2023 13:18:49 06/29/2023 08:06:11 History of clinical finding in subject [id number] Z91.89 Screening mammography 24 913907 Z12.31 Advance care planning 71 8558416 Z71.89 Screening for osteoporosis 241522723 N95.8 [id number] MD LIZETH Covington MD [address] [facility] [address] [place] [address] 09/17/2024 14:21:13 09/17/2024 15:53:03 History of clinical finding in subject [id number] Z91.89 Screening mammography 24 830030 Z12.31 Advance care planning 71 0111476 Z71.89 Screening for osteoporosis 918112441 N95.8 Health Concerns Section Related Observation LastModified by Organization Detai ls LastModified Time None Recorded Concern Status LastModified by Organization Details LastModified Time None Recorded Advance Directives Directive None Recorded Payers Encounter Date Sequence Insurance Name Policy Number Policy Kelly Covered Member ID Kelly Member ID Guarantor Name 04/14/2020 1 [place]) [id number] Neo Liptak [id number] Bernard Liptak 04/21/2021 1 [place] [id number] Neo Liptak [id number] Bernard Liptak 04/26/2022 1 [place]IC[place] PPO) [id number] Bernard Liptak [id number] Bernard Liptak 06/28/2023 1 [place] PPO) [id number] Bernard Liptak [id number] Bernard Liptak 09/17/2024 1 [place] PPO) [id number] Bernard Liptak [id number] Bernard Liptak Notes Date Note Type [...] of FRANCISCO II. Her sister had an SD and her brother in law had 2 strokes in the past year, so she is doing most of the running with her. Her partner Rik is her health care proxy. Lizeth Herman MD [address], [place], [address], [place] [facility], 04/14/2020 13:36:19 04/21/2021 text/html She is [...] Lizeth Herman MD [address], [place], [address], [place] [facility], 04/21/2021 14:05:44 04/26/2022 text/html She is [...] MD [address], [place], [address], [place] [facility], 04/26/2022 14:21:13 06/28/2023 text/html She is [...] for incontinence issues. 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 She is BRCA negative. Lizeth Herman MD [address], [place], [address], [place] [facility], 09/17/2024 14:49:47 OBGyn Episode No OBEpisode recorded.
--- OUTSIDE RECORDS SUMMARY | 2024-10-25 06:19 | XMS_ITS | Clinical Summary ---
Author Organization [facility] Address [address] [place] [address] Care Team Providers Care Production Truck Driver Name Role Phone Mannie Khan MD Primary Care Provider [phone] Surgical History Surgery Date Site/Laterality Comments MASTECTOMY 2002 PROCEDURE: HISTORICAL MASTECTOMY; COMMENT: right breast with subsequent reconstruction TONSILLECTOMY PROCEDURE: HISTORICAL TONSILLECTOMY OTHER SURGICAL HISTORY 1977 PROCEDURE: ME TOTAL ABDOMINAL HYSTERECT W/WO RMVL TUBE OVARY; COMMENT: TAHBSO for endometriosis, took ERT for 2 years only after surgery BREAST REDUCTION 2002 PROCEDURE: ME BREAST REDUCTION; COMMENT: left breast Medical History [...] Relevant to Health Maintenance Results * [facility] DEXA AXIAL SKELETON (05/12/2021 4:45 PM EDT) Anatomical Region Laterality Modality Mammography 05/12/2021 1:59 PM EDT Narrative 05/12/2021 4:45 PM EDT [facility] Diagnostic Imaging Department [address] [place] [address] Patient: ??CRISTINA LEIJA ?/Age/Sex: 1945 - 76 - F Unit#: ??[id number] ? Location/Status: ??SPDIMAM/REG CLI ? Mnemonic/Ordering Site: ??MAMDEXAAX/SPMAM Ordering Physician: ??BILLY LOTT MD, PHD [facility] Dexa Axial Skeleton - 05/12/211421 HISTORY: ??The [...] probability of hip fracture of 8.7%. Code 79112 Dictating Physician: ??GONSALO JOHNSON MD Electronically Signed by: ??GONSALO JOHNSON MD Dic Date/Time: ??05/12/211641 Sign date/Time: ??05/12/211644 Procedure Note Dali Johnson MD - 09/01/2022 [facility] Diagnostic Imaging Department [address] [place] [address] Patient: CRISTINA LEIJA Suzanne /Age/Sex: 1945 - 76 - F Unit#: [id number] Location/Status: [facility] Mnemonic/Ordering Site: [facility] Ordering Physician: BILLY LOTT MD, PHD [facility] Dexa Axial Skeleton - 05/12/211421 HISTORY: The [...] probability of hip fracture of 8.7%. Code 79115 Dictating Physician: GONSALO JOHNSON MD Electronically Signed by: GONSALO JOHNSON MD Dic Date/Time: 05/12/21 1642 Sign date/Time: 05/12/21 1645 Billy Lott MD IMG BI PROCEDURES Final R esult from Last 3 Months or Most Recently Relevant to Health Maintenance Care Teams Production Truck Driver Relationship Specialty Start Date End Date Mannie Khan MD [address] [facility] [address] [place], [place] PCP - General Internal Medicine 08/18/21
--- OUTSIDE RECORDS SUMMARY | 2024-10-25 06:19 | XMS_ITS | Clinical Summary ---
Author Organization [facility] Address [address] [place] [address] Care Team Providers Care Squaring Shear Operator Name Role Phone Mannie Khan MD Primary Care Provider [phone] Allergies Active Allergy Reactions Criticality Noted Date [...] age to complete this topic Care Teams Squaring Shear Operator Relationship Specialty Start Date End Date Mannie Khan MD [address] [facility] [address] [place] [address] PCP - General Geriatric Medicine 11/26/20
== END 2024-10-25 06:17 | disposition home or self-care (01) ==
LOC: CF 06:16
PROVIDERS: Visit Provider Internal Medicine
DX: Z13.89 Encounter for screening for other disorder (principal)

== ENCOUNTER 2024-11-15 06:23 | Outpatient (REF) | payer MEDICARE, SELFPAY ==
--- OUTSIDE RECORDS SUMMARY | 2024-11-15 06:26 | XMS_ITS | Clinical Summary ---
Author Organization [facility] Address [address] [place] [address] Care Team Providers Care Public Transit Specialist Name Role Phone Mannie Khan MD Primary Care Provider [phone] Surgical History Surgery Date Site/Laterality Comments MASTECTOMY 2002 PROCEDURE: HISTORICAL MASTECTOMY; COMMENT: right breast with subsequent reconstruction TONSILLECTOMY PROCEDURE: HISTORICAL TONSILLECTOMY OTHER SURGICAL HISTORY 1977 PROCEDURE: MS TOTAL ABDOMINAL HYSTERECT W/WO RMVL TUBE OVARY; COMMENT: TAHBSO for endometriosis, took ERT for 2 years only after surgery BREAST REDUCTION 2002 PROCEDURE: MS BREAST REDUCTION; COMMENT: left breast Medical History [...] Recently Relevant to Health Maintenance Results * [facility] DEXA AXIAL SKELETON (05/12/2021 4:45 PM EDT) Anatomical Region Laterality Modality Mammography 05/12/2021 1:59 PM EDT Narrative 05/12/2021 4:45 PM EDT [facility] Diagnostic Imaging Department [address] [place] [address] Patient: ??CRISTINA LEIJA ?/Age/Sex: 1945 - 76 - F Unit#: ??[id number] ? Location/Status: ??SPDIMAM/REG CLI ? Mnemonic/Ordering Site: ??MAMDEXAAX/SPMAM Ordering Physician: ??BILLY LOTT MD, PHD [facility] Dexa Axial Skeleton - 05/12/211421 [...] probability of hip fracture of 8.7%. Code 57374 Dictating Physician: ??GONSALO JOHNSON MD Electronically Signed by: ??GONSALO JOHNSON MD Dic Date/Time: ??05/12/211641 Sign date/Time: ??05/12/211644 Procedure Note Dali Johnson MD - 09/01/2022 [facility] Diagnostic Imaging Department [address] [place] [address] Patient: CRISTINA LEIJA Suzanne /Age/Sex: 1945 - 76 - F Unit#: [id number] [facility] Mnemonic/Ordering Site: [facility] Ordering Physician: BILLY LOTT MD, PHD [facility] Dexa Axial Skeleton - 05/12/211421 [...] probability of hip fracture of 8.7%. Code 94237 Dictating Physician: GONSALO JOHNSON MD Electronically Signed by: GONSALO JOHNSON MD Dic Date/Time: 05/12/21 1642 Sign date/Time: 05/12/21 1645 Billy Lott MD IMG BI PROCEDURES Final R esult from Last 3 Months or Most Recently Relevant to Health Maintenance Care Teams Public Transit Specialist Relationship Specialty Start Date End Date Mannie Khan MD [address] [facility] [address] [place], [place] PCP - General Internal Medicine 08/18/21
--- OUTSIDE RECORDS SUMMARY | 2024-11-15 06:26 | XMS_ITS | Clinical Summary ---
Author Organization [facility] Address [address] [place] [address] Care Team Providers Care Bookseamer Blindstitch Name Role Phone Mannie Khan MD Primary Care Provider + [phone] Allergies Active Allergy Reactions Criticality Noted Date [...] age to complete this topic Care Teams Bookseamer Blindstitch Relationship Specialty Start Date End Date Mannie Khan MD [address] [facility] [address] [place] [address] PCP - General Geriatric Medicine 11/26/20
--- OUTSIDE RECORDS SUMMARY | 2024-11-15 06:26 | XMS_ITS | Data Portability ---
Author Organization [place] [facility],, LIZETH HERMAN MD Address [address] [address] Care Team Providers Care Customer Advisor Specialist Name Role Phone GURVINDER BOLANOS Primary Care Provider Assessment No assessment recorded. Plan of Treatment Reminders Order Date Submit Date Provider Last Modified By Organization Details Last Modified Time Details Appointments None recorded. Lab cytology report, thin prep, smear or scraping, cervical or vaginal 2024 025 PHIL [facility] (Centralized Electronic Ordering - All Locations), Patient Can Go To The Location Of Their Choice, [address] 5 18:16:26 pap test, thinprep, cervical 2022 023 [email or web address] [facility] (Centralized Electronic Ordering - All Locations), Patient Can Go To The Location Of Their Choice, [address] 3 07:27:16 pap test, thinprep, cervical 2021 022 [email or web address] [facility], Cytopathology Service, [address] [place], [address], 2 07:38:27 pap test, thinprep, cervical 2020 021 [email or web address] [facility], Cytopathology Service, [address] [place], [address], 1 07:20:46 fecal occult blood, stool 2020 021 [email or web address] 1 In-Office Order, Internal Use Only DO Not Attach Compendium DO Not Attach Compendium, Do Not Delete/merge, [id number] 1 14:03:16 pap, LB, vaginal 2019 020 [facility], Cytopathology Service, [address] [place], [address], 0 07:40:41 Referral None recorded. Procedures None recorded. Surgeries None recorded. Imaging MAMMO, screening , digital, bilateral - Breast Aspiratio n and/or Biopsy if needed 2024 025 [facility] Orders, [address], [address], [place], [address], 5 13:58:55 bone density 2024 025 [facility] Orders, [address], [address], [place], [address], 5 15:53:04 MAMMO, screening , digital, bilateral - Breast Aspiratio n and/or Biopsy if needed 2022 023 [facility]), [address] [place], [address], 3 17:41:43 bone density 2022 023 [facility]), [address] [place], [address], 4 07:27:36 MAMMO, screening , digital, bilateral - patient aware needs to go 2021 022 [facility] ([facility]), [address] [place], [address], 2 15:31:33 bone density 2021 022 [facility] ([facility]), [address] [place], [address], 4 07:36:31 MAMMO, screening , digital, bilateral 2020 021 [email or web address] [facility]), [facility] [place], [address], 3 07:38:19 MAMMO, screening , digital, bilateral 2019 020 PHIL [facility]), [facility] [place], [address], 0 16:31:27 bone density 2019 020 [email or web address] [facility]), [address] [place] [address], [address], 1 07:23:18 Medication Orders None recorded. Patient TargetsNo targets recorded. Patient Instructions Encounter Date Encounter Id Patient Instructions Last Modified By Organization Details Last Modified Time 04/14/2020 [id number] She is here for annual exam, is doing well. ___ Note from 2019: She is here for annual exam, is doing well but still using a cane due to her knee replacement. She has a past history of right breast cancer, and also of FRANCISCO II. Her sister had an OK and her brother in law had 2 strokes in the past year, so she is doing most of the running with her. Her partner Rik is her health care proxy. She appears to be doing well. She is still usign a cane, The knee operation was botched, it's not getting any better. She is going to go to [place] to have it redone once covid is [...] questions answered. Not available 04/14/2020 13:35:48 04/21/2021 [id number] learning about healthy weight Not available 04/21/2021 [...] has past histroy of FRANCISCO II. s/p TAUDAY age 30 for endometriosis. We discussed that [...] do this. Not available 04/21/2021 14:05:17 04/26/2022 [id number] advance benefici elijah notice information Not available [...] the breast. Not available 04/26/2022 14:20:32 06/28/2023 [id number] advance benefici elijah notice information Not available [...] the breast. Not available 06/28/2023 14:57:22 09/17/2024 [id number] advance benefici elijah notice information Not available [...] DO Not Attach Compendium, Do Not Delete/merge, [id number] 04/21/2021 13:17:31 04/14/20 20 04/14/2020 pap, LB, vagin al [id number] ThinP rep Pap, Image d: NEGAT MALENA FOR SQUAM OUS INTRA EPITH ELIAL LESIO N AND MALIG NATASHA . Catalino pena , CT( CP) (Case elect maria teresa fay caitlyn d 04 16 2020) ADEQU ACY: Satis facto ry Endoc ervic al/tr ansfo rmati on zone compo nent absen t. SOURC E: ThinP rep Pap HPV IF ASCUS , Vagin al, Image d [facility]: HPV If Diagn osis of ASCUS . LPS 9 neg, z12.4 , z91.8 9 Not Available [facility], Cytopathology Service [address] [place], [address], 04/16/2020 12:20:49 04/21/20 21 04/21/2021 PAP1C ASE [id number] ThinP rep Pap, Image d: NEGAT MALENA FOR SQUAM OUS INTRA EPITH ELIAL LESIO N AND MALIG NATASHA . Atrop hy. Catalino pena , CT( CP) (Case elect maria teresa fay caitlyn d 04 24 2021) ADEQU ACY: Satis facto ry . SOURC E: ThinP rep Pap HPV IF Ascus : Refle x 16 and 18, Cervi louis, Image d [facility]: HPV If Diagn osis of ASCUS . lps neg, Z12.4 Not Available [facility], Cytopathology Service [address] [place], [address], 04/24/2021 12:11:30 04/26/20 22 04/26/2022 PAP1C ASE [id number] ThinP rep Pap, Image d: NEGAT MALENA [...] ause, lps neg, [Z01. 419] Not Available [facility], Cytopathology Service [address] [facility], [place], [address], 04/28/2022 16:06:04 06/28/20 23 06/28/2023 [facility] CYTOL OGY results Magalis sidhu Name: BERNARD RAMOS nt : 1944 (Age: 78) Lab Acces fabiola #: [id number] Colle ction Date: 06/28 Acces fabiola Date: 06/28 Sign Out Date: 07/04 Tissu e Sourc e: 1: THINP REP BUSINESS APPLICATIONS ANALYST PAP TEST, VAGIN AL: Final Diagn osis: NEGAT MALENA FOR INTRA EPITH ELIAL LESIO N OR MALSAPNA NATASHA . Funga l organ isms morph [...] ng Syste m with david marinar chan merlos or gurmeet witt. Perfo rmed at [facility] ate Refer ence Labor atory depar tment of Cytol ogy, [address] [place] [facility] Histo ry (othe r): Z91.8 9, routi ne scree n, Medic are scree aamir pap smear -high risk, LPS neg Phone #: [phone], On-Ca ll Patho logis t: [id number] Not Available [facility] (Centralized Electronic Ordering - All Locations) Patient Can Go To The Location Of Their Choice, [address] 07/04/2023 13:49:42 09/17/19 25 09/19/2024 IGP, RFX APTIM A HPV ASCU diagnosis: Commen t NEGAT MALENA FOR INTRA EPITH ELIAL LESIO N OR MALIG NATASHA . Not Available [facility] ([facility]) [address] [place], [address], 09/19/2024 18:16:26 09/17/19 25 09/19/2024 IGP, RFX APTIM A HPV ASCU specimen adequacy: Abril galvan Satis facto ry for evalu ation . Not Available [facility] ([facility]) [address] [place], [address], 09/19/2024 18:16:26 09/17/19 25 09/19/2024 IGP, RFX APTIM A HPV ASCU clinician provided ICD10: Abril galvan Z91.8 9 Not Available [facility] ([facility]) [address] [place], [address], 09/19/2024 18:16:26 09/17/19 25 09/19/2024 IGP, RFX APTIM A HPV ASCU performed by: Marty Escobar (ASCP ) Not Available [facility] ([facility]) [address] [place], [address], 09/19/2024 18:16:26 09/17/19 25 09/19/2024 IGP, RFX APTIM A HPV ASCU . . Not Available [facility] ([facility]) [address] [place], [address], 09/19/2024 18:16:26 09/17/19 25 09/19/2024 IGP, RFX [...] ts do occur . Not Available [facility] ([facility]) [address] [facility], [place], [address], 09/19/2024 18:16:26 09/17/19 25 09/19/2024 IGP, RFX APTIM A HPV ASCU test methodology: Commen t This liqui d based ThinP rep(R ) pap test was tasneem cevallos with the use of an image guide karlene duarte Not Available [facility] ([facility]) [address] [facility], [place], [address], 09/19/2024 18:16:26 09/17/19 25 09/19/2024 IGP, RFX APTIM A HPV ASCU . Commen t The HPV DNA refle x crite kimberly were not met with this speci men resul t there fore, no HPV testi ng was perfo rmed. Not Available [facility] ([facility]) [address] [facility], [place], [address], 09/19/2024 18:16:26 06/26/20 20 06/26/2020 MAMMO , scree aamir, digit al, bilat eral No observ ation record ed. [facility] [address] [place] [address], [address], 06/27/2020 08:43:42 05/27/20 22 05/27/2022 MAMMO , scree aamir, digit al, bilat eral [place], [address], 05/27/2022 15:32:50 07/26/20 23 07/26/2023 MAMMO , scree aamir, digit al, bilat eral No observ ation record ed. Not Available 07/07 07:52:48 10/19/19 25 10/19/2024 MAMMO , scree aamir, digit al, bilat eral No observ ation record ed. [address], [address], 10/22/2024 07:10:58 Result Notes None recorded. 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 Lizeth Herman MD [address], [place], [address], [place] [facility], 6 10:54:46 Gastroduo denitis 823235271 Active Lizeth Herman MD [address], [place], [address], [place] [facility], 6 10:54:46 Atypical squamous cells of undetermi mart significa nce on cervical Papanicol aou smear 742933094 Active Lizeth Herman MD [address], [place], [address], [place] [facility] [place], 6 10:54:46 Gastritis 8721426 Active Lizeth Herman MD [address], [place], [address], [place] [facility], 6 10:54:46 Family history of malignant neoplasm of ovary 083239756 Active Lizeth Herman MD [address], [place], [address], [place] [facility], 6 10:54:46 Primary malignant neoplasm of female breast 84429190 Active Lizeth Herman MD [address], [place], [address], [place] [facility], 6 10:54:46 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 Lizeth Herman MD [address], [place], [address], [place] [facility], 6 10:54:46 Vulval intraepit helial neoplasia grade 1 526841767 Active Lizeth Herman MD [address], [place], [address], [place] [facility], 6 10:54:46 Vitamin D deficienc y 01799241 Active Lizeth Herman MD [address], [place], [address], [place] [facility], 6 10:54:46 Mammograp hy abnormal 921064596 Active Lizeth Herman MD [address], [place], [address], [place] [facility], 6 10:54:46 Personal history of primary malignant neoplasm of breast 301386748 Active 2016 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 Lizeth Herman MD [address], [place], [address], [place] [facility], 1 14:00:48 Osteoporo sis 68626529 Active 2016 Lizeth Herman MD [address], [place], [address], [place] [facility], 7 15:00:50 Asthma 582479561 Active 2016 Lizeth Herman MD [address], [place], [address], [place] [facility], 7 15:02:03 History of dysplasia of vulva 550446407829 105 Active 2018 Lizeth Herman MD [address], [place], [address], [place] [facility], 15:18:36 Urinary incontine nce 593300676 Active 2020 Lizeth Herman MD [address] [facility],[address], [place], [address], [place] [facility], 14:03:30 Problem Notes None recorded. Procedures Surgical History Date Name Laterality Status Provider Name and Address Organization Details Recorded Time 07/06/20 23 Most Recent Mammogram completed Irma Mecbrittneyor [place] - [facility], 09/17/2024 14:33:36 07/22/20 21 procedure on back completed Irma Mecgreerwor [place] [facility], 04/26/2022 13:18:20 12/03/19 17 Most Recent Bone Density completed Irma Mecbrittneyor [place] [facility], 12/14/2016 14:45:19 09/05/19 14 Other completed Irma Mecbebetoywor [place] [facility], 12/10/2015 10:18:06 12/13/19 13 Colposcopy completed Lizeth Herman MD [address], [place], [address], [place] [facility], 12/12/2012 13:07:56 09/05/19 12 Other completed Irma Mecgreerwor [place] [facility], 08/08/2012 13:59:44 09/05/19 09 Other completed Irma Meczywor [place] [facility], 12/14/2016 14:44:01 09/05/19 03 Breast Biopsy completed Lizeth Herman MD [address], [place], [address], [place] [facility], 04/21/2021 14:00:34 09/05/18 94 Other completed Irma Mecgreerwor [place] [facility], 08/08/2012 13:59:44 09/05/18 77 Appendectomy completed Irma Mecgreerwor [place] [facility], 08/08/2012 13:59:44 09/05/18 77 Total Abdominal Hysterectomy completed Lizeth Herman MD [address] [place] [address],[address], [place], [address], JOSEPHINE Potter in [facility], 08/08/2012 14:09:00 Imaging Results Imaging Date Name Status LastModified by Organiz ation Details LastModified Time 06/26/2020 MAMMO, screening, digital, bilateral completed [facility] [address] [place], [address], 06/27/2020 08:43:42 05/27/2022 MAMMO, screening, digital, [place], [address], 05/27/2022 15:32:50 07/26/2023 MAMMO, screening, digital, bilateral completed Information not available 07/27/2023 07:52:48 10/19/2024 MAMMO, screening, digital, bilateral completed [facility] [address] [place], [address], 10/22/2024 07:10:58 Procedure Notes None recorded. Medical Equipment None Reported. Allergies Allergen ID Allergen Name Allergen Category Reaction Reaction Severity Criticality Documentation Date Start Date Code Code System Note Provider Name and Address Organization Details Recorded Time 92269 egg extract food,medi cation rash Not available Not available 09/11/2013 34935 15 RxNorm JOSEPHINE Berg in [facility], 4 13:40:00 5521 Avelox medicatio n other mild Not available 08/08/2012 02286 6 RxNorm welts JOSEPHINE Berg in [facility], 2 13:59:45 5522 Product containin g penicilli n (product) medicatio n rash Not available Not available 08/08/2012 47296 8001 SNOMED JOSEPHINE Berg in [facility], 2 13:59:45 5523 Levaquin medicatio n other mild Not available 08/08/2012 53909 2 RxNorm Irma Eric piña [place] [facility], 2 13:59:45 Medications Name Sig Start [...] clotrimazol e 10 mg netta DISSOLVE ONE NTETA IN MOUTH FIVE TIMES A DAY FOR [...] Updated DateTime 0 147.32 cm 40.1 kg/m2 72149.0 2 g 97.4 [degF] 88 /min 133 mm[Hg] 49 mm[Hg] Gena Potter in [facility], 0 13:08:32 Date Recorded Body weight Body mass index (BMI) Body height Body temperature Heart rate Systolic blood pressure Diastolic blood pressure Provider Name and Address Organization Details Last Updated DateTime 1 30835.7 5 g 43.1 kg/m2 147.32 cm 97.4 [degF] 81 /min 148 mm[Hg] 60 mm[Hg] Irma Potter in [facility], 1 13:26:01 Date Recorded Body height Body mass index (BMI) Body weight Heart rate Body temperature Systolic blood pressure Diastolic blood pressure Provider Name and Address Organization Details Last Updated DateTime 2 146.05 cm 46.4 kg/m2 48197.8 6 g 81 /min 97.5 [degF] 124 mm[Hg] 57 mm[Hg] Irma Potter in [facility], 2 13:11:32 Date Recorded Body temperature Body weight Body mass index (BMI) Body height Heart rate Systolic blood pressure Diastolic blood pressure Provider Name and Address Organization Details Last Updated DateTime 3 97.9 [degF] 44658.1 2 g 43.9 kg/m2 147.32 cm 83 /min 152 mm[Hg] 57 mm[Hg] Irma Reyes [place] - [facility], 3 13:33:28 Date Recorded Body weight Body mass index (BMI) Body height Body temperature Heart rate Systolic blood pressure Diastolic blood pressure Provider Name and Address Organization Details Last Updated DateTime 5 54507.5 2 g 30.9 kg/m2 175.26 cm 97.4 [degF] 84 /min 146 mm[Hg] 75 mm[Hg] Irma Reyes [place] [facility], 5 14:27:15 Social History Question Answer Notes LastModified by [employer] ion Details LastModified Time Tobacco Smoking Status Former Smoker quit 40 yrs ago Not Available [facility] 07/08/2020 03:19:37 What Is Your Level Of Alcohol Consumption? Occasional [id number] Information not available 07/08/2020 How Many Years Have You Consumed Alcohol? 50 Information not available 04/21/2021 What Is Your Level Of Caffeine Consumption? Occasional [id number] Information not available 07/08/2020 In The 14 [...] Type Of Diet Are You Following? REGULAR [id number] Information not available 07/08/2020 Which Illicit Or Recreational Drugs Have You Used? No [id number] Information not available 07/08/2020 Do You Reside In Or Have You Traveled To An Area Where Ebola Virus Transmission Is Active? No [id number] Information not available 07/08/2020 Do You Or Have You Ever Used E-cigarettes Or Vape? Never Used Electronic Cigarettes [id number] Information not available 07/08/2020 Education 2 Year College Informatio n not available 08/08/2012 What Is The Highest Grade Or Level Of School You Have Completed Or The Highest Degree You Have Received? [id number] Information not available 04/21/2021 What Is Your Occupation? Retired [id number] Information not available 07/08/2020 How Many Days [...] available 04/21/2021 Are You Sexually Active? Yes [id number] Information not available 07/08/2020 At What Age Did You Start Smoking Tobacco? 16 Information not available 04/21/2021 Do You Or Have You Ever Used Smokeless Tobacco? Never Used Smokeless Tobacco [id number] Information not available 07/08/2020 How Much Tobacco Do You Smoke? No [id number] Information not available 07/08/2020 General Stress Level Medium Information not available 09/17/2024 Do You Feel Stressed (tense, Restless, Nervous, Or Anxious, Or Unable To Sleep At Night)? [id number] Information not available 09/17/2024 Do You Use Any Illicit Or Recreational Drugs? No Information not available 04/21/2021 How Many Years Have You Smoked Tobacco? 10 [id number] Information not available 07/08/2020 Have You Recently [...] Irma Meczywor null, [place] [facility], 06/28/2023 13:24:44 Influenza, adjuvanted, quadrivalent, PF 0 completed Irma Meczywor null, [place] [facility], 06/28/2023 13:24:44 COVID-19, mRNA, LNP-S, PF, 100 mcg/0.5mL dose or 50 mcg/0.25mL dose 1 completed Irma Meczywor null, [place] [facility], 06/28/2023 13:24:44 COVID-19, mRNA, LNP-S, PF, 100 mcg/0.5mL dose or 50 mcg/0.25mL dose 1 completed Irma Meczywor null, [place] [facility], 06/28/2023 13:24:44 COVID-19, mRNA, LNP-S, PF, 30 mcg/0.3 mL dose 2 completed Irma Meczywor null, [place] [facility], 06/28/2023 13:24:44 COVID-19, mRNA, LNP-S, PF, 30 mcg/0.3 mL dose, fabricio-sucrose 2 completed Irma Meczywor null, [place] [facility], 06/28/2023 13:24:44 Pneumococcal conjugate PCV 13 6 completed Irma Meczywor null, [place] [facility], 06/28/2023 13:24:44 zoster recombinant 3 completed Irma Meczywor null, [place] [facility], 09/17/2024 14:25:43 Influenza, adjuvanted, quadrivalent, PF 2 completed Irma Meczywor null, [place] [facility], 09/17/2024 14:25:43 COVID-19, mRNA, LNP-S, PF, 100 mcg/0.5mL dose or 50 mcg/0.25mL dose 1 completed Irma Meczywor null, [place] [facility], 09/17/2024 14:25:43 COVID-19, mRNA, LNP-S, bivalent, PF, 30 mcg/0.3 mL dose 2 completed Irma Meczywor null, [place] [facility], 09/17/2024 14:25:43 Past Encounters Encounter ID Performer Location Encounter Start Date Encounter Closed Date Diagnosis/Indication Diagnosis SNOMED-CT Code Diagnosis ICD10 Code Diagnosis Note [id number] MD LIZETH Covington MD [address] [place] [address] 08/08/2012 13:22:43 08/10/2012 09:52:22 [id number] Irma HERMAN MD [address] [place] [address] 09/11/2013 13:26:47 09/12/2013 08:53:20 Screening for malignant neoplasm of cervix 951624796 Screening mammography 78789230 [id number] Irma HERMAN MD [address] [place] [address] 11/16/2012 14:26:27 11/16/2012 16:27:58 [id number] MD LIZETH Covington MD [address] [place] [address] 12/12/2012 08:04:19 12/13/2012 12:10:32 [id number] Irma HERMAN MD [address] [place], [place] [address] [address] 03/13/2013 13:21:29 03/15/2013 08:40:53 [id number] Irma Eric HERMAN MD [address] [place], [place] [address] [address] 03/26/2013 13:16:42 03/26/2013 16:27:27 [id number] LIZETH HERMAN MD [address] [place] [address] [place] [address] 11/14/2014 13:00:38 11/14/2014 14:31:18 Specialized medical examination [id number] Screening for malignant neoplasm of rectum 117105561 Screening mammography 77085171 [id number] MD LIZETH Covington MD [address] [place] [address] [place] [address] 12/10/2015 10:02:13 12/10/2015 11:53:16 Sampling of vagina for Papanicolaou smear 405892074 Z91.89 Screening mammography 24 473009 Z12.31 Mammography abnormal 168 590029 R92.8 [id number] MD LIZETH Covington MD [address] [place] [address] [place] [address] 12/14/2016 14:30:00 12/14/2016 16:07:42 Specialized medical examination 14155923 Z01.419 Screening for malignant neoplasm of rectum 059127617 Z12.12 Screening mammography 24 009792 Z12.31 Personal h istory of primary malignant neoplasm of breast 270168889 Z85.3 Osteoporosis 09775148 M8 1.0 Asthma 941163341 J45.90 9 Cares for self 286843212 Z76.89 [id number] MD LIZETH Covington MD [address] [place] [address] [place] [address] 12/28/2016 13:00:53 12/28/2016 15:20:31 Breast lump 69509724 N63 Personal h istory of primary malignant neoplasm of breast 773516657 Z85.3 [id number] MD LIZETH Covington MD [address] [place] [address] [place] [facility] [address] 03/16/2018 13:02:34 03/16/2018 14:59:41 Specialized medical examination 36097527 Z01.419 Screening for malignant neoplasm of rectum 789483313 Z12.12 Screening mammography 24 849229 Z12.31 48332 MD LZIETH Covington MD [address] [place] [address] [facility] [place] [address] 04/12/2019 14:34:34 04/12/2019 15:48:24 Screening for malignant neoplasm of cervix 237481970 Z12.4 Screening mammography 24 982842 Z12.31 Screening for osteoporosis 068951917 Z13.820 Personal h istory of primary malignant neoplasm of breast 912109380 Z85.3 History of gynecological disorder 983193666 Z87.412 32564 MD LIZETH Covington MD [address] [place] [address] [facility] [place] [address] 04/14/2020 13:06:18 04/14/2020 14:32:12 Sampling of vagina for Papanicolaou smear 430839794 Z91.89 Screening mammography 24 817626 Z12.31 Screening for osteoporosis 714136946 Z13.820 62346 MD LIZETH Covington MD [address] [place] [address] [facility] [place] [address] 04/21/2021 13:15:34 04/21/2021 14:24:06 Specialized medical examination 53681915 Z01.419 Screening for malignant neoplasm of rectum 495115503 Z12.12 Screening mammography 24 444147 Z12.31 Urinary incontinence 165 003428 R32 60339 MD LIZETH Covington MD [address] [place] [address] Pre[facility] [place] [address] 04/26/2022 13:03:14 04/26/2022 14:49:27 History of clinical finding in subject 707050549 Z91.89 Screening mammography 24 687932 Z12.31 Advance care planning 71 4877545 Z71.89 Screening for osteoporosis 982896553 N95.8 History of dysplasia of vulva 7381419242 82065 Z87.412 Personal h istory of primary malignant neoplasm of breast 688790616 Z85.3 Urinary incontinence 165 607812 R32 92361 MD LIZETH Covington MD [address] [facility] [place] [address] 06/28/2023 13:18:49 06/29/2023 08:06:11 History of clinical finding in subject 245370731 Z91.89 Screening mammography 24 964130 Z12.31 Advance care planning 71 5710152 Z71.89 Screening for osteoporosis 129369347 N95.8 325749 MD LIZETH Covington MD [address] [facility] [place] [address] 09/17/2024 14:21:13 09/17/2024 15:53:03 History of clinical finding in subject 590047165 Z91.89 Screening mammography 24 445646 Z12.31 Advance care planning 71 6709291 Z71.89 Screening for osteoporosis 764547805 N95.8 Health Concerns Section Related Observation LastModified by Organization Detai ls LastModified Time None Recorded Concern Status LastModified by Organization Details LastModified Time None Recorded Advance Directives Directive None Recorded Payers Encounter Date Sequence Insurance Name Policy Number Policy Kelly Covered Member ID Kelly Member ID Guarantor Name 04/14/2020 1 [place]) [id number] Neo Liptak [id number] Bernard Liptak 04/21/2021 1 [place]) [id number] Neo Liptak [id number] Bernard Liptak 04/26/2022 1 [place]MEDIC[place]PL[place] PPO) [id number] Bernard Liptak [id number] Bernard Liptak 06/28/2023 1 [place] PPO) [id number] Bernard Liptak [id number] Bernard Liptak 09/17/2024 1 [place] PPO) [id number] Bernard Liptak [id number] Bernard Liptak Notes Date Note Type [...] of FRANCISCO II. Her sister had an OK and her brother in law had 2 strokes in the past year, so she is doing most of the running with her. Her partner Rik is her health care proxy. Lizeth eHrman MD [address], [place], [address], [place] [facility], 04/14/2020 13:36:19 04/21/2021 text/html She is here [...] Lizeth Herman MD [address], [place], [address], [place] [facility], 04/21/2021 14:05:44 04/26/2022 text/html She is here [...] MD [address], [place], [address], [place] [facility], 04/26/2022 14:21:13 06/28/2023 text/html She is here [...] for incontinence issues. 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 She is BRCA negative. Lizeth Herman MD [address], [place], [address], [place] [facility], 09/17/2024 14:49:47 OBGyn Episode No OBEpisode recorded.
--- OUTSIDE RECORDS SUMMARY | 2024-11-15 06:26 | XMS_ITS ---
Author Organization [facility] Care Team Providers Care Wool Washer Feeder Name Role Phone Alyssa Mckeon Unavailable Unavailable Janette Tejada Unavailable Unavailable Nehal Espinosa Unavailable Unavailable Pavel Marte Unavailable Unavailable Allergies and adverse reactions Code CodeSystem Substance Reaction Severity StartDate Concern Status 224877886 SNOMED CT Penicillins Unknown 09/12/2022 activ e 077315 RXNORM Moxifloxacin Unknown 09/12/2022 active 33144 RXNORM levoFLOXacin Unknown 09/12/2022 active Care Team Name Role Address Phone Organization Dates Janette Tejada PCP [address], [place], [address], [facility] (Office): [facility] 09/12/2022 - 09/13/2022 Alyssa Mckeon Attending Physician [address] [address], [place], [address], [facility] (Office): [facility] 09/12/2022 - 09/13/2022 Nehal Espinosa Attending Physician [address] [facility] [address], [place], [address], [facility] (Office): [facility] 09/12/2022 - 09/13/2022 Pavel Marte Attending Physician [address] [place], [address], [facility] (Office): [facility] 09/12/2022 - 09/13/2022 Mental Status Section Date Assessment Total Score Description 09/13/2022 CAM 0 No delirium ind icated Problems Problem # Description Date of onset Resolved Date Code CodeSystem Concern Status 1 AFTERCARE FOLLOWING JOINT REPLACEMENT SURGERY [address] active 2 ANXIETY DISORDER, UNSPECIFIED [address] active 3 DEPRESSION, UNSPECIFIED [address] active 4 DIFFICULTY IN WALKING, NOT ELSEWHERE CLASSIFIED [address] active 5 ESSENTIAL (PRIMARY) HYPERTENSION [address] active 6 GASTRO-ESOPHAGEAL REFLUX DISEASE WITHOUT ESOPHAGITIS [address] active 7 HYPERLIPIDEMIA, UNSPECIFIED [address] active 8 MUSCLE WEAKNESS (GENERALIZED) [address] active 9 OTHER ASTHMA [address] active 10 PAIN IN RIGHT KNEE [address] active 11 PRESENCE OF RIGHT ARTIFICIAL KNEE JOINT [address] active 12 UNILATERAL PRIMARY OSTEOARTHRITIS, RIGHT KNEE [address] active 13 UNSPECIFIED ASTHMA, UNCOMPLICATED [address] active 14 UNSTEADINESS ON FEET [address] active Reason for Referral No Reasons for Referral Entered Social History Social History Observation Description Start Date End Date Code Code System Current Smoking Status Tobacco smoking consumption unknown 667912702 SNOMED CT Sex Assigned At Female 1945 49564-6 LOINC Vital Signs Code Code System Vitals Name Values and Units Timing Information 84147-3 LOINC Pain Level Value=2.0 09/13/2022 9279-1 LOINC Respiratory Rate Value=18.0 Units=/m in 09/13/2022 8462-4 [facility] Blood Pressure-Diastolic Value=75 Un its=mmHg 09/13/2022 8480-6 [facility] Blood Pressure-Systolic Vfddr=459 Un its=mmHg 09/13/2022 8310-5 [facility] Body Temperature Value=98.0 Units=?? F 09/13/2022 8867-4 [facility] Heart rate Value=90.0 Units=/min 05/2023 70495-2 [facility] O2 % BldC Oximetry Value=98.0 Units= % 09/13/2022 33394-2 [facility] Weight Gwvau=735.0 Units=Lbs 05/2023
== END 2024-11-15 06:24 | disposition home or self-care (01) ==
LOC: CF 06:23
PROVIDERS: Visit Provider Internal Medicine
DX: T84.84XD Pain due to internal orthopedic prosthetic devices, implants and grafts, subsequent encounter (principal); Z96.651 Presence of right artificial knee joint
CPT/HCPCS: 64555; C1778; J2003

== ENCOUNTER 2024-11-15 12:13 | Outpatient (AMB) | payer MEDICARE, SELFPAY ==
[2024-11-15 12:23] VITALS: BP 158/58; PULSE 88; RESP 16; O2SAT 94
--- NOTE | 2024-11-15 12:23 | MHC.OFFVIS ---
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: No Allergies hydromorphone [From Dilaudid] Allergy (Intermediate, Verified 11/15/24 12:24) asthma exacerbation moxifloxacin [From Avelox] Allergy (Intermediate, Verified 11/15/24 12:24) Hives Penicillins Allergy (Intermediate, Verified 11/15/24 12:24) Rash levofloxacin [From Levaquin] Adverse Reaction (Intermediate, Verified 11/15/24 12:24) restless legs Medication List - Last Reconciled 11/15/24 by Melissa Flynn LPN alprazolam 1 mg PO DAILY amlodipine 10 mg PO DAILY budesonide 0.25 mg inhalation BID bupropion HCl XL 300 mg PO QAM diclofenac sodium 1% (Arthritis Pain (diclofenac)) 4 grams topical QID dupilumab (Dupixent) 300 mg subcut Q2W famotidine 40 mg PO BID famotidine 20 mg PO BEDTIME kpbtxjhqvpd-bhdsuqexg-oocgregt 200-62.5-25 mcg (Trelegy Ellipta) 1 ea inhalation DAILY hydroxyzine HCl 25 mg PO QID immun glob G(IgG)-pro-IgA 0-50 10 gram/50 mL (20 %) (Hizentra) 5,000 mg subcut QWEEK lansoprazole 30 mg PO DAILY lidocaine 4% 1 patch topical DAILY PRN lidocaine 5% 2 patches topical DAILY 30 days linaclotide (Linzess) 145 mcg PO DAILY linaclotide (Linzess) mcg PO DAILY losartan 100 mg PO DAILY montelukast 10 mg PO DAILY omalizumab (Xolair) 150 mg subcut Q4W ondansetron 4 mg PO Q8H oxycodone 5 mg PO TID paroxetine HCl 30 mg PO DAILY pravastatin 10 mg PO DAILY PFSH Medical History Osteoporosis Arthritis Asthma GERD (gastroesophageal reflux disease) Elevated cholesterol HTN (hypertension) Chronic low back pain Surgical History History of back surgery History of open reduction and internal fixation (ORIF) procedure History of radiofrequency ablation (RFA) of genicular nerve Hx of mastectomy Hx of hysterectomy History of total left knee replacement History of total right knee replacement Social History Patient Tobacco Use Status: Former Tobacco user Physical Exam Vital Signs: Last Vital Signs Pulse 88 11/15/24 12:23 Resp 16 11/15/24 12:23 BP 158/58 H 11/15/24 12:23 Pulse Ox 94 11/15/24 12:23 Oxygen Delivery Method Room Air 11/15/24 12:23 Office Procedures Sprint PNS Device: Sprint PNS Device 05670 Percutaneous Peripheral Neuroelectrode Procedure: 80646 - Percutaneous Peripheral Neuroelectrode Procedure code (CPT) selection complete Office Meds lidocaine HCl 10 mg/mL (1 %) injection solution Performing Provider: Rhea Pitts APRN, JONN Performing Location: [facility] Administered by: Melissa Flynn LPN on 11/15/24 12:37 Dose Route Admin Location Dispensed Lot Number Expiration Date [employer] Machinery Mover 1 mL subcut 5 mL Assessment & Plan Assessment & Plan Orders: Orders [place] guidance in treatment room Today RIKA Kerns M25.561 - Pain in right knee AMB Sprint PNS Today Rhea Pitts APRN, SCHEDULE PLANNING MANAGER M25.561 - Pain in right knee Coding CPT Codes Sprint PNS - Sprint PNS Device: Sprint PNS Device ([id number]) Sprint PNS - SPRINT: 13595 - Percutaneous Peripheral Neuroelectrode ([id number]) Implantable Device Implantable Device Implantable Devices Qty Machinery Mover Implant Date Expiration Date Analgesic PENS system 1 [employer] 10/11/24 05/21/26 Analgesic PENS system 1 [employer] 11/15/24 06/03/26
--- OUTSIDE RECORDS SUMMARY | 2024-11-15 15:37 | XMS_ITS | Clinical Summary ---
Author Organization [facility] Address [address] [place] [address] Care Team Providers Care Entry Operator Name Role Phone Mannie Khan MD Primary Care Provider [phone] Surgical History Surgery Date Site/Laterality Comments MASTECTOMY 2002 PROCEDURE: HISTORICAL MASTECTOMY; COMMENT: right breast with subsequent reconstruction TONSILLECTOMY PROCEDURE: HISTORICAL TONSILLECTOMY OTHER SURGICAL HISTORY 1977 PROCEDURE: [place] TOTAL ABDOMINAL HYSTERECT W/WO RMVL TUBE OVARY; COMMENT: TAHBSO for endometriosis, took ERT for 2 years only after surgery BREAST REDUCTION 2002 PROCEDURE: [place] BREAST REDUCTION; COMMENT: left breast Medical History [...] Recently Relevant to Health Maintenance Results * [facility] DEXA AXIAL SKELETON (05/12/2021 4:45 PM EDT) Anatomical Region Laterality Modality Mammography 05/12/2021 1:59 PM EDT Narrative 05/12/2021 4:[address] [facility] Diagnostic Imaging Department [address] [place] [address] Patient: ??CRISTINA LEIJA ?/Age/Sex: 1945 - 76 - F Unit#: ??[id number] ? Location/Status: ??SPDIMAM/REG CLI ? Mnemonic/Ordering Site: ??MAMDEXAAX/SPMAM Ordering Physician: ??BILLY LOTT MD, PHD [facility] Dexa Axial Skeleton - 05/12/211421 HISTORY: [...] probability of hip fracture of 8.7%. Code 90840 Dictating Physician: ??GONSALO JOHNSON MD Electronically Signed by: ??GONSALO JOHNSON MD Dic Date/Time: ??05/12/211641 Sign date/Time: ??05/12/211644 Procedure Note Dali Johnson MD - 09/01/2022 [facility] Diagnostic Imaging Department [address] [place] [address] Patient: CRISTINA LEIJA Suzanne /Age/Sex: 1945 - 76 - F Unit#: [id number] Location/Status: [facility] Mnemonic/Ordering Site: [facility] Ordering Physician: BILLY LOTT MD, PHD [facility] Dexa Axial Skeleton - 05/12/211421 HISTORY: [...] probability of hip fracture of 8.7%. Code 46742 Dictating Physician: GONSALO JOHNSON MD Electronically Signed by: GONSALO JOHNSON MD Dic Date/Time: 05/12/21 1642 Sign date/Time: 05/12/21 1645 Billy Lott MD IMG BI PROCEDURES Final R esult from Last 3 Months or Most Recently Relevant to Health Maintenance Care Teams Entry Operator Relationship Specialty Start Date End Date Mannie Khan MD [address] [facility] [address] [place], [place] PCP - General Internal Medicine 08/18/21
--- OUTSIDE RECORDS SUMMARY | 2024-11-15 15:38 | XMS_ITS | Clinical Summary ---
Author Organization [facility] Address [address] [place] [address] Care Team Providers Care General Magistrate Name Role Phone Mannie Khan MD Primary Care Provider [phone] Allergies Active Allergy Reactions Criticality Noted Date [...] age to complete this topic Care Teams General Magistrate Relationship Specialty Start Date End Date Mannie Khan MD [address] [facility] [address] [place] [address] PCP - General Geriatric Medicine 11/26/20
--- OUTSIDE RECORDS SUMMARY | 2024-11-15 15:38 | XMS_ITS ---
Author Name [facility] Organization Unknown Encounters Encounter Type Encounter Reason Primary Diagnosis Location Date Ambulatory [facility] 02/25/2023
--- OUTSIDE RECORDS SUMMARY | 2024-11-15 15:38 | XMS_ITS ---
Author Organization [facility] Care Team Providers Care Snack Stewardess Name Role Phone Alyssa Mckeon Unavailable Unavailable Janette Tejada Unavailable Unavailable Nehal Espinosa Unavailable Unavailable Pavel Marte Unavailable Unavailable Allergies and adverse reactions Code CodeSystem Substance Reaction Severity StartDate Concern Status 090049806 SNOMED CT Penicillins Unknown 09/12/2022 activ e 462695 RXNORM Moxifloxacin Unknown 09/12/2022 active 72633 RXNORM levoFLOXacin Unknown 09/12/2022 active Care Team Name Role Address Phone Organization Dates Janette Tejada PCP [address], [place], [address], [facility] (Office): [facility] 09/12/2022 - 09/13/2022 Alyssa Mckeon Attending Physician [address] [address], [place], [address], [facility] (Office): [facility] 09/12/2022 - 09/13/2022 Nehal Espinosa Attending Physician [address] [facility] [address], [place], [address], [facility] (Office): [facility] 09/12/2022 - 09/13/2022 Pavel Marte Attending Physician [address] [place], [address], [facility] (Office): [facility] 09/12/2022 - 09/13/2022 Mental Status Section Date Assessment Total Score Description 09/13/2022 CAM 0 No delirium ind icated Problems Problem # Description Date of onset Resolved Date Code CodeSystem Concern Status 1 AFTERCARE FOLLOWING JOINT REPLACEMENT SURGERY [address] active 2 ANXIETY DISORDER, UNSPECIFIED [address] active 3 DEPRESSION, UNSPECIFIED [address] active 4 DIFFICULTY IN WALKING, NOT ELSEWHERE CLASSIFIED [address] active 5 ESSENTIAL (PRIMARY) HYPERTENSION [address] active 6 GASTRO-ESOPHAGEAL REFLUX DISEASE WITHOUT ESOPHAGITIS [address] active 7 HYPERLIPIDEMIA, UNSPECIFIED [address] active 8 MUSCLE WEAKNESS (GENERALIZED) [address] active 9 OTHER ASTHMA [address] active 10 PAIN IN RIGHT KNEE [address] active 11 PRESENCE OF RIGHT ARTIFICIAL KNEE JOINT [address] active 12 UNILATERAL PRIMARY OSTEOARTHRITIS, RIGHT KNEE [address] active 13 UNSPECIFIED ASTHMA, UNCOMPLICATED [address] active 14 UNSTEADINESS ON FEET [address] active Reason for Referral No Reasons for Referral Entered Social History Social History Observation Description Start Date End Date Code Code System Current Smoking Status Tobacco smoking consumption unknown 710921058 SNOMED CT Sex Assigned At Female 1945 57034-5 LOINC Vital Signs Code Code System Vitals Name Values and Units Timing Information 28355-7 LOINC Pain Level Value=2.0 09/13/2022 9279-1 LOINC Respiratory Rate Value=18.0 Units=/m in 09/13/2022 8462-4 [facility] Blood Pressure-Diastolic Value=75 Un its=mmHg 09/13/2022 8480-6 [facility] Blood Pressure-Systolic Ehdoz=683 Un its=mmHg 09/13/2022 8310-5 [facility] Body Temperature Value=98.0 Units=?? F 09/13/2022 8867-4 [facility] Heart rate Value=90.0 Units=/min 05/2023 46667-3 [facility] O2 % BldC Oximetry Value=98.0 Units= % 09/13/2022 64750-2 [facility] Weight Stnin=013.0 Units=Lbs 05/2023
== END 2024-11-15 13:11 | disposition home or self-care (01) ==
LOC: HO.PMCPRC 12:13
PROVIDERS: PCP Internal Medicine; Visit Provider Internal Medicine
DX: M25.561 Pain in right knee (principal)
CPT/HCPCS: 64555

== ENCOUNTER → 2024-11-22 13:03 | Outpatient (BNVA) | payer MEDICARE, SELFPAY | PROVIDERS: PCP Internal Medicine; Visit Provider Nurse Practitioner Family ==

== ENCOUNTER 2024-12-07 13:06 | Outpatient (AMB) | payer MEDICARE, SELFPAY ==
[2024-12-07 13:20] VITALS: BP 161/74; PULSE 90; O2SAT 95; BMI 42.8
--- NOTE | 2024-12-07 13:20 | A.OFFVIS_ITS ---
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 Required: No Allergies hydromorphone [From Dilaudid] Allergy (Intermediate, Verified 12/07/24 13:20) asthma exacerbation moxifloxacin [From Avelox] Allergy (Intermediate, Verified 12/07/24 13:20) Hives Penicillins Allergy (Intermediate, Verified 12/07/24 13:20) Rash levofloxacin [From Levaquin] Adverse Reaction (Intermediate, Verified 12/07/24 13:20) restless legs Medication List - Last Reconciled 12/07/24 by Tessa Robertson, [employer] DISTRIBUTOR OPERATOR alprazolam 1 mg PO DAILY amlodipine 10 mg PO DAILY budesonide 0.25 mg inhalation BID bupropion HCl XL 300 mg PO QAM diclofenac sodium 1% (Arthritis Pain (diclofenac)) 4 grams topical QID dupilumab (Dupixent) 300 mg subcut Q2W famotidine 40 mg PO BID famotidine 20 mg PO BEDTIME hwlmotgrirb-tezycsbly-ietnytvu 200-62.5-25 mcg (Trelegy Ellipta) 1 ea inhalation DAILY hydroxyzine HCl 25 mg PO QID immun glob G(IgG)-pro-IgA 0-50 10 gram/50 mL (20 %) (Hizentra) 5,000 mg subcut QWEEK lansoprazole 30 mg PO DAILY lidocaine 4% 1 patch topical DAILY PRN lidocaine 5% 2 patches topical DAILY 30 days linaclotide (Linzess) 145 mcg PO DAILY linaclotide (Linzess) mcg PO DAILY losartan 100 mg PO DAILY montelukast 10 mg PO DAILY omalizumab (Xolair) 150 mg subcut Q4W ondansetron 4 mg PO Q8H oxycodone 5 mg PO TID paroxetine HCl 30 mg PO DAILY pravastatin 10 mg PO DAILY HPI Comments Details: Patient presents today for left Sprint removal and 2 weeks status post right saphenous nerve Sprint PNS placement on 11/15/[address] Llanos. Patient reports ongoing 80% pain relief since procedure at 33 right and 59 left stimulation. She mentions improved ambulation; however, her sleep quality is still impacted by chronic pain. No adverse effects from the stimulation therapy are noted, and she remains free of fevers or other significant symptoms, supported by her ability to manage dressing changes at home collaboratively with family members. She does not take anticoagulants or supplements affecting bleeding risk. The dressing was removed today. Lead insertion site look clean, dry, intact, no redness or swelling, no pathological discharge. Area was cleansed with Chloraprep. The lead was removed with tip intact and the area was cleansed with Chloraprep, applied Bacitracin and covered it with gauze and dry dressing.?Patient reports she changed right knee dressing this morning. Reports pain level at 2/10. Denies any fever, chills, dizziness, shortness of breaths, weakness, instability, locking or giving way, bladder or bowel dysfunction or saddle anesthesia. Denies any recent cough, cold, infection, fever or any significant changes in medical history since last office visit. - Affect: Continued impact on sleep due to chronic pain despite improved ambulation - Analgesia: Current pain level at two; stimulation setting at 59 (left) and 33 (right) providing relief - Adverse Effects: Denies side effects from stimulation; no fever reported - Activities of Daily Living: Enhanced ambulation abilities, yet sleep remains affected - Aberrant Drug-Related Behaviors: None reported Past Procedures: 11/15/24: Right saphenous nerve Sprint PNS trial- 80% ongong pain relief 10/11/24: Left saphenous nerve Sprint PNS trial-50-60% pain relief; removed on 12/07/24 06/15/23: Bilateral genicular nerve cooled RFA-80% pain relief, fading effects since April 2024 04/20/23: Diagnostic Left GNB-90% pain relief for >48% 04/27/23: Diagnostic Right GNB-80% pain relief for >48 hours PRIOR: Patient is a pleasant 78 years old female with prior history of left ankle fracture with hardware intact since 1993, bilateral total knee replacements (left knee 2016, right knee 09/2022) and back surgery (2020 Dr. Dacosta), presents today with ongoing global anterior knee pain. She was seen by Orthopedic providers regularly. She is currently active with physical therapy, and has been active with home PT transitioned to outpatient PT since November. Reports she has not gained significant pain relief but some improvement in her functioning with PT. She also has lower back pain which is not bothering her as much. Bilateral knee pain is constant with severe pain up to 8-10/10 and describes it as aching, tiring, exhausting, squeezing, and heavy. She ambulates with slow antalgic gait with slight limping. Uses walker with ambulation. Oxycodone, lidocaine patches, diclofenac gel, ice/heat therapy has been only partially effective for her pain control. Pain affects her daily activities, functioning, mood, sleep, social interactions and quality of life. She is interested to undergo bilateral genicular nerve blocks for potential genicular RFA procedure. Patient is not interested in peripheral nerve stimulation with Sprint trial. [facility] Medical History Osteoporosis Arthritis Asthma GERD (gastroesophageal reflux disease) Elevated cholesterol HTN (hypertension) Chronic low back pain Surgical History History of back surgery History of open reduction and internal fixation (ORIF) procedure History of radiofrequency ablation (RFA) of genicular nerve Hx of mastectomy Hx of hysterectomy History of total left knee replacement History of total right knee replacement Social History Patient Tobacco Use Status: Former Tobacco user Review of Systems Const All systems reviewed & are unremarkable except as noted in HPI and below Physical Exam Vital Signs: Last Vital Signs Pulse 90 12/07/24 13:20 BP 161/74 H 12/07/24 13:20 Pulse Ox 95 12/07/24 13:20 Oxygen Delivery Method Room Air 12/07/24 13:20 BMI result Body Mass Index 42.8 General: Appears afebrile. Alert and oriented. Mood and affect appropriate. Follows and participates in conversation appropriately. Respiratory effort is unlabored. No cough. Able to transition from sit to stand unassisted. Uses cane with ambulation. Lead Insertion Site: Lead insertion site looks clean, dry, intact.? No pathological discharge, no swelling and no erythema.? Positive paresthesia at 59 on the left and 33 on the right. Left lead removed with tip intact. Right lead dressing done by patient at home this morning, declined dressing change on the right. Results Reviewed Results Reviewed: XR KNEE, LEFT 09/15/23 CLINICAL INFORMATION: Presence of left artificial knee FINDINGS: The patient is status post left knee arthroplasty with patellar button with femoral and tibial components in position and no evidence of acute fracture or dislocation. No loosening identified. Small joint effusion is seen. There is mild calcification of the distal quadriceps tendon. IMPRESSION: No significant abnormality of the left knee. XR KNEE, RIGHT 09/15/23 CLINICAL INFORMATION: Presence of right artificial knee joint COMPARISON: Right knee 03/01/2023 FINDINGS: The patient is status post right knee arthroplasty with patellar button with femoral and tibial components in position and no evidence of acute fracture or dislocation. No loosening identified. No joint effusion is seen. IMPRESSION: No significant abnormality of the right knee identified. Assessment & Plan Assessment & Plan (1) Chronic knee pain after total replacement of left knee joint: Code(s): M25.562 - Pain in left knee; G89.29 - Other chronic pain; Z96.652 - Presence of left artificial knee joint Category: Medical (2) Bilateral knee pain: Code(s): M25.561 - Pain in right knee; M25.562 - Pain in left knee Category: Medical (3) History of total right knee replacement: Comment: Dr. Sawyer Code(s): Z96.651 - Presence of right artificial knee joint Category: Surgical Plan I assessed the left peripheral nerve stimulator removal after completing the trial. The current stimulation settings provide satisfactory pain relief, reducing the impact on her daily life. I advised home care with managing dressing changes and maintaining hygiene for the intact right side. She was informed about the next steps for the right-side Sprint removal scheduled around January 10, and incremental setting adjustments were suggested for her comfort. The plan aims at sustaining her current levels of pain control and functional improvements. All questions were answered and the patient agreed with the plan. Follow up in January for right side Sprint removal and sooner if needed. Patient was informed and verbally consented to the use of an ambient scribe for clinic note documentation during this visit. Patient Instructions: I discussed with the patient the removal of the left peripheral nerve stimulator post trial, stressing its successful management of reduced pain levels. We explored potential adjustments in stimulation settings for the right side, ensuring her understanding of managing at-home dressing changes care. Consent was reiterated regarding the upcoming right-side Sprint removal and necessity for scheduled follow-up. - Remove left side bandage 24 hours post-removal - Continue home dressing changes with right knee Sprint PNS trial - May adjust right side stimulation settings if needed for comfort - Follow up on the right-side removal for early May - Monitor lead site for signs of infection and report if they occur - Maintain regular hygiene practices Coding Level of Care Code Est Pt Level 3 (32688) Complex EM visit Add On G2211 Diagnoses Chronic knee pain after total replacement of left knee joint M25.562; G89.29; Z96.652 Bilateral knee pain M25.561; M25.562 History of total right knee replacement Z96.651
--- OUTSIDE RECORDS SUMMARY | 2024-12-07 14:58 | XMS_ITS | Clinical Summary ---
Author Organization [facility] Address [address] [place] [address] Care Team Providers Care Back Shoe Cutter Name Role Phone Mannie Khan MD Primary Care Provider [phone] Allergies Active Allergy Reactions Criticality Noted Date [...] age to complete this topic Care Teams Back Shoe Cutter Relationship Specialty Start Date End Date Mannie Khan MD [address] [facility] [address] [place] [address] PCP - General Geriatric Medicine 11/26/20
--- OUTSIDE RECORDS SUMMARY | 2024-12-07 14:58 | XMS_ITS | Clinical Summary ---
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 Name Role Phone Mannie Khan MD Primary Care Provider [phone] Surgical History Surgery Date Site/Laterality Comments MASTECTOMY 2002 PROCEDURE: HISTORICAL MASTECTOMY; COMMENT: right breast with subsequent reconstruction TONSILLECTOMY PROCEDURE: HISTORICAL TONSILLECTOMY OTHER SURGICAL HISTORY 1977 PROCEDURE: NC TOTAL ABDOMINAL HYSTERECT W/WO RMVL TUBE OVARY; COMMENT: TAHBSO for endometriosis, took ERT for 2 years only after surgery BREAST REDUCTION 2002 PROCEDURE: NC BREAST REDUCTION; COMMENT: left breast Medical History [...] Vaccines (1 of 2) 1995 RSV Immunization Adult Patie nts (1 - 1-dose 75+ series) 02/02/2020 Colorectal [...] Recently Relevant to Health Maintenance Results * [facility] DEXA AXIAL SKELETON (05/12/2021 4:45 PM EDT) Anatomical Region Laterality Modality Mammography 05/12/2021 1:59 PM EDT Narrative 05/12/2021 4:[address] [facility] Diagnostic Imaging Department [address] [place] [address] Patient: ??CRISTINA LEIJA ?/Age/Sex: 1945 - 76 - F Unit#: ??[id number] ? Location/Status: ??SPDIMAM/REG CLI ? Mnemonic/Ordering Site: ??MAMDEXAAX/SPMAM Ordering Physician: ??BILLY LOTT MD, PHD [facility] Dexa Axial Skeleton - 05/12/211421 [...] probability of hip fracture of 8.7%. Code 36828 Dictating Physician: ??GONSALO JOHNSON MD Electronically Signed by: ??GONSALO JOHNSON MD Dic Date/Time: ??05/12/211641 Sign date/Time: ??05/12/211644 Procedure Note Dali Johnson MD - 09/01/2022 [facility] Diagnostic Imaging Department [address] [place] [address] Patient: CRISTINA LEIJA Suzanne /Age/Sex: 1945 - 76 - F Unit#: [id number] Location/Status: [facility] Mnemonic/Ordering Site: [facility] Ordering Physician: BILLY LOTT MD, PHD [facility] Dexa Axial Skeleton - 05/12/211421 [...] probability of hip fracture of 8.7%. 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
--- OUTSIDE RECORDS SUMMARY | 2024-12-07 14:59 | XMS_ITS | Data Portability ---
Author Organization [place] - [facility],, LIZETH HERMAN MD Address [address] [address] Care Team Providers Care [employer] Name Role Phone GURVINDER BOLANOS Primary Care Provider Assessment No assessment recorded. Plan of Treatment Reminders Order Date Submit Date Provider Last Modified By Organization Details Last Modified Time Details Appointments None recorded. Lab cytology report, thin prep, smear or scraping, cervical or vaginal 2024 025 PHIL [facility] (Centralized Electronic Ordering - All Locations), Patient Can Go To The Location Of Their Choice, [address] 5 18:16:26 pap test, thinprep, cervical 2022 023 [email or web address] [facility] (Centralized Electronic Ordering - All Locations), Patient Can Go To The Location Of Their Choice, [address] 3 07:27:16 pap test, thinprep, cervical 2021 022 [email or web address] [facility], Cytopathology Service, [address] [place], [address], 2 07:38:27 pap test, thinprep, cervical 2020 021 [email or web address] [facility], Cytopathology Service, [address] [place], [address], 1 07:20:46 fecal occult blood, stool 2020 021 [email or web address] 1 In-Office Order, Internal Use Only DO Not Attach Compendium DO Not Attach Compendium, Do Not Delete/merge, [id number] 1 14:03:16 pap, LB, vaginal 2019 020 [facility], Cytopathology Service, [address] [place], [address], 0 07:40:41 Referral None recorded. Procedures None recorded. Surgeries None recorded. Imaging MAMMO, screening , digital, bilateral - Breast Aspiratio n and/or Biopsy if needed 2024 025 [facility], [address], [address], [place], [address], 5 13:58:55 bone density 2024 025 [email or web address] Orders, [address], [address], [place], [address], 5 15:53:04 MAMMO, screening , digital, bilateral - Breast Aspiratio n and/or Biopsy if needed 2022 023 [facility]), [address] [place], [address], 3 17:41:43 bone density 2022 023 [facility]), [address] [place], [address], 4 07:27:36 MAMMO, screening , digital, bilateral - patient aware needs to go 2021 022 [facility] ([facility]), [address] [place], [address], 2 15:31:33 bone density 2021 022 [facility] ([facility]), [address] [place], [address], 4 07:36:31 MAMMO, screening , digital, bilateral 2020 021 [email or web address] [facility]), [facility] [place], [address], 3 07:38:19 MAMMO, screening , digital, bilateral 2019 020 PHIL [facility]), [facility] [place], [address], 0 16:31:27 bone density 2019 020 [email or web address] [facility]), [address] [place] [address], [address], 1 07:23:18 Medication Orders None recorded. Patient TargetsNo targets recorded. Patient Instructions Encounter Date Encounter Id Patient Instructions Last Modified By Organization Details Last Modified Time 04/14/2020 [id number] She is here for annual exam, is doing well. ___ Note from 2019: She is here for annual exam, is doing well but still using a cane due to her knee replacement. She has a past history of right breast cancer, and also of FRANCISCO II. Her sister had an RI and her brother in law had 2 strokes in the past year, so she is doing most of the running with her. Her partner Rik is her health care proxy. She appears to be doing well. She is still usign a cane, The knee operation was botched, it's not getting any better. She is going to go to [place] to have it redone once covid is [...] questions answered. Not available 04/14/2020 13:35:48 04/21/2021 [id number] learning about healthy weight Not available 04/21/2021 [...] do this. Not available 04/21/2021 14:05:17 04/26/2022 [id number] advance benefici elijah notice information Not available [...] the breast. Not available 04/26/2022 14:20:32 06/28/2023 [id number] advance benefici elijah notice information Not available [...] the breast. Not available 06/28/2023 14:57:22 09/17/2024 [id number] advance benefici elijah notice information Not available [...] DO Not Attach Compendium, Do Not Delete/merge, [id number] 04/21/2021 13:17:31 04/14/20 20 04/14/2020 pap, LB, vagin al [id number] ThinP rep Pap, Image d: NEGAT MALENA [...] neg, z12.4 , z91.8 9 Not Available [facility], Cytopathology Service [address] [place], [address], 04/16/2020 12:20:49 04/21/20 21 04/21/2021 PAP1C ASE [id number] ThinP rep Pap, Image d: NEGAT MALENA [...] ASCUS . lps neg, Z12.4 Not Available [facility], Cytopathology Service [address] [place], [address], 04/24/2021 12:11:30 04/26/20 22 04/26/2022 PAP1C ASE [id number] ThinP rep Pap, Image d: NEGAT MALENA [...] ause, lps neg, [Z01. 419] Not Available [facility], Cytopathology Service [address] [facility], [place], [address], 04/28/2022 16:06:04 06/28/20 23 06/28/2023 [facility] CYTOL OGY results Magalis sidhu Name: BERNARD RAMOS nt : 1944 (Age: 78) Lab Acces fabiola #: [id number] Colle ction Date: 06/28 Acces fabiola Date: 06/28 Sign Out Date: 07/04 Tissu e Sourc e: 1: THINP REP 21 DEALER PAP TEST, VAGIN AL: Final Diagn osis: [...] merlos or gurmeet witt. Perfo rmed at [facility] ate Refer ence Labor atory depar tment of Cytol ogy, [address] [place] Clini [facility] Histo ry (othe r): Z91.8 9, routi ne scree n, Medic are scree aamir pap smear -high risk, LPS neg Phone #: [phone], On-Ca ll Patho logis t: [id number] Not Available [facility] (Centralized Electronic Ordering - All Locations) Patient Can Go To The Location Of Their Choice, [id number] 07/04/2023 13:49:42 09/17/19 25 09/19/2024 IGP, RFX APTIM A HPV ASCU diagnosis: Commen t NEGAT MALENA FOR INTRA EPITH ELIAL LESIO N OR MALIG NATASHA . Not Available [facility] ([facility]) [address] [place], [address], 09/19/2024 18:16:26 09/17/19 25 09/19/2024 IGP, RFX APTIM A HPV ASCU specimen adequacy: Abril galvan Satis facto ry for evalu ation . Not Available [facility] ([facility]) [address] [place], [address], 09/19/2024 18:16:26 09/17/19 25 09/19/2024 IGP, RFX APTIM A HPV ASCU clinician provided ICD10: Abril galvan Z91.8 9 Not Available [facility] ([facility]) [address] [place], [address], 09/19/2024 18:16:26 09/17/19 25 09/19/2024 IGP, RFX APTIM A HPV ASCU performed by: Marty Escobar (ASCP ) Not Available [facility] ([facility]) [address] [place], [address], 09/19/2024 18:16:26 09/17/19 25 09/19/2024 IGP, RFX APTIM A HPV ASCU . . Not Available [facility] ([facility]) [address] [place], [address], 09/19/2024 18:16:26 09/17/19 25 09/19/2024 IGP, RFX [...] ts do occur . Not Available [facility] ([facility]) [address] [facility], [place], [address], 09/19/2024 18:16:26 09/17/19 25 09/19/2024 IGP, RFX APTIM A HPV ASCU test methodology: Commen t This liqui d based ThinP rep(R ) pap test was tasneem cevallos with the use of an image guide karlene duarte Not Available [facility] ([facility]) [address] [facility], [place], [address], 09/19/2024 18:16:26 09/17/19 25 09/19/2024 IGP, RFX APTIM A HPV ASCU . Commen t The HPV DNA refle x crite kimberly were not met with this speci men resul t there fore, no HPV testi ng was perfo rmed. Not Available [facility] ([facility]) [address] [facility], [place], [address], 09/19/2024 18:16:26 06/26/20 20 06/26/2020 MAMMO , scree aamir, digit al, bilat eral No observ ation record ed. [facility] [address] [place] [address], [address], 06/27/2020 08:43:42 05/27/20 22 05/27/2022 MAMMO , scree aamir, digit al, bilat eral [place], [address], 05/27/2022 15:32:50 07/26/20 23 07/26/2023 MAMMO , scree aamir, digit al, bilat eral No observ ation record ed. Not Available 07/07 07:52:48 10/19/19 25 10/19/2024 MAMMO , scree aamir, digit al, bilat eral No observ ation record ed. [address], [address], 10/22/2024 07:10:58 Result Notes None recorded. 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 Lizeth Herman MD [address], [place], [address], [place] [facility], 6 10:54:46 Gastroduo denitis 299106270 Active Lizeth Herman MD [address], [place], [address], [place] [facility] [place] [facility], 6 10:54:46 Atypical squamous cells of undetermi mart significa nce on cervical Papanicol aou smear 769506915 Active Lizeth Herman MD [address], [place], [address], [place] [facility], 6 10:54:46 Gastritis 9318998 Active Lizeth Herman MD [address], [place], [address], [place] [facility], 6 10:54:46 Family history of malignant neoplasm of ovary 517838491 Active Lizeth Herman MD [address], [place], [address], [place] [facility], 6 10:54:46 Primary malignant neoplasm of female breast 15878230 Active Lizeth Herman MD [address], [place], [address], [place] [facility], 6 10:54:46 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 Lizeth Herman MD [address], [place], [address], [place] [facility], 6 10:54:46 Vulval intraepit helial neoplasia grade 1 957765697 Active Lizeth Herman MD [address], [place], [address], [place] [facility], 6 10:54:46 Vitamin D deficienc y 19643504 Active Lizeth Herman MD [address], [place], [address], [place] [facility], 6 10:54:46 Mammograp hy abnormal 101663646 Active Lizeth Herman MD [address], [place], [address], [place] [facility], 6 10:54:46 Personal history of primary malignant neoplasm of breast 850145667 Active 2016 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 Lizeth Herman MD [address], [place], [address], [place] - [facility] [place] [facility], 1 14:00:48 Osteoporo sis 11927519 Active 2016 Lizeth Herman MD [address], [place], [address], [place] [facility], 7 15:00:50 Asthma 516788758 Active 2016 Lizeth Herman MD [address], [place], [address], [place] [facility], 7 15:02:03 History of dysplasia of vulva 389250133846 105 Active 2018 Lizeth Herman MD [address], [place], [address], [place] [facility], 15:18:36 Urinary incontine nce 199827744 Active 2020 Lizeth Herman MD [address] [facility],[address], [place], [address], [place] [facility] [place] [facility], 14:03:30 Problem Notes None recorded. Procedures Surgical History Date Name Laterality Status Provider Name and Address Organization Details Recorded Time 07/06/20 23 Most Recent Mammogram completed Irma Mecbrittneyor [place] - [facility], 09/17/2024 14:33:36 07/22/20 21 procedure on back completed Irma Mecgreerwor [place] - [facility], 04/26/2022 13:18:20 12/03/19 17 Most Recent Bone Density completed Irma Mecbrittneyor [place] - [facility], 12/14/2016 14:45:19 09/05/19 14 Other completed Irma Mecbebetoywor [place] - [facility] [place] [facility], 12/10/2015 10:18:06 12/13/19 13 Colposcopy completed Lizeth Herman MD [address], [place], [address], [place] - [facility], 12/12/2012 13:07:56 09/05/19 12 Other completed Irma Mecgreerwor [place] - [facility] [place] [facility], 08/08/2012 13:59:44 09/05/19 09 Other completed Irma Meczywor [place] - [facility], 12/14/2016 14:44:01 09/05/19 03 Breast Biopsy completed Lizeth Herman MD [address], [place], [address], [place] - [facility], 04/21/2021 14:00:34 09/05/18 94 Other completed Irma Mecgreerwor [place] - [facility], 08/08/2012 13:59:44 09/05/18 77 Appendectomy completed Irma Mecgreerwor [place] - [facility] [place] [facility], 08/08/2012 13:59:44 09/05/18 77 Total Abdominal Hysterectomy completed Lizeth Herman MD [address] [place] [address],[address], [place], [address], JOSEPHINE Potter in [facility], 08/08/2012 14:09:00 Imaging Results Imaging Date Name Status LastModified by Organiz ation Details LastModified Time 06/26/2020 MAMMO, screening, digital, bilateral completed [facility] [address] [place], [address], 06/27/2020 08:43:42 05/27/2022 MAMMO, screening, digital, [place], [address], 05/27/2022 15:32:50 07/26/2023 MAMMO, screening, digital, bilateral completed Information not available 07/27/2023 07:52:48 10/19/2024 MAMMO, screening, digital, bilateral completed [facility] [address] [place], [address], 10/22/2024 07:10:58 Procedure Notes None recorded. Medical Equipment None Reported. Allergies Allergen ID Allergen Name Allergen Category Reaction Reaction Severity Criticality Documentation Date Start Date Code Code System Note Provider Name and Address Organization Details Recorded Time 25801 egg extract food,medi cation rash Not available Not available 09/11/2013 09717 15 RxNorm JOSEPHINE Berg in [facility], 4 13:40:00 5521 Avelox medicatio n other mild Not available 08/08/2012 62403 6 RxNorm welts JOSEPHINE Berg in [facility], 2 13:59:45 5522 Product containin g penicilli n (product) medicatio n rash Not available Not available 08/08/2012 58207 8001 SNOMED JOSEPHINE Berg in [facility], 2 13:59:45 5523 Levaquin medicatio n other mild Not available 08/08/2012 99955 2 RxNorm Irma Eric piña [place] [facility], 2 13:59:45 Medications Name Sig Start [...] -homatropin e 5 mg-1.5 mg/5 mL oral solution active Not Available Not Available Not Available oxybutynin chloride ER 5 mg tablet,exte [...] Updated DateTime 0 147.32 cm 40.1 kg/m2 94575.0 2 g 97.4 [degF] 88 /min 133 mm[Hg] 49 mm[Hg] Gena Potter in [facility], 0 13:08:32 Date Recorded Body weight Body mass index (BMI) Body height Body temperature Heart rate Systolic blood pressure Diastolic blood pressure Provider Name and Address Organization Details Last Updated DateTime 1 65273.7 5 g 43.1 kg/m2 147.32 cm 97.4 [degF] 81 /min 148 mm[Hg] 60 mm[Hg] Iram Potter in [facility], 1 13:26:01 Date Recorded Body height Body mass index (BMI) Body weight Heart rate Body temperature Systolic blood pressure Diastolic blood pressure Provider Name and Address Organization Details Last Updated DateTime 2 146.05 cm 46.4 kg/m2 53470.8 6 g 81 /min 97.5 [degF] 124 mm[Hg] 57 mm[Hg] Irma Potter in [facility], 2 13:11:32 Date Recorded Body temperature Body weight Body mass index (BMI) Body height Heart rate Systolic blood pressure Diastolic blood pressure Provider Name and Address Organization Details Last Updated DateTime 3 97.9 [degF] 48247.1 2 g 43.9 kg/m2 147.32 cm 83 /min 152 mm[Hg] 57 mm[Hg] Irma Reyes [place] - [facility] [place] [facility], 3 13:33:28 Date Recorded Body weight Body mass index (BMI) Body height Body temperature Heart rate Systolic blood pressure Diastolic blood pressure Provider Name and Address Organization Details Last Updated DateTime 5 98927.5 2 g 30.9 kg/m2 175.26 cm 97.4 [degF] 84 /min 146 mm[Hg] 75 mm[Hg] Irma Reyes [place] - [facility] [place] [facility], 5 14:27:15 Social History Question Answer Notes LastModified by Organizat ion Details LastModified Time Tobacco Smoking Status Former Smoker quit 40 yrs ago Not Available [facility] 07/08/2020 03:19:37 What Is Your Level Of Alcohol Consumption? Occasional [id number] Information not available 07/08/2020 How Many Years Have You Consumed Alcohol? 50 Information not available 04/21/2021 What Is Your Level Of Caffeine Consumption? Occasional [id number] Information not available 07/08/2020 In The 14 [...] Type Of Diet Are You Following? REGULAR [id number] Information not available 07/08/2020 Which Illicit Or Recreational Drugs Have You Used? No [id number] Information not available 07/08/2020 Do You Reside In Or Have You Traveled To An Area Where Ebola Virus Transmission Is Active? No [id number] Information not available 07/08/2020 Do You Or Have You Ever Used E-cigarettes Or Vape? Never Used Electronic Cigarettes [id number] Information not available 07/08/2020 Education 2 Year College Informatio n not available 08/08/2012 What Is The Highest Grade Or Level Of School You Have Completed Or The Highest Degree You Have Received? [id number] Information not available 04/21/2021 What Is Your Occupation? Retired [id number] Information not available 07/08/2020 How Many Days [...] available 04/21/2021 Are You Sexually Active? Yes [id number] Information not available 07/08/2020 At What Age Did You Start Smoking Tobacco? 16 Information not available 04/21/2021 Do You Or Have You Ever Used Smokeless Tobacco? Never Used Smokeless Tobacco [id number] Information not available 07/08/2020 How Much Tobacco Do You Smoke? No [id number] Information not available 07/08/2020 General Stress Level Medium Information not available 09/17/2024 Do You Feel Stressed (tense, Restless, Nervous, Or Anxious, Or Unable To Sleep At Night)? [id number] Information not available 09/17/2024 Do You Use Any Illicit Or Recreational Drugs? No Information not available 04/21/2021 How Many Years Have You Smoked Tobacco? 10 [id number] Information not available 07/08/2020 Have You Recently [...] for MyRisk panel Y Autoimmune Condition Y Kidney or Bladder Problems N Thyroid Problems N Depression Y Lung Disease Y GI Problems Y Defects or Inherited Disease N Anemia [...] Irma Meczywor null, [place] - [facility], 06/28/2023 13:24:44 Influenza, adjuvanted, quadrivalent, PF 0 completed Irma Meczywor null, [place] - [facility], 06/28/2023 13:24:44 COVID-19, mRNA, LNP-S, PF, 100 mcg/0.5mL dose or 50 mcg/0.25mL dose 1 completed Irma Meczywor null, [place] - [facility], 06/28/2023 13:24:44 COVID-19, mRNA, LNP-S, PF, 100 mcg/0.5mL dose or 50 mcg/0.25mL dose 1 completed Irma Meczywor null, [place] - [facility], 06/28/2023 13:24:44 COVID-19, mRNA, LNP-S, PF, 30 mcg/0.3 mL dose 2 completed Irma Meczywor null, [place] - [facility], 06/28/2023 13:24:44 COVID-19, mRNA, LNP-S, PF, 30 mcg/0.3 mL dose, fabricio-sucrose 2 completed Irma Meczywor null, [place] - [facility], 06/28/2023 13:24:44 Pneumococcal conjugate PCV 13 6 completed Irma Meczywor null, [place] [facility], 06/28/2023 13:24:44 zoster recombinant 3 completed Irma Meczywor null, [place] [facility], 09/17/2024 14:25:43 Influenza, adjuvanted, quadrivalent, PF 2 completed Irma Meczywor null, [place] [facility], 09/17/2024 14:25:43 COVID-19, mRNA, LNP-S, PF, 100 mcg/0.5mL dose or 50 mcg/0.25mL dose 1 completed Irma Meczywor null, [place] [facility], 09/17/2024 14:25:43 COVID-19, mRNA, LNP-S, bivalent, PF, 30 mcg/0.3 mL dose 2 completed Irma Meczywor null, [place] [facility], 09/17/2024 14:25:43 Past Encounters Encounter ID Performer Location Encounter Start Date Encounter Closed Date Diagnosis/Indication Diagnosis SNOMED-CT Code Diagnosis ICD10 Code Diagnosis Note [id number] MD LIZETH Covington MD [address] [place] [address] 08/08/2012 13:22:43 08/10/2012 09:52:22 [id number] Irma HERMAN MD [address] [place] [address] 09/11/2013 13:26:47 09/12/2013 08:53:20 Screening for malignant neoplasm of cervix 301026841 Screening mammography 11274873 [id number] Irma HERMAN MD [address] [place] [address] 11/16/2012 14:26:27 11/16/2012 16:27:58 [id number] MD LIZETH Covington MD [address] [place] [address] 12/12/2012 08:04:19 12/13/2012 12:10:32 [id number] Irma HERMAN MD [address] [place] [address] [place] [address] 03/13/2013 13:21:29 03/15/2013 08:40:53 [id number] Irma Mellissapallavi LIZETH HERMAN MD [address] [place] [address] [place] [address] 03/26/2013 13:16:42 03/26/2013 16:27:27 [id number] LIZETH HERMAN MD [address] [place] [address] [place] [address] 11/14/2014 13:00:38 11/14/2014 14:31:18 Specialized medical examination 65401343 Screening for malignant neoplasm of rectum 487055126 Screening mammography [id number] [id number] MD LIZETH Covington MD [address] [place] [address] [place] [address] 12/10/2015 10:02:13 12/10/2015 11:53:16 Sampling of vagina for Papanicolaou smear 433231571 Z91.89 Screening mammography 24 842625 Z12.31 Mammography abnormal 168 214376 R92.8 [id number] MD LIZETH Covington MD [address] [place] [address] [place] [address] 12/14/2016 14:30:00 12/14/2016 16:07:42 Specialized medical examination 06207287 Z01.419 Screening for malignant neoplasm of rectum 179059076 Z12.12 Screening mammography 24 697459 Z12.31 Personal h istory of primary malignant neoplasm of breast 948087739 Z85.3 Osteoporosis 34691583 M8 1.0 Asthma 399455377 J45.90 9 Cares for self 716145828 Z76.89 [id number] MD LIZETH Covington MD [address] [place] [address] [place] [address] 12/28/2016 13:00:53 12/28/2016 15:20:31 Breast lump 92214361 N63 Personal h istory of primary malignant neoplasm of breast 855932300 Z85.3 [id number] MD LIZETH Covington MD [address] [place] [address] [place] [address] 03/16/2018 13:02:34 03/16/2018 14:59:41 Specialized medical examination 81195058 Z01.419 Screening for malignant neoplasm of rectum 470316110 Z12.12 Screening mammography 24 273511 Z12.31 [id number] MD LIZETH Covington MD [address] [place] [address] [place] [address] 04/12/2019 14:34:34 04/12/2019 15:48:24 Screening for malignant neoplasm of cervix 913134617 Z12.4 Screening mammography 24 524357 Z12.31 Screening for osteoporosis 300460698 Z13.820 Personal h istory of primary malignant neoplasm of breast 044193131 Z85.3 History of gynecological disorder 522545047 Z87.412 [id number] MD LIZETH Covington MD [address] [place] [address] [place] [address] 04/14/2020 13:06:18 04/14/2020 14:32:12 Sampling of vagina for Papanicolaou smear 675345238 Z91.89 Screening mammography 24 [id number] Z12.31 Screening for osteoporosis [id number] Z13.820 [id number] MD LIZEHT Covington MD [address] [place] [address] [place] [address] 04/21/2021 13:15:34 04/21/2021 14:24:06 Specialized medical examination [id number] Z01.419 Screening for malignant neoplasm of rectum [id number] Z12.12 Screening mammography 24 843934 Z12.31 Urinary incontinence 165 351633 R32 [id number] MD LIZETH Covington MD [address] [place] [address] [place] [address] 04/26/2022 13:03:14 04/26/2022 14:49:27 History of clinical finding in subject [id number] Z91.89 Screening mammography 24 463946 Z12.31 Advance care planning 71 1671162 Z71.89 Screening for osteoporosis 068160655 N95.8 History of dysplasia of vulva [id number] 75714 Z87.412 Personal h istory of primary malignant neoplasm of breast 469718351 Z85.3 Urinary incontinence 165 740726 R32 [id number] MD LIZETH Covington MD [address] [facility] [place] [address] 06/28/2023 13:18:49 06/29/2023 08:06:11 History of clinical finding in subject 473924202 Z91.89 Screening mammography 24 217223 Z12.31 Advance care planning 71 7210288 Z71.89 Screening for osteoporosis 327250788 N95.8 [id number] MD LIZETH Covington MD [address] [facility] [place] [address] 09/17/2024 14:21:13 09/17/2024 15:53:03 History of clinical finding in subject 124739052 Z91.89 Screening mammography 24 859686 Z12.31 Advance care planning 71 7282385 Z71.89 Screening for osteoporosis 010766547 N95.8 Health Concerns Section Related Observation LastModified by Organization Detai ls LastModified Time None Recorded Concern Status LastModified by Organization Details LastModified Time None Recorded Advance Directives Directive None Recorded Payers Encounter Date Sequence Insurance Name Policy Number Policy Kelly Covered Member ID Kelly Member ID Guarantor Name 04/14/2020 1 [place]PPO) [id number] Neo Liptak [id number] Bernard Liptak 04/21/2021 1 [place]) [id number] Neo Liptak [id number] Bernard Liptak 04/26/2022 1 [place]MEDIC[place]PL[place] PPO) [id number] Bernard Liptak [id number] Bernard Liptak 06/28/2023 1 [place] PPO) [id number] Bernard Liptak [id number] Bernard Liptak 09/17/2024 1 [place] PPO) [id number] Bernard Liptak [id number] Bernard Liptak Notes Date Note Type [...] of FRANCISCO II. Her sister had an RI and her brother in law had 2 strokes in the past year, so she is doing most of the running with her. Her partner Rik is her health care proxy. Lizeth Herman MD [address], [place], [address], [place] [facility] [place] [facility], 04/14/2020 13:36:19 04/21/2021 text/html She [...] Lizeth Herman MD [address], [place], [address], [place] [facility] [place] [facility], 04/21/2021 14:05:44 04/26/2022 text/html She is here for annual exam, is doing well. Walking wiht walker, aileends knee surgery, It's bone on bone. Past [...] MD [address], [place], [address], [place] [facility] [place] [facility], 04/26/2022 14:21:13 06/28/2023 text/html She [...] for incontinence issues. 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 She is BRCA negative. Lizeth Herman MD [address], [place], [address], [place] [facility] [place] [facility], 09/17/2024 14:49:47 OBGyn Episode No OBEpisode recorded.
== END 2024-12-07 13:30 | disposition home or self-care (01) ==
LOC: HO.PMC 13:07
PROVIDERS: PCP Internal Medicine; Visit Provider Nurse Practitioner Family
DX: M25.562 Pain in left knee (principal); G89.29 Other chronic pain; Z96.652 Presence of left artificial knee joint; M25.561 Pain in right knee; Z96.651 Presence of right artificial knee joint
CPT/HCPCS: 99213; G2211

== ENCOUNTER → 2024-12-07 13:06 | Outpatient (BNVA) | payer MEDICARE, SELFPAY | PROVIDERS: PCP Internal Medicine; Visit Provider Nurse Practitioner Family | DX: M25.562 Pain in left knee (principal); M25.561 Pain in right knee; G89.29 Other chronic pain; Z96.652 Presence of left artificial knee joint; Z96.651 Presence of right artificial knee joint | CPT/HCPCS: 99212 ==

== ENCOUNTER 2025-01-10 12:54 | Outpatient (AMB) | payer MEDICARE, SELFPAY ==
--- NOTE | 2025-01-10 12:57 | MHC.OFFVIS ---
Vital Signs 01/10/25 13:01 Height 4 ft 10 in Weight 195 lb BMI 40.8 BP 151/70 H Blood Pressure Location Lt brachial Position Sitting Pulse 83 Pulse Source Pulse Oximeter Pulse Oximetry (%) 98 Oxygen Delivery Method Room Air Intake Visit Reasons: Right Sprint removal Intake Note: Pain today 5 Geotechnical Laboratory Technician Required: No Accompanied by: Self / Same As Patient Allergies hydromorphone [From Dilaudid] Allergy (Intermediate, Verified 01/10/25 13:01) asthma exacerbation moxifloxacin [From Avelox] Allergy (Intermediate, Verified 01/10/25 13:01) Hives Penicillins Allergy (Intermediate, Verified 01/10/25 13:01) Rash levofloxacin [From Levaquin] Adverse Reaction (Intermediate, Verified 01/10/25 13:01) restless legs HPI Comments Details: Patient presents today for right Sprint removal. Patient reports ongoing 60% pain relief since procedure at 33-40 stimulation. She mentions improved ambulation; however, her sleep quality is still impacted by chronic pain and flare up in lower back pain with previous history of back surgery. No adverse effects from the stimulation therapy are noted. The dressing was removed today. Lead insertion site look clean, dry, intact, but appears to be pulled about 1.5 in, no redness or swelling, no pathological discharge. Area was cleansed with Chloraprep. The lead was removed with fractured tip, right anterior thigh and the area was cleansed with Chloraprep, applied Bacitracin and covered it with gauze and dry dressing.?Patient reports she changed right knee dressing this morning. Reports pain level at 8/10 which mainly attributes to low back pain exacerbation without inciting events. Denies any fever, chills, dizziness, shortness of breaths, weakness, instability, locking or giving way, bladder or bowel dysfunction or saddle anesthesia. Denies any recent cough, cold, infection, fever or any significant changes in medical history since last office visit. Past Procedures: 11/15/24: Right saphenous nerve Sprint PNS trial- 60% ongoing pain relief; removed 01/10/25 10/11/24: Left saphenous nerve Sprint PNS trial-50-60% pain relief; removed on 12/07/24 06/15/23: Bilateral genicular nerve cooled RFA-80% pain relief, fading effects since April 2024 04/20/23: Diagnostic Left GNB-90% pain relief for >48% 04/27/23: Diagnostic Right GNB-80% pain relief for >48 hours PRIOR: Patient is a pleasant 78 years old female with prior history of left ankle fracture with hardware intact since 1993, bilateral total knee replacements (left knee 2016, right knee 09/2022) and back surgery (2020 Dr. Dacosta), presents today with ongoing global anterior knee pain. She was seen by Orthopedic providers regularly. She is currently active with physical therapy, and has been active with home PT transitioned to outpatient PT since November. Reports she has not gained significant pain relief but some improvement in her functioning with PT. She also has lower back pain which is not bothering her as much. Bilateral knee pain is constant with severe pain up to 8-10/10 and describes it as aching, tiring, exhausting, squeezing, and heavy. She ambulates with slow antalgic gait with slight limping. Uses walker with ambulation. Oxycodone, lidocaine patches, diclofenac gel, ice/heat therapy has been only partially effective for her pain control. Pain affects her daily activities, functioning, mood, sleep, social interactions and quality of life. She is interested to undergo bilateral genicular nerve blocks for potential genicular RFA procedure. Patient is not interested in peripheral nerve stimulation with Sprint trial. [facility] Medical History Osteoporosis Arthritis Asthma GERD (gastroesophageal reflux disease) Elevated cholesterol HTN (hypertension) Chronic low back pain Surgical History History of back surgery History of open reduction and internal fixation (ORIF) procedure History of radiofrequency ablation (RFA) of genicular nerve Hx of mastectomy Hx of hysterectomy History of total left knee replacement History of total right knee replacement Social History Patient Tobacco Use Status: Former Tobacco user Review of Systems Const All systems reviewed & are unremarkable except as noted in HPI and below Physical Exam Vital Signs: Last Vital Signs Pulse 83 01/10/25 13:01 BP 151/70 H 01/10/25 13:01 Pulse Ox 98 01/10/25 13:01 Oxygen Delivery Method Room Air 01/10/25 13:01 BMI result Body Mass Index 40.8 General: Appears afebrile. Alert and oriented. Mood and affect appropriate. Follows and participates in conversation appropriately. Respiratory effort is unlabored. No cough. Able to transition from sit to stand unassisted. Uses cane with ambulation. Lead Insertion Site: Lead insertion site looks wire is partially pulled out, otherwise site is clean, dry, intact.? No pathological discharge, no swelling and no erythema.? Lead removed with end lead fracture with a retained fragment at the site, right anterior thigh. Assessment & Plan Assessment & Plan (1) Chronic knee pain after total replacement of left knee joint: Code(s): M25.562 - Pain in left knee; G89.29 - Other chronic pain; Z96.652 - Presence of left artificial knee joint Category: Medical (2) Bilateral knee pain: Code(s): M25.561 - Pain in right knee; M25.562 - Pain in left knee Category: Medical (3) History of total right knee replacement: Comment: Dr. Sawyer Code(s): Z96.651 - Presence of right artificial knee joint Category: Surgical Plan Patient completed right knee Sprint PNS trial and lead was removed today with end lead fracture with a retained fragment at the site. Patient was informed that he can still able to undergo MRI exam in the future if needed. Patient denies any untoward effects with Sprint therapy for both knees. She will continue to monitor her pain levels and notify our office when her knee pain returns to baseline. All questions were answered and the patient agreed with the plan. Follow up as needed. Coding Level of Care Code Est Pt Level 3 (33858) Complex EM visit Add On G2211 Diagnoses Chronic knee pain after total replacement of left knee joint M25.562; G89.29; Z96.652 Bilateral knee pain M25.561; M25.562 History of total right knee replacement Z96.651
[2025-01-10 13:01] VITALS: BP 151/70; PULSE 83; O2SAT 98; BMI 40.8
--- OUTSIDE RECORDS SUMMARY | 2025-01-10 14:01 | XMS_ITS | Clinical Summary ---
Author Organization [facility] Address [address] [place] [address] Care Team Providers Care Production Reproduction Manager Name Role Phone Mannie Khan MD Primary Care Provider + [phone] Allergies Active Allergy Reactions Criticality Noted Date [...] age to complete this topic Care Teams Production Reproduction Manager Relationship Specialty Start Date End Date Mannie Khan MD [address] [facility] [address] [place] [address] PCP - General Geriatric Medicine 11/26/20
--- OUTSIDE RECORDS SUMMARY | 2025-01-10 14:01 | XMS_ITS | Clinical Summary ---
Author Organization [facility] Address [address] [place] [address] Care Team Providers Care Databases Computer Consultant Name Role Phone Mannie Khan MD Primary Care Provider [phone] Surgical History Surgery Date Site/Laterality Comments MASTECTOMY 2002 PROCEDURE: HISTORICAL MASTECTOMY; COMMENT: right breast with subsequent reconstruction TONSILLECTOMY PROCEDURE: HISTORICAL TONSILLECTOMY OTHER SURGICAL HISTORY 1977 PROCEDURE: MT TOTAL ABDOMINAL HYSTERECT W/WO RMVL TUBE OVARY; COMMENT: TAHBSO for endometriosis, took ERT for 2 years only after surgery BREAST REDUCTION 2002 PROCEDURE: MT BREAST REDUCTION; COMMENT: left breast Medical History [...] - 2023-2 5 season) 2024 Influenza Vaccine (Season Ended) 2025 Osteoporosis Screening (Bone Density Screening) 05/12/2031 05/12/2021 [...] age to complete this topic Meningococcal B Vaccine Aged Out No l onger eligible based on patient's age to complete [...] Recently Relevant to Health Maintenance Results * [facility] DEXA AXIAL SKELETON (05/12/2021 4:45 PM EDT) Anatomical Region Laterality Modality Mammography 05/12/2021 1:59 PM EDT Narrative 05/12/2021 4:45 PM EDT [facility] Diagnostic Imaging Department [address] [place] [address] Patient: ??CRISTINA LEIJA ?/Age/Sex: 1945 - 76 - F Unit#: ??[id number] ? Location/Status: ??SPDIMAM/REG CLI ? Mnemonic/Ordering Site: ??MAMDEXAAX/SPMAM Ordering Physician: ??BILLY LOTT MD, PHD [facility] Dexa Axial Skeleton - 05/12/211421 [...] probability of hip fracture of 8.7%. Code 23828 Dictating Physician: ??GONSALO JOHNSON MD Electronically Signed by: ??GONSALO JOHNSON MD Dic Date/Time: ??05/12/211641 Sign date/Time: ??05/12/211644 Procedure Note Dali Johnson MD - 09/01/2022 [facility] Diagnostic Imaging Department [address] [place] [address] Patient: CRISTINA LEIJA Suzanne /Age/Sex: 1945 - 76 - F Unit#: [id number] Location/Status: [facility] Mnemonic/Ordering Site: [facility] Ordering Physician: BILLY LOTT MD, PHD [facility] Dexa Axial Skeleton - 05/12/211421 [...] probability of hip fracture of 8.7%. Code 09673 Dictating Physician: GONSALO JOHNSON MD Electronically Signed by: GONSALO JOHNSON MD Dic Date/Time: 05/12/21 1642 Sign date/Time: 05/12/21 1645 Billy Lott MD IMG BI PROCEDURES Final R esult from Last 3 Months or Most Recently Relevant to Health Maintenance Care Teams Databases Computer Consultant Relationship Specialty Start Date End Date Mannie Khan MD [address] [place] [address] [address] [place], [place] PCP - General Internal Medicine 08/18/21
== END 2025-01-10 13:31 | disposition home or self-care (01) ==
LOC: HO.PMC 12:55
PROVIDERS: PCP Internal Medicine; Visit Provider Nurse Practitioner Family
DX: M25.562 Pain in left knee (principal); G89.29 Other chronic pain; Z96.652 Presence of left artificial knee joint; M25.561 Pain in right knee; Z96.651 Presence of right artificial knee joint
CPT/HCPCS: 99213; G2211

== ENCOUNTER → 2025-01-10 12:54 | Outpatient (BNVA) | payer MEDICARE, SELFPAY | PROVIDERS: PCP Internal Medicine; Visit Provider Nurse Practitioner Family | DX: M25.562 Pain in left knee (principal); M25.561 Pain in right knee; G89.29 Other chronic pain; Z96.652 Presence of left artificial knee joint; Z96.651 Presence of right artificial knee joint | CPT/HCPCS: 99212 ==

== ENCOUNTER 2025-06-26 11:33 | Outpatient (REF) | payer MEDICARE, SELFPAY ==
--- NOTE | ~2025-06-26 | XR_ITS ---
CLINICAL HISTORY: Bilateral knee pain 3 view bilateral knee Comparison: DX/SR - XR KNEE 3 VIEWS RIGHT - 09/15/23 13:38 EST DX/SR - XR KNEE 3 VIEWS LEFT - 09/15/23 13:38 EST Findings: Bilateral knee arthroplasties are present without evidence of hardware failure or loosening. No acute fracture or dislocation is identified. 2.8 cm osteochondroma is seen off the anterior left distal femur, unchanged. Small bilateral knee joint effusions are present. Left superior patellar enthesophytes are again noted. IMPRESSION: 1. Bilateral knee arthroplasties without evidence of hardware failure or loosening. 2. Small bilateral joint effusions. This document has been electronically signed by: Phil Mandel on 06/28/2025 09:08:56
--- OUTSIDE RECORDS SUMMARY | 2025-06-27 14:45 | XMS_ITS | Clinical Summary ---
Author Organization [facility] Address [address] [place] [address] Phone Care Team Providers Care Piping Manager Name Role Phone Mannie Khan MD Primary Care Provider + Allergies Active Allergy Reactions Criticality Noted Date Comments Moxifloxacin 10/09/2019 Levofloxacin 10/09/2019 Penicillins 10/09/2019 Medications fluticasone/umec lidin/vilanter (TRELEGY ELLIPTA INHL) Inhale into the lungs. Active POLYETHYLENE GLYCOL 3350 ORAL Take by mouth. Active pravastatin sodium (PRAVASTATIN ORAL) Take by mouth. Active BUPROPION HCL ORAL Take by mouth. Active LANSOPRAZOLE ORAL Take by mouth. Active amlodipine besylate (AMLODIPINE ORAL) Take by mouth. Active ALPRAZOLAM ORAL Take by mouth. Active PAROXETINE HCL ORAL Take by mouth. Active HYDROXYZINE HCL ORAL Take by mouth. Active oxycodone HCl/acetaminophe n (OXYCODONE-ACETA MINOPHEN ORAL) Take by mouth. Active oxycodone HCl (OXYCONTIN ORAL) Take by mouth. Active fexofenadine HCl (LEONARDO ORAL) Take by mouth. Active CALCIUM ORAL Take by mouth. Active cholecalciferol, vitamin D3, (VITAMIN D3 ORAL) Take by mouth. Active multivit-min/rivera nahn fumarate (MULTI VITAMIN ORAL) Take by mouth. Active glucosamine/tex dr janie Morrison sod (OSTEO BI-FLEX ORAL) Take by mouth. Active MELATONIN ORAL Take by mouth. Active Social History Tobacco Use Types Packs/Day Years Used Date Smoking Tobacco: Never Smokeless Tobacco: Never Education Answer Date Recorded Are you interested in more education? Not on rae e 12/31/2022 Are you concerned about learning? Not on file 12/31/2022 No 12/31/2022 No 12/31/2022 Digital Access Answer Date Recorded No 01/29/2023 No 01/29/2023 No 01/29/2023 Reliable internet access at home? Not on file 01/29/2023 Device with a working camera? Not on file Comments Unknown Sex and Gender Information Value Date Recorded Sex Assigned at Female 10/01/2019 10:37 AM EST Legal Sex Female 10:25 AM EST Gender Identity Female 10/01/2019 10:37 AM EST Sexual Orientation Straight 10/01/2019 10 :37 AM EST Last Filed Vital Signs Vital Sign Reading Time Taken Comments Blood Pressure - - Pulse - - Temperature 36.6 C (97.8 F) 10/09/2019 2:37 PM EST Respiratory Rate - - Oxygen Saturation - - Inhaled Oxygen Concentration - - Weight 90.3 kg (199 lb) 10/09/2019 2:37 PM EST Height 147.3 cm (4' 10 ) 10/09/2019 2:37 PM EST Body Mass Index 41.59 10/09/2019 2:37 PM EST Plan of Treatment Health Maintenance Due Date Last Done Comments Adult Td,Tdap Booster 1945 LIPID PANEL 1945 DEPRESSION SCREENING 1957 ZOSTER VACCINES (1 of 2) 1995 OSTEOPOROSIS SCREENING INITI AL (ONE-TIME) 2010 PNEUMOCOCCAL VACCINES (50+ years) (2 of 2 - PPSV23) 06/28/2017 06/28/2016 RSV VACCINE (1 - 1-dose 75+ series) 02/02/2020 INFLUENZA VACCINE (#1) 2025 07/03/2020 COVID-19 VACCINE (3 - 2024-2 6 season) 2025 11/25/2020, 10/28/2020 SMOKING STATUS SCREENING (On ce After 26 Yrs) Completed 10/09/2019 HEPATITIS A VACCINES Aged Out No long er eligible based on patient's age to complete this topic HIB VACCINES Aged Out No longer eligi ble based on patient's age to complete this topic MENINGOCOCCAL VACCINES (ACWY) Aged Out No longer eligible based on patient's age to complete this topic MENINGOCOCCAL VACCINES (B) Aged Out N o longer eligible based on patient's age to complete this topic Medical Devices Not on file Insurance [facility] PPO EPO MEDICARE A [facility] PPO EPO MEDICARE A [facility] MEDICARE A [facility] PPO EPO MEDICARE A [facility] PPO EPO MEDIC[place] [address] [address] PPO EPO MEDICARE A [facility] PPO EPO MEDICARE A [facility] MEDICARE A [facility] PPO EPO MEDICARE A Care Teams Piping Manager Relationship Specialty Start Date End Date Mannie Khan MD [address] [place] [address] [address] [place] [address] PCP - General Internal Medicine 10/01/19 Additional Source Comments The information contained in this document represents components of the legal health record. It is not the complete legal health record.[facility]
--- OUTSIDE RECORDS SUMMARY | 2025-06-27 14:45 | XMS_ITS | Clinical Summary ---
Author Organization [facility] Address [address] [place] [address] Care Team Providers Care Graphic Art Designer Name Role Phone Mannie Khan MD Primary Care Provider [phone] Surgical History Surgery Date Site/Laterality Comments MASTECTOMY [...] Recently Relevant to Health Maintenance Results * [facility] DEXA AXIAL SKELETON (05/12/2021 4:45 PM EDT) Anatomical Region Laterality Modality Mammography 05/12/2021 1:59 PM EDT Narrative 05/12/2021 4:45 PM EDT [facility] Diagnostic Imaging Department [address] [place] [address] Patient: CRISTINA LEIJA Suzanne Segovia/Age/Sex: 1945 - 76 - F Unit#: [id number] [facility]Ordering Site: MAMDEXAAX/SPMAM Ordering Physician: BILLY LOTT MD, PHD [facility] Dexa Axial Skeleton - 05/12/211421 [...] probability of hip fracture of 8.7%. Code 26914 Dictating Physician: GONSALO JOHNSON MD Electronically Signed by: GONSALO JOHNSON MD Dic Date/Time: 05/12/211641 Sign date/Time: 05/12/211644 Procedure Note Dali Johnson MD - 09/01/2022 [facility] Diagnostic Imaging Department [address] [place] [address] Patient: CRISTINA LEIJA Suzanne /Age/Sex: 1945 76 - F Unit#: [id number] [facility] Ordering Physician: BILLY OLTT MD, PHD Y[facility]it[facility] Dexa Axial Skeleton - 05/12/21 3822 HISTORY: The patient is a 76-year-old postmenopausal [...] probability of hip fracture of 8.7%. Code 51141 Dictating Physician: GONSALO JOHNSON MD Electronically Signed by: GONSALO JOHNSON MD Dic Date/Time: 05/12/21 164 Sign date/Time: 05/12/21 164 Billy Lott MD IMG BI PROCEDURES Final R esult from Last 3 Months or Most Recently Relevant to Health Maintenance Care Teams Graphic Art Designer Relationship Specialty Start Date End Date Mannie Khan MD [address] [place] [address] [address] [place], [place] PCP - General Internal Medicine 08/18/21
--- OUTSIDE RECORDS SUMMARY | 2025-06-27 14:45 | XMS_ITS ---
Author Name [facility] Organization Unknown Encounters Encounter Type Encounter Reason Primary Diagnosis Location Date Ambulatory [facility]2024 Ambulatory [facility] [place] 02/25/2023 Care Team Organization Name Specialty Phone Email Start Date End [facility]
--- OUTSIDE RECORDS SUMMARY | 2025-06-27 14:45 | XMS_ITS | Clinical Summary ---
Author Organization [facility] Address [address] [place] [address] Care Team Providers Care Dental Office Assistant Name Role Phone Mannie Khan MD Primary Care Provider [phone] Allergies Active Allergy Reactions Criticality Noted Date [...] age to complete this topic Care Teams Dental Office Assistant Relationship Specialty Start Date End Date Mannie Khan MD [address] [place] [address] [address] [place] [address] PCP - General Geriatric Medicine 11/26/20
--- OUTSIDE RECORDS SUMMARY | 2025-06-27 14:46 | XMS_ITS | Data Portability ---
Author Organization [place] [facility],, LIZETH HERMAN MD Address [address] [address] Care Team Providers Care Vehicle Cost Engineer Name Role Phone GURVINDER BOLANOS Primary Care Provider Assessment No assessment recorded. Plan of Treatment Reminders Order Date Submit Date Provider Last Modified By Organization Details Last Modified Time Details Appointments None recorded. Lab cytology report, thin prep, smear or scraping, cervical or vaginal 2024 025 PHIL [facility] (Centralized Electronic Ordering - All Locations), Patient Can Go To The Location Of Their Choice, [id number] 5 18:16:26 pap test, thinprep, cervical 2022 023 [email or web address] [facility] (Centralized Electronic Ordering - All Locations), Patient Can Go To The Location Of Their Choice, [address] 3 07:27:16 pap test, thinprep, cervical 2021 022 [email or web address] [facility], Cytopathology Service, [address] [place], [address], 2 07:38:27 pap test, thinprep, cervical 2020 021 [email or web address] [facility], Cytopathology Service, [address] [place], [address], 07:20:46 fecal occult blood, stool 2020 021 [email or web address] 1 In-Office Order, Internal Use Only DO Not Attach Compendium DO Not Attach Compendium, Do Not Delete/merge, [id number] 1 14:03:16 pap, LB, vaginal 2019 020 [facility], Cytopathology Service, [address] [place], [address], 0 07:40:41 Referral None recorded. Procedures None recorded. Surgeries None recorded. Imaging MAMMO, screening , digital, bilateral - Breast Aspiratio n and/or Biopsy if needed 2024 025 [facility], [address], [address], [place], [address], 5 13:58:55 bone density 2024 025 [facility], [address], [address], [place], [address], 5 15:53:04 MAMMO, screening , digital, bilateral - Breast Aspiratio n and/or Biopsy if needed 2022 023 [facility] ([facility]), [address] [place], [address], 3 17:41:43 bone density 2022 023 [facility]), [address] [place], [address], 4 07:27:36 MAMMO, screening , digital, bilateral - patient aware needs to go 2021 022 [facility] ([facility]), [address] [place], [address], 2 15:31:33 bone density 2021 022 [facility]), [address] [place], [address], 4 07:36:31 MAMMO, screening , digital, bilateral 2020 021 [email or web address] [facility]), [facility] [place], [address], 3 07:38:19 MAMMO, screening , digital, bilateral 2019 020 PHIL [facility]), [address] [place] [address], [address], 0 16:31:27 bone density 2019 020 [email or web address] [facility]), [address] [place] [address], [address], 1 07:23:18 Medication Orders None recorded. Patient TargetsNo targets recorded. Patient Instructions Encounter Date Encounter Id Patient Instructions Last Modified By Organization Details Last Modified Time 04/14/2020 [id number] She is here for annual exam, is doing well. ___ Note from 2019: She is here for annual exam, is doing well but still using a cane due to her knee replacement. She has a past history of right breast cancer, and also of FRANCISCO II. Her sister had an AR and her brother in law had 2 strokes in the past year, so she is doing most of the running with her. Her partner Rik is her health care proxy. She appears to be doing well. She is still usign a cane, The knee operation was botched, it's not getting any better. She is going to go to [place] to have it redone once covid is [...] questions answered. Not available 04/14/2020 13:35:48 04/21/2021 [id number] learning about healthy weight Not available 04/21/2021 [...] do this. Not available 04/21/2021 14:05:17 04/26/2022 [id number] advance benefici elijah notice information Not available [...] the breast. Not available 04/26/2022 14:20:32 06/28/2023 [id number] advance benefici elijah notice information Not available [...] the breast. Not available 06/28/2023 14:57:22 09/17/2024 [id number] advance benefici elijah notice information Not available [...] DO Not Attach Compendium, Do Not Delete/merge, [id number] 04/21/2021 13:17:31 04/14/20 20 04/14/2020 pap, LB, vagin al [id number] ThinP rep Pap, Image d: NEGAT MALENA [...] ASCUS , Vagin al, Image d CLINI LOUSI INFOR MATIO N: HPV If Diagn osis of ASCUS . LPS 9 neg, z12.4 , z91.8 9 Not Available [facility], Cytopathology Service [address] [place], [address], 04/16/2020 12:20:49 04/21/20 21 04/21/2021 PAP1C ASE [id number] ThinP rep Pap, Image d: NEGAT MALENA [...] ASCUS . lps neg, Z12.4 Not Available [facility], Cytopathology Service [address] [place], [address], 04/24/2021 12:11:30 04/26/20 22 04/26/2022 PAP1C ASE [id number] ThinP rep Pap, Image d: NEGAT MALENA [...] ause, lps neg, [Z01. 419] Not Available [facility], Cytopathology Service [address] [facility], [place], [address], 04/28/2022 16:06:04 06/28/20 23 06/28/2023 [facility] CYTOL OGY results Magalis sidhu Name: BERNARD RAMOS nt : 1944 (Age: 78) Lab Acces fabiola #: [id number] Colle ction Date: 06/28 Acces fabiola Date: 06/28 Sign Out Date: 07/04 Tissu e Sourc e: 1: THINP REP SHOT EXAMINER PAP TEST, VAGIN AL: Final Diagn osis: [...] g or gurmeet w. Perfo rmed at [facility] ate Refer ence Labor at[facility] t[facility] Cytol ogy, [address] [place] Clini [place] Histo ry (othe r): Z91.8 9, routi ne scree n, Medic are scree aamir pap smear -high risk, LPS neg Phone #: [phone], On-Ca ll Patho logis t: [id number] Not Available [facility] (Centralized Electronic Ordering - All Locations) Patient Can Go To The Location Of Their Choice, [id number] 07/04/2023 13:49:42 09/17/19 25 09/19/2024 IGP, RFX APTIM A HPV ASCU diagnosis: Commen t NEGAT MALENA FOR INTRA EPITH ELIAL LESIO N OR MALIG NATASHA . Not Available [facility] ([facility]) [address] [place], [address], 09/19/2024 18:16:26 09/17/19 25 09/19/2024 IGP, RFX APTIM A HPV ASCU specimen adequacy: Abril galvan Satis facto ry for evalu ation . Not Available [facility] ([facility]) [address] [place], [address], 09/19/2024 18:16:26 09/17/19 25 09/19/2024 IGP, RFX APTIM A HPV ASCU clinician provided ICD10: Abril galvan Z91.8 9 Not Available [facility] ([facility]) [address] [place], [address], 09/19/2024 18:16:26 09/17/19 25 09/19/2024 IGP, RFX APTIM A HPV ASCU performed by: Marty Escobar (ASCP ) Not Available [facility] ([facility]) [address] [place], [address], 09/19/2024 18:16:26 09/17/19 25 09/19/2024 IGP, RFX APTIM A HPV ASCU . . Not Available [facility] ([facility]) [address] [place], [address], 09/19/2024 18:16:26 09/17/19 25 09/19/2024 IGP, RFX [...] occur . Not Available [facility] ([facility]) [address] [facility], [place], [address], 09/19/2024 18:16:26 09/17/19 25 09/19/2024 IGP, RFX APTIM A HPV ASCU test methodology: Commen t This liqui d based ThinP rep(R ) pap test was tasneem cevallos with the use of an image guide karlene morris. Not Available [facility] ([facility]) [address] [facility], [place], [address], 09/19/2024 18:16:26 09/17/19 25 09/19/2024 IGP, RFX APTIM A HPV ASCU . Commen t The HPV DNA refle x crite kimberly were not met with this speci men resul t there fore, no HPV testi ng was perfo rmed. Not Available [facility] ([facility]) [address] [facility], [place], [address], 09/19/2024 18:16:26 06/26/20 20 06/26/2020 MAMMO , tasneem rutledge, digit al, bilat eral No observ ation record ed. [facility] [address], [address], 06/27/2020 08:43:42 05/27/20 22 05/27/2022 MAMMO tasneem, digit al, bilat eral [place], [address], 05/27/2022 15:32:50 07/26/20 23 07/26/2023 MAMMO tasneem, digit al, bilat eral No observ ation record ed. Not Available 07/07 07:52:48 10/19/19 25 10/19/2024 MAMMO tasneem, digit al, bilat eral No observ ation record ed. [facility] [address] [place], [address], 10/22/2024 07:10:58 Result Notes None recorded. 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 Lizeth Herman MD [address], [place], [address], [place] [facility], 6 10:54:46 Gastroduo denitis 021709003 Active Lizeth Herman MD [address], [place], [address], [place] [facility], 6 10:54:46 Atypical squamous cells of undetermi mart significa nce on cervical Papanicol aou smear 681626186 Active Lizeth Herman MD [address], [place], [address], [place] [facility], 6 10:54:46 Gastritis 1858629 Active Lizeth Herman MD [address], [place], [address], [place] [facility], 6 10:54:46 Family history of malignant neoplasm of ovary 173240639 Active Lizeth Herman MD [address], [place], [address], [place] [facility], 6 10:54:46 Primary malignant neoplasm of female breast 99026542 Active Lizeth Herman MD [address], [place], [address], [place] [facility], 6 10:54:46 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 Lizeth Herman MD [address], [place], [address], [place] [facility], 6 10:54:46 Vulval intraepit helial neoplasia grade 1 629583414 Active Lizeth Herman MD [address], [place], [address], [place] [facility], 6 10:54:46 Vitamin D deficienc y 83729793 Active Lizeth Herman MD [address], [place], [address], [place] [facility], 6 10:54:46 Mammograp hy abnormal 297286759 Active Lizeth Herman MD [address], [place], [address], [place] [facility], 6 10:54:46 Personal history of primary malignant neoplasm of breast 191757064 Active 2016 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 Lizeth Herman MD [address], [place], [address], [place] [facility], 1 14:00:48 Osteoporo sis 33737702 Active 2016 Lizeth Herman MD [address], [place], [address], [place] [facility], 7 15:00:50 Asthma 054176706 Active 2016 Lizeth Herman MD [address], [place], [address], [place] [facility], 7 15:02:03 History of dysplasia of vulva 808222965077 105 Active 2018 Lizeth Herman MD [address], [place], [address], [place] [facility], 15:18:36 Urinary incontine nce 671762170 Active 2020 Lizeth Herman MD [address], [place], [address], [place] [facility], 14:03:30 Problem Notes None recorded. Procedures Surgical [...] MD [address], [place], [address], [place] [facility], 12/12/2012 13:07:56 09/05/19 12 Other completed Irma Meczywor [place] [facility], 08/08/2012 13:59:44 09/05/19 09 Other completed Irma Meczywor [place] [facility], 12/14/2016 14:44:01 09/05/19 03 Breast Biopsy completed Lizeth Herman MD [address], [place], [address], [place] [facility], 04/21/2021 14:00:34 09/05/18 94 Other completed Irma Meczywor [place] [facility], 08/08/2012 13:59:44 09/05/18 77 Appendectomy completed Irma Meczywor [place] [facility], 08/08/2012 13:59:44 09/05/18 77 Total Abdominal Hysterectomy completed Lizeth Herman MD [address] [facility],[address], [place], [address], [place] [facility], 08/08/2012 14:09:00 Imaging Results None recorded. Procedure Notes None recorded. Medical Equipment None Reported. Allergies Allergen ID Allergen Name Allergen Category Reaction Reaction Severity Criticality Documentation Date Start Date Code Code System Note Provider Name and Address Organization Details Recorded Time 60457 egg extract food,medi cation rash Not available Not available 09/11/2013 32212 15 RxNorm JOSEPHINE Berg in [facility], 4 13:40:00 5521 Avelox medicatio n other mild Not available 08/08/2012 16640 6 RxNorm welts JOSEPHINE Berg in [facility], 2 13:59:45 5522 Product containin g penicilli n (product) medicatio n rash Not available Not available 08/08/2012 26648 8001 SNOMED JOSEPHINE Berg in [facility], 2 13:59:45 5523 Levaquin medicatio n other mild Not available 08/08/2012 25616 2 RxNorm Irma AcostawJOSEPHINE salazar in [facility], 2 13:59:45 Medications Name [...] Address Organization Details Last Updated DateTime 5 00141.5 2 g 30.9 kg/m2 175.26 cm 97.4 [degF] 84 /min 146/75 mm[Hg] Irma Potter in [facility], 5 14:27:15 Date Recorded Body height Body mass index (BMI) Body weight Body temperature Heart rate Systolic And Diastolic Provider Name and Address Organization Details Last Updated DateTime 0 147.32 cm 40.1 kg/m2 55975.0 2 g 97.4 [degF] 88 /min 133/49 mm[Hg] Gena Potter in [facility], 0 13:08:32 Date Recorded Body weight Body mass index (BMI) Body height Body temperature Heart rate Systolic And Diastolic Provider Name and Address Organization Details Last Updated DateTime 1 59619.7 5 g 43.1 kg/m2 147.32 cm 97.4 [degF] 81 /min 148/60 mm[Hg] Irma Potter in [facility], 1 13:26:01 Date Recorded Body height Body mass index (BMI) Body weight Heart rate Body temperature Systolic And Diastolic Provider Name and Address Organization Details Last Updated DateTime 2 146.05 cm 46.4 kg/m2 32262.8 6 g 81 /min 97.5 [degF] 124/57 mm[Hg] Irma Potter in [facility], 2 13:11:32 Date Recorded Body temperature Body weight Body mass index (BMI) Body height Heart rate Systolic And Diastolic Provider Name and Address Organization Details Last Updated DateTime 3 97.9 [degF] 15539.1 2 g 43.9 kg/m2 147.32 cm 83 /min 152/57 mm[Hg] Irma Potter in [facility], 3 13:33:28 Social History Question Answer Notes LastModified by Organizat ion Details LastModified Time Tobacco Smoking Status Former Smoker quit 40 yrs ago Not Available [facility] 07/08/2020 03:19:37 How Many Years Have You Consumed Alcohol? 50 Information not available 04/21/2021 What Is Your Level Of Caffeine Consumption? Occasional [id number] Information not available 07/08/2020 In The 14 [...] Type Of Diet Are You Following? REGULAR [id number] Information not available 07/08/2020 Which Illicit Or Recreational Drugs Have You Used? No [id number] Information not available 07/08/2020 Do You Reside In Or Have You Traveled To An Area Where Ebola Virus Transmission Is Active? No [id number] Information not available 07/08/2020 Education 2 Year College Informatio n not available 08/08/2012 What Is The Highest Grade Or Level Of School You Have Completed Or The Highest Degree You Have Received? [id number] Information not available 04/21/2021 How Many Days [...] available 04/21/2021 Are You Sexually Active? Yes [id number] Information not available 07/08/2020 At What Age Did You Start Smoking Tobacco? 16 Information not available 04/21/2021 How Much Tobacco Do You Smoke? No [id number] Information not available 07/08/2020 General Stress Level Medium Information not available 09/17/2024 How Many Years Have You Smoked Tobacco? 10 [id number] Information not available 07/08/2020 Have You Recently [...] is your level of alcohol consumption? Occasional [id number] Information not available 07/08/2020 Do you or have you ever used smokeless tobacco? Never used smokeless tobacco [id number] Information not available 07/08/2020 Are you currently employed? No Information not available 04/21/2021 What is your occupation? retired Information not available 09/11/2013 Do you or have you ever used e-cigarettes or vape? Never used electronic cigarettes [id number] Information not available 07/08/2020 What is your exercise level? None Information not available 04/21/2021 Mental Status Question Answer Note LastModified by Organization D etails LastModified Time Do you feel stressed (tense, restless, nervous, or anxious, or unable to sleep at night)? [id number] Information not available 09/17/2024 Family History Relationship [...] Problems Y Defects or Inherited Disease N History [...] Meczywor null, [place] [facility], 06/28/2023 13:24:44 COVID-19, mRNA, LNP-S, PF, 30 mcg/0.3 mL dose 2 completed Irma Meczywor null[place] [facility], 06/28/2023 13:24:44 COVID-19, mRNA, LNP-S, PF, 30 mcg/0.3 mL dose, fabricio-sucrose 2 completed Irma Meczywor [place] [facility], 06/28/2023 13:24:44 Pneumococcal conjugate PCV 13 6 completed Irma Meczywor [place] [facility], 06/28/2023 13:24:44 zoster recombinant 3 completed Irma Meczywor null[place] [facility], 09/17/2024 14:25:43 Influenza, adjuvanted, quadrivalent, PF 2 completed Irma Meczywor null, [place] [facility], 09/17/2024 14:25:43 COVID-19, mRNA, LNP-S, PF, 100 mcg/0.5mL dose or 50 mcg/0.25mL dose 1 completed Irma Meczywor null, [place] [facility], 09/17/2024 14:25:43 COVID-19, mRNA, LNP-S, bivalent, PF, 30 mcg/0.3 mL dose 2 completed Irma Meczywor null, [place] [facility], 09/17/2024 14:25:43 Past Encounters Encounter ID Performer Location Encounter Start Date Encounter Closed Date Diagnosis/Indication Diagnosis SNOMED-CT Code Diagnosis ICD10 Code Diagnosis IMO Codes Diagnosis Note [id number] MD LIZETH Covington MD [address] [id number] 08/08/2012 13:22:43 08/10/2012 09:52:22 [id number] MD LIZETH Covington MD Abhinav [address],[place] [id number] 09/11/2013 13:26:47 09/12/2013 08:53:20 Screening for malignant neoplasm of cervix 539592317 Screening mammography 55730938 [id number] MD LIZETH Covington MD [facility] [address],[place] [id number] 11/16/2012 14:26:27 11/16/2012 16:27:58 [id number] MD LIZETH Covington MD [facility] [address],[place] [id number] 12/12/2012 08:04:19 12/13/2012 12:10:32 [id number] MD LIZETH Covington MD [facility] [address],[place] [id number] 03/13/2013 13:21:29 03/15/2013 08:40:53 [id number] MD LIZETH Covington MD [address] [place] [address],[place] [id number] 03/26/2013 13:16:42 03/26/2013 16:27:27 [id number] MD LIZETH Covington MD [address] [place] [address],[place] [id number] 11/14/2014 13:00:38 11/14/2014 14:31:18 Specialized medical examination 87376033 Screening for malignant neoplasm of rectum 301091747 Screening mammography 72141730 [id number] MD LIZETH Covington MD [address] [place] [address],[place] [id number] 12/10/2015 10:02:13 12/10/2015 11:53:16 Sampling of vagina for Papanicolaou smear 152551738 Z91.89 Screening mammography 24 101453 Z12.31 Mammography abnormal 168 311555 R92.8 [id number] MD LIZETH Covington MD [address] [place] [address], [address] [place] [address] 12/14/2016 14:30:00 12/14/2016 16:07:42 Specialized medical examination 86853622 Z01.419 Screening for malignant neoplasm of rectum 714813389 Z12.12 Screening mammography 24 252216 Z12.31 Personal h istory of primary malignant neoplasm of breast 604487940 Z85.3 Osteoporosis 15893669 M8 1.0 Asthma 713216109 J45.90 9 Cares for self 274874511 Z76.89 [id number] MD LIZETH Covington MD [address] [place] [address], [address] [place] [address] 12/28/2016 13:00:53 12/28/2016 15:20:31 Breast lump 36398138 N63 Personal h istory of primary malignant neoplasm of breast 755488461 Z85.3 [id number] MD LIZETH Covington MD [address] [place] [address], [address] [place] [address] 03/16/2018 13:02:34 03/16/2018 14:59:41 Specialized medical examination 62514922 Z01.419 Screening for malignant neoplasm of rectum 790877283 Z12.12 Screening mammography 24 717252 Z12.31 [id number] MD LIZETH Covington MD [address] [place] [address], [address] [place] [address] 04/12/2019 14:34:34 04/12/2019 15:48:24 Screening for malignant neoplasm of cervix 833865721 Z12.4 Screening mammography 24 657482 Z12.31 Screening for osteoporosis 244333106 Z13.820 Personal h istory of primary malignant neoplasm of breast 113665391 Z85.3 History of gynecological disorder 115307170 Z87.412 [id number] MD LIZETH Covington MD [address] [place] [address] [place], [place] [address] [place] [id number] 04/14/2020 13:06:18 04/14/2020 14:32:12 Sampling of vagina for Papanicolaou smear 257232226 Z91.89 Screening mammography 24 792620 Z12.31 Screening for osteoporosis 200067147 Z13.820 [id number] MD LIZETH Covington MD [address] [place] [address] [place] [id number] 04/21/2021 13:15:34 04/21/2021 14:24:06 Specialized medical examination 46897093 Z01.419 Screening for malignant neoplasm of rectum 393383249 Z12.12 Screening mammography 24 601166 Z12.31 Urinary incontinence 165 462650 R32 [id number] MD LIZETH Covington MD [address] [place] [address] [place] [id number] 04/26/2022 13:03:14 04/26/2022 14:49:27 History of clinical finding in subject 018334830 Z91.89 Screening mammography 24 345108 Z12.31 Advance care planning 71 6615565 Z71.89 Screening for osteoporosis 219935355 N95.8 History of dysplasia of vulva 1595291374 85675 Z87.412 Personal h istory of primary malignant neoplasm of breast 646896589 Z85.3 Urinary incontinence 165 418884 R32 [id number] MD LIZETH Covington MD [address] [place] [address] [place] [address] 06/28/2023 13:18:49 06/29/2023 08:06:11 History of clinical finding in subject 059571125 Z91.89 Screening mammography 24 879703 Z12.31 Advance care planning 71 2713577 Z71.89 Screening for osteoporosis 291617575 N95.8 [id number] MD LIZETH Covington MD [address] [place] [address] [place] [id number] 09/17/2024 14:21:13 09/17/2024 15:53:03 History of clinical finding in subject 243533149 Z91.89 Screening mammography 24 826350 Z12.31 Advance care planning 71 4827142 Z71.89 Screening for osteoporosis 727037874 N95.8 Health Concerns Section Related Observation LastModified by Organization Detai ls LastModified Time None Recorded Concern Status LastModified by Organization Details LastModified Time None Recorded Advance Directives Directive None Recorded Payers Insurance Date Sequence Insurance Name Policy Number Policy Kelly Covered Member ID Kelly Member ID Guarantor Name 12/30/2015 2 UNSPECIFIED REMIT PAYOR Bernard Lorenz 04/20/2014 1 [facility] [employer] (H[employer]) [id number] Neo Lorenz [id number] 09/14/2024 [facility] P[facility] BLUE (MEDICARE REPLACEMENT PPO) [id number] Bernardrc Lorenz [id number] Bernard Lorenz 04/26/2022 [facility] PREFERRED BLUE - DEDUCTIBLE (PPO) [id number] Neo Lorenz [id number] 55 Bernard Lorenz Notes Date Note Type [...] of FRANCISCO II. Her sister had an AR and her brother in law had 2 strokes in the past year, so she is doing most of the running with her. Her partner Rik is her health care proxy. Lizeth Herman MD [address] [place] [id number], [place] [facility], [...] 30 for endometriosis. Lizeth Herman MD [address], [place], [address], [place] - [facility], 04/21/2021 14:05:44 04/26/2022 text/html She is here [...] 30 for endometriosis. Lizeth Herman MD [address], [place], [id number], [place] - [facility], 04/26/2022 14:21:13 06/28/2023 text/html She is here [...] MD [address], [place], [address], [place] - [facility], 06/28/2023 14:57:44 09/17/2024 text/html She is here for annual, doing well, has a past history of FRANCISCO II.She had DCIS in 2002 and had mastectomy with reconstruction and also has had left breast reduction. She is BRCA negative. Lizeth Herman MD [address], [place], [address], [place] - [facility], 09/17/2024 14:49:47 OBGyn Episode No OBEpisode recorded.
== END 2025-06-26 11:34 | disposition home or self-care (01) ==
LOC: HO.HOSX 11:33
PROVIDERS: Visit Provider Orthopaedic Surgery
DX: M25.561 Pain in right knee (principal); M25.562 Pain in left knee; Z96.653 Presence of artificial knee joint, bilateral
CPT/HCPCS: 73562; 99212

== ENCOUNTER 2025-06-26 13:09 | Outpatient (AMB) | payer MEDICARE, SELFPAY ==
--- NOTE | 2025-06-26 13:11 | A.OFFVIS_ITS ---
Intake Visit Reasons: OV-Bilateral knee pain Intake Note: Cristina is a 79 year old female who presents with intermittent discomfort in both of her knees after undergoing bilateral total knee replacement surgeries. She continues to go to the gym as much as possible for exercise. She does walk with a cane when she is out of her home. She has been on Mounjaro recently and has been able to lose weight. Allergies hydromorphone (From Dilaudid) Allergy (Intermediate, Verified 06/26/25 13:32) asthma exacerbation moxifloxacin (From Avelox) Allergy (Intermediate, Verified 06/26/25 13:32) Hives Penicillins Allergy (Intermediate, Verified 06/26/25 13:32) Rash levofloxacin (From Levaquin) Adverse Reaction (Intermediate, Verified 06/26/25 13:32) restless legs Medication List - Last Reconciled 06/26/25 by Liban Sawyer MD alprazolam 1 mg PO DAILY amlodipine 10 mg PO DAILY budesonide 0.25 mg inhalation BID bupropion HCl XL 300 mg PO QAM diclofenac sodium 1% (Arthritis Pain (diclofenac)) 4 grams topical QID dupilumab (Dupixent) 300 mg subcut Q2W famotidine 40 mg PO BID famotidine 20 mg PO BEDTIME wjezytropvx-gwojvlyyx-kjmxfzvh 200-62.5-25 mcg (Trelegy Ellipta) 1 ea inhalation DAILY hydroxyzine HCl 25 mg PO QID immun glob G(IgG)-pro-IgA 0-50 10 gram/50 mL (20 %) (Hizentra) 5,000 mg subcut QWEEK lansoprazole 30 mg PO DAILY lidocaine 4% 1 patch topical DAILY PRN lidocaine 5% 2 patches topical DAILY 30 days linaclotide (Linzess) 145 mcg PO DAILY linaclotide (Linzess) mcg PO DAILY losartan 100 mg PO DAILY montelukast 10 mg PO DAILY omalizumab (Xolair) 150 mg subcut Q4W ondansetron 4 mg PO Q8H oxycodone 5 mg PO TID paroxetine HCl 30 mg PO DAILY pravastatin 10 mg PO DAILY PFSH Medical History Osteoporosis Arthritis Asthma GERD (gastroesophageal reflux disease) Elevated cholesterol HTN (hypertension) Chronic low back pain Surgical History History of back surgery History of open reduction and internal fixation (ORIF) procedure History of radiofrequency ablation (RFA) of genicular nerve Hx of mastectomy Hx of hysterectomy History of total left knee replacement History of total right knee replacement Social History Patient Tobacco Use Status: Former Tobacco user Physical Exam Extrem Other: Bilateral knee examination shows that the surgical incisions are well healed, no erythema, full active extension and flexion to 120 degrees, her patellae track well Results Reviewed Results Reviewed: X-rays of the patient's bilateral knees taken today show total knee arthroplasties in good position with no signs of loosening, no acute bony abnor malities Assessment & Plan Assessment & Plan (1) Bilateral knee pain: Code(s): M25.561 - Pain in right knee; M25.562 - Pain in left knee Category: Medical Plan Ms. Lorenz continues to do fairly well after undergoing bilateral total knee replacement surgeries. She will continue with her weight loss and exercise programs. She does know to take antibiotics before any dental work. She will contact me prior to her annual follow-up appointment should any questions or concerns arise. I spent 21 minutes in reviewing the patient's records and imaging studies, seeing the patient and documenting in the medical record. Orders: Orders XR Knee Perez 3V Today M25.561 - Pain in right knee, M25.562 - Pain in left knee Coding Level of Care Code Est Pt Level 3 (08431) Complex EM visit Add On G2211 Diagnoses Bilateral knee pain M25.561; M25.562
--- OUTSIDE RECORDS SUMMARY | 2025-06-26 18:30 | XMS_ITS | Clinical Summary ---
Author Organization [facility] Address [address] [place] [address] Care Team Providers Care Financial Sales Advisor Name Role Phone Mannie Khan MD Primary Care Provider + [phone] Allergies Active Allergy Reactions Criticality Noted Date [...] 72 03/27/2021 8:23 AM EDT Temperature 36.3 C (97.4 F) 03/27/2021 8:23 AM EDT Respiratory Rate 16 03/27/2021 8:23 AM EDT Oxygen Saturation 94% 03/27/2021 8:23 AM EDT Inhaled Oxygen Concentration - - Weight 86.2 kg (190 lb) 08/17/2022 2:53 PM EST Height 147.3 cm (4' 10 ) 08/17/2022 2:53 PM EST Body Mass Index 39.71 08/17/2022 2:53 PM EST Plan of Treatment Health Maintenance Due Date Last Done Comments Depression Screening 1957 BMI Counseling 1963 Preventative Health Evaluation 1963 DTap / Tdap / Td (1 - Tdap) 02/02/1964 Shingrix-Zoster Vaccine (1 of 2) 1995 Fall Risk Assessment 2010 Osteoporosis Screening (DEXA Scan) 2010 Pneumococcal Vaccine (2 of 2 - PPSV23 or PCV20) 06/30/2017 06/30/2016 RSV Adult > 60+ Yrs or Pregn ant (1 - 1-dose 75+ series) 02/02/2020 COVID-19 Vaccine (2 - 2024-2 6 season) 2025 11/11/2020 Influenza Vaccine (#1) 2025 06/09/2021 Hepatitis B Vaccines Aged Out No long er eligible based on patient's age to complete this topic RSV Ped < 20 months Aged Out No longe r eligible based on patient's age to complete this topic Care Teams Financial Sales Advisor Relationship Specialty Start Date End Date Mannie Khan MD [address] [place] [address] [address] [place] [address] PCP - General Geriatric Medicine 11/26/20
--- OUTSIDE RECORDS SUMMARY | 2025-06-26 18:30 | XMS_ITS | Data Portability ---
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 Plan of Treatment Reminders Order Date Submit Date Provider Last Modified By Organization Details Last Modified Time Details Appointments None recorded. Lab cytology report, thin prep, smear or scraping, cervical or vaginal 2024 025 PHIL [facility] (Centralized Electronic Ordering - All Locations), Patient Can Go To The Location Of Their Choice, [id number] 5 18:16:26 pap test, thinprep, cervical 2022 023 [email or web address] [facility] (Centralized Electronic Ordering - All Locations), Patient Can Go To The Location Of Their Choice, [id number] 3 07:27:16 pap test, thinprep, cervical 2021 022 [email or web address] [facility], Cytopathology Service, [address] [place], [address], 2 07:38:27 pap test, thinprep, cervical 2020 021 [email or web address] [facility], Cytopathology Service, [address] [place], [address], 07:20:46 fecal occult blood, stool 2020 021 [email or web address] 1 In-Office Order, Internal Use Only DO Not Attach Compendium DO Not Attach Compendium, Do Not Delete/merge, [id number] 1 14:03:16 pap, LB, vaginal 2019 020 [facility], Cytopathology Service, [address] [place], [address], 0 07:40:41 Referral None recorded. Procedures None recorded. Surgeries None recorded. Imaging MAMMO, screening , digital, bilateral - Breast Aspiratio n and/or Biopsy if needed 2024 025 [facility] Orders, [address], [address], [place], [address], 5 13:58:55 bone density 2024 025 [facility] ([place] [place]ro [facility] Orders, [address], [address], [place], [address], 5 15:53:04 MAMMO, screening , digital, bilateral - Breast Aspiratio n and/or Biopsy if needed 2022 023 [facility] ([facility]), [address] [place], [address], 3 17:41:43 bone density 2022 023 [facility]), [address] [place], [address], 4 07:27:36 MAMMO, screening , digital, bilateral - patient aware needs to go 2021 022 [facility] ([facility]), [address] [place], [address], 2 15:31:33 bone density 2021 022 [facility]), [address] [place], [address], 4 07:36:31 MAMMO, screening , digital, bilateral 2020 021 [email or web address] [place], [address], 3 07:38:19 MAMMO, screening , digital, bilateral 2019 020 [facility]), [address] [place] [address], [address], 0 16:31:27 bone density 2019 020 [email or web address] [facility]), [address] [place] [address], [address], 1 07:23:18 Medication Orders None recorded. Patient TargetsNo targets recorded. Patient Instructions Encounter Date Encounter Id Patient Instructions Last Modified By Organization Details Last Modified Time 04/14/2020 [id number] She is here for annual exam, is doing well. ___ Note from 2019: She is here for annual exam, is doing well but still using a cane due to her knee replacement. She has a past history of right breast cancer, and also of FRANCISCO II. Her sister had an MA and her brother in law had 2 strokes in the past year, so she is doing most of the running with her. Her partner Rik is her health care proxy. She appears to be doing well. She is still usign a cane, The knee operation was botched, it's not getting any better. She is going to go to [place] to have it redone once covid is [...] questions answered. Not available 04/14/2020 13:35:48 04/21/2021 [id number] learning about healthy weight Not available 04/21/2021 [...] do this. Not available 04/21/2021 14:05:17 04/26/2022 [id number] advance benefici elijah notice information Not available [...] the breast. Not available 04/26/2022 14:20:32 06/28/2023 [id number] advance benefici elijah notice information Not available [...] the breast. Not available 06/28/2023 14:57:22 09/17/2024 [id number] advance benefici elijah notice information Not available [...] DO Not Attach Compendium, Do Not Delete/merge, [address] 04/21/2021 13:17:31 04/14/20 20 04/14/2020 pap, LB, vagin al [id number] ThinP rep Pap, Image d: NEGAT MALENA [...] neg, z12.4 , z91.8 9 Not Available [facility], Cytopathology Service [address] [place], [address], 04/16/2020 12:20:49 04/21/20 21 04/21/2021 PAP1C ASE [email or web address] ThinP rep Pap, Image d: NEGAT MALENA [...] ASCUS . lps neg, Z12.4 Not Available [facility], Cytopathology Service [address] [place], [address], 04/24/2021 12:11:30 04/26/20 22 04/26/2022 PAP1C ASE [id number] ThinP rep Pap, Image d: NEGAT MALENA [...] ause, lps neg, [Z01. 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 [facility]fo [facility] Refer ence [facility] t[facility] Cytol ogy, [address] [place] [facility] [place] Histo ry (othe r): Z91.8 9, routi ne scree n, Medic are scree aamir pap smear -high risk, LPS neg Phone #: [phone], On-Ca ll Patho logis t: [id number] Not Available [facility] (Centralized Electronic Ordering - All Locations) Patient Can Go To The Location Of Their Choice, [address] 07/04/2023 13:49:42 09/17/19 25 09/19/2024 IGP, RFX APTIM A HPV ASCU diagnosis: Commen t NEGAT MALENA FOR INTRA EPITH ELIAL LESIO N OR MALIG NATASHA . Not Available [facility] ([facility]) [address] [place], [address], 09/19/2024 18:16:26 09/17/19 25 09/19/2024 IGP, RFX APTIM A HPV ASCU specimen adequacy: Abril galvan Satis facto ry for evalu ation . Not Available [facility] ([facility]) [address] [place], [address], 09/19/2024 18:16:26 09/17/19 25 09/19/2024 IGP, RFX APTIM A HPV ASCU clinician provided ICD10: Abril galvan Z91.8 9 Not Available [facility] ([facility]) [address] [place], [address], 09/19/2024 18:16:26 09/17/19 25 09/19/2024 IGP, RFX APTIM A HPV ASCU performed by: Marty Escobar (ASCP ) Not Available [facility] ([facility]) [address] [place], [address], 09/19/2024 18:16:26 09/17/19 25 09/19/2024 IGP, RFX APTIM A HPV ASCU . . Not Available [facility] ([facility]) [address] [place], [address], 09/19/2024 18:16:26 09/17/19 25 09/19/2024 IGP, RFX [...] ts do occur . Not Available [facility] ([facility]) [address] [facility], [place], [address], 09/19/2024 18:16:26 09/17/19 25 09/19/2024 IGP, RFX APTIM A HPV ASCU test methodology: Commen t This liqui d based ThinP rep(R ) pap test was tasneem cevallos with the use of an image guide karlene morris. Not Available [facility] ([facility]) [address] [facility], [place], [address], 09/19/2024 18:16:26 09/17/19 25 09/19/2024 IGP, RFX APTIM A HPV ASCU . Commen t The HPV DNA refle x crite kimberly were not met with this speci men resul t there fore, no HPV testi ng was perfo rmed. Not Available [facility] ([facility]) [address] [facility], [place], [address], 09/19/2024 18:16:26 06/26/20 20 06/26/2020 MAMMO , tasneem rutledge, digit al, bilat eral No observ ation record ed. [facility] [address], [address], 06/27/2020 08:43:42 05/27/20 22 05/27/2022 MAMMO tasneem, digit al, bilat eral [place], [address], 05/27/2022 15:32:50 07/26/20 23 07/26/2023 MAMMO tasneem, digit al, bilat eral No observ ation record ed. Not Available 07/07 07:52:48 10/19/19 25 10/19/2024 MAMMO tasneem, digit al, bilat eral No observ ation record ed. [facility] [address] [place], [address], 10/22/2024 07:10:58 Result Notes None recorded. 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 Lizeth Herman MD [address], [place], [address], [place] [facility], 6 10:54:46 Gastroduo denitis 995880569 Active Lizeth Herman MD [address], [place], [address], [place] [facility], 6 10:54:46 Atypical squamous cells of undetermi mart significa nce on cervical Papanicol aou smear 140014790 Active Lizeth Herman MD [address], [place], [address], [place] [facility], 6 10:54:46 Gastritis 6366672 Active Lizeth Herman MD [address], [place], [address], [place] [facility], 6 10:54:46 Family history of malignant neoplasm of ovary 184854650 Active Lizeth Herman MD [address], [place], [address], [place] [facility], 6 10:54:46 Primary malignant neoplasm of female breast 15914806 Active Lizeth Herman MD [address], [place], [address], [place] [facility], 6 10:54:46 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 Lizeth Herman MD [address], [place], [address], [place] [facility], 6 10:54:46 Vulval intraepit helial neoplasia grade 1 619352532 Active Lizeth Herman MD [address], [place], [address], [place] [facility], 6 10:54:46 Vitamin D deficienc y 18207291 Active Lizeth Herman MD [address], [place], [address], [place] [facility], 6 10:54:46 Mammograp hy abnormal 278507480 Active Lizeth Herman MD [address], [place], [address], [place] [facility], 6 10:54:46 Personal history of primary malignant neoplasm of breast 482591108 Active 2016 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 Lizeth Herman MD [address], [place], [address], [place] [facility], 1 14:00:48 Osteoporo sis 48326647 Active 2016 Lizeth Herman MD [address], [place], [address], [place] [facility], 7 15:00:50 Asthma 963303205 Active 2016 Lizeth Herman MD [address], [place], [address], [place] [facility], 7 15:02:03 History of dysplasia of vulva 105950205698 105 Active 2018 Lizeth Herman MD [address], [place], [address], [place] [facility], 15:18:36 Urinary incontine nce 074162243 Active 2020 Lizeth Herman MD [address], [place], [address], [place] [facility], 14:03:30 Problem Notes None recorded. Procedures Surgical History Date Name Laterality Status Provider Name and Address Organization Details Recorded Time 07/06/20 23 Most Recent Mammogram completed Irma Meczywor [place] - [facility], 09/17/2024 14:33:36 07/22/20 21 procedure on back completed Irma Meczywor [place] [facility], 04/26/2022 13:18:20 12/03/19 17 Most Recent Bone Density completed Irma Meczywor [place] - [facility], 12/14/2016 14:45:19 09/05/19 14 Other completed Irma Meczywor [place] [facility], 12/10/2015 10:18:06 12/13/19 13 Colposcopy completed Lizeth Herman MD [address], [place], [address], [place] [facility], 12/12/2012 13:07:56 09/05/19 12 Other completed Irma Meczywor [place] [facility], 08/08/2012 13:59:44 09/05/19 09 Other completed Irma Meczywor [place] [facility], 12/14/2016 14:44:01 09/05/19 03 Breast Biopsy completed Lizeth Herman MD [address], [place], [address], [place] [facility], 04/21/2021 14:00:34 09/05/18 94 Other completed Irma Meczywor [place] [facility], 08/08/2012 13:59:44 09/05/18 77 Appendectomy completed Irma Meczywor [place] [facility], 08/08/2012 13:59:44 09/05/18 77 Total Abdominal Hysterectomy completed Lizeth Herman MD [address] [facility],[address], [place], [address], JOSEPH[place] Castillo [facility], 08/08/2012 14:09:00 Imaging Results None recorded. Procedure Notes None recorded. Medical Equipment None Reported. Allergies Allergen ID Allergen Name Allergen Category Reaction Reaction Severity Criticality Documentation Date Start Date Code Code System Note Provider Name and Address Organization Details Recorded Time 60050 egg extract food,medi cation rash Not available Not available 09/11/2013 93351 15 RxNorm JOSEPHINE Berg in [facility], 4 13:40:00 5521 Avelox medicatio n other mild Not available 08/08/2012 11109 6 RxNorm welts JOSEPHINE Berg in [facility], 2 13:59:45 5522 Product containin g penicilli n (product) medicatio n rash Not available Not available 08/08/2012 22585 8001 SNOMED JOSEPHINE Berg in [facility], 2 13:59:45 5523 Levaquin medicatio n other mild Not available 08/08/2012 01839 2 RxNorm Irma AcostawJOSEPHINE salazar in [facility], 2 13:59:45 Medications Name Sig Start [...] Body height Body temperature Heart rate Systolic And Diastolic Provider Name and Address Organization Details Last Updated DateTime 5 40703.5 2 g 30.9 kg/m2 175.26 cm 97.4 [degF] 84 /min 146/75 mm[Hg] Irma Potter in [facility], 5 14:27:15 Date Recorded Body height Body mass index (BMI) Body weight Body temperature Heart rate Systolic And Diastolic Provider Name and Address Organization Details Last Updated DateTime 0 147.32 cm 40.1 kg/m2 85442.0 2 g 97.4 [degF] 88 /min 133/49 mm[Hg] Gena Potter in [facility], 0 13:08:32 Date Recorded Body weight Body mass index (BMI) Body height Body temperature Heart rate Systolic And Diastolic Provider Name and Address Organization Details Last Updated DateTime 1 45439.7 5 g 43.1 kg/m2 147.32 cm 97.4 [degF] 81 /min 148/60 mm[Hg] Irma Potter in [facility], 1 13:26:01 Date Recorded Body height Body mass index (BMI) Body weight Heart rate Body temperature Systolic And Diastolic Provider Name and Address Organization Details Last Updated DateTime 2 146.05 cm 46.4 kg/m2 99484.8 6 g 81 /min 97.5 [degF] 124/57 mm[Hg] Irma Potter in [facility], 2 13:11:32 Date Recorded Body temperature Body weight Body mass index (BMI) Body height Heart rate Systolic And Diastolic Provider Name and Address Organization Details Last Updated DateTime 3 97.9 [degF] 86343.1 2 g 43.9 kg/m2 147.32 cm 83 /min 152/57 mm[Hg] Irma Potter in [facility], 3 13:33:28 Social History Question Answer Notes LastModified by Organizat ion Details LastModified Time Tobacco Smoking Status Former Smoker quit 40 yrs ago Not Available [facility] 07/08/2020 03:19:37 How Many Years Have You Consumed Alcohol? 50 Information not available 04/21/2021 What Is Your Level Of Caffeine Consumption? Occasional [id number] Information not available 07/08/2020 In The 14 [...] For COVID-19? No Information not available 04/21/2021 What Type Of Diet Are You Following? REGULAR [id number] Information not available 07/08/2020 Which Illicit Or Recreational Drugs Have You Used? No [id number] Information not available 07/08/2020 Do You Reside In Or Have You Traveled To An Area Where Ebola Virus Transmission Is Active? No [id number] Information not available 07/08/2020 Education 2 Year College Informatio n not available 08/08/2012 What Is The Highest Grade Or Level Of School You Have Completed Or The Highest Degree You Have Received? [id number] Information not available 04/21/2021 How Many Days [...] available 04/21/2021 Are You Sexually Active? Yes [id number] Information not available 07/08/2020 At What Age Did You Start Smoking Tobacco? 16 Information not available 04/21/2021 How Much Tobacco Do You Smoke? No [id number] Information not available 07/08/2020 General Stress Level Medium Information not available 09/17/2024 How Many Years Have You Smoked Tobacco? 10 [id number] Information not available 07/08/2020 Have You Recently (within The Last 12 Weeks, Or During A Current ) Traveled To Or Lived In A Zika-affected Area? No Information not available 12/14/2016 How Many Days In The Past Year Have You Consumed 4 Or More Drinks? 0 Information no t available 04/21/2021 Sex: Female Functional Status Question Answer Note LastModified by Organizat ion Details LastModified Time Do you use any illicit or recreational drugs? No Information not available 04/21/2021 Do you or have you ever used any other forms of tobacco or nicotine? No Information not available 04/21/2021 What is your level of alcohol consumption? Occasional [id number] Information not available 07/08/2020 Do you or have you ever used smokeless tobacco? Never used smokeless tobacco [id number] Information not available 07/08/2020 Are you currently employed? No Information not available 04/21/2021 What is your occupation? retired Information not available 09/11/2013 Do you or have you ever used e-cigarettes or vape? Never used electronic cigarettes [id number] Information not available 07/08/2020 What is your exercise level? None Information not available 04/21/2021 Mental Status Question Answer Note LastModified by Organization D etails LastModified Time Do you feel stressed (tense, restless, nervous, or anxious, or unable to sleep at night)? [id number] Information not available 09/17/2024 Family History Relationship Description Onset Age of this Age Resolved Age Notes LastModified by Organization Details LastModified Time Mother Asthma Not availabl e 12/10/2015 10:28:04 Mother Heart disease previo usly record ed as Heart Proble m Not available 12/10/2015 10:28:04 Paternal Aunt Malignant neoplasm of breast 30 60 bilate ral (previ ously record ed as Breast Cancer ) Not available 11/14/2014 13:28:39 Unspecified Relation Malignant neoplasm of ovary 35 35 matern al niece [...] Influenza, split virus, quadrivalent, preservative 1 completed [facility], 06/28/2023 13:24:44 Influenza, adjuvanted, quadrivalent, PF 0 completed JOSEPHINE [facility], 06/28/2023 13:24:44 COVID-19, mRNA, LNP-S, PF, 100 mcg/0.5mL dose or 50 mcg/0.25mL dose 1 completed Irma Meczywor null, [place] [facility], 06/28/2023 13:24:44 COVID-19, mRNA, LNP-S, PF, 100 mcg/0.5mL dose or 50 mcg/0.25mL dose 1 completed Irma Meczywor null, [place] [facility], 06/28/2023 13:24:44 COVID-19, mRNA, LNP-S, PF, 30 mcg/0.3 mL dose 2 completed Irma Meczywor null, [place] [facility], 06/28/2023 13:24:44 COVID-19, mRNA, LNP-S, PF, 30 mcg/0.3 mL dose, fabricio-sucrose 2 completed Irma Meczywor null, [place] [facility], 06/28/2023 13:24:44 Pneumococcal conjugate PCV 13 6 completed Irma Meczywor null, [place] [facility], 06/28/2023 13:24:44 zoster recombinant 3 completed Irma Meczywor null, [place] [facility], 09/17/2024 14:25:43 Influenza, adjuvanted, quadrivalent, PF 2 completed Irma Meczywor null, [place] [facility], 09/17/2024 14:25:43 COVID-19, mRNA, LNP-S, PF, 100 mcg/0.5mL dose or 50 mcg/0.25mL dose 1 completed Irma Meczywor null, [place] [facility], 09/17/2024 14:25:43 COVID-19, mRNA, LNP-S, bivalent, PF, 30 mcg/0.3 mL dose 2 completed Irma Meczywor null, [place] [facility], 09/17/2024 14:25:43 Past Encounters Encounter ID Performer Location Encounter Start Date Encounter Closed Date Diagnosis/Indication Diagnosis SNOMED-CT Code Diagnosis ICD10 Code Diagnosis IMO Codes Diagnosis Note [id number] MD LIZETH Covington MD [address] [id number] 08/08/2012 13:22:43 08/10/2012 09:52:22 [id number] MD LIZETH Covington MD [address]hinav [address],[place] [id number] 09/11/2013 13:26:47 09/12/2013 08:53:20 Screening for malignant neoplasm of cervix 552335194 Screening mammography 09598886 [id number] MD LIZETH Covington MD [facility] [address],[place] [id number] 11/16/2012 14:26:27 11/16/2012 16:27:58 [id number] MD LIZETH Covington MD [facility] [address] [id number] 12/12/2012 08:04:19 12/13/2012 12:10:32 [id number] MD LIZETH Covington MD [facility] [address],[place] [id number] 03/13/2013 13:21:29 03/15/2013 08:40:53 [id number] MD LIZETH Covington MD [address] [place] [address],[place] [id number] 03/26/2013 13:16:42 03/26/2013 16:27:27 [id number] MD LIZETH Covington MD [address] [place] [address],[place] [id number] 11/14/2014 13:00:38 11/14/2014 14:31:18 Specialized medical examination 35259444 Screening for malignant neoplasm of rectum 340187213 Screening mammography 41186313 [id number] MD LIZETH Covington MD [address] [place] [address],[place] [id number] 12/10/2015 10:02:13 12/10/2015 11:53:16 Sampling of vagina for Papanicolaou smear 973860610 Z91.89 Screening mammography 24 610048 Z12.31 Mammography abnormal 168 224582 R92.8 [id number] MD LIZETH Covington MD [address] [place] [address], [address] [place] [id number] 12/14/2016 14:30:00 12/14/2016 16:07:42 Specialized medical examination 79517156 Z01.419 Screening for malignant neoplasm of rectum 126399652 Z12.12 Screening mammography 24 537157 Z12.31 Personal h istory of primary malignant neoplasm of breast 318801996 Z85.3 Osteoporosis 07711453 M8 1.0 Asthma 736481825 J45.90 9 Cares for self 666738919 Z76.89 [id number] MD LIZETH Covington MD [address] [place] [address], [address] [place] [id number] 12/28/2016 13:00:53 12/28/2016 15:20:31 Breast lump 01921112 N63 Personal h istory of primary malignant neoplasm of breast 958935389 Z85.3 [id number] MD LIZETH Covington MD [address] [place] [address], [address] [place] [id number] 5 03/16/2018 13:02:34 03/16/2018 14:59:41 Specialized medical examination 80253975 Z01.419 Screening for malignant neoplasm of rectum 307434394 Z12.12 Screening mammography 24 580492 Z12.31 [id number] MD LIZETH Covington MD [address] [place] [address], [place] [place] [id number] 5 04/12/2019 14:34:34 04/12/2019 15:48:24 Screening for malignant neoplasm of cervix 097113557 Z12.4 Screening mammography 24 610990 Z12.31 Screening for osteoporosis 779341225 Z13.820 Personal h istory of primary malignant neoplasm of breast 554246468 Z85.3 History of gynecological disorder 420059348 Z87.412 [id number] MD LIZETH Covington MD [address] [place] [address] [place], [place] [address] [place] [address] 04/14/2020 13:06:18 04/14/2020 14:32:12 Sampling of vagina for Papanicolaou smear 369204906 Z91.89 Screening mammography 24 328117 Z12.31 Screening for osteoporosis 507853429 Z13.820 [id number] MD LIZETH Covington MD [address] [place] [address] [place] [address] 04/21/2021 13:15:34 04/21/2021 14:24:06 Specialized medical examination 50752787 Z01.419 Screening for malignant neoplasm of rectum 648434262 Z12.12 Screening mammography 24 312755 Z12.31 Urinary incontinence 165 228187 R32 [id number] MD LIZETH Covington MD [address] [place] [address] [place] [address] 5 04/26/2022 13:03:14 04/26/2022 14:49:27 History of clinical finding in subject 348106743 Z91.89 Screening mammography 24 860629 Z12.31 Advance care planning 71 3461723 Z71.89 Screening for osteoporosis 478313998 N95.8 History of dysplasia of vulva 2016886852 81280 Z87.412 Personal h istory of primary malignant neoplasm of breast 489214082 Z85.3 Urinary incontinence 165 096222 R32 30568 MD LIZETH Covington MD [address] [place] [address] [place] [address] 5 06/28/2023 13:18:49 06/29/2023 08:06:11 History of clinical finding in subject 018015010 Z91.89 Screening mammography 24 701926 Z12.31 Advance care planning 71 1287801 Z71.89 Screening for osteoporosis 110996506 N95.8 [id number] MD LIZETH Covington MD [address] [place] [address] [place] [address] 09/17/2024 14:21:13 09/17/2024 15:53:03 History of clinical finding in subject 305253893 Z91.89 Screening mammography 24 067232 Z12.31 Advance care planning 71 9961516 Z71.89 Screening for osteoporosis 803940322 N95.8 Health Concerns Section Related Observation LastModified by Organization Detai ls LastModified Time None Recorded Concern Status LastModified by Organization Details LastModified Time None Recorded Advance Directives Directive None Recorded Payers Insurance Date Sequence Insurance Name Policy Number Policy Kelly Covered Member ID Kelly Member ID Guarantor Name 12/30/2015 2 UNSPECIFIED REMIT PAYOR Bernard Lorenz 04/20/2014 1 [facility] (HMO) [id number] Neo Lorenz [id number] Bernardrc Lorenz 09/14/2024 1 [employer] [facility] (MEDICARE [place]PLACEMENT PPO) [id number] Bernardrc Lorenz [id number] Bernard Lorenz 04/26/2022 1 [employer] [facility]: PREFERRED BLUE - DEDUCTIBLE (PPO) [id number] Neo Lorenz [id number] Bernard Lorenz Notes Date Note Type Note Provider [...] of FRANCISCO II. Her sister had an MA and her brother in law had 2 strokes in the past year, so she is doing most of the running with her. Her partner Rik is her health care proxy. Lizeth Herman MD [address] [facility],[address], [place] [address], [place] - [facility], 04/14/2020 13:36:19 04/21/2021 text/html She [...] 30 for endometriosis. Lizeth Herman MD [address] [facility],[address], [place], [address], [place] - [facility], 04/21/2021 14:05:44 04/26/2022 text/html She is [...] 30 for endometriosis. Lizeth Herman MD [address] 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 She is BRCA negative. Lizeth Herman MD [address] [facility],[address], [place], [address], [place] - [facility], 09/17/2024 14:49:47 OBGyn Episode No OBEpisode recorded.
--- OUTSIDE RECORDS SUMMARY | 2025-06-26 18:30 | XMS_ITS | Clinical Summary ---
Author Organization [facility] Address [address] [place] [address] Care Team Providers Care Skidder Loader Name Role Phone Mannie Khan MD Primary Care Provider [phone] Surgical History Surgery Date Site/Laterality Comments MASTECTOMY 2002 PROCEDURE: HISTORICAL MASTECTOMY; COMMENT: right breast with subsequent reconstruction TONSILLECTOMY PROCEDURE: HISTORICAL TONSILLECTOMY OTHER SURGICAL HISTORY 1977 PROCEDURE: HI TOTAL ABDOMINAL HYSTERECT W/WO RMVL TUBE OVARY; COMMENT: TAHBSO for endometriosis, took ERT for 2 years only after surgery BREAST REDUCTION 2002 PROCEDURE: HI BREAST REDUCTION; COMMENT: left breast Medical History [...] Health Maintenance Due Date Last Done Comments COVID-19 Vaccine (#1) 1950 DTaP,Tdap,and Td Vaccines (1 - Tdap) 02/02/1964 Pneumococcal Vaccine: 50+ Ye ars (1 of 2 - PCV) 02/02/1964 Zoster Vaccines (1 of 2) 02/02/1964 RSV Immunization Adult Patie nts (1 - 1-dose 75+ series) 02/02/2020 Cholesterol Screening (Lipid Panel) 08/15/2022 Colorectal Cancer Screening: Stool Based Tests (FOBT/FIT) 08/15/2022 Falls Risk Assessment 08/15/2022 Social Influencers of Health Screening 08/15/2022 Depression Screening 09/05/2024 Influenza Vaccine (#1) 2025 Hypertension/CHF/CAD Annual BMP Blood Test 05/22/2025 Osteoporosis Screening (Bone Density Screening) 05/12/2031 05/12/2021 [...] Procedure Name Priority Date/Time Associated Diagnosis Comments YARITZA DEXA AXIAL SKELETON Routine 05/12/2021 4:45 PM EDT Other specified disorders of bone density and structure, multiple sites from Last 3 Months or Most Recently Relevant to Health Maintenance Results * [facility] DEXA AXIAL SKELETON (05/12/2021 4:45 PM EDT) Anatomical Region Laterality Modality Mammography 05/12/2021 1:59 PM EDT Narrative 05/12/2021 4:45 PM EDT [facility] Diagnostic Imaging Department [address] [place] [address] Patient: CRISTINA LEIJA Suzanne Segovia/Age/Sex: 1945 - 76 - F Unit#: [id number] [facility] Mnemonic/Ordering Site: MAMDEXAAX/SPMAM Ordering Physician: BILLY LOTT MD, PHD [facility] Dexa Axial Skeleton - 05/12/211421 HISTORY: The patient is a 76-year-old postmenopausal female with clinical concern for metabolic bone disease. FINDINGS: Dual energy x-ray absorptiometry of the lumbar spine and femurs is performed. The mean bone mineral density at L1-L4 (Excluding L3) is 1.2-3 gm/cm2. This yields a T-score of 0.4 and a Z-score of 1.3 which is diagnostic of normal bone mineral density. The mean bone mineral density of the femurs bilaterally is 0.713 gm/cm2. This yields a T-score of -2.3 and a Z-score of -1.0 which is diagnostic of osteopenia. IMPRESSION: 1. Osteopenia. 2. FRAX analysis yields a 10-year probability of major osteoporotic fracture of 29% and a 10-year probability of hip fracture of 8.7%. Code 02104 Dictating Physician: GONSALO JOHNSON MD Electronically Signed by: GONSALO JOHNSON MD Dic Date/Time: 05/12/211641 Sign date/Time: 05/12/211644 Procedure Note Dali Johnson MD - 09/01/2022 [facility] Diagnostic Imaging Department [address] [place] [address] Patient: CRISTINA LEIJA Suzanne /Age/Sex: 1945 76 - F Unit#: [id number] Location/Status: [facility] Ordering Physician: BILLY OLTT MD, PHD Y[facility] Dexa Axial Skeleton - 05/12/21 0162 HISTORY: The patient is a 76-year-old postmenopausal [...] probability of hip fracture of 8.7%. Code 82030 Dictating Physician: GONSALO JOHNSON MD Electronically Signed by: GONSALO JOHNSON MD Dic Date/Time: 05/12/21 164 Sign date/Time: 05/12/21 164 Billy Lott MD IMG BI PROCEDURES Final R esult from Last 3 Months or Most Recently Relevant to Health Maintenance Care Teams Skidder Loader Relationship Specialty Start Date End Date Mannie Khan MD [address] [place] [address] [address] [place], [place] PCP - General Internal Medicine 08/18/21
== END 2025-06-26 13:44 | disposition home or self-care (01) ==
LOC: HO.HOS 13:10
PROVIDERS: PCP Internal Medicine; Visit Provider Orthopaedic Surgery
DX: M25.561 Pain in right knee (principal); M25.562 Pain in left knee
CPT/HCPCS: 99213; G2211

== ENCOUNTER → 2025-06-26 13:18 | Outpatient (BNV) | payer MEDICARE, SELFPAY | PROVIDERS: Visit Provider Radiology Vascular & Interventional Radiology | DX: M25.461 Effusion, right knee (principal); M25.462 Effusion, left knee; Z96.653 Presence of artificial knee joint, bilateral | CPT/HCPCS: 73562 ==